=== PATIENT | male | born 1940 | race Caucasian/White ===

== ENCOUNTER 2023-12-03 11:48 | Inpatient (IN) | payer MEDICARE, SELFPAY ==
[2023-12-03] VITALS (10 sets, daily range): BP systolic 90–138; BP diastolic 47–89; BMI 29.8; BMI 28.6
[2023-12-03 09:14] LABS: % Basophils 0.3 % (0-2); % Eosinophils 0.4 % (0-6); % Immature Granulocytes 0.1 % (0-0.5); % Lymphocytes 87.9 % (20.5-51.1); % Monocytes 1.5 % (1.7-9.3); % Neutrophils 9.8 % (42.2-75.2); Absolute Basophils 0.1 10^3/uL (0-0.2); Absolute Eosinophils 0.1 10^3/uL (0-0.7); Absolute Immature Granulocytes 0.1 10^3/uL (0-0.05); Absolute Lymphocytes 30.4 10^3/uL (1.2-3.4); Absolute Monocytes 0.5 10^3/uL (0.1-0.6); Absolute Neutrophils 3.4 10^3/uL (1.4-6.5); Hematocrit 48.9 % (39.0-52.0); Mean Corp Hgb Conc. 32.7 g/dL (33.0-37.0); Mean Corpuscular Hgb 30.4 pg (27.0-31.0); Mean Corpuscular Volume 92.8 fL (80.0-94.0); Mean Platelet Volume 10.2 fL (7.4-10.4); Nucleated Red Blood Cells % 0 % (-); Platelet Count 120 10^3/uL (130-400); Red Blood Cell Count 5.27 10^6/uL (4.70-6.10); Red Cell Dist. Width 14.3 % (11.5-14.5); White Blood Cell Count 34.6 10^3/uL (4.8-10.8)
[2023-12-03 09:16] LABS: Blood Urea Nitrogen 19 mg/dl (9-20); Calcium 9.5 mg/dl (8.4-10.2); Carbon Dioxide 28 mmol/L (22-30); Chloride 102 mmol/L (98-107); Glucose 104 mg/dl (70-99); Potassium 4.2 mmol/L (3.5-5.1); Sodium 139 mmol/L (135-145); eGFR > 60.00
[2023-12-03 09:35] LABS: NT-proBNP 3640 pg/ml; Troponin I 0.061 ng/ml
[2023-12-03 09:47] LABS: D-Dimer 1.15 ug/mlFEU (0.00-0.50)
[2023-12-03] MEDS: LASIX 40 MG IV (10:20)
--- NOTE | 2023-12-03 11:32 | HPS.HSE ---
Family Physician
-
Family Physician: Daniele Moreno
Chief Complaint
-
Shortness of breath.
History of Present Illness
83-year-old gentleman with longstanding history of hypertension presented with having low blood pressure within the last week with dizziness and shortness of breath.
Over the last 2 months he started to notice shortness of breath. It was initially exertional when he was walking his dog or going uphill. But today he had it at rest. No chest pains or palpitations.
Has been taking antihypertensives for 5 years but within the last week he started to notice low blood pressure and was feeling dizzy with it.
No prior history of cardiac disease-no known atrial arrhythmia, CAD. Remembers him being told he had a murmur when he was a kid and that disappeared when he was an adult.
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 He states he did not do much of symptoms and diet was discovered on routine lab work. No fevers, night sweats or weight changes.
Subtle right more than left ankle edema noted. Denies any orthopnea or PND currently.
Cough with rattling today.
No chronic lung disease.
Medical History
Past Medical History
Past Medical History: Reports Cancer (CLL) and HTN
Past Surgical History: Reports Orthopedic (Bilateral hip replacement, bilateral knee replacement)
Social History
Tobacco: Former Smoker (QUIT IN )
Alcohol: None
Drug: None
Living: With Family
Family History
Family History: Not pertinent
Allergies / Home Medications
Allergies reflects when Allergies were last updated in Connect.
Home Medications with original date entered in Connect
Allergy/Medication List:
Allergies
Allergy/AdvReac Type Severity Reaction Status Date / Time
formaldehyde [Formaldehyde] Allergy Rash Verified 12/03/23 08:17
latex [Latex] Allergy Rash Verified 12/03/23 08:17
environmental Allergy congestion Uncoded 12/03/23 08:17
petroleum products Allergy Rash Uncoded 12/03/23 08:17
Home Medications
Prevagen 1 tab PO DAILY 03/12/20
betamethasone dipropionate 0.05 % topical cream 1 dose topical PRN PRN skin rash 03/12/20
diphenhydramine HCl 25 mg capsule (Banophen) 25 mg PO HSPRN PRN for sleep 03/12/20
levocetirizine 5 mg tablet (Xyzal) 5 mg PO DAILY 03/12/20
mupirocin 2 % topical ointment 1 applic intranasal BID #1 tube 03/13/20
acetaminophen 500 mg tablet (Tylenol Extra Strength) 1,000 mg (2 x 500 mg) PO Q6H ##0 03/25/20
aspirin 325 mg tablet 325 mg PO Daily #1 tab 03/25/20
docusate sodium 100 mg capsule 100 mg PO BID #1 cap 03/25/20
famotidine 20 mg tablet 20 mg PO HS #30 tabs 03/25/20
naproxen sodium 220 mg tablet (Aleve) 440 mg (2 x 220 mg) PO BID ##0 03/25/20
olmesartan 20 mg-amlodipine 5 mg-hydrochlorothiazide 12.5 mg tablet 1 ea PO DAILY ##0 03/25/20
ondansetron HCl 4 mg tablet 4 mg PO Q6HPRN PRN nausea #15 tabs 03/25/20
oxycodone 5 mg tablet 5 mg PO Q6HPRN PRN moderate-severe pain #35 tabs 03/25/20
sennosides 8.6 mg tablet (senna) 8.6 mg PO BID #2 tabs 03/25/20
Review of Systems
-
A 12 point ROS was completed and negative except as noted: Yes
Physical Exam
Vital Signs
Vital Signs
Temp Pulse Resp BP Pulse Ox
98.7 F 102 23 138/73 92
12/03/23 08:15 12/03/23 11:00 04/07/24 11:00 12/03/23 10:21 12/03/23 11:00
Physical Exam
General: Comfortable
HEENT: Moist mucous membranes
Respiratory: Crackles (few currently in right lung base) and Non Labored Respirations; No Wheezes or Accessory Resp Muscle Use
Cardiac: S1/S2, Irregular Rhythm, Murmur and JVD
GI: Soft, Non Tender and No Hepatosplenomegaly
Musculoskeletal: No No Edema (trace rt foot /ankle edema)
Neuro: AO x 3
Psych: Calm
Laboratory Results
-
12/03/23 08:44
12/03/23 08:44
Laboratory Results
Troponin I 0.061 ng/ml H* 12/03/23 08:44
Data Reviewed
-
Diagnostic Radiology: Report Reviewed by me (cxr)
Lab Data: Labs Reviewed by me
Impression/Plan
-
progressive shortness of breath with acute worsening-clinical symptoms and signs suggestive of acute CHF decompensation. He has a bilateral pleural effusion with increased pulmonary vasculature and interstitial prominence without prior history of
lung disease. His BNP is elevated. He got atrial arrhythmia on EKG -atrial tach vs afib. He has cardiac murmur which is new.. Due to elevated D-dimer a CT chest was requested in the ED-pending.
Admit to telemetry.
Start on IV Lasix
Obtain echocardiogram
Consult cardiology
Abnormal troponins-suspect secondary to CHF. No chest pain.Follow for now
HTN - with Issues of dizziness and low blood pressure at home. Hold his antihypertensive.
CLL-patient was recently given a diagnosis of CLL. Elevated white count with lymphocytosis noted. Continue to follow.
Full code
--- NOTE | 2023-12-03 12:06 | ED.GENMED ---
History of Present Illness
General
Chief Complaint: Breathing Problem
Time Seen by Provider: 12/03/23 08:25
Travel History
Have you had any contact with someone who has COVID-19?: No
Do you have any symptoms of coronavirus? Fever > 100 degrees, chills, cough, shortness of breath, sore throat, loss of taste or smell, muscle aches, or headache?: No
History of Present Illness
History of Present Illness:
Progressive shortness of breath over the last 2 weeks. Much worse with exertion and now at rest
Past History
Past History
ED Past Medical History: None
ED Past Surgical History: None
Social History
Tobacco: Non-smoker
Alcohol: None
Drug: None
Living: with family
Phy Exam
Physical Exam
Physical Exam:
GENERAL: Alert and oriented in no apparent distress
EYE: Orbits normal.
NECK: Supple, no thyroid palpable
ENT: Pharynx without erythema
CARDIAC: Irregular irregular mild midsystolic murmur
LUNGS: Mild tachypnea at rest. Bibasilar rales. Distant breath sounds
ABDOMEN: Soft, without focal tenderness or distention
NEUROLOGICAL: Alert and oriented , grossly non-focal
SKIN: Warm and dry, no rash or lesion, no discoloration, skin intact.
MUSCULOSKELETAL: No edema,no deformity.Good color
PSYCH: Normal and appropriate interaction.
Scores
Heart Failure Risk
Heart Failure Risk Score: Yes
History of Stroke or TIA: No
History of intubation for respiratory distress: No
Heart rate on ED arrival >/= 110: No
SaO2 <90% on arrival on room air: Yes
HR >/=110 during 3min walk test (or too ill to perform test): Yes
ECG has acute ischemic changes: No
Urea >/=12mmol/L (BUN 33.6mg/dL): No
Serum CO2>/=35mmol/L: No
Troponin I or T elevated to PR Level (0.4mg/dL): No
NT-proBNP >/=5,000ng/L (5,000pg/ml): No
HF Risk Score: 3
Admission Status: HIGH RISK 15.9% Consider SNF treatment or admission to hospital
Course
Orders/Labs/Results
Orders:
Orders
12/03/23 08:17
Electrocardiogram (*1) Urgent
Reason for Study: Shortness of Breath
EKG- Treatment ONCE
12/03/23 08:26
Cardiac Monitoring- Treatment ONCE
IV Insert/Care/Rem.- Treatment PRN
CR Chest - 2 Views Urgent
Comment:
Reason For Exam: sob
Pulse Ox/cont/shift [RESP] Stat
Quantity: 1
12/03/23 08:44
Basic Metabolic Panel Urgent
Complete Blood Count/With Diff Urgent
D-Dimer Urgent
NT-proBNP Urgent
Troponin I Urgent
12/03/23 09:58
Furosemide [Lasix] 40 mg IV NOW STA
12/03/23 09:59
CT Chest Pe Study Urgent
Comment:
Reason For Exam: sob. pos dimer
12/03/23 11:23
Admit/Transfer Patient As Directed
Co-Sign Provider:
Level of Care: Inpatient admission
Assign to:: Telemetry
Physician / Group: Campos
Diagnosis: Acute CHF
Reason for Telemetry: Acute Heart Failure
Date to Stop Telemetry: 12/06/23
Time to Stop Telemetry: 11:00
Reason for Hospitalization: See progress note
Expected length of stay greater than two midnights?: Yes
ELOS- Estimated Length of Stay in days: 3
I certify the patient meets the requirements for IP care: Yes
12/03/23 11:24
Code Status As Directed
Resuscitation Status: Full Code
12/06/23 11:00
DC Protocol for Telemetry ONCE
Abnormal Lab Results
12/03/23
08:44
WBC 34.6 H 10^3/uL
(4.8-10.8)
MCHC 32.7 L g/dL
(33.0-37.0)
Plt Count 120 L 10^3/uL
(130-400)
Abs Immat Gran (auto) 0.1 H 10^3/uL
(0-0.05)
Absolute Lymphs (auto) 30.4 H 10^3/uL
(1.2-3.4)
Neutrophils % 9.8 L %
(42.2-75.2)
Lymphocytes % 87.9 H %
(20.5-51.1)
Monocytes % 1.5 L %
(1.7-9.3)
D-Dimer 1.15 H ug/mlFEU
(0.00-0.50)
Glucose 104 H mg/dl
(70-99)
Troponin I 0.061 H* ng/ml
12/03/23 08:44
12/03/23 08:44
Vital Signs
Initial and Last Documented VS:
Initial Vital Signs
Temp Pulse Resp BP Pulse Ox
98.7 F 89 20 128/74 91
12/03/23 08:15 12/03/23 08:15 12/03/23 08:15 12/03/23 08:15 12/03/23 08:15
Last Documented Vital Signs
Temp Pulse Resp BP Pulse Ox
98.7 F 95 24 138/73 92
12/03/23 08:15 12/03/23 11:45 12/03/23 11:45 12/03/23 10:21 12/03/23 11:45
MDM/Problems Addressed
Differential Diagnosis Includes:
Patient with shortness of breath shortness of breath with exertion progressive. Testing all consistent with CHF. May be a COPD component. Complicated by atrial fibrillation. Admission for further care and workup
*Radiology
Radiology exam reviewed: preliminary read by ED provider (CHF), radiology read reviewed (CHF) and all reviewed NAD by ED Provider (No pulmonary emboli/pleural effusions)
*Pulse Oximetry
Patient hypoxic: yes
*EKG
Interpreted by ED Provider?: Yes
Interpretation: abnormal
Comparison EKG: changes noted
Heart Rate: 90
Rate: normal
Rhythm: sinus
Dell: normal axis
Interval: normal interval
QRS Pattern: normal QRS
Ischemia: non-specific ST changes
*Binder Coverstitch Interpretation
Rate: normal
Interpretation: abnormal
Heart Rate: 82
Rhythm: a-fib
*Critical Care Note
Total Time (30-74mins, 75-104mins- exclusive of procedures): Not Applicable
Data Reviewed
Review of Other/Old Records Reveals: Labs, Records and Testing
ED Attending Note
-
Portions of this chart may have been created with voice recognition software.� Occasional wrong word or��sound alike� substitutions may have occurred due to the inherent limitations of voice recognition software.
Discharge Plan
Departure
Patient Disposition: Admit
Date of Disposition: 12/03/23
Time of Disposition: 10:00
Presentation/result/management discussed w/ accepting MD/DO: Hospitalist
Discharge Problem:
Significant dyspnea on exertion, Atrial fibrillation new onset, CHF, Significant leukocytosis
Interventions
Interventions:
ED- Cardiac Assessment Last Done: 12/03/23 08:40
ED- Pulmonary Assessment Last Done: 12/03/23 08:40
--- NOTE | 2023-12-03 14:04 | CON.CAR ---
Consultation
Consultation Request
Date/Time Consultation Requested: 12/03/2023
Date/Time Consultation Performed: 12/03/23
Requesting Provider: Dr. Campos
Performing Provider: Dr. Moreira
Reason for Consultation: Heart murmur and arrhythmia
Medical History
-
Chief Complaint: Dyspnea on exertion
History of Present Illness:
83-year-old gentleman with a past medical history of psoriatic arthritis, recent diagnosis of CLL, and hypertension presents for evaluation of worsening shortness of breath with exertion. He states that been present for about a month. He noted
initially when walking uphill after walking his dog. This has been progressive and today was dyspneic even just walking around his house. He denies PND. He always sleeps in a recliner so cannot note orthopnea. No chest pain or pressure. He has
not noted any lower extremity edema. Of note around the time that the symptoms started, he stopped his antihypertensive regimen due to low blood pressure and dizziness. He is a former heavy smoker but quitting in 1979.
Past Medical History
Past Medical History: Cancer (CLL), HTN and Other (Psoriatic arthritis, )
Social History
Tobacco: Former Smoker
Personal: Single
Living: Alone
Family History
Family History: Reviewed & Not Pertinent
Allergies / Home Medications
Allergy/AdvReac Type Severity Reaction Status Date / Time
formaldehyde [Formaldehyde] Allergy Rash Verified 12/03/23 08:17
latex [Latex] Allergy Rash Verified 12/03/23 08:17
environmental Allergy congestion Uncoded 12/03/23 08:17
petroleum products Allergy Rash Uncoded 12/03/23 08:17
�Medication �Instructions �Recorded �Confirmed �Type
Prevagen 1 tab PO DAILY PRN supplement 03/12/20 12/03/23 History
diphenhydramine HCl 25 mg capsule 25 mg PO HS 03/12/20 12/03/23 History
(Banophen)
amlodipine 5 mg-olmesartan 20 mg 0.5 tab PO DAILY 12/03/23 12/03/23 History
tablet
Review of Systems
-
All other systems: Negative unless noted
Physical Exam
Vital Signs
Temp Pulse Resp BP Pulse Ox
98.7 F 85 13 127/65 90
12/03/23 08:15 12/03/23 12:45 12/03/23 12:45 12/03/23 12:00 12/03/23 12:45
Lab Results
12/03/23 08:44
12/03/23 08:44
Troponin I 0.061 ng/ml H* 12/03/23 08:44
Fmd-K-Hwlhpabzokg Pept 3640 pg/ml 12/03/23 08:44
Physical Exam
General: Well Developed, Well Nourished and No Apparent Distress
Respiratory: Clear, Wheezes (none), Crackles (none) and Rhonchi (none)
Cardiac: S1/S2, Regular Rhythm, Murmur (1/6 systolic murmur at the rusb) and JVD (13 cm H20)
GI: Soft and Non Distended
Musculoskeletal: No Clubbing, No Cyanosis and No Edema
Neuro: AO x 3
Impression / Plan
-
Heart failure unspecified type:
-CT and chest x-ray significant for heart failure with large pleural effusions.
-He has had a brisk diuresis to IV Lasix. Will continue. will require intensive monitoring of his electrolytes and bp
-Recommend thoracentesis for better symptomatic improvement if no diuresis stalled by bp
-Unclear etiology---hopefully echo will hint at the cause
-trend troponin
-ischemic eval op vs ip depending on results.
Wandering atrial pacemaker: There is a question of possible atrial fibrillation however I see clear atrial activity with different morphologies. Would continue to monitor on telemetry for development of atrial fibrillation.
Murmur:
RUSB, check echo
Hypertension chronic, had been dizzy at home holding agents for the last month, will need to reconsider as we approach euvolemia
CLL chronic but new diagnosis
Psoriatic arthritis chronic, would update lipid panel for restratification given and risk enhancing feature
Data Reviewed
-
EKG: Tracing Personally Visualized and interpreted (EKG tracing shows wandering atrial pacemaker)
Radiology: Image Personally Visualized and interpreted (Chest x-ray with normal-sized heart silhouette, cephalization, increased interstitial markings)
CT Scan: Image Personally Visualized and interpreted (Large bilateral pleural effusions with atelectasis) and Report Reviewed by me
Labs: Labs Reviewed by me (proBNP 3640 troponin 0.061)
[2023-12-03 15:36] LABS: Troponin I 0.113 ng/ml
[2023-12-03] MEDS: LOVENOX 40 MG SC (17:34)
[2023-12-03 23:59] LABS: Troponin I 0.124 ng/ml
[2023-12-04] VITALS (9 sets, daily range): BP systolic 112–129; BP diastolic 66–78; O2SAT 89–94; BMI 28.3
--- NOTE | 2023-12-04 01:41 | PTCARENOTE ---
Patient`s 3rd troponin elevated at 0.124. BUSINESS RULES ANALYST Carli Youssef notified.
[2023-12-04 07:29] LABS: Troponin I 0.101 ng/ml
[2023-12-04 07:32] LABS: Blood Urea Nitrogen 21 mg/dl (9-20); Carbon Dioxide 30 mmol/L (22-30); Chloride 104 mmol/L (98-107); Estimated Creatinine Clearance 61 ml/min; Glucose 96 mg/dl (70-99); HDL Cholesterol 55 mg/dl; LDL Cholesterol, Calculated 103 mg/dl; Magnesium 1.9 mg/dl (1.6-2.3); Sodium 138 mmol/L (135-145); Total Cholesterol 172 mg/dl (50-199); Triglyceride 71 mg/dl (10-149); Very Low Density Lipoprotein 14 mg/dl (0-30); eGFR > 60.00
[2023-12-04] MEDS: LASIX 40 MG IV (08:01)
[2023-12-04 08:16] LABS: TSH 1.38 uIU/ml (0.47-4.68)
[2023-12-04 08:30] LABS: Hematocrit 44.9 % (39.0-52.0); Mean Corp Hgb Conc. 33.4 g/dL (33.0-37.0); Mean Corpuscular Hgb 30.7 pg (27.0-31.0); Mean Corpuscular Volume 91.8 fL (80.0-94.0); Mean Platelet Volume 10.5 fL (7.4-10.4); Platelet Count 109 10^3/uL (130-400); Red Blood Cell Count 4.89 10^6/uL (4.70-6.10); Red Cell Dist. Width 14.3 % (11.5-14.5); White Blood Cell Count 33.6 10^3/uL (4.8-10.8)
--- NOTE | 2023-12-04 10:35 | W.PN.CD ---
Today's Communication / Plan
-
Continue diuresis
L/R heart cath to further evaluate his HFrEF and severe . Cath will be at increases risk given age, IV contrast for CTA recently, severe , age, CLL
Likely will need AVR +/- revascularization
Pt education
Over time will add GDMT
For now I do not think he needs pleural taps, see how effusions respond to diuresis
Impression / Plan
-
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
Severe
Wandering atrial pacemaker, PACs
- No AFib seen
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
HTN
CLL, newer diagnosis
Psoriatic arthritis chronic
Joint disease with prior orthopedic procedures
Subjective:
Feeling better with IV diuresis
Physical Exam
Vital Signs/Labs
Vital Signs
Temp Pulse Resp BP Pulse Ox
97.4 F 75 16 120/77 95
12/04/23 07:36 12/04/23 07:36 12/04/23 07:36 12/04/23 07:36 12/04/23 07:36
12/03/23 12/04/23 12/05/23
06:59 06:59 06:59
Actual Weight 102.569 kg
12/04/23 06:00
12/04/23 06:39
Magnesium 1.9 mg/dl (1.6-2.3) 12/04/23 06:39
Triglycerides 71 mg/dl (10-149) 12/04/23 06:39
LDL Cholesterol, Calc 103 mg/dl 12/04/23 06:39
VLDL Cholesterol, Calc 14 mg/dl (0-30) 12/04/23 06:39
HDL Cholesterol 55 mg/dl 12/04/23 06:39
TSH 1.38 uIU/ml (0.47-4.68) 12/04/23 06:39
12/03/23
08:44
Ucs-L-Nosirfdceli Pept 3640
LAB Results
12/03/23 12/03/23 12/03/23
08:44 15:02 23:28
Troponin I 0.061 H* 0.113 H* D 0.124 H*
12/04/23
06:39
Troponin I 0.101 H*
Physical Exam
Constitutional: No acute distress
EENT: Anicteric
Cardiovascular: Rhythm & rate is regular, Pedal edema is absent, Systolic murmur present and S1S2 is normal
Respiratory: Respiratory effort normal and Crackles Present (at bases)
GI: Soft and Distention absent
Neuro/Psych: AO x 3
Data Reviewed
-
Date of Service: December 04, 2023
[2023-12-04] MEDS: ASPIRIN 325 MG PO (11:21)
--- NOTE | 2023-12-04 11:51 | CM ---
Patient seen bedside, initial assessment completed. Patient reports he resides independently in a single story home, 5 steps to enter. Patient denies DME, reports VN in the past after knee and hip replacements, [facility] after knee replacement.
Patient confirms PCP Daniele Moreno, confirms he has prescription coverage, pharmacy [facility] in [facility]. CM will watch for home O2 needs, will continue to follow for discharge planning needs.
Plan; home no needs, watch for VN needs, watch for O2 needs.
--- NOTE | 2023-12-04 13:19 | W.PN.HOSP.TC ---
Today's Communication/Plan
-
Diuresis
Assessment / Plan
Assessment / Plan
83-year-old male because of shortness of breath. Going on for a month he also felt his lower extremity had edema.
Cardiovascular system S1-S2 appreciated-irregular, systolic murmur at aortic area
Decreased breath sounds at bases few rales
Abdomen soft and nontender
No pedal edema
#CHF-acute heart failure with reduced ejection fraction
Likely aortic stenosis also contributing
Chest imaging consistent with heart failure.
Echo-12/04/2023-mildly reduced LV systolic function. Ejection fraction 40% with global hypokinesis. Severe aortic stenosis with mild AI
He is feeling much better with Lasix
Continue Lasix
If diuresis does not improve pleural effusion may need thoracentesis
# Acute hypoxic respiratory insufficiency secondary to above
# Severe arctic stenosis
#A fib-
Monitor on telemetry
Rates mostly under control
May need to address anticoagulation
# CLL with elevated white count
# Hypertension-was on olmesartan amlodipine combination at home
# Psoriatic arthritis
# Fuch's Corneal Dystrophy
# DVT prophylaxis-Lovenox
# Full code
Anticipated Discharge: 24 - 48 hours
Subjective/Interval History
-
Date of Service: December 04, 2023
Objective Data
-
Labs:
Laboratory Results
12/04/23 12/04/23
06:00 06:39
WBC 33.6 H
Hgb 15.0
Hct 44.9
Plt Count 109 L
Sodium 138
Potassium 4.0
Chloride 104
Carbon Dioxide 30
BUN 21 H
Creatinine 1.1
Glucose 96
Calcium 9.0
Vital Signs:
Vital Signs
Temp Pulse Resp BP Pulse Ox
97.7 F 80 16 112/78 93
04/08/24 11:49 12/04/23 11:49 12/04/23 11:49 12/04/23 11:49 12/04/23 11:49
I&O
12/03/23 12/04/23 12/05/23
06:59 06:59 06:59
Output Total 2049 / 2049
Balance -2049 / -2049
[2023-12-04] MEDS: LOVENOX 40 MG SC (17:20)
[2023-12-05] VITALS (13 sets, daily range): BP systolic 109–148; BP diastolic 63–83; BMI 27.9
[2023-12-05] MEDS: LOW STRENGTH ASPIRIN 81 MG PO (08:21)
[2023-12-05 08:52] LABS: Blood Urea Nitrogen 22 mg/dl (9-20); Calcium 9.2 mg/dl (8.4-10.2); Carbon Dioxide 29 mmol/L (22-30); Chloride 98 mmol/L (98-107); Estimated Creatinine Clearance 67 ml/min; Glucose 94 mg/dl (70-99); Potassium 3.9 mmol/L (3.5-5.1); Sodium 137 mmol/L (135-145); eGFR > 60.00
--- NOTE | 2023-12-05 10:01 | ITS.CL.CATH ---
Criminal Attorney - Catheterization
Cardiac Catheterization
Procedure Report:
CARDIAC CATHETERIZATION REPORT
Date of Procedure: 12/05/2023
Referring: Jane Moreira MD
Indication: LV dysfunction with severe aortic stenosis by echo
HEMODYNAMIC DATA
AO: 104/60
LV: 136/8
There is a mean gradient of 30 mmHg across the aortic valve
LEFT VENTRICULOGRAPHY: Focal area of anterolateral hypokinesis with otherwise normal LV wall motion with EF 46%
CORONARY ANGIOGRAPHY
Dominance: Right
Left Main: Normal
LAD: 30% mid LAD stenosis distal to the takeoff of the large first diagonal branch. The remainder of the LAD proper has mild luminal irregularities. The large first diagonal branch has 60-70% ostial/proximal stenosis
Circumflex: Mild luminal irregularities
RCA: Large dominant mildly ectatic vessel with diffuse mild luminal irregularities
Closure Device: None-the procedure was started via the right radial artery. We were able to perform left coronary angiography and left ventriculography. However, we were unable to manipulate a JR4 or an AL-1 into the right coronary due to
significant innominate tortuosity. In fact, standard length catheters would not reach the aortic root and we needed to use 5 Wallisian 125 cm catheters from the radial approach. In order to image the RCA, we placed a 5 Wallisian sheath in the right
femoral artery and were able to cannulate the RCA with the 5 Wallisian 125 cm length JR4 diagnostic catheter.
Manual compression was used for hemostasis.
Radiation (mGy): 1091
DAP (cm2.Gy): 103
Fluoroscopy time: 12.1 minutes
CONCLUSIONS
1: Mean gradient of 30 mmHg across the aortic valve most consistent with moderate aortic stenosis. Echo reports mean gradient 41 mmHg although review of the images suggest significant [id number]-fy-lrtj variability
2: Focal area of anterolateral hypokinesis with EF 46%
3. Single-vessel branch CAD as described above
4. Continue medical therapy for systolic left ventricular dysfunction. ASA and statin recommended for CAD
5. Would proceed with a TAVR CTA then discussion in the multidisciplinary valve conference about whether to proceed with valve replacement at this time
Copy to: Jane Moreira MD, Daniele Moreno, DO
Kingsley Garces MD, FACC, [facility]
[2023-12-05] MEDS: LASIX 40 MG IV (10:54)
--- NOTE | 2023-12-05 11:25 | W.PN.HOSP.TC ---
Today's Communication/Plan
-
Lasix
Watch BP
CXR to be repeated in am
Watch creatinine
Assessment / Plan
Assessment / Plan
83-year-old male because of shortness of breath. Going on for a month he also felt his lower extremity had edema.
Cardiovascular system S1-S2 appreciated-irregular, systolic murmur at aortic area
Decreased breath sounds at bases few rales
Abdomen soft and nontender
No pedal edema
#CHF-acute heart failure with reduced ejection fraction
Likely aortic stenosis contributing
Chest imaging consistent with heart failure.
Echo-12/04/2023-mildly reduced LV systolic function. Ejection fraction 40% with global hypokinesis. Severe aortic stenosis with mild AI
He is feeling much better with Lasix
Continue Lasix
If diuresis does not improve pleural effusion may need thoracentesis
Rpt CXR in am
S/P Cardiac cath today
Report not available to review
Non NM Trop elevation
# Acute hypoxic respiratory insufficiency secondary to above
Wean Oxygen as tolerated.
# Severe arctic stenosis
TAVR eval
#A fib-
Monitor on telemetry
Rates mostly under control
May need to address anticoagulation
# CLL with elevated white count
# Hypertension-was on olmesartan amlodipine combination at home
Holding while diuresing
BP Soft
# Psoriatic arthritis
# Fuch's Corneal Dystrophy
# DVT prophylaxis-Lovenox
# Full code
D/W RN at bed side
Anticipated Discharge: 24 - 48 hours
Subjective/Interval History
-
Date of Service: December 05, 2023
Objective Data
-
Labs:
Laboratory Results
12/05/23
06:42
Sodium 137
Potassium 3.9
Chloride 98
Carbon Dioxide 29
BUN 22 H
Creatinine 1.0
Glucose 94
Calcium 9.2
Vital Signs:
Vital Signs
Temp Pulse Resp BP Pulse Ox
97.4 F 45 18 109/63 96
12/05/23 10:45 12/05/23 10:45 12/05/23 10:45 12/05/23 10:45 12/05/23 10:45
I&O
12/04/23 12/05/23 12/06/23
06:59 06:59 06:59
Intake Total 1680 / 1680
Output Total 2049 1550 / 1550
Balance -2049 / -2049 130 / 130
--- NOTE | 2023-12-05 12:11 | W.PN.UPDATE ---
Addendum entered and electronically signed by Guillermo Vogt MD 12/05/23 13:58:
Hematuria again.
U/A
Will get USS
Request Urology eval
Original Note:
Update Note
Progress Note Update
nursing reports hematuria.
Watch
--- NOTE | 2023-12-05 12:14 | PTCARENOTE ---
Notified provider of patient's blood-tinged urine. MD advised to continue monitoring.
[2023-12-05 13:32] LABS: Urine Albumin Trace (Neg - Trace); Urine Bilirubin Negative (Negative); Urine Character Clear (Clear); Urine Color Yellow; Urine Glucose Negative (Negative); Urine Ketone Trace (Negative); Urine Leukocyte Trace (Negative); Urine Nitrite Negative (Negative); Urine Occult Blood 4+ (Negative); Urine Urobilinogen Negative (Neg - 1+); Urine pH 6.5 (5.0-9.0)
[2023-12-05 13:48] LABS: Urine Bacteria Few (Negative); Urine Red Blood Cell 60-70 /HPF (0-2); Urine Squamous Cell 0-2 /LPF (Few); Urine White Cell 0-2 /HPF (0-5)
--- NOTE | 2023-12-05 14:30 | PTCARENOTE ---
Patient's urine increasingly blood-tinged with some clots, made aware.
--- NOTE | 2023-12-05 14:48 | CON.MD ---
Consultation - Medical
-
see dictated not
pt with no prior gu hx
no sig luts or hx of hematuria
hx of CLL- had contrasted ct in 2022- renal cysts and BPH but otherwise negative from gu standpoint
admitted with CHF- was placed on asa and lovenox on admit
had cath today- ? if heparin given- now with gross hematuria
pt is not having any difficulty passing urine at this time
abd benign
plan
flomax
observe voided urine- if clots/retention develop- will need ramos and cbi
will plan for noncontrast ct tomorrow
cardiology plan is for discharge then scheduling for TAVR
will need outpt cysto prior to procedure
will follow
--- NOTE | 2023-12-05 15:17 | CM ---
Patient seen, remains on O2, watch for home O2 needs. CM will continue to follow for discharge planning needs.
Plan; home no needs vs VN, watch for home O2 needs.
--- NOTE | 2023-12-05 15:37 | CONSULT.STRU ---
Addendum entered and electronically signed by MARISSA Zepeda 12/12/23 09:37:
Reviewed Mr. Weir with the heart team on 12/08/2023 in the SDM meeting. The team agreed to proceed with TAVR CT and request calcium leaflet score. Will review CT scan with the heart team once resulted and develop a plan of care at that time.
Original Note:
Consultation
-
Date/Time Consultation Requested: 12/05/2023 1100
Date/Time Consultation Performed: 12/05/2023 1400
Requesting Provider: Dr. Kingsley Garces
Performing Provider: MARISSA Cortes
Reason for Consultation: Aortic Stenosis
Patient History
Physicians
Family Physician: Daniele Moreno
Outpatient Airset Molder: none prior to admission
Primary Airset Molder: Torie Moreira
History of Present Illness
Mr. Weir is a very pleasant 83-year-old gentleman with a past medical history of psoriatic arthritis, recent diagnosis of CLL, and hypertension who presented to the ER on 12/02 for evaluation of worsening shortness of breath with exertion. He noted
initially when walking uphill after walking his dog he was becoming increasingly more SOB. On Monday he said he was dyspneic even just walking around his house. He denies PND, chest pain, palpitations. He always sleeps in a recliner so cannot note
orthopnea. He has not noted any lower extremity edema. Of note around the time that the symptoms started, he stopped his antihypertensive regimen due to low blood pressure and dizziness. He is a former heavy smoker for about 10 years but quit in
1979. He underwent cardiac cath today with no significant blockage. His echocardiogram on 12/04/2023 demonstrated aortic stenosis with PG/M/42, ENOCH: 0.8 with mild AI. EF was 40%.
Reviewed the pathophysiology of aortic stenosis with the patient. Explained the treatment options of SAVR and TAVR. Explained the TAVR evaluation process including follow up BMP, CT TAVR scan, CT surgery consult and Heart Team discussion. Provided
with script for BMP next week, script and appointment for CT TAVR, Consult appointment with Dr. Porter and a copy of the TAVR education booklet with contact information. Allowed for and answered questions.
Past Medical History
Past Medical History: Cancer (CLL), CHF, GALLEGOS, HTN and Other (Psoriatic arthritis)
Past Surgical History
Past Surgical History: Orthopedic (Bilateral TKR, Bilateral THR, Bilateral shoulder repair. Right wrist fusion) and Tonsilectomy (age 3)
Dental History
Regular dental care. Last visit [address] Sainz in [place].
Family History
Mother: at Age (80, h/o CVA)
Father: at Age
Social History
Alcohol: None
Drug: None
Tobacco: Former Smoker (quit 1979)
Personal: Single
Living: Alone
Employment: Retired
Allergies
Allergy/AdvReac Type Severity Reaction Status Date / Time
formaldehyde [Formaldehyde] Allergy Rash Verified 12/03/23 08:17
latex [Latex] Allergy Rash Verified 12/03/23 08:17
environmental Allergy congestion Uncoded 12/03/23 08:17
petroleum products Allergy Rash Uncoded 12/03/23 08:17
Home Medications
�Medication �Instructions �Recorded �Confirmed �Type
Prevagen 1 tab PO DAILY PRN supplement 03/12/20 12/03/23 History
diphenhydramine HCl 25 mg capsule 25 mg PO HS Allergies 03/12/20 12/03/23 History
(Banophen)
amlodipine 5 mg-olmesartan 20 mg 0.5 tab PO DAILY Blood Pressure 12/03/23 12/03/23 History
tablet
STS%
STS %: 6.63%
Review of Systems
-
History Source: Patient
General: Reports Fatigue
HEENT: Reports No Symptoms
Respiratory: Reports GALLEGOS (while walking dog uphill over last few months)
Cardiac: Reports No Symptoms
Abdomen/GI: Reports No Symptoms
: Reports Hematuria (new onset following cardiac cath today)
Musculoskeletal: Reports Joint Pain (chronic- arthritis)
Skin: Reports No Symptoms
Neurological: Reports No Symptoms
Vascular: Reports No Symptoms
Physical Exam
Vital Signs
Temp 97.9 F 12/05/23 15:29
Temp route: Oral 12/05/23 15:29
Pulse 78 12/05/23 15:29
Rhythm: Atrial fibrillation 12/05/23 08:00
With- Normal sinus rhythm 12/04/23 20:00
Resp Rate 18 12/05/23 15:29
Blood pressure 121/73 12/05/23 15:29
Blood pressure extremity used: Left upper arm 12/05/23 15:29
Position: Lying 12/05/23 15:29
MAP (cuff-Jake Monitor) 79 12/03/23 14:20
SaO2 94 12/05/23 15:29
Nasal Cannula flow liters per minute 2 12/05/23 15:29
Oxygen Mode of Delivery Room air 12/04/23 19:40
Pulse Ox at Rest 94 12/04/23 12:00
Oxygen modality: Nasal cannula 12/04/23 12:00
Flow rate 2 12/04/23 12:00
Can the patient verbally communicate their pain? Yes 12/05/23 08:00
Actual Weight 101.321 kg 12/05/23 05:17
Body Mass Index (BMI) 27.9 12/05/23 05:17
Labs
12/04/23 06:00
12/05/23 06:42
Troponin I 0.101 ng/ml H* 12/04/23 06:39
Jhx-N-Gcvkbrobxra Pept 3640 pg/ml 12/03/23 08:44
Urinalysis
Urine Color Yellow 12/05/23 13:20
Urine Clarity Clear (Clear) 12/05/23 13:20
Urine pH 6.5 (5.0-9.0) 12/05/23 13:20
Ur Specific Carver 1.010 (<1.030) 12/05/23 13:20
Urine Ketones Trace (Negative) A 12/05/23 13:20
Urine Occult Blood 4+ (Negative) A 12/05/23 13:20
Urine Bilirubin Negative (Negative) 12/05/23 13:20
Ur Leukocyte Esterase Trace (Negative) A 12/05/23 13:20
Urine RBC 60-70 /HPF (0-2) A 12/05/23 13:20
Urine WBC 0-2 /HPF (0-5) 12/05/23 13:20
Ur Squamous Epith Cells 0-2 /LPF (Few) 12/05/23 13:20
Urine Glucose Negative (Negative) 12/05/23 13:20
Urine Albumin Trace (Neg - Trace) 12/05/23 13:20
Diagnostic Studies
12/04/2023 Echocardiogram:
CONCLUSIONS
Technically difficult study. IV echo contrast should be considered for future
studies.
Mildly reduced left ventricular systolic function. LVEF 40%. with global
hypokinesis.
Severe aortic stenosis (peak/mean 67/42mmHg; ENOCH 0.8cmsq) with mild aortic
regurgitation.
No prior study available for comparison.
Indications:
new CHF
Rhythm: bigemeny
Portable Study: No
Technical Quality: limited parasternal window
Contrast: None
BP: 114 / 67
PROCEDURE
A complete Transthoracic Echocardiogram was performed utilizing two-dimensional
evaluation with color flow and spectral Doppler analysis.
FINDINGS
Left Ventricle
Normal left ventricular chamber size. Mildly reduced left ventricular systolic
function. Left ventricular ejection fraction is 40% by visual assessment.
Global hypokinesis. Wall motion assessment limited by image quality. Mild
concentric left ventricular hypertrophy. Diastolic function indeterminate.
Right Ventricle
Normal right ventricular size. Normal right ventricular systolic function.
Left Atrium
Indexed LA volume is mildly abnormal (35-41 mL/m2).
Right Atrium
Normal right atrial size.
Mitral Valve
Structurally normal mitral valve. Mitral valve opens normally. Mild mitral
regurgitation.
Aortic Valve
Thickened aortic valve with restricted leaflet motion. Severe aortic stenosis.
Peak/mean gradients are 67/42mmHg. The valve area by continuity equation is
0.8cmsq, using a LVOT of 2.1cm. Mild aortic regurgitation.
Tricuspid Valve
Structurally normal tricuspid valve. Tricuspid valve opens normally. Trace
tricuspid regurgitation. Estimated pulmonary artery pressure of 20-25 mmHg.
Assuming a right atrial pressure of 3 mmHg.
Pulmonic Valve
Not visualized.
Pericardium\\Pleura
No pericardial effusion. Pleural effusions are not seen but are known to be
present by CT scan.
Aorta
The aortic root is normal in caliber. Suboptimal suprasternal notch view.
Other Finding
The IVC is of normal size and demonstrates normal respiratory variation.
Interatrial septum is intact with no evidence of shunting by color flow
Doppler. No intracardiac mass or thrombus formation seen.
MEASUREMENTS (Male / Female) Normal Values
2D ECHO
LVOT Diameter 2.1 cm
LV Ejection Fraction MOD BP 53.6 % >= 55 %
LV Stroke Volume MOD BP 44.4 cm3
LV Cardiac Index MOD BP 1155.0 cm3/min
LV Stroke Volume MOD 4C 43.5 cm3
LV Stroke Volume 4C AL 46.6 cm3
LV Stroke Volume MOD 2C 42.5 cm3
LV Stroke Volume 2C AL 44.1 cm3
LA Area 4C View 29.2 cm2 <= 20 cm2
LA Length 4C 7.3 cm
LA Volume 90.4 cm3 18 - 58 / 22 - 52 cm3
RV Diastolic Basal Diameter 4.3 cm 2.0 - 2.8 cm
RV Diastolic Mid Diameter 3.4 cm 2.7 - 3.3 cm
DOPPLER
AV Peak Velocity 409.0 cm/s
AV Peak Gradient 66.9 mmHg
AV Mean Gradient 42.0 mmHg
AV Velocity Time Integral 70.9 cm
AI Peak Velocity 401.0 cm/s
AI Peak Gradient 64.3 mmHg
AI Pressure Half Time 483.0 ms
LVOT Peak Velocity 79.6 cm/s
LVOT Peak Gradient 2.5 mmHg
LVOT Velocity Time Integral 15.9 cm
LVOT Stroke Volume 55.2 cm3
LVOT Stroke Volume Index 23.6 ml/m2 empty
LVOT Cardiac Index 1437.2 cm3/min\\m2
AV Area Cont Eq vti 0.8 cm2
AV Area Cont Eq pk 0.7 cm2
MV Area PHT 2.7 cm2
Mitral E Point Velocity 88.3 cm/s
Mitral A Point Velocity 47.6 cm/s
Mitral E to A Ratio 1.9
LV E' Lateral Velocity 13.4 cm/s
Mitral E to LV E' Lateral Ratio 6.6
LV E' Septal Velocity 5.7 cm/s
Mitral E to LV E' Septal Ratio 15.6
TR Peak Velocity 219.0 cm/s
TR Peak Gradient 19.2 mmHg
Exam
General: Well Developed, Well Nourished, No Apparent Distress and Comfortable
HEENT: Normocephalic and Moist Mucous Membranes
Neck: Trachea Midline
Respiratory: Clear
Cardiac: S1/S2, Regular Rhythm and Murmur (Grade I/)
GI: Soft, Non Tender, Non Distended and Normal Bowel Sounds
Rectal: Deferred by Provider
Skin: Warm
Neuro: AO x 3 and No Motor Deficits
Extremities: Pulses (+2 dp/pt pulses)
Psych: Calm
Assessment / Plan
-
Severe Aortic stenosis:
��������������� Continue evaluation for TAVR as outpatient
��������������� BMP 12/10 or 12/11 at [facility]
��������������� CT TAVR scan 12/15/2023 at 0930 at pending BMP results
��������������� CT surgery consult with Dr. Porter on 12/20/2023
��������������� Heart team discussion at [facility]
Dental clearance- Dr. Sainz
Will need to initiate Aspirin 81mg daily
CLL
Recent diagnosis
Follows with [facility] - Appt 12/12/2023
Appreciate Oncology input
Data Reviewed
-
Finance Intern: Discussed with Physician
Echo: Report Reviewed by me
Labs: Labs Reviewed by me
Total Time Spent with Patient (in minutes): 45
[2023-12-05] MEDS: FLOMAX 0.400000000000000022 MG PO (16:14)
[2023-12-05] MEDS: LIPITOR 40 MG PO (17:03)
[2023-12-06] VITALS (7 sets, daily range): BP systolic 99–140; BP diastolic 62–84; O2SAT 88–93; BMI 27.9
--- NOTE | 2023-12-06 07:07 | W.PN.URO.CBU ---
Today's Communication / Plan
-
continue flomax- hold lovenox
at time of discharge- convert to proscar and have pt call dr garces's office to schedule cystoscopy
Assessment / Plan
-
hematuria
urine now clear
pt will be getting full body ct as outpt eval for tavr- urine now clear so need to do in house
does need to call my office at time of discharge to schedule cysto
ok to continue asa- but would hold lovenox/etc at this time
continue flomax while in house- but discharge on proscar 5mg daily
Diagnosis
-
Date of Service: December 06, 2023
-
Patient Diagnosis:
hematuria
Subjective
-
pt feels ok
still on oxygen
urinating without difficulty- urine now clear
pt was on lovenox and di receive heparin bolus at time of cath
Objective
-
Vital Signs
Temp Pulse Resp BP Pulse Ox
97.9 F 75 18 133/72 96
12/06/23 03:40 12/06/23 03:40 12/06/23 03:40 12/06/23 03:40 12/06/23 03:40
Intake and Output
12/05/23 12/06/23 12/07/23
06:59 06:59 06:59
Intake Total 1680 / 1680 1560 / 1560
Output Total 1550 / 1550 1250 / 1250
Balance 130 / 130 310 / 310
Intake:
Oral fluids 1680 / 1680 1560 / 1560
Output:
Urine, Voided 1550 / 1550 1250 / 1250
Other:
Number of approximated MODERATE 1
amounts of urine
Physical Exam
-
General - no acute distress
Abdomen - soft, non-tender
Genitalia - normal
--- NOTE | 2023-12-06 07:56 | W.PN.CD ---
Today's Communication / Plan
-
transition to 40mg po lasix daily for discharge
continue asa/statin for discharge
will arrange chf f/u
TAVR w/u to continue as an outpatient.
Impression / Plan
-
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
-down to 101.1kg
-LVEP8
-will transition to po lasix 40mg daily
-wean oxygen
Severe :
-TAVR eval to continue as an outpatient
CAD:
-nonobstructive, moderate
-aspirin and statin
Wandering atrial pacemaker, PACs
- No AFib seen
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
HTN
CLL, newer diagnosis
Psoriatic arthritis chronic
Joint disease with prior orthopedic procedures
Subjective:
Feeling better with IV diuresis, walking to bathroom without issue
12/06/23:L/RHC
CORONARY ANGIOGRAPHY
Dominance: Right
Left Main: Normal
LAD: 30% mid LAD stenosis distal to the takeoff of the large first diagonal branch. The remainder of the LAD proper has mild luminal irregularities. The large first diagonal branch has 60-70% ostial/proximal stenosis
Circumflex: Mild luminal irregularities
RCA: Large dominant mildly ectatic vessel with diffuse mild luminal irregularities
CONCLUSIONS
1: Mean gradient of 30 mmHg across the aortic valve most consistent with moderate aortic stenosis. Echo reports mean gradient 41 mmHg although review of the images suggest significant fazz-az-jmmf variability
2: Focal area of anterolateral hypokinesis with EF 46%
3. Single-vessel branch CAD as described above
4. Continue medical therapy for systolic left ventricular dysfunction. ASA and statin recommended for CAD
5. Would proceed with a TAVR CTA then discussion in the multidisciplinary valve conference about whether to proceed with valve replacement at this time
Physical Exam
Vital Signs/Labs
Vital Signs
Temp Pulse Resp BP Pulse Ox
97.9 F 75 18 133/72 96
12/06/23 03:40 12/06/23 03:40 12/06/23 03:40 12/06/23 03:40 12/06/23 03:40
12/05/23 12/06/23 12/07/23
06:59 06:59 06:59
Actual Weight 101.321 kg 101.151 kg
Magnesium 2.0 mg/dl (1.6-2.3) 12/05/23 06:42
Triglycerides 71 mg/dl (10-149) 12/04/23 06:39
LDL Cholesterol, Calc 103 mg/dl 12/04/23 06:39
VLDL Cholesterol, Calc 14 mg/dl (0-30) 12/04/23 06:39
HDL Cholesterol 55 mg/dl 12/04/23 06:39
TSH 1.38 uIU/ml (0.47-4.68) 12/04/23 06:39
12/03/23
08:44
Pwz-Q-Piedxecwewv Pept 3640
LAB Results
12/03/23 12/03/23 12/03/23
08:44 15:02 23:28
Troponin I 0.061 H* 0.113 H* D 0.124 H*
12/04/23
06:39
Troponin I 0.101 H*
Physical Exam
Constitutional: No acute distress
Cardiovascular: Rhythm & rate is regular, Pedal edema is absent and Systolic murmur present
Respiratory: Respiratory effort normal, Lungs clear to auscul., Wheeze Absent, Crackles Absent and Rhonchi Absent
Other: Cardiac Device Site (Right FA and RRA sites soft well healed no hematoma)
Data Reviewed
-
Date of Service: December 06, 2023
X-Ray/CT/US/MRI/NUC/PET: Discussed with Physician (Dr Vogt,ok to discharge from cardiovascular perspective)
[2023-12-06 08:00] LABS: Hematocrit 44.5 % (39.0-52.0); Hemoglobin 14.9 g/dL (13.0-18.0); Mean Corp Hgb Conc. 33.5 g/dL (33.0-37.0); Mean Corpuscular Hgb 30.7 pg (27.0-31.0); Mean Corpuscular Volume 91.8 fL (80.0-94.0); Red Blood Cell Count 4.85 10^6/uL (4.70-6.10); White Blood Cell Count 30.8 10^3/uL (4.8-10.8)
[2023-12-06 08:26] LABS: Mean Platelet Volume 10.5 fL (7.4-10.4); Platelet Count 92 10^3/uL (130-400)
[2023-12-06 08:32] LABS: Blood Urea Nitrogen 22 mg/dl (9-20); Calcium 9.1 mg/dl (8.4-10.2); Carbon Dioxide 30 mmol/L (22-30); Chloride 96 mmol/L (98-107); Estimated Creatinine Clearance 67 ml/min; Glucose 110 mg/dl (70-99); Potassium 3.6 mmol/L (3.5-5.1); Sodium 134 mmol/L (135-145); eGFR > 60.00
[2023-12-06] MEDS: LOW STRENGTH ASPIRIN 81 MG PO (08:55)
[2023-12-06] MEDS: LASIX 40 MG IV (08:55)
[2023-12-06] MEDS: FLOMAX 0.400000000000000022 MG PO (08:55)
--- NOTE | 2023-12-06 11:06 | PN.CDI ---
Addendum entered and electronically signed by Guillermo Vogt MD 12/06/23 11:12:
No plan to change any documentation
Original Note:
CDI
- -
CDI:
Physician Documentation Request
Admit Date: 12/03/23 11:48
Dear Doctor Sin,
Patient admitted for acute heart failure.
12/04 Hospitalist PN: 'CHF-acute heart failure with reduced ejection fraction...Non SC Trop elevation'
Please clarify the following regarding the documented troponin elevation:
Non-ischemic myocardial injury
Lab abnormality
Other
Use of terms such as suspected, likely, concern for, or probable (associated with a specific diagnosis that is being evaluated, monitored, or treated as if it exists) are acceptable and can be coded in the inpatient setting, when documented at the
time of discharge.
Thank you,
Rehana Malhotra RN, BSN
CDI Specialist
Available via [place] text
Please use your independent medical judgment in providing your response.
--- NOTE | 2023-12-06 12:07 | W.PN.HOSP.TC ---
Today's Communication/Plan
-
Discharge planning
Home O2 eval.
Assessment / Plan
Assessment / Plan
83-year-old male because of shortness of breath. Going on for a month he also felt his lower extremity had edema.
Cardiovascular system S1-S2 appreciated-irregular, systolic murmur at aortic area
Decreased breath sounds at bases few rales
Abdomen soft and nontender
No pedal edema
#CHF-acute heart failure with reduced ejection fraction
Likely aortic stenosis contributing
Chest imaging consistent with heart failure.
Echo-12/04/2023-mildly reduced LV systolic function. Ejection fraction 40% with global hypokinesis. Severe aortic stenosis with mild AI
He is feeling much better with Lasix
Continue Lasix, changed to PO
If diuresis does not improve pleural effusion may need thoracentesis
Cardiac cath 4 1024-30% mid LAD stenosis distal to the takeoff of the large first diagonal branch. Remainder of the LAD with mild luminal irregularities.The large first diagonal branch has 60-70% ostial/proximal stenosis
Circumflex: Mild luminal irregularities
RCA: Large dominant mildly ectatic vessel with diffuse mild luminal irregularities
Medical Rx and also TAVR eval.
Non TX Trop elevation
#Hematuiria
Resolving
USS noted
Aware that he needs to follow-up with urology.
# Acute hypoxic respiratory insufficiency secondary to above
Wean Oxygen as tolerated.
Home oxygen evaluation
Effusion small now with diuresis.
# Severe arctic stenosis
TAVR eval
#No Afib per cards
Wandering pacemaker
# CLL with elevated white count
# Hypertension-was on olmesartan amlodipine combination at home
Holding while diuresing
BP Soft
# Psoriatic arthritis
# Fuch's Corneal Dystrophy
# DVT prophylaxis-Lovenox
# Full code
D/W cards at bed side
D/W Urology
D/W Case management
Anticipated Discharge: Within 24 hours
Subjective/Interval History
-
Date of Service: December 06, 2023
Objective Data
-
Labs:
Laboratory Results
12/06/23
07:12
WBC 30.8 H
Hgb 14.9
Hct 44.5
Plt Count 92 L
Sodium 134 L
Potassium 3.6
Chloride 96 L
Carbon Dioxide 30
BUN 22 H
Creatinine 1.0
Glucose 110 H
Calcium 9.1
Vital Signs:
Vital Signs
Temp Pulse Resp BP Pulse Ox
97.8 F 69 16 123/74 94
12/06/23 11:45 12/06/23 11:45 12/06/23 11:45 12/06/23 11:45 12/06/23 11:45
I&O
12/05/23 12/06/23 12/07/23
06:59 06:59 06:59
Intake Total 1680 / 1680 1560 / 1560
Output Total 1550 / 1550 1250 / 1250
Balance 130 / 130 310 / 310
--- NOTE | 2023-12-06 16:05 | W.PN.UPDATE ---
Update Note
Progress Note Update
sats 88 % at rest
Continue IV Lasix and check again tomorrow
[2023-12-06] MEDS: LIPITOR 40 MG PO (17:57)
[2023-12-07 05:09] VITALS: BMI 27.8
[2023-12-07 07:30] VITALS: BP 144/81
[2023-12-07] MEDS: LASIX 40 MG IV (08:18)
[2023-12-07] MEDS: LOW STRENGTH ASPIRIN 81 MG PO (08:18)
[2023-12-07] MEDS: FLOMAX 0.400000000000000022 MG PO (08:18)
[2023-12-07 08:42] LABS: Hematocrit 45.6 % (39.0-52.0); Hemoglobin 15.2 g/dL (13.0-18.0)
--- NOTE | 2023-12-07 11:41 | CM ---
Patient seen bedside, discussed need for home O2. Clinicals and script faxed to [facility], tank delivered bedside, instructed patient to call [facility] when discharging to deliver at home. IMM reviewed, signed, placed in chart. Patient reports his friend
will provide transportation home. CM will continue to follow for discharge planning needs.
Plan; home with [employer] O2.
--- NOTE | 2023-12-07 13:35 | W.PN.UPDATE ---
Update Note
Progress Note Update
Patient is in need of oxygen at 2 liters/minute via nasal cannula 86% on room air with exertion. Oxygen will help to improve hypoxemia. Patient is mobile within the home. Lasix therapy has been tried and is ineffective in treating hypoxemia related
symptoms. Oxygen is needed to improve symptoms.
--- NOTE | 2023-12-07 14:21 | W.PN.HOSP.TC ---
Today's Communication/Plan
-
Discharge
Assessment / Plan
Assessment / Plan
83-year-old male because of shortness of breath. Going on for a month he also felt his lower extremity had edema.
Cardiovascular system S1-S2 appreciated-irregular, systolic murmur at aortic area
Decreased breath sounds -CTA
Abdomen soft and nontender
No pedal edema
#CHF-acute heart failure with reduced ejection fraction
Likely aortic stenosis contributing
Chest imaging consistent with heart failure.
Echo-12/04/2023-mildly reduced LV systolic function. Ejection fraction 40% with global hypokinesis. Severe aortic stenosis with mild AI
He is feeling much better with Lasix
Continue Lasix, changed to PO
If diuresis does not improve pleural effusion may need thoracentesis
Cardiac cath 4 1024-30% mid LAD stenosis distal to the takeoff of the large first diagonal branch. Remainder of the LAD with mild luminal irregularities.The large first diagonal branch has 60-70% ostial/proximal stenosis
Circumflex: Mild luminal irregularities
RCA: Large dominant mildly ectatic vessel with diffuse mild luminal irregularities
Medical Rx and also TAVR eval.
Non CO Trop elevation
#Acute Hypoxic resp insufficiency
Home O2 arranged for excretion
#Hematuiria
Resolving
USS noted
Aware that he needs to follow-up with urology.
Hb Stable.
# Severe arctic stenosis
TAVR eval
#No Afib per cards
Wandering pacemaker
# CLL with elevated white count
Op F/U with Heme
# Hypertension-was on olmesartan amlodipine combination at home
Holding his blood pressure is on soft side
# Psoriatic arthritis
# Fuch's Corneal Dystrophy
# DVT prophylaxis-Lovenox
# Full code
D/W RN
D/W Case management
Patient is aware about following up with pulmonary as outpatient.
Use of oxygen discussed
He is also aware that he needs to follow-up with a TAVR evaluation
Oxygen arranged
Discharge coordination time 36 minutes
Offered to talk to family/friends/modified urinate. Patient declined yesterday
Anticipated Discharge: Today
Subjective/Interval History
-
Date of Service: December 07, 2023
Objective Data
-
Labs:
Laboratory Results
12/07/23
08:22
Hgb 15.2
Hct 45.6
Vital Signs:
Vital Signs
Temp Pulse Resp BP Pulse Ox
98.2 F 71 18 144/81 92
12/07/23 07:30 12/07/23 07:30 12/07/23 07:30 12/07/23 07:30 12/07/23 09:34
I&O
12/06/23 12/07/23 12/08/23
06:59 06:59 06:59
Intake Total 1560 / 1560 1220 / 1220
Output Total 1250 / 1250
Balance 310 / 310 1220 / 1220
--- NOTE | 2023-12-07 14:25 | W.DS.TRANS ---
Addendum entered and electronically signed by Guillermo Vogt MD 12/07/23 15:22:
Dictation- [id number]
Original Note:
DC Summary - Product Management Consultant
-
Discharge Instructions:
Discharge Diagnosis/Procedures Cardiac cath 12/05/23, CHF, hematuria, aortic
stenosis, acute hypoxia, hypertension, psoriasis
, corneal dystrophy
Diet Low Cholesterol,2 Gram Sodium,Restrict fluids to
48 oz
Activity As tolerated
Driving Restrictions As prior to admission
Blood Work PLEASE HAVE BLOOD WORK DRAWN ON MONDAY, 12/10.
THIS DOES NOT NEED TO BE FASTING. PLEASE HAVE
RESULTS FAXED TO [phone].
Others Tests A CT SCAN HAS BEEN SCHEDULED FOR YOU AT
[facility] ON 12/15/2023 AT 9:30AM.
PLEASE DO NOT EAT OR DRINK ANYTHINIG FOR 3 HOURS
PRIOR TO YOUR STUDY. PLEASE BRING A COMPLETE
LIST OF YOUR MEDICATIONS WITH YOU TO YOUR
APPOINTMENT.
Instructions: *PCP/Other Distribution Field Technician Heart Failure Instructions
Stand-Alone Forms: DC Instructions- Cath/EP Lab
Changes to Home Medications: Yes
Discharge Medications:
DC Medications w/original date entered in [employer]
Prevagen 1 tab PO DAILY PRN supplement 03/12/20
diphenhydramine HCl 25 mg capsule (Banophen) 25 mg PO HS Allergies 03/12/20
aspirin 81 mg chewable tablet (Children's Aspirin) 81 mg PO DAILY Blood clot prevention/tx #0 tabs 12/06/23
atorvastatin 40 mg tablet 40 mg PO QPM High cholesterol #30 tabs 12/06/23
finasteride 5 mg tablet (Proscar) 5 mg PO HS prostate #30 tabs 12/06/23
furosemide 40 mg tablet (Lasix) 40 mg PO DAILY Fluid retention/Swelling #30 tabs 12/06/23
Home Medication Changes
Amlodipine/losartan discontinued
Aspirin, atorvastatin, finasteride, Lasix- new
Pending Results: No
[2023-12-07 15:00] VITALS: BP 126/73
--- NOTE | 2023-12-08 14:09 | W.HF.CON ---
Heart Failure
- LV Function
Left ventricular function study result: LV Ejection fraction >35% - 40%
Ejection Fraction Percentage: 40
- ARNI
Patient already on ARNI: No
Heart Failure ARNI Contraindication: Severe Aortic Stenosis
- ACEI/ARB
Patient already on ACEI/ARB: No
Heart Failure ACEI/ARB Contraindication: Severe Aortic Stenosis
- Beta Claribel
Patient already on Evidence Based Beta Claribel: No
Heart Failure Evidence Based Beta Claribel: Heart Rate < 60 bpm
- Mineralocorticord Receptor Antagonist
Patient already on MRA: No
Heart Failure MRA Contraindication: Hypotension
- SGLT-2 Inhibitor
Patient already on SGLT-2 Inhibitor: No
Heart Failure SGLT-2 Inhibitor Contraindication: Patient Refusal
- NYHA CHF Classification
NYHA CHF Classification Level: Class III - Symptoms w/ min exertion, interferes w/ nml daily activity
- ACC/AHA Stage
ACC/AHA Stage: Stage C: Symptomatic Heart Failure
== END 2023-12-07 15:14 | disposition home health service (06) | DRG 286 ==
LOC: 4 WEST ACU 11:48
PROVIDERS: Internal Medicine Cardiovascular Disease; Nurse Practitioner Adult Health; ADMITTING PHYSICIAN Internal Medicine; ATTENDING PHYSICIAN Hospitalist; CONSULT PHYSICIAN Internal Medicine Cardiovascular Disease; CONSULT PHYSICIAN Specialist; EMERGENCY PHYSICIAN Emergency Medicine; FAMILY PHYSICIAN Family Medicine
PROC: B2111ZZ Fluoroscopy of Multiple Coronary Arteries using Low Osmolar Contrast (ICD-10-PCS; 2023-12-04)
PROC: B2161ZZ Fluoroscopy of Right and Left Heart using Low Osmolar Contrast (ICD-10-PCS; 2023-12-04)
PROC: 4A023N6 Measurement of Cardiac Sampling and Pressure, Right Heart, Percutaneous Approach (ICD-10-PCS; 2023-12-04)
DX: I11.0 Hypertensive heart disease with heart failure (principal); I50.21 Acute systolic (congestive) heart failure; C91.10 Chronic lymphocytic leukemia of B-cell type not having achieved remission; Z87.891 Personal history of nicotine dependence; I48.91 Unspecified atrial fibrillation; L40.50 Arthropathic psoriasis, unspecified; I35.0 Nonrheumatic aortic (valve) stenosis; R09.02 Hypoxemia; R06.89 Other abnormalities of breathing; I25.10 Atherosclerotic heart disease of native coronary artery without angina pectoris; H18.509 Unspecified hereditary corneal dystrophies, unspecified eye
CPT/HCPCS: 71046; 71275; 76770; 80048; 80061; 81003; 81015; 83735; 83880; 84443; 84484; 85014; 85018; 85025; 85027; 85379; 87086; 93005; 93306; 93458; 96374; 99285; C1894; Q9967

== ENCOUNTER → 2023-12-11 13:35 | Outpatient (REF) | payer MEDICARE, SELFPAY ==
[2023-12-11 14:54] LABS: Blood Urea Nitrogen 19 mg/dl (9-20); Calcium 9.5 mg/dl (8.4-10.2); Carbon Dioxide 32 mmol/L (22-30); Chloride 99 mmol/L (98-107); Glucose 90 mg/dl (70-99); Potassium 3.7 mmol/L (3.5-5.1); Sodium 137 mmol/L (135-145); eGFR > 60.00
== END ==
LOC: REG 13:35
PROVIDERS: ATTENDING PHYSICIAN Nurse Practitioner Adult Health; FAMILY PHYSICIAN Family Medicine
DX: I35.0 Nonrheumatic aortic (valve) stenosis (principal)
CPT/HCPCS: 36415; 80048

== ENCOUNTER → 2023-12-15 09:15 | Outpatient (REF) | payer MEDICARE, SELFPAY | LOC: RAD 09:15 | PROVIDERS: ATTENDING PHYSICIAN Nurse Practitioner Adult Health; FAMILY PHYSICIAN Family Medicine | DX: I35.0 Nonrheumatic aortic (valve) stenosis (principal) | CPT/HCPCS: 74174; 75572; Q9967 ==

== ENCOUNTER 2024-01-04 07:24 | Inpatient (IN) | payer MEDICARE, SELFPAY ==
[2023-12-26 12:12] VITALS: BMI 28.6
[2023-12-26 12:49] LABS: Urine Albumin Trace (Neg - Trace); Urine Bilirubin Negative (Negative); Urine Character Clear (Clear); Urine Color Yellow; Urine Glucose Negative (Negative); Urine Ketone Negative (Negative); Urine Leukocyte 2+ (Negative); Urine Nitrite Negative (Negative); Urine Occult Blood Trace (Negative); Urine Urobilinogen Negative (Neg - 1+)
[2023-12-26 12:56] LABS: % Basophils 0.4 % (0-2); % Eosinophils 0.5 % (0-6); % Immature Granulocytes 0.1 % (0-0.5); % Monocytes 1.7 % (1.7-9.3); % Neutrophils 9.3 % (42.2-75.2); Absolute Basophils 0.1 10^3/uL (0-0.2); Absolute Eosinophils 0.2 10^3/uL (0-0.7); Absolute Lymphocytes 29.1 10^3/uL (1.2-3.4); Absolute Monocytes 0.6 10^3/uL (0.1-0.6); Absolute Neutrophils 3.1 10^3/uL (1.4-6.5); Glycohemoglobin (HgbA1c) 5.7 % (4.0-5.6); Hematocrit 46.6 % (39.0-52.0); Hemoglobin 15.3 g/dL (13.0-18.0); Mean Corp Hgb Conc. 32.8 g/dL (33.0-37.0); Mean Corpuscular Hgb 30.2 pg (27.0-31.0); Mean Corpuscular Volume 92.1 fL (80.0-94.0); Mean Platelet Volume 10.4 fL (7.4-10.4); Nucleated Red Blood Cells % 0 % (-); Platelet Count 119 10^3/uL (130-400); Red Blood Cell Count 5.06 10^6/uL (4.70-6.10); Red Cell Dist. Width 13.7 % (11.5-14.5); White Blood Cell Count 33.1 10^3/uL (4.8-10.8)
[2023-12-26 13:03] LABS: ALT (SGPT) 23 U/L (0-50); AST (SGOT) 28 U/L (17-59); Albumin 4.4 g/dl (3.5-5.0); Alkaline Phosphatase 76 U/L (38-126); Blood Urea Nitrogen 18 mg/dl (9-20); Calcium 9.6 mg/dl (8.4-10.2); Carbon Dioxide 29 mmol/L (22-30); Chloride 102 mmol/L (98-107); Direct Bilirubin 0.2 mg/dl (0.0-0.4); Estimated Creatinine Clearance 67 ml/min; Glucose 101 mg/dl (70-99); INR 1.03; PT 13.3 Sec (11.4-14.6); Potassium 4.4 mmol/L (3.5-5.1); Sodium 137 mmol/L (135-145); Total Bilirubin 1.1 mg/dl (0.2-1.3); Total Protein 7.2 g/dl (6.3-8.2); eGFR > 60.00
[2023-12-26 13:04] LABS: APTT 27.3 Sec (23.4-35.0)
[2023-12-26 13:12] LABS: NT-proBNP 3600 pg/ml
[2023-12-26 13:16] LABS: Urine Bacteria Few (Negative); Urine Red Blood Cell 0-2 /HPF (0-2)
--- NOTE | 2023-12-26 15:19 | CM ---
Met with Mr. Weir in [facility]. He states prior to admission he resides alone in a one story home with six steps to enter. He states prior to admission he was independent with ambulation and adls. He states he does not have any DME in the home. He
states he has a prescription plan with [facility]. He states he has a friend that he can call if he needs anything. The discharge plan is to return home with a home visit by the Cardiothoracic Transitional Care NUrse when medically stable.
We reviewed pre-op and post-op routines. We reviewed the shower instructions. He has the soap and written instructions. He already has the TAVR Educational Booklet. We also reviewed restrictions including driving and lifting restrictions. We
reviewed a home visit by the Cardiothoracic Transitional Care Nurse. He is a to a agreeable to a home visit. The plan is for TAVR on December.
[2024-01-04] VITALS (15 sets, daily range): BP systolic 94–142; BP diastolic 62–87; BMI 27.7
--- NOTE | 2024-01-04 08:11 | CM ---
Reviewed chart. Mr. Weir is in the operating room today. Prior to admission he resides alone in a one story home with six steps to enter. Prior to admission he was independent with ambulation and adls. He does not have any DME in the home. He has
a prescription plan with [facility]. He has a friend he can call if he would need anything. Medical work-up in progress. The discharge plan is to retrun home with a home visit by the Cardiothoracic Transitional Care Nurse when medically stable.
--- NOTE | 2024-01-04 10:02 | W.CVOR.SURPR ---
CVOR Surgeon Immed Pre Op
-
I have examined this patient prior to performance of the scheduled procedure.
The patient's condition is unchanged from the time of the dictated/written History and
Physical and the patient is able to undergo the scheduled procedure.
TF TAVR
Full Rescue
[2024-01-04] MEDS: ANCEF 10 IV (10:44)
[2024-01-04 12:01] LABS: ACT-LR - POC 279 Seconds (116-155)
--- NOTE | 2024-01-04 12:21 | W.PN.CT.SURG ---
CT Surgery Operative Note
-
OPERATIVE REPORT
Preoperative Diagnosis: Severe aortic valve stenosis, symptomatic
Postoperative Diagnosis: Same
Procedure(s) Performed: Left trans femoral TAVR with a 29 mm Munson TAVR valve
Date of Procedure: 01/04/2024
Comorbidities:
1. Low-flow low gradient severe aortic stenosis, symptomatic
2. Reduced left ventricular function, LVEF 40%
3. Hyperlipidemia
4. Hypertension
5. CLL
6. BPH
Cardiac Surgeon: Alvino Porter MD, MS
Inclinometer Tester: Ric Garces MD
Anesthesia: Conscious Sedation and Local Analgesia
EBL: 150cc
Products: none
Implant: 29 mm Munson Deanne TAVR Valve, SN: [id number]
Indication(s) for Procedures: 83-year-old male with low-flow low gradient symptomatic severe aortic stenosis. CT-TAVR protocol revealed acceptable anatomy for TAVR access and implantation.
Start time: 1124hrs
Deployment time: 1204hrs
End time: 1218hrs
Radiation Dose (mGy): 579.37
DAP (cm2.Gy): 69.1549
Fluoroscopy time (minutes): 10.4
Contrast volume (ml): 80
TAVR gradient (mmHg): 5-7mmHg
Heparin Dose: 8000units
Protamine Dose: 40mg
Final Valve Positionin/20
LVEDP, mmH
Findings: Preoperative LVEF was 40-45% and was 40-45% following TAVR without inotropic support. Function was overall normal without regional wall motion abnormalities or dyskinesia -global hypokinesis as was preop. The aortic valve was well seated
without detectable PVL and mean gradient across the new valve was 5-7 mmHg. following a pacing run and deployment device he regained his [place] rhythm while on the chemical laboratory scientist table. There was successful placement of 29 mm TAVR valve without acute
complications. No pericardial effusion was noted on TTE. We initially planned for a right common femoral deployment, however angiogram of the common iliacs demonstrated a more favorable catheter insertion point on the left common femoral artery.
We ultimately used the left side for device deployment.
Access:
1. Device -left common femoral artery, perclose x 2 + 8Fr angioseal
2. Pigtail -right common femoral artery +6 Finnish Angio-Seal
3. Transvenous Pacer -left common femoral vein
Description of Procedure: The patient was taken to the chemical laboratory scientist. Their identity and procedure to be performed were verified and they were positioned supine on the chemical laboratory scientist table. Induction via conscious sedation. The patient was then prepped and
draped from chin to thigh in a sterile fashion. A preoperative time-out was performed with all members of the team present. Arterial and venous access was performed using fluoroscopy and ultrasound guidance with micropuncture and Seldinger
technique. Two perclose devices were used on the device side followed by access to the aorta with a stiff wire to facilitate E-sheath placement. Heparin was given. A stiff straight wire and AL-1 catheter was used to cross the aortic valve. The AL-1
catheter was having difficulty drawing back and so due to concern for clot, this was pulled out the body and flushed. We had to then recross the valve again using an AL 1 catheter and straight wire. An LVEPD was measured here. The stiff wire was
exchanged for an extra stiff coiled tip wire. The valve was prepped and mounted on to the device carrier. An ACT of >250 was achieved. We verified x 3 that the valve was mounted in the correct orientation with the skirt of the valve directed toward
the tip of the device carrier. We advanced the device into the descending thoracic aorta where the valve was them mounted onto the balloon under fluoroscopy. The device was flexed and advanced over the arch into the root and positioned across the
aortic valve. Contrast fluoroscopy was used to visualize the prosthesis across the valve and to guide positioning. A pigtail catheter in the RCC as used as a guide. We aimed to have the bottom of the device marker at the annular hinge point. The
device sheath was pulled back. We performed a quick pre-deployment time out. The pacer was turned on and had capture. Blood pressure fell accordingly, angiography was done to verify the intended final placement and the valve was deployed with 5
seconds of rapid pacing to nominal volume. The balloon was deflated and the pacer was turned off. We had recovery of vitals. The device carrier was unflexed and positioned back in the descending thoracic aorta. A transthoracic echocardiogram was
performed. The device was removed from the E-Sheath maintaining wire access followed by removal of the E-sheath as we cinched down the perclose devices. Additional Angio-Seal was required for hemostasis. The pigtail was withdrawn into the
descending/abdominal and completion aortogram with runoff run-off angiography was performed. There was no obvious stenosis or dissection of bilateral iliofemoral systems. There was acceptable hemostasis of bilateral groins and manual pressure was
held following wire removal. Low dose protamine was administered after checking another ACT.
All instrument, sponge, and needle counts were confirmed to be correct x 2 at the end of the operation. The patient was transferred to the cardiac intensive care unit in stable condition.
I, Dr. Alvino Porter, was present, scrubbed for, and performed all critical elements of this procedure.
Alvino Porter MD
Cardiothoracic Surgeon
[facility]
This operative dictation was created using the ICEX dictation system. Please excuse any grammatical, typographical, or 'sound alike' errors
--- NOTE | 2024-01-04 12:24 | W.PN.UPDATE ---
Update Note
Progress Note Update
Reviewed Mr. Weir with the heart team in the preTAVR SDM meeting and confirmed a 29 mm S3 via (R) transfemoral access. Patient will resume aspirin post TAVR. LVEDP 17 mmHg. #29mm S3 (serial# [id number]) successfully deployed via right TF access. Post
implant MG 7 mmHg.
--- NOTE | 2024-01-04 12:32 | ITS.CL.TAVR ---
Score Caller - TAVR Report
TAVR PRocedure
Procedure Report:
TRANSCATHETER AORTIC VALVE REPLACEMENT REPORT
Date: 01/04/2024
Referring physician: Jane Moreira MD
Operators:
truck sales manager: Kinglsey Garces MD
Cardiac surgeon: Alvino Porter MD
Procedure:
Conscious sedation was provided by anesthesia. Using a micropuncture technique, 6F sheaths were placed in the LFA and LFV. A transvenous pacemaker was advanced to the RV and excellent thresholds obtained. A pigtail catheter was advanced to the
aortic root where low volume injections were performed to identify an appropriate angle for valve deployment. Angiography showed the left femoral artery sheath to be in the mid common femoral artery position. Access was then obtained in the right
femoral artery using a micropuncture technique. A 6Fsheath was placed and angiography confirmed a mid to high IS MANAGER puncture site. We then decided to use the left IS MANAGER for the device. Two perclose sutures were preset using the preclose technique. An
8F sheath was placed in the LFA and an Amplatz super stiff wire advanced into the thoracic aorta. The ileofemoral vessels were dilated using the Munson dilator. An Munson E sheath was advanced into the descending thoracic aorta. Through an 8000
units was administered. The valve was crossed using a diagnostic 6F AL1 catheter and a straight wire. An Amplatz extra stiff wire with a homemade curve was placed in the LV apex. Balloon aortic valvuloplasty was not performed. An Munson 29 mm
DEANNE S3 valve was then advanced into the annulus and deployed during rapid ventricular pacing. Echocardiography and aortography confirmed an excellent result. The valve deployment system was removed. The Munson E sheath was then removed and
hemostasis obtained with the two perclose sutures and an 8 Canadian Angio-Seal. Final angiography demonstrated no evidence of ileofemoral dissection/perforation and good runoff below the common femoral artery. The pacemaker was removed and the RFV
sheath removed with manual compression. The RFA sheath was removed using a 6 F angioseal.
Radiation (mGy): 580
DAP (cm2.Gy): 69
Fluoroscopy time: 10.4 minutes
Conclusions: Successful placement of 29 mm Deanne S3 aortic valve via left transfemoral approach with no acute complications.
Copy to: Jane Moreira MD, Daniele Moreno, DO
[2024-01-04] MEDS: LEVOPHED 250 IV (12:46)
--- NOTE | 2024-01-04 14:27 | CM ---
Chart reviewed. Patient is in the OR today. Patient is independent of ADLS, lives alone in a 1 STH, 6 SHABNAM, 0 DME. Plan is for the patient to return home with CT Transitional RN. CM to follow
[2024-01-04 15:31] LABS: ACT-LR - POC > 397 Seconds (116-155)
[2024-01-04] MEDS: ANCEF IV (15:49)
[2024-01-04] MEDS: ANCEF 5 IV (17:44)
[2024-01-04] MEDS: LIPITOR 40 MG PO (17:44)
--- NOTE | 2024-01-04 21:45 | PTCARENOTE ---
Pt rec'd at change of shift awake,alert walking around room. At rest pt's ht rate in 70's with activity up to 90's. Sinus first degree with freq pac's noted. B/l groins intact. Oozing noted from left femoral drsg. 75% drsg noted at change of shift
no further bleeding noted. right femoral drsg intact. good pedal pulses b/l.
[2024-01-04] MEDS: BENADRYL 25 MG PO (22:20)
[2024-01-04] MEDS: PROSCAR 5 MG PO (22:20)
--- NOTE | 2024-01-04 22:47 | PTCARENOTE ---
Pt remains sinus with freq pac's. B/l groin drsg changed. No active bleeding of either groin. area cleansed with nss redressed with 4x4 and transparent drsg. call her within reach.
--- NOTE | 2024-01-05 05:24 | W.PN.CT ---
Today's Communication / Plan
-
-POD 1
-groins soft without evidence of hematoma
-EKG and echo this AM, monitor shows 1st degree AVB
-Plt pending
-restart home meds
-discharge planning
Assessment / Plan
-
Left trans femoral TAVR with a 29 mm Munson TAVR valve POD#1
-
-HTN
-Hyperlipidemia
-BPH
-h/o tobacco abuse
Subjective
Procedure
S/P Left trans femoral TAVR with a 29 mm Munson TAVR valve by Dr. Porter on 01/04/24
-
Date of Service: January 05, 2024
Objective Data
-
Lab Results
01/05/24 05:41
01/05/24 05:41
PT 13.3 Sec (11.4-14.6) 12/26/23 12:26
INR 1.03 12/26/23 12:26
APTT 27.3 Sec (23.4-35.0) 12/26/23 12:26
Vital Signs
Vital Signs
Temp Pulse Resp BP Pulse Ox
97.6 F 81 20 130/77 95
01/04/24 19:14 01/04/24 22:19 01/04/24 19:14 01/04/24 22:19 01/04/24 22:19
CT Intake/Output/Weight
01/04/24 01/04/24 01/05/24
06:59 18:59 06:59
Intake Total 1640 / 1640
Output Total 400 / 400
Balance 1240 / 1240
SaO2: 95
Physical Exam
-
General: AOx3
Cardiovascular: Regular rate & rhythm
Respiratory: Clear
Incision: Other (groin sites soft without hematoma)
Extremities: No Edema
[2024-01-05 05:35] VITALS: BP 132/86
[2024-01-05 05:49] VITALS: BMI 28.2
[2024-01-05 06:21] LABS: Hematocrit 43.5 % (39.0-52.0); Hemoglobin 14.9 g/dL (13.0-18.0); Mean Corp Hgb Conc. 34.3 g/dL (33.0-37.0); Mean Corpuscular Hgb 30.9 pg (27.0-31.0); Mean Corpuscular Volume 90.2 fL (80.0-94.0); Red Blood Cell Count 4.82 10^6/uL (4.70-6.10); Red Cell Dist. Width 13.8 % (11.5-14.5); White Blood Cell Count 31.3 10^3/uL (4.8-10.8)
[2024-01-05 06:23] LABS: Blood Urea Nitrogen 15 mg/dl (9-20); Calcium 9.1 mg/dl (8.4-10.2); Carbon Dioxide 26 mmol/L (22-30); Chloride 103 mmol/L (98-107); Estimated Creatinine Clearance 74 ml/min; Glucose 108 mg/dl (70-99); Potassium 4.5 mmol/L (3.5-5.1); Sodium 133 mmol/L (135-145); eGFR > 60.00
[2024-01-05 07:43] VITALS: BP 134/89
--- NOTE | 2024-01-05 07:50 | W.PN.ANS.POP ---
Anesthesia Post Operative
- Anesthesia Post Op Note
Vital Signs Stable-See Nursing Note: Yes
Airway Patent: Yes
Adequate Pain Control: Yes
Change in Mental Status: No
Current Postoperative Nausea & Vomiting: No
Anesthesia Complications: No
General Anesthetic Recall: No
Unplanned Admission: No
Post Op Hydration Adequate: Yes
[2024-01-05 08:36] LABS: Mean Platelet Volume 9.5 fL (7.4-10.4); Platelet Count 95 10^3/uL (130-400)
[2024-01-05] MEDS: LOW STRENGTH ASPIRIN 81 MG PO (09:00)
[2024-01-05] MEDS: VITAMIN D3 (cholecalciferol) 50 MCG PO (09:00)
--- NOTE | 2024-01-05 09:27 | W.DCSUMMARY ---
Discharge Summary
Discharge Data
Date of Admission: 01/04/24
Date of Discharge: 01/05/24
Total time spent discharging patient (in min): 35
-
Pending Results: No
Hospital Course
Primary care physician:
Dr. Daniele Demarco MD.
Outpatient [facility]:
Dr. Torie Moreira MD.
Inpatient consultants:
Inpatient [facility], Dr. Rajinder Lawson MD.
Procedures:
1. Left trans femoral transcatheter aortic valve replacement with a number 29 mm Munson valve [address] Dr. Alvino Porter MD. and Dr. Ric Garces MD. on 01/04/24
Primary Diagnosis:
1. Severe aortic valve stenosis, symptomatic
Secondary Diagnoses:
1. Low-flow, low gradient severe aortic stenosis, symptomatic
2. Reduced left ventricular ejection function of 40%
3. Hypertension
4. Hyperlipidemia
5. Chronic lymphocytic leukemia
6. Benign prostatic hypertrophy
7. History of osteoarthritis
8. History of bilateral total knee replacements
HPI:
Patient is an 83-year-old male with low-flow, low gradient symptomatic severe aortic stenosis. Transcatheter aortic valve computer aided tomography scan revealed acceptable anatomy for transcatheter aortic valve replacement. Patient was seen as an
outpatient by the transcatheter aortic valve replacement team as well as attending surgeon. Patient was deemed an appropriate candidate to undergo the procedure described above on the date described above.
Hospital course:
Patient tolerated procedure well. Procedure was performed using conscious sedation. No intra or postoperative events occurred. Patient was transferred to the interventional unit status post transcatheter aortic valve replacement on a Levophed
drip. Levo was shortly weaned. Postoperative EKG revealed Mobitz 1 heart block at 61 bpm. No events occurred overnight. Groins were clean dry and intact bilaterally. Postoperative day #1 patient remained in sinus rhythm with first-degree AV
block at 78 beats per minute. Postoperative day #1 echocardiogram revealed peak and mean gradients of 22/14 mmHg, no AI, mildly dilated proximal ascending aorta 4.0 cm, an ejection fraction of 45 to 50%. When compared to prior echo gradients were
14/7 mmHg with no aortic insufficiency, and an ejection fraction of 40%. Patient was seen by cardiology and the cardiothoracic surgery service deemed an appropriate discharge candidate on postoperative day #1.
Home medication changes:
Please take Acetaminophen 650 mg Q4H PRN for mild-moderate pain control/fever
Discharge Plan
-
Patient Disposition: Home (Routine Discharge)
Discharge Diagnosis/Procedures: TF-TAVR
Condition: Fair
Diet: Low Cholesterol and 2 Gram Sodium
Activity: As tolerated
Driving Restrictions: No driving for 1 week
Bathing Restrictions: OK to Shower
Others Tests: 30 Day Follow Up Echocardiogram: 02/05/2024 at 1pm at [facility]
Other Services: Cardiac Rehab
Wound Care: Please do not apply lotions, creams or powders to groin areas. Please monitor groins for increased pain, redness, drainage or swelling. Please notify your doctor if any occur.
Specialty Instructions: Weigh Daily- Call MD for wt gain/loss 3 lbs overnight/5 lbs in 1 week
Referrals:
CT Transitional Care Nurse [Outside] (The Cardiothoracic Transitional Care Nurse will call you to set up a visit in 1-2 days.)
Raisa Dennis CRNP [Specified Professional Personl] - 02/07/24 1:40 pm
Daniele Moreno DO [Family Provider] -
Additional Discharge Medication Instructions: Please take Acetaminophen 650 mg Q4H PRN for mild-moderate pain control/fever
Prescriptions:
New
acetaminophen 325 mg Tablet
650 mg PO Q4HPRN PRN (Reason: FRAIRE, mild-moderate pain, or fever >101F) Qty: 0 0RF
Rx Instructions:
Please purchase over the counter
Continued
diphenhydramine HCl [Banophen] 25 MG capsule
25 mg PO HS
Prevagen
1 tab PO DAILY PRN (Reason: supplement)
atorvastatin 40 mg Tablet
40 mg PO QPM Qty: 30 0RF
aspirin [Children's Aspirin] 81 mg Tablet,Chewable
81 mg PO DAILY Qty: 0 0RF
furosemide [Lasix] 40 mg tablet
40 mg PO DAILY Qty: 30 0RF
finasteride [Proscar] 5 mg tablet
5 mg PO HS Qty: 30 0RF
cyanocobalamin (vitamin B-12) [Vitamin B-12] 1,000 mcg Tablet Extended Release
2,000 mcg PO DAILY
glucosamine-chondroitin [Osteo Bi-Flex] 250-200 mg Tablet
2 tab PO DAILY
cholecalciferol (vitamin D3) [Vitamin D3] 50 mcg (2,000 unit) Tablet
50 mcg PO DAILY
omega 4-egu-hma-fish oil [Fish Oil] 1,200 (144-216) mg Capsule
1 cap PO DAILY
betamethasone
1 unit topical PRN PRN (Reason: rash)
Discharge Orders:
Discharge Patient (As Directed); Ordered 01/05/24
Ordered By: Leighann Ward
Care Plan Goals
Care Plan Goals:
Problem: Readiness for enhanced knowledge related to diagnosis and treatment plan
Goal: Understand your diagnosis and treatment plan needs, including medications if applicable.
Instructions: Know your diagnosis, underlying causes and treatment plan options, including medications if applicable. Consult with your health care team to learn about your diagnosis and treatment plan, including medications if applicable.
Discharge Date and Time
Print Language: COOK ISLANDER
--- NOTE | 2024-01-05 10:03 | W.PN.CD ---
Today's Communication / Plan
-
home after echo
encouraged med compliance
Impression / Plan
-
Severe s/p Lt trans femoral TAVR with a 29 mm Munson TAVR valve POD#1
-feeling well,
-echo then homd
Chronic Heart Failure with reduced EF (HFrEF) and severe
-continue home regimen of po lasix 40mg daily
-he is currently refusing
CAD:
-nonobstructive, moderate
-aspirin and statin
Wandering atrial pacemaker, PACs
-very pronounced first degree on ecg, ntd
HTN
CLL, newer diagnosis
Psoriatic arthritis chronic
Joint disease with prior orthopedic procedures
Subj:
no complaints wants to go home
Physical Exam
Vital Signs/Labs
Vital Signs
Temp Pulse Resp BP Pulse Ox
98 F 83 16 132/86 94
01/05/24 07:43 01/05/24 07:43 01/05/24 07:43 01/05/24 05:35 01/05/24 07:43
01/04/24 01/05/24 01/06/24
06:59 06:59 06:59
Actual Weight 102.2 kg
01/05/24 05:41
01/05/24 05:41
PT 13.3 Sec (11.4-14.6) 12/26/23 12:26
INR 1.03 12/26/23 12:26
APTT 27.3 Sec (23.4-35.0) 12/26/23 12:26
12/26/23
12:26
Laz-Z-Xwfsfoihaag Pept 3600
Physical Exam
Constitutional: No acute distress
Cardiovascular: Rhythm & rate is regular, Pedal edema is absent, JVD pressure is normal and Systolic murmur absent
Respiratory: Respiratory effort normal, Lungs clear to auscul., Wheeze Absent and Crackles Absent
Neuro/Psych: AO x 3
Data Reviewed
-
Date of Service: January 05, 2024
EKG: Tracing Personally Visualized and interpreted (sinus wtih prolonged first degree av block, pacs)
--- NOTE | 2024-01-05 10:11 | PTCARENOTE ---
Assumed care of pt from night RN. Pt received awake and alert, Ox3. Bilateral groins remain CDI with normal CMS through both lower extremities. He refuses breakfast, states 'I eat a [employer] burrito every morning'. The need to restrict NA
especially with fast food reiterated to pt. Also refused his am Lasix, Dr. Moreira made aware. For d/c later today after ECHO.
[2024-01-05 11:13] VITALS: BP 133/70
--- NOTE | 2024-01-05 11:35 | CM ---
Chart reviewed. Patient is independent of ADLS, lives alone in a 1 STH, 6 [place]AB[address], 0 DME. Patient with a supportive neighbor to help. Plan is for the patient to return home with CT Transitional RN. CM to follow
[2024-01-05 11:41] VITALS: BP 136/96
[2024-01-05 11:43] VITALS: BP 133/70; BP 136/96; PULSE 73; O2SAT 94
--- NOTE | 2024-01-05 13:30 | PTCARENOTE ---
All D/C info reviewed with pt, all questions answered. Pt D/C'd home with friend.
== END 2024-01-05 13:58 | disposition home or self-care (01) | DRG 267 ==
LOC: IVU 07:24
PROVIDERS: Nurse Practitioner; ADMITTING PHYSICIAN Thoracic Surgery (Cardiothoracic Vascular Surgery); FAMILY PHYSICIAN Family Medicine
PROC: 02RF38Z Replacement of Aortic Valve with Zooplastic Tissue, Percutaneous Approach (ICD-10-PCS; 2024-01-04)
DX: I35.0 Nonrheumatic aortic (valve) stenosis (principal); Z00.6 Encounter for examination for normal comparison and control in clinical research program; C91.10 Chronic lymphocytic leukemia of B-cell type not having achieved remission; I50.22 Chronic systolic (congestive) heart failure; E78.5 Hyperlipidemia, unspecified; N40.0 Benign prostatic hyperplasia without lower urinary tract symptoms; M19.90 Unspecified osteoarthritis, unspecified site; Z96.653 Presence of artificial knee joint, bilateral; I11.0 Hypertensive heart disease with heart failure; I25.10 Atherosclerotic heart disease of native coronary artery without angina pectoris; L40.50 Arthropathic psoriasis, unspecified; Z79.82 Long term (current) use of aspirin; Z79.899 Other long term (current) drug therapy; Z87.891 Personal history of nicotine dependence
CPT/HCPCS: 93308; 33361; 36415; 71045; 71046; 80048; 80053; 81003; 81015; 82248; 83036; 83880; 85025; 85027; 85347; 85610; 85730; 86850; 86900; 86901; 87070; 87086; 93005; 93306; 93321; 93325; C1760; C1769; C1894; Q9967

== ENCOUNTER → 2024-02-05 12:51 | Outpatient (REF) | payer MEDICARE, SELFPAY | LOC: RCS 12:51 | PROVIDERS: ATTENDING PHYSICIAN Nurse Practitioner Gerontology; FAMILY PHYSICIAN Family Medicine | DX: I35.0 Nonrheumatic aortic (valve) stenosis (principal) | CPT/HCPCS: 93306 ==

== ENCOUNTER 2024-03-09 13:46 | Emergency (ER) | payer MEDICARE, SELFPAY ==
[2024-03-09 13:52] VITALS: BP 123/98; BMI 28.5
--- NOTE | 2024-03-09 16:15 | ED.GENMED ---
History of Present Illness
<Maricruz Street PA-C - Last Filed: 03/09/24 21:53>
General
Chief Complaint: Swelling
Source: patient
Exam Limitations: none
Time Seen by Provider: 03/09/24 16:15
Nursing documentation reviewed up to this point in time: agreed with
History of Present Illness
History of Present Illness:
83-year-old male with past medical history of hypertension, hyperlipidemia, prostatic hypertrophy presenting emergency department today with left lower extremity swelling and left second toe pain. Patient states that he is not a diabetic but has a
history of neuropathy in his bilateral lower extremities and does not have a ton of sensation left. Patient reports that he uses a travel drill to cut his toenails. Patient states that he was doing this a few days ago when he accidentally cut the
top of his skin on his toe. Patient reports that since then, he has had toe pain, and notes some mild redness around the area. Patient reports that at rest, he does not feel pain but with walking he feels a lot of discomfort. Patient does not
follow with a duplicate maker. Patient denies any fevers or chills. Of note, patient states that he had a recent aortic valve replacement. Patient denies any right lower extremity swelling, any shortness of breath, any chest pain, any dizziness,
lightheadedness, any recent syncopal episodes.
Past History
<Maricruz Street PA-C - Last Filed: 03/09/24 21:53>
Past History
ED Past Medical History: None
ED Past Surgical History: None
Social History
Tobacco: Non-smoker
Alcohol: None
Drug: None
Living: with family
Review of Systems
<Maricruz Street PA-C - Last Filed: 03/09/24 21:53>
Review of Systems
All Other Systems: ROS reviewed and negative except as documented in HPI and ROS
Phy Exam
<Maricruz Street PA-C - Last Filed: 03/09/24 21:53>
Physical Exam
Physical Exam:
General: Patient is well appearing and in no acute distress; non-toxic
Skin: Warm and dry, there is mild erythema surrounding the second left toe and a small superficial laceration to the distal toe with granulation tissue present.
Head: Normocephalic, atraumatic
Eyes: Sclera non-icteric. EOMs intact. PERRLA.
Cardiac: Regular rate
Peripheral Vascular: Mild left lower extremity edema, 2+ dorsalis pedis pulses and posterior tibial pulses bilaterally
Pulm: Normal respiratory effort, no crackles heard on exam
Musculoskeletal: Mild bony tenderness palpation of the second left toe. Patient is full range of motion bilateral lower extremities.
Neuro: CN II-XII intact, no focal neurologic deficits.
Psychiatric: Appropriate mood and affect.
Scores
<Maricruz Street PA-C - Last Filed: 03/09/24 21:53>
Heart Failure Risk
Heart Failure Risk Score: Not Applicable
Course
<Maricruz Street PA-C - Last Filed: 03/09/24 21:53>
Orders/Labs/Results
Orders:
Orders
03/09/24 16:28
CR Foot - Left 2 Views Urgent
Comment:
Reason For Exam: left foot pain, 2nd toe dremmel injury
Vital Signs
Initial and Last Documented VS:
Initial Vital Signs
Temp Pulse Resp BP Pulse Ox
98.2 F 65 16 123/98 98
03/09/24 13:52 03/09/24 13:52 03/09/24 13:52 03/09/24 13:52 03/09/24 13:52
Last Documented Vital Signs
Temp Pulse Resp BP Pulse Ox
98.2 F 63 18 120/95 99
03/09/24 13:52 03/09/24 17:53 03/09/24 17:53 03/09/24 17:53 03/09/24 17:53
<Adela Mims DO - Last Filed: 03/09/24 17:51>
Orders/Labs/Results
Orders:
Orders
03/09/24 16:28
CR Foot - Left 2 Views Urgent
Comment:
Reason For Exam: left foot pain, 2nd toe dremmel injury
Vital Signs
Initial and Last Documented VS:
Initial Vital Signs
Temp Pulse Resp BP Pulse Ox
98.2 F 65 16 123/98 98
03/09/24 13:52 03/09/24 13:52 03/09/24 13:52 03/09/24 13:52 03/09/24 13:52
Last Documented Vital Signs
Temp Pulse Resp BP Pulse Ox
98.2 F 63 18 120/95 99
03/09/24 13:52 03/09/24 17:53 03/09/24 17:53 03/09/24 17:53 03/09/24 17:53
<Maricruz Street PA-C - Last Filed: 03/09/24 21:53>
MDM/Problems Addressed
Differential Diagnosis Includes:
ddx include distal phalanx fracture, abrasion, laceration, neuropathy, chronic venous stasis
MDM/Problems Addressed:
Toe pain: 83-year-old male with a history of peripheral neuropathy presenting emergency department today with concerns of left second toe pain following an injury with a Dremel drill. Patient reports he uses his drill to cut his toenails and
excellently cut himself a few days ago. Patient states that he started this about some pain with walking. On exam, second toe is mildly erythematous and there is a healing laceration, his ex ray demonstrates no acute fracture or dislocation.
Considering his risk factors, we will start him prophylactically on antibiotics. Did give him referral for podiatry. Patient stable for discharge.
Chronic conditions affecting care:
htn, hlp, peripheral neuropathy
Acute Exacerbation and/or Progression of Chronic Illness:
n/a
<Maricruz Street PA-C - Last Filed: 03/09/24 21:53>
*Radiology
Radiology exam reviewed: preliminary read by ED provider (Acute fracture or dislocation)
*Pulse Oximetry
Patient hypoxic: no
*Critical Care Note
Total Time (30-74mins, 75-104mins- exclusive of procedures): Not Applicable
Data Reviewed
Review of Other/Old Records Reveals: Discharge Summary (Reviewed discharge summary from 01/05/2024 where patient was seen for aortic valve replacement)
Source: patient and records
<Maricruz Street PA-C - Last Filed: 03/09/24 21:53>
Patient Management
Escalation/DeEscalation of care consider admission/obs:
Patient stable for discharge
ED Attending Note
<Maricruz Street PA-C - Last Filed: 03/09/24 21:53>
-
Portions of this chart may have been created with voice recognition software.� Occasional wrong word or��sound alike� substitutions may have occurred due to the inherent limitations of voice recognition software.
<Adela Mims DO - Last Filed: 03/09/24 17:51>
ED Attending Note
Patient seen and examined by attending physician: Yes
I performed the substantive portion of visit, reviewed & personally made and approve the management plan that is documented in note by myself or TAMIR.: Yes
I performed a history and physical exam of patient and discussed management with resident, I reviewed resident's note and agree with documented findings and plan of care.: Yes
ED Attending Note:
Patient seen and evaluated at bedside. 83-year-old male with history of neuropathy presenting to the emergency department with irritation to the second digit of the left toe after he cut his toenail. Reports pain and swelling. Denies fever or any
increased numbness or tingling. Denies additional acute medical complaints. Vital signs within normal limits.
On exam, patient very well-appearing, nontoxic. On examination of the toe, no significant signs of infection or wound. Mild skin breakdown from trauma of cutting his nail. No significant erythema. Distal sensation and pulses intact. Range of
motion grossly intact. X-ray obtained, severe osteoarthritis without additional abnormality. Given patient's known history of known neuropathy, will start on Keflex for infection prophylaxis with plan for outpatient podiatry follow-up. Feel
stable for discharge. Return precautions discussed.
Discharge Plan
Departure
Patient Disposition: Home (Routine Discharge)
Date of Disposition: 03/09/24
Time of Disposition: 17:46
Patient with high blood pressure during this ER visit?: No
Condition: Good
Discharge Problem:
Soft tissue injury of toe, Swelling
Instructions: Swelling, BLOOD PRESSURE
Prescriptions:
New
cephalexin 500 mg capsule
500 mg PO Q6H 5 Days Qty: 20 0RF
No Action
diphenhydramine HCl [Banophen] 25 MG capsule
25 mg PO HS
Prevagen
1 tab PO DAILY PRN (Reason: supplement)
atorvastatin 40 mg Tablet
40 mg PO QPM Qty: 30 0RF
aspirin [Children's Aspirin] 81 mg Tablet,Chewable
81 mg PO DAILY Qty: 0 0RF
furosemide [Lasix] 40 mg tablet
40 mg PO DAILY Qty: 30 0RF
finasteride [Proscar] 5 mg tablet
5 mg PO HS Qty: 30 0RF
cyanocobalamin (vitamin B-12) [Vitamin B-12] 1,000 mcg Tablet Extended Release
2,000 mcg PO DAILY
glucosamine-chondroitin [Osteo Bi-Flex] 250-200 mg Tablet
2 tab PO DAILY
cholecalciferol (vitamin D3) [Vitamin D3] 50 mcg (2,000 unit) Tablet
50 mcg PO DAILY
omega 2-nav-dzu-fish oil [Fish Oil] 1,200 (144-216) mg Capsule
1 cap PO DAILY
betamethasone
1 unit topical PRN PRN (Reason: rash)
acetaminophen 325 mg Tablet
650 mg PO Q4HPRN PRN (Reason: FRAIRE, mild-moderate pain, or fever >101F) Qty: 0 0RF
Rx Instructions:
Please purchase over the counter
Referrals:
Ryder Dhillon MD [Active] - Call in 1-3 days for appt
Zofia Newberry DPM [Specified Professional Personl] - Call in 1-3 days for appt
Daniele Landis MD [Family Provider] -
Activity Restrictions/Additional Instructions:
We have sent an antibiotic called Keflex to her pharmacy. You can take 1 tablet 4 times daily for 5 days.
Please keep your leg elevated on a pillow above the level of the heart. This will help decrease swelling.
Please return emergency department should you experience fevers or chills, increasing pain or redness, chest pain, shortness of breath, or any other signs or symptoms concerning to you.
Interventions
Interventions:
*Risk Screen - Suicide Last Done: 03/09/24 13:52
*General Assessment Last Done: 03/09/24 15:37
*Neglect/Abuse Screening Last Done: 03/09/24 13:52
ED- Fall Risk Assessment Last Done: 03/09/24 15:37
*ED COVID-19 Vaccine History Last Done: 03/09/24 15:37
*Nursing Disposition Last Done: 03/09/24 17:53
ED- Cardiac Assessment Last Done: 03/09/24 15:37
ED- Pulmonary Assessment Last Done: 03/09/24 15:37
ED-Skin Assessment Last Done: 03/09/24 15:37
Discharge Date and Time
Discharge Date/Time: 03/09/24 17:54
Print Language: BANGLADESHI
[2024-03-09 17:53] VITALS: BP 120/95
== END 2024-03-09 17:54 | disposition home or self-care (01) ==
LOC: EMR 13:46
PROVIDERS: EMERGENCY PHYSICIAN Student in an Organized Health Care Education/Training Program; FAMILY PHYSICIAN Student in an Organized Health Care Education/Training Program
DX: S99.922A Unspecified injury of left foot, initial encounter (principal); M79.89 Other specified soft tissue disorders; S91.115A Laceration without foreign body of left lesser toe(s) without damage to nail, initial encounter; R60.0 Localized edema; W29.8XXA Contact with other powered hand tools and household machinery, initial encounter; G62.9 Polyneuropathy, unspecified; M19.072 Primary osteoarthritis, left ankle and foot; I10 Essential (primary) hypertension; E78.5 Hyperlipidemia, unspecified; N40.0 Benign prostatic hyperplasia without lower urinary tract symptoms; Z95.2 Presence of prosthetic heart valve
CPT/HCPCS: 99283; 73620

== ENCOUNTER 2024-04-26 17:33 | Inpatient (IN) | payer MEDICARE, SELFPAY ==
[2024-04-26 13:06] VITALS: BP 134/74
[2024-04-26 13:32] LABS: Hematocrit 44.6 % (39.0-52.0); Hemoglobin 14.9 g/dL (13.0-18.0); Mean Corp Hgb Conc. 33.4 g/dL (33.0-37.0); Mean Corpuscular Hgb 29.5 pg (27.0-31.0); Mean Corpuscular Volume 88.3 fL (80.0-94.0); Platelet Count 160 10^3/uL (130-400); Red Blood Cell Count 5.05 10^6/uL (4.70-6.10); Red Cell Dist. Width 14.4 % (11.5-14.5); White Blood Cell Count 37.9 10^3/uL (4.8-10.8)
[2024-04-26 13:39] LABS: ALT (SGPT) 14 U/L (0-50); AST (SGOT) 23 U/L (17-59); Alkaline Phosphatase 81 U/L (38-126); Blood Urea Nitrogen 14 mg/dl (9-20); Calcium 9.3 mg/dl (8.4-10.2); Carbon Dioxide 31 mmol/L (22-30); Chloride 100 mmol/L (98-107); Glucose 102 mg/dl (70-99); Lactic Acid 0.5 mmol/L (0.7-2.0); Potassium 4.4 mmol/L (3.5-5.1); Sodium 139 mmol/L (135-145); Total Bilirubin 0.8 mg/dl (0.2-1.3); Total Protein 6.6 g/dl (6.3-8.2); eGFR > 60.00
[2024-04-26 13:50] LABS: % Basophils 0.4 % (0-2); % Eosinophils 0.8 % (0-6); % Immature Granulocytes 0.1 % (0-0.5); % Lymphocytes 90.2 % (20.5-51.1); % Monocytes 1.2 % (1.7-9.3); % Neutrophils 7.3 % (42.2-75.2); Absolute Basophils 0.2 10^3/uL (0-0.2); Absolute Eosinophils 0.3 10^3/uL (0-0.7); Absolute Lymphocytes 34.2 10^3/uL (1.2-3.4); Absolute Monocytes 0.5 10^3/uL (0.1-0.6); Absolute Neutrophils 2.8 10^3/uL (1.4-6.5); Nucleated Red Blood Cells % 0 % (-)
--- NOTE | 2024-04-26 14:26 | EDRN ---
Pt's name placed in Room #34 but pt was placed in room #35. Christiano GROSSMAN just informed this RN.
--- NOTE | 2024-04-26 14:27 | EDRN ---
Christiano Vaca PA in to see pt at this timer.
[2024-04-26 14:48] VITALS: BMI 30.6
[2024-04-26 15:01] VITALS: BP 113/77
[2024-04-26] MEDS: VANCOCIN 540 MG IV (15:28)
[2024-04-26 15:33] VITALS: BP 145/77
--- NOTE | 2024-04-26 15:55 | ED.GENMED ---
History of Present Illness
General
Chief Complaint: Skin Problem
Source: patient and family
Exam Limitations: none
Time Seen by Provider: 04/26/24 14:07
Nursing documentation reviewed up to this point in time: agreed with
History of Present Illness
History of Present Illness:
83-year-old male with past medical history of vascular disease, hypertension hyperlipidemia presenting to the emergency department today being sent in by podiatry with concerns of potential osteomyelitis to his left second toe. Has had some chronic
swelling to the area but significant worsening over the past few days with extending redness into the foot and ankle. Denies any systemic symptoms or fevers. He had an outpatient MRI showing distal phalanx osteomyelitis. Denies systemic symptoms.
Past History
Past History
ED Past Medical History: None
ED Past Surgical History: None
Social History
Tobacco: Non-smoker
Alcohol: None
Drug: None
Living: with family
Review of Systems
Review of Systems
Allergies reviewed?: Yes
All Other Systems: ROS reviewed and negative except as documented in HPI and ROS
Phy Exam
Physical Exam
Physical Exam:
GENERAL: Alert , in no apparent distress
EYE: pupils equal and reactive
NECK: Supple, no significant adenopathy.
ENT: o/p clr, mmm.
CARDIAC: Regular rate and rhythm .
LUNGS: Clear breath sounds bilaterally, no acute respiratory distress, no wheezes/rales/rhonchi
ABDOMEN: Soft, without focal tenderness, no r/g, no cvat
NEUROLOGICAL: Alert and oriented, no focal neuro deficits
SKIN: Significant redness and swelling to the left second toe with distal ulceration with mixed fluid blood pus and serosanguineous fluid to the area there is some redness into the foot as well warm and dry, skin intact.
MUSCULOSKELETAL: No edema, well perfused.
PSYCH: Normal and appropriate interaction.
Course
Orders/Labs/Results
Orders:
Orders
04/26/24 13:17
CRP [C-Reactive Protein] Urgent
Complete Blood Count/With Diff Urgent
Comprehensive Metabolic Panel Urgent
Lactic Acid Urgent
04/26/24 14:32
CR Foot - Left Min 3 Views Urgent
Comment:
Reason For Exam: 2nd toe redness possible osteo
04/26/24 14:49
Blood Culture Urgent
[facility] Source: Blood/Venous
Specimen Description:
04/26/24 14:59
Wound Culture [Wound/Abscess/Other Culture] Urgent
[facility] Source: Toe
Specimen Description:
Date Specimen was Collected: 04/26/24
Time Specimen was Collected: 14:55
04/26/24 15:11
Vancomycin [Vancocin] 2,000 mg 0.9% Sodium Chloride 500 ml [Nss] 500 ml IV NOW
04/26/24 15:22
Blood Culture Routine
[facility] Source: Blood/Venous
Specimen Description:
Abnormal Lab Results
04/26/24
13:17
WBC 37.9 H 10^3/uL
(4.8-10.8)
Absolute Lymphs (auto) 34.2 H 10^3/uL
(1.2-3.4)
Neutrophils % 7.3 L %
(42.2-75.2)
Lymphocytes % 90.2 H %
(20.5-51.1)
Monocytes % 1.2 L %
(1.7-9.3)
Carbon Dioxide 31 H mmol/L
(22-30)
Glucose 102 H mg/dl
(70-99)
Lactic Acid 0.5 L mmol/L
(0.7-2.0)
C-Reactive Protein 51.60 H mg/L
(0.0-10.00)
04/26/24 13:17
04/26/24 13:17
Vital Signs
Initial and Last Documented VS:
Initial Vital Signs
Temp Pulse Resp BP Pulse Ox
98.6 F 64 20 134/74 96
04/26/24 13:06 04/26/24 13:06 04/26/24 13:06 04/26/24 13:06 04/26/24 13:06
Last Documented Vital Signs
Temp Pulse Resp BP Pulse Ox
98.6 F 58 16 145/77 96
04/26/24 13:06 04/26/24 15:33 04/26/24 15:33 04/26/24 15:33 04/26/24 15:33
MDM/Problems Addressed
MDM/Problems Addressed:
83-year-old male presenting to the emergency department concerns of infection to the left second toe extending to the foot. He has been taking antibiotics over the past few days but concern of osteomyelitis that was seen on potential MRI as an
outpatient. Vital signs normal upon arrival here white count is 37.9 which is a chronic number for him C-reactive protein is elevated. Case was discussed with podiatry recommending IV antibiotics admission and further testing. Stable throughout
ER stay.
*Critical Care Note
Total Time (30-74mins, 75-104mins- exclusive of procedures): Not Applicable
ED Attending Note
-
Portions of this chart may have been created with voice recognition software.� Occasional wrong word or��sound alike� substitutions may have occurred due to the inherent limitations of voice recognition software.
Discharge Plan
Departure
Patient Disposition: Admit
Date of Disposition: 04/26/24
Time of Disposition: 15:59
Admit to: Med/Surg
Admit to doctor: Fair
Presentation/result/management discussed w/ accepting MD/DO: Hospitalist
Patient with high blood pressure during this ER visit?: No
Condition: Good
Covid-19: Not Applicable
Discharge Problem:
Osteomyelitis
Prescriptions:
No Action
aspirin [Children's Aspirin] 81 mg Tablet,Chewable
81 mg PO DAILY Qty: 0 0RF
glucosamine-chondroitin [Osteo Bi-Flex] 250-200 mg Tablet
2 tab PO DAILY
omega 0-sht-jsz-fish oil [Fish Oil] 1,200 (144-216) mg Capsule
1 cap PO DAILY
cefadroxil 500 mg Capsule
500 mg PO BID
cyanocobalamin (vitamin B-12) 1,000 mcg Tablet
1,000 mcg PO DAILY
cholecalciferol (vitamin D3) [Vitamin D3] 50 mcg (2,000 unit) Capsule
50 mcg PO DAILY
Referrals:
Daniele Moreno, [Family Provider] -
Interventions
Interventions:
*Risk Screen - Suicide Last Done: 04/26/24 13:06
*General Assessment Last Done: 04/26/24 13:06
*Neglect/Abuse Screening Last Done: 04/26/24 13:06
ED- Fall Risk Assessment Last Done: 04/26/24 15:01
*ED COVID-19 Vaccine History Last Done: 04/26/24 14:48
ED-Skin Assessment Last Done: 04/26/24 15:01
Discharge Date and Time
Print Language: ARABIC
--- NOTE | 2024-04-26 16:16 | HPS.HSE ---
Addendum entered and electronically signed by MARISSA Cortez 04/26/24 18:41:
OR tmr 04/27/24 at 9;30 am per Podiatry
Original Note:
Family Physician
-
Family Physician: Daniele Moreno
Chief Complaint
-
Left second toe increased swelling extending into foot and ankle with erythema.
History of Present Illness
83-year-old male sent by podiatry for concerns of osteomyelitis to his left second toe. He reports chronic swelling to the area but significant worsening over the past few days with erythema extending into the foot and ankle despite taking 4 doses
of cefadroxil 500 mg. He had outpatient MRI at [place] on 04/24/2024 showing distal phalanx osteomyelitis of the second toe. He reports having a prior callus to the tip of his second toe thought to be from ill fitting size 14 shoes. He had a
callus removed approximately 1 month ago by podiatry in the office. He denies fever, chills, chest pain, palpitations, shortness breath, cough, abdominal pain, nausea, vomiting, diarrhea, urinary symptoms.
He has past medical history:CLL with elevated white count, HTN, HLD, aortic stenosis status post TAVR, ex-smoker, OA, BPH, psoriatic arthritis, fuch's corneal disc Dysthropathy, chronic back pain.
Medical History
Past Medical History
Past Medical History: Reports Other
Additional Past Medical History:
HTN
HLD
aortic stenosis status post TAVR
ex-smoker
OA
BPH
psoriatic arthritis
Fuch's corneal disc Dysthropathy
chronic back pain
Past Surgical History: Reports Other
Additional Past Surgical History:
TAVR
Herniated disc repair 1956
Wrist fusion 1973
Bilateral knee replacements September 2008
Right and left shoulder surgeries
Bilateral hip replacements
Bilateral cataract extraction
Social History
Tobacco: Non-smoker
Alcohol: None
Drug: None
Personal: Single
Living: Alone
Employment: Retired
Family History
Family History: Other (Mother history CVA in her 80s history of breast cancer age 20 and breast cancer age 80, father late 80s history of pituitary gland issue requiring radiation during his lifetime)
Allergies / Home Medications
Allergies reflects when Allergies were last updated in [facility].
Home Medications with original date entered in [facility]
Allergy/Medication List:
Allergies
Allergy/AdvReac Type Severity Reaction Status Date / Time
formaldehyde [Formaldehyde] Allergy Rash Verified 04/26/24 13:06
latex [Latex] Allergy Rash Verified 04/26/24 13:06
pollen extracts Allergy congestion Verified 04/26/24 13:06
petroleum products Allergy Rash Uncoded 04/26/24 13:06
Home Medications
aspirin 81 mg chewable tablet (Children's Aspirin) 81 mg PO DAILY Blood clot prevention/tx #0 tabs 12/06/23
glucosamine-chondroitin 250 mg-200 mg tablet (Osteo Bi-Flex) 2 tab PO DAILY Supplement 12/25/23
omega 9-usq-ptl-fish oil 1,200 mg (144 mg-216 mg) capsule (Fish Oil) 1 cap PO DAILY Supplement 12/25/23
cefadroxil 500 mg capsule 500 mg PO BID 04/26/24
cholecalciferol (vitamin D3) 50 mcg (2,000 unit) capsule (Vitamin D3) 50 mcg PO DAILY 04/26/24
cyanocobalamin (vitamin B-12) 1,000 mcg tablet 1,000 mcg PO DAILY 04/26/24
Review of Systems
-
History Source: Patient
A 12 point ROS was completed and negative except as noted: Yes
Constitutional: Denies Fever or Chills
EENT: Denies Sore Throat or Runny Nose
Respiratory: Denies Cough or Trouble Breathing
Cardiac: Denies Chest Pain, Diaphoresis, Palpitations or Syncope
Abdomen/GI: Denies Abdominal Pain, Nausea, Vomiting, Diarrhea, Constipated, Bloody Stools or Black Stools
: Denies Dysuria, Frequency, Flank Pain, Incontinence or Difficulty Voiding
Musculoskeletal: Reports Joint Pain (Left second toe swelling with open distal tip ulceration with erythema and swelling extending down onto anterior foot to level of ankle); Denies Edema
Skin: Denies Itching or Rash
Neurological: Denies Dizzy or Headache
Endocrine: Reports No Symptoms
Hematologic/Lymphatic: Reports No Symptoms
Psych: Reports Calm
Physical Exam
Vital Signs
Vital Signs
Temp Pulse Resp BP Pulse Ox
98.6 F 58 16 145/77 96
04/26/24 13:06 04/26/24 15:33 04/26/24 15:33 04/26/24 15:33 04/26/24 15:33
Physical Exam
General: Comfortable and Conversant; No Fever or Chills
HEENT: NormoCephalic, Anicteric, Moist mucous membranes, PERRLA, Killian Conjunctivae and No Ptosis
Respiratory: Clear; No Wheezes, Rales or Rhonchi
Cardiac: S1/S2 and Regular Rhythm; No Murmur, Rub, Gallop or Peripheral Edema
GI: Soft, Non Tender, Non Distended, Normal Bowel Sounds and No Hepatosplenomegaly
Rectal: Deferred by Provider
Genito-urinary: Deferred by me
Musculoskeletal: No Clubbing, No Cyanosis, No Edema and Other (Left second toe swelling with open distal tip ulceration with erythema and swelling extending down onto anterior foot to level of ankle)
Skin: Warm and Dry; No Rash
Neuro: AO x 3, No Motor Deficits, Nonfocal/grossly intact, Cranial Nerves Intact and No Sensory Deficits; No Slurred Speech, Facial Droop or Tremors
Psych: Calm
Laboratory Results
-
04/26/24 13:17
04/26/24 13:17
Laboratory Results
Lactic Acid 0.5 mmol/L (0.7-2.0) L 04/26/24 13:17
Total Bilirubin 0.8 mg/dl (0.2-1.3) 04/26/24 13:17
AST 23 U/L (17-59) 04/26/24 13:17
ALT 14 U/L (0-50) 04/26/24 13:17
Alkaline Phosphatase 81 U/L (38-126) 04/26/24 13:17
Impression/Plan
-
Impression/plan:
Admit to MedSurg
#Left foot cellulitis with second toe osteomyelitis
Patient has been on 2 days of oral cefadroxil 500 mg twice daily [address] Cerda
WBC 37.9 with left shift, afebrile, normotensive
CRP 51.6
-Consult Podiatry- Dr Cerda
-N.p.o. after midnight until evaluation by Dr. Cerda
-Check x-ray left foot
-Blood culture x 1, wound culture
-IV vancomycin
-Follow CBC, CMP
#CLL with elevated white count
Wbc 38 appears near baseline since November 2023
- [facility]
#HTN�benign
145/77
No reported meds
#HLD
-Patient takes oral fish oil
#Aortic stenosis status post TAVR
2D echo 02/05/2024: EF 55 to 60% mild MR, [facility] DMITRY number 29 mm TAVR peak mean gradient 19 mmHg
-Follows with [facility]
#OA
-Continue vitamin D3/Osteo Bi-Flex
#BPH
-No reported meds
#Psoriatic arthritis
-No reported meds
#Chronic back pain
No reported meds
# Fuch's corneal disc Dysthropathy
DVT prophylaxis
sq heparin
DNR per patient
[2024-04-26 17:17] VITALS: BP 142/77
--- NOTE | 2024-04-26 18:13 | EDRN ---
Surgeon in to see pt at this time.
--- NOTE | 2024-04-26 18:13 | W.PN.POD ---
Today's Communication
Today's Communication
plan fof OR tomorrow
npo after midnight
Assessment / Plan
-
osteo /cellulitis left 2nd toe===will plan for partial amp tomorrow
npo after midnight
ID consult
consent signed
Subjective
Chief Complaint
pt seen for ulcer 2nd toe left foot
O osteo
full consult dictated
Objective
Temp Pulse Resp BP Pulse Ox
98.6 F 60 20 142/77 96
04/26/24 13:06 04/26/24 17:17 04/26/24 17:17 04/26/24 17:17 04/26/24 17:17
04/26/24 13:17
04/26/24 13:17
Vital Signs and Lab results were reviewed.
[2024-04-26 18:35] VITALS: BP 144/84
[2024-04-26 18:36] VITALS: BMI 28.5
--- NOTE | 2024-04-26 19:08 | PHA.VAN.IN ---
Assessment
- Assessment
Renal Function: Appears similar to baseline
Concomitant Antimicrobials: NONE
- Previous Dosing Experience
Previous Regimen: NONE
AUC Dosing Plan
- Dosing Variables
Dosing Weight (kg): 103.4
Dosing CrCl (ml/min): 74
Vd coefficient (L/kg): 0.7
- Empiric Dosing
Initial / Loading Dose: 2GM
Maintenance Regimen: 1GM IV Q12H
Estimated AUC (mcg*h/mL): 434
Estimated Peak (mcg*h/mL): 25.3
Estimated Trough (mcg/ml): 12.3
Estimated Half Life (H): 10.5
Pharmacokinetics Vancomycin I
- -
Patient Age: 83
Patient Sex: Male
Vancomycin Day #: 1
Indication: [facility] (OM; CELLULITIS OF FOOT )
Height / Weight:
Height 6 ft 3 in
Actual Weight 103.419 kg
Pertinent Past Medical History: CLL; FAILED OUTPT [place] - CEFADROXIL
- Vital Signs / Lab Results
Temp Pulse Resp BP Pulse Ox
99.3 F 63 16 144/84 96
04/26/24 18:35 04/26/24 18:35 04/26/24 18:35 04/26/24 18:35 04/26/24 18:35
Lab Results - Hematology
04/26/24
13:17
WBC 37.9 H
Lab Results - Chemistry
04/26/24
13:17
BUN 14
Creatinine 0.9
Albumin 4.0
04/26/24
13:17
Lactic Acid 0.5 L
[2024-04-26] MEDS: HEPARIN 5000 UNITS SC (19:56)
[2024-04-26 23:27] VITALS: BP 131/75
[2024-04-27] VITALS (13 sets, daily range): BP systolic 111–139; BP diastolic 63–78; PULSE 90
[2024-04-27] MEDS: VANCOCIN 200 IV ×2 (05:38→18:12)
[2024-04-27 08:30] LABS: ALT (SGPT) 14 U/L (0-50); AST (SGOT) 22 U/L (17-59); Albumin 3.9 g/dl (3.5-5.0); Alkaline Phosphatase 89 U/L (38-126); Blood Urea Nitrogen 13 mg/dl (9-20); Calcium 9.2 mg/dl (8.4-10.2); Carbon Dioxide 28 mmol/L (22-30); Chloride 102 mmol/L (98-107); Estimated Creatinine Clearance 74 ml/min; Glucose 104 mg/dl (70-99); Potassium 4.7 mmol/L (3.5-5.1); Sodium 140 mmol/L (135-145); Total Bilirubin 1.1 mg/dl (0.2-1.3); Total Protein 6.6 g/dl (6.3-8.2); eGFR > 60.00
[2024-04-27 08:35] LABS: Hematocrit 47.5 % (39.0-52.0); Hemoglobin 15.8 g/dL (13.0-18.0); Mean Corp Hgb Conc. 33.3 g/dL (33.0-37.0); Mean Corpuscular Hgb 29.9 pg (27.0-31.0); Mean Platelet Volume 9.6 fL (7.4-10.4); Platelet Count 155 10^3/uL (130-400); Red Blood Cell Count 5.28 10^6/uL (4.70-6.10); White Blood Cell Count 40.1 10^3/uL (4.8-10.8)
--- NOTE | 2024-04-27 09:24 | W.PN.UPDATE ---
Update Note
Progress Note Update
pt seen in rr
no pain
cft intact
a/p s/p amp 2nd rtoe left---stable
wound closedd
cont abx
will follow
[2024-04-27 09:36] LABS: % Basophils 0.2 % (0-2); % Eosinophils 0.7 % (0-6); % Immature Granulocytes 0.1 % (0-0.5); % Lymphocytes 89.9 % (20.5-51.1); % Monocytes 1.3 % (1.7-9.3); % Neutrophils 7.8 % (42.2-75.2); Absolute Basophils 0.1 10^3/uL (0-0.2); Absolute Eosinophils 0.3 10^3/uL (0-0.7); Absolute Immature Granulocytes 0.1 10^3/uL (0-0.05); Absolute Lymphocytes 36.1 10^3/uL (1.2-3.4); Absolute Monocytes 0.5 10^3/uL (0.1-0.6); Absolute Neutrophils 3.1 10^3/uL (1.4-6.5); Nucleated Red Blood Cells % 0 % (-)
--- NOTE | 2024-04-27 10:12 | PHA.VAN.FU ---
Vancomycin Assessment / Plan
- Assessment
Renal Function: Stable (0.9>0.9)
WBC's are: Trending Up (37.9>40.1)
In the past 24 hrs, patient has been: Afebrile
- Dosing Plan
Continue: Vancomycin 1000mg IV Q12hrs
- Monitoring Plan
No level(s) ordered at this time: Will order levels according to vancomycin dosing protocol
- Follow Up
Pharmacy will continue to follow.
Vancomycin Follow UP
- -
Patient Age: 83
Patient Sex: Male
Vancomycin Day #: 2
Indication: Bone And Joint (OM; CELLULITIS OF FOOT )
Requesting Provider: Tiff ANN
Pertinent Antimicrobial Allergies:
No antibiotic allergies
Height / Weight:
Height 6 ft 3 in
Actual Weight 103.419 kg
IBW in k.4
Adjusted BW in k.1
Pertinent Past Medical History: CLL; FAILED OUTPT [place] - [facility]
- Vital Signs / Lab Results
Temp Pulse Resp BP Pulse Ox
98.5 F 64 16 112/75 95
04/27/24 09:55 04/27/24 09:55 04/27/24 09:55 04/27/24 09:44 04/27/24 09:55
Lab Results - Hematology
04/26/24 04/27/24
13:17 06:44
WBC 37.9 H 40.1 H*
Lab Results - Chemistry
04/26/24 04/27/24
13:17 06:44
BUN 14 13
Creatinine 0.9 0.9
Estimated Creat Clear 74
Albumin 4.0 3.9
04/26/24
13:17
Lactic Acid 0.5 L
Microbiology Results
04/26/24 14:59 Wound Culture - Preliminary
Toe Staphylococcus aureus
Gram Stain - Preliminary
[2024-04-27] MEDS: VITAMIN D3 (cholecalciferol) 50 MCG PO (10:30)
[2024-04-27] MEDS: HEPARIN 5000 UNITS SC (10:30)
[2024-04-27] MEDS: VITAMIN B-12 1000 MCG PO (10:30)
[2024-04-27] MEDS: LOW STRENGTH ASPIRIN 81 MG PO (10:30)
--- NOTE | 2024-04-27 10:39 | W.PN.HOSP.TC ---
Today's Communication/Plan
-
cont vanco
apprec podiatry
Assessment / Plan
Assessment / Plan
pt is an 83 year old male
Left foot cellulitis with second toe osteomyelitis--apprec podiatry--had toe amputation 04/27--cont vanco--follow cultures--prelim 04/26 Staph aureus prelim wound culture
CLL with elevated white count--cannot reliably use as indicator for infection--follows with [facility]--recent diagnosis per pt
Essential HTN--no outpt meds
HLD--Patient takes oral fish oil
Aortic stenosis status post TAVR--2D echo 02/05/2024: EF 55 to 60% mild MR, Munson DMITRY number 29 mm TAVR peak mean gradient 19 mmHg--Follows with [facility]
OA--Continue vitamin D3/Osteo Bi-Flex
BPH--No reported meds
Psoriatic arthritis--No reported meds
Chronic back pain--No reported meds
Fuch's corneal disc Dysthropathy
DVT prophylaxis-- sq heparin
Code status --DNR per patient
Anticipated Discharge: > 48 hours
Subjective/Interval History
-
Date of Service: April 27, 2024
pt had toe amputation by Dr. Cerda--Dr. Cerda described cellulitis (foot wrapped currently, fresh post op)
Objective Data
-
Labs:
Laboratory Results
04/27/24
06:44
WBC 40.1 H*
Hgb 15.8
Hct 47.5
Plt Count 155
Sodium 140
Potassium 4.7
Chloride 102
Carbon Dioxide 28
BUN 13
Creatinine 0.9
Glucose 104 H
Calcium 9.2
Total Bilirubin 1.1
AST 22
ALT 14
Alkaline Phosphatase 89
Vital Signs:
max temp for 24 hours
04/26/24
13:06
Temp 98.6 F
Vital Signs
Temp Pulse Resp BP Pulse Ox
98.5 F 64 16 112/75 95
04/27/24 09:55 04/27/24 09:55 04/27/24 09:55 04/27/24 09:44 04/27/24 09:55
I&O
04/26/24 04/27/24 04/28/24
06:59 06:59 06:59
Intake Total 100 / 100
Balance 100 / 100
Review of Systems
-
All other systems: Reviewed and negative
Physical Exam
-
General: Well Developed, Well Nourished and No Apparent Distress
HEENT: Normocephalic and Atraumatic
Respiratory: Clear to Auscultation; Negative Wheezes or Rhonchi
Cardiac: Regular Rhythm and S1/S2; Negative Murmur
GI: Soft, Nontender, Nondistended and Normal Bowel Sounds
Musculoskeletal: No Clubbing, No Cyanosis, No Edema and Other (left foot post op, wrapped)
Neuro: Awake
Psych: Calm
--- NOTE | 2024-04-27 16:41 | CM ---
Addendum entered by Mini Olsen 04/27/24 16:58:
Patient continues with IV Vanco. Cultures have not been finalized as of yet.
Original Note:
CM reviewed patient's chart. Spoke with patient at bedside. CM introduced self and role.
PCP: Dr. Daniele Demarco
Pharmacy: [email or web address]
Living situation: Patient lives alone in a cabin, where he has had additional built on it. It is single-level. No steps to enter. He has several neighbors who have offered support. He also had a friend who is a national dedicated truck driver.
Finances: Patient denies any social insecurities. He is able to afford his housing, clothing, medications, food, utilities and transportation. He is retired. He retired at 80. 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
DME/Ambulation: Patient ambulates independently. He does not own any DME.
Transportation: Patient stated one of his neighbor-friends drove him to the hospital and will be providing transportation once he is discharged. Patient drives.
Agreeable to home health care?: Yes, if needed.
ANTICIPATED DISCHARGE DISPOSITION:
Return to home with VN, pending blood work.
CM will continue to follow case and available for further assistance.
[2024-04-27] MEDS: ROXICODONE 5 MG PO (18:12)
[2024-04-27] MEDS: HEPARIN SC (20:32)
[2024-04-28] MEDS: VANCOCIN 200 IV ×2 (05:38→18:30)
[2024-04-28 07:00] VITALS: BP 128/76
[2024-04-28 07:59] LABS: ALT (SGPT) 12 U/L (0-50); AST (SGOT) 20 U/L (17-59); Albumin 3.4 g/dl (3.5-5.0); Alkaline Phosphatase 81 U/L (38-126); Blood Urea Nitrogen 16 mg/dl (9-20); Carbon Dioxide 30 mmol/L (22-30); Chloride 102 mmol/L (98-107); Estimated Creatinine Clearance 84 ml/min; Glucose 115 mg/dl (70-99); Potassium 4.1 mmol/L (3.5-5.1); Sodium 140 mmol/L (135-145); Total Bilirubin 0.8 mg/dl (0.2-1.3); Total Protein 5.9 g/dl (6.3-8.2); eGFR > 60.00
[2024-04-28 08:02] LABS: Hematocrit 43.6 % (39.0-52.0); Hemoglobin 14.7 g/dL (13.0-18.0); Mean Corp Hgb Conc. 33.7 g/dL (33.0-37.0); Mean Corpuscular Hgb 29.7 pg (27.0-31.0); Mean Corpuscular Volume 88.1 fL (80.0-94.0); Mean Platelet Volume 9.6 fL (7.4-10.4); Platelet Count 138 10^3/uL (130-400); Red Blood Cell Count 4.95 10^6/uL (4.70-6.10); Red Cell Dist. Width 13.9 % (11.5-14.5); White Blood Cell Count 32.5 10^3/uL (4.8-10.8)
--- NOTE | 2024-04-28 09:01 | W.PN.HOSP.TC ---
Today's Communication/Plan
-
apprec podiatry
await culture data
Assessment / Plan
Assessment / Plan
pt is an 83 year old male
Left foot cellulitis with second toe osteomyelitis--apprec podiatry--had toe amputation 04/27--cont vanco--follow cultures--prelim 04/26 Staph aureus prelim wound culture (pre surgery)--OR cultures pending
CLL with elevated white count--cannot reliably use as indicator for infection--follows with [facility]--recent diagnosis per pt
Essential HTN--no outpt meds
HLD--Patient takes oral fish oil
Aortic stenosis status post TAVR--2D echo 02/05/2024: EF 55 to 60% mild MR, Munson DMITRY number 29 mm TAVR peak mean gradient 19 mmHg--Follows with [facility]
OA--Continue vitamin D3/Osteo Bi-Flex
BPH--No reported meds
Psoriatic arthritis--No reported meds
Chronic back pain--No reported meds
Fuch's corneal disc Dysthropathy
DVT prophylaxis-- sq heparin
Code status --DNR per patient
Anticipated Discharge: > 48 hours
Subjective/Interval History
-
Date of Service: April 28, 2024
pt said his IV 'busted a leak'
Objective Data
-
Labs:
Laboratory Results
04/28/24
06:44
WBC 32.5 H
Hgb 14.7
Hct 43.6
Plt Count 138
Sodium 140
Potassium 4.1
Chloride 102
Carbon Dioxide 30
BUN 16
Creatinine 0.8
Glucose 115 H
Calcium 9.0
Total Bilirubin 0.8
AST 20
ALT 12
Alkaline Phosphatase 81
Vital Signs:
max temp for 24 hours
04/27/24
15:00
Temp 98.7 F
Vital Signs
Temp Pulse Resp BP Pulse Ox
97.4 F 72 16 136/78 96
04/27/24 23:49 04/27/24 23:49 04/27/24 23:49 04/27/24 23:49 04/27/24 23:49
I&O
04/27/24 04/28/24 04/29/24
06:59 06:59 06:59
Intake Total 1500 / 1500
Balance 1500 / 1500
Review of Systems
-
All other systems: Reviewed and negative
Physical Exam
-
General: Well Developed, Well Nourished and No Apparent Distress
HEENT: Normocephalic and Atraumatic; Negative Oxygen
Respiratory: Clear to Auscultation; Negative Wheezes or Rhonchi
Cardiac: Regular Rhythm and S1/S2; Negative Murmur
GI: Soft, Nontender, Nondistended and Normal Bowel Sounds
Musculoskeletal: No Clubbing, No Cyanosis, No Edema and Other (left foot still in postop bandages)
Neuro: Awake and Alert
[2024-04-28 09:06] LABS: % Basophils 0.1 % (0-2); % Eosinophils 0.8 % (0-6); % Immature Granulocytes 0.1 % (0-0.5); % Monocytes 1.8 % (1.7-9.3); % Neutrophils 7.2 % (42.2-75.2); Absolute Eosinophils 0.3 10^3/uL (0-0.7); Absolute Lymphocytes 29.2 10^3/uL (1.2-3.4); Absolute Monocytes 0.6 10^3/uL (0.1-0.6); Absolute Neutrophils 2.4 10^3/uL (1.4-6.5); Nucleated Red Blood Cells % 0 % (-)
[2024-04-28] MEDS: VITAMIN D3 (cholecalciferol) 50 MCG PO (09:35)
[2024-04-28] MEDS: VITAMIN B-12 1000 MCG PO (09:35)
[2024-04-28] MEDS: LOW STRENGTH ASPIRIN 81 MG PO (09:35)
[2024-04-28] MEDS: HEPARIN SC (09:36)
--- NOTE | 2024-04-28 10:40 | W.PN.UPDATE ---
Update Note
Progress Note Update
pt seen at bedside
staph from cult, not intraop
intra op cx pending
dressing with some blood
vasc intact, cft intact, toe with ecchymosis, warm a flap
derm sutures intact, cellulitis resolving nicely
no pus
no odor
decreased cellulitis and edema
s/p s/p amp 2 nd to left---stable
anticipate dc tomorrow after i round
will need abx upon dc, po should be ok
dressing appled
--- NOTE | 2024-04-28 11:51 | PHA.VAN.FU ---
Vancomycin Assessment / Plan
- Assessment
Renal Function: SCR Decreasing (0.9>0.8)
WBC's are: Trending Down (40.1>32.5)
In the past 24 hrs, patient has been: Afebrile
- Dosing Plan
Continue: Vancomycin 1000mg IV Q12hrs
- Monitoring Plan
Peak Level: Ordered for tonight 04/28/24 at 20:30
Trough Level: Ordered for 04/29/24 at 05:30
- Follow Up
Pharmacy will continue to follow.
Vancomycin Follow UP
- -
Patient Age: 83
Patient Sex: Male
Vancomycin Day #: 3
Indication: Bone And Joint (MRSA)
Requesting Provider: Tiff ANN
Pertinent Antimicrobial Allergies:
No antibiotic allergies
Height / Weight:
Height 6 ft 3 in
Actual Weight 103.419 kg
IBW in k.4
Adjusted BW in k.1
Pertinent Past Medical History: CLL; FAILED OUTPT [place] - [facility]
- Vital Signs / Lab Results
Temp Pulse Resp BP Pulse Ox
97.4 F 61 16 128/76 93
04/28/24 07:00 04/28/24 07:00 04/28/24 07:00 04/28/24 07:00 04/28/24 07:00
Lab Results - Hematology
04/26/24 04/27/24 04/28/24
13:17 06:44 06:44
WBC 37.9 H 40.1 H* 32.5 H
Lab Results - Chemistry
04/26/24 04/27/24 04/28/24
13:17 06:44 06:44
BUN 14 13 16
Creatinine 0.9 0.9 0.8
Estimated Creat Clear 74 84
Albumin 4.0 3.9 3.4 L
04/26/24
13:17
Lactic Acid 0.5 L
Microbiology Results
04/27/24 09:00 Anaerobic Culture - Preliminary
Foot - Left Culture pending. Anaerobic cultures are examined after 3
days incubation. Additional information to follow.
04/27/24 09:00 Wound Culture - Preliminary
Foot - Left Staph aureus MRSA
Gram Stain - Preliminary
04/27/24 09:00 Tissue Culture - Preliminary
Foot - Left Staph aureus MRSA
Gram Stain - Preliminary
04/26/24 14:59 Wound Culture - Final
Toe Staph aureus MRSA
Gram Stain - Final
04/26/24 20:40 MRSA Screen - Final
Nose No Methicillin Resistant Staphylococcus aureus isolated.
04/26/24 15:22 Blood Culture - Preliminary
Blood/Venous No Growth in 24 hours- Final report to follow
04/26/24 14:49 Blood Culture - Preliminary
Blood/Venous No Growth in 24 hours- Final report to follow
[2024-04-28 15:00] VITALS: BP 145/76
--- NOTE | 2024-04-28 17:55 | PTCARENOTE ---
Pt with + MRSA in tissue and wound. Moved from room 319-2 to room 321. Continues on Vanco.
[2024-04-28] MEDS: HEPARIN 5000 UNITS SC (20:37)
[2024-04-28 20:55] LABS: Vancomycin Peak 22.8 ug/ml (18-26)
[2024-04-28 23:00] VITALS: BP 148/84
[2024-04-29 06:11] LABS: Hematocrit 47.4 % (39.0-52.0); Hemoglobin 15.9 g/dL (13.0-18.0); Mean Corp Hgb Conc. 33.5 g/dL (33.0-37.0); Mean Corpuscular Hgb 29.8 pg (27.0-31.0); Mean Corpuscular Volume 88.8 fL (80.0-94.0); Mean Platelet Volume 8.9 fL (7.4-10.4); Platelet Count 157 10^3/uL (130-400); Red Blood Cell Count 5.34 10^6/uL (4.70-6.10); Red Cell Dist. Width 13.8 % (11.5-14.5)
[2024-04-29 06:18] LABS: ALT (SGPT) 17 U/L (0-50); AST (SGOT) 30 U/L (17-59); Albumin 3.9 g/dl (3.5-5.0); Alkaline Phosphatase 88 U/L (38-126); Blood Urea Nitrogen 16 mg/dl (9-20); Calcium 9.6 mg/dl (8.4-10.2); Carbon Dioxide 35 mmol/L (22-30); Chloride 101 mmol/L (98-107); Estimated Creatinine Clearance 67 ml/min; Glucose 95 mg/dl (70-99); Magnesium 2.1 mg/dl (1.6-2.3); Potassium 4.9 mmol/L (3.5-5.1); Sodium 143 mmol/L (135-145); Total Bilirubin 0.8 mg/dl (0.2-1.3); Total Protein 6.6 g/dl (6.3-8.2); eGFR > 60.00
[2024-04-29 06:23] LABS: Vancomycin Trough 12.4 ug/ml (5-20)
[2024-04-29] MEDS: VANCOCIN 200 IV (06:24)
[2024-04-29 07:00] VITALS: BP 128/81
[2024-04-29] MEDS: VITAMIN B-12 1000 MCG PO (07:30)
[2024-04-29] MEDS: HEPARIN 5000 UNITS SC (07:30)
[2024-04-29] MEDS: LOW STRENGTH ASPIRIN 81 MG PO (07:30)
[2024-04-29] MEDS: VITAMIN D3 (cholecalciferol) 50 MCG PO (07:30)
--- NOTE | 2024-04-29 08:12 | VATNOTE ---
Vancomycin infiltrate update: R arm remains red and swollen, pt denies pain. Heat applied.
[2024-04-29 08:28] LABS: % Basophils 0.1 % (0-2); % Eosinophils 0.9 % (0-6); % Immature Granulocytes 0.1 % (0-0.5); % Lymphocytes 91.1 % (20.5-51.1); % Monocytes 0.9 % (1.7-9.3); % Neutrophils 6.9 % (42.2-75.2); Absolute Eosinophils 0.3 10^3/uL (0-0.7); Absolute Immature Granulocytes 0.1 10^3/uL (0-0.05); Absolute Lymphocytes 31.9 10^3/uL (1.2-3.4); Absolute Monocytes 0.3 10^3/uL (0.1-0.6); Absolute Neutrophils 2.4 10^3/uL (1.4-6.5); Nucleated Red Blood Cells % 0.3 % (-)
--- NOTE | 2024-04-29 08:49 | PHA.VAN.FU ---
Vancomycin Assessment / Plan
- Assessment
Renal Function: SCR Increasing (0.8>1.0)
WBC's are: Trending Up (32.5>35)
In the past 24 hrs, patient has been: Afebrile
- Assessment - Therapeutic Drug Monitoring
Extrapolated Cmax (mcg/mL): 24.5
Peak level was drawn: Appropriately
Extrapolated Cmin (mcg/mL): 11.8
Trough Drawn: Appropriately
Levels were drawn: At steady state
Calculated AUC (mcg*h/mL): 419
Calculated ke: 0.0661
Calculated half life (H): 10.5
Calculated Vd (L): 72.24
Calculated Vanc CL (ml/min): 79.57
- Dosing Plan
Continue: Vancomycin 1000mg IV [id number]
- Monitoring Plan
Level(s) appropriate: Recheck trough at minimum of weekly intervals, Repeat sooner for changes in renal function or clinical status
- Follow Up
Pharmacy will continue to follow.
Vancomycin Follow UP
- -
Patient Age: 83
Patient Sex: Male
Vancomycin Day #: 4 (s/p amp 2 nd to left 04/27/24)
Indication: Bone And Joint (MRSA)
Requesting Provider: Tiff ANN
Pertinent Antimicrobial Allergies:
No antibiotic allergies
Height / Weight:
Height 6 ft 3 in
Actual Weight 103.419 kg
IBW in k.4
Adjusted BW in k.1
Pertinent Past Medical History: CLL; FAILED OUTPT [place] - [facility]
- Vital Signs / Lab Results
Temp Pulse Resp BP Pulse Ox
97.4 F 60 18 148/84 95
04/28/24 23:00 04/28/24 23:00 04/28/24 23:00 04/28/24 23:00 04/28/24 23:00
Lab Results - Hematology
08/30/24 08/31/24 09/01/24
13:17 06:44 06:44
WBC 37.9 H 40.1 H* 32.5 H
04/29/24
05:47
WBC 35.0 H
Lab Results - Chemistry
04/26/24 04/27/24 04/28/24
13:17 06:44 06:44
BUN 14 13 16
Creatinine 0.9 0.9 0.8
Estimated Creat Clear 74 84
Albumin 4.0 3.9 3.4 L
04/29/24
05:47
BUN 16
Creatinine 1.0
Estimated Creat Clear 67
Albumin 3.9
04/26/24
13:17
Lactic Acid 0.5 L
Microbiology Results
04/27/24 09:00 Tissue Culture - Final
Foot - Left Staph aureus MRSA
Staphylococcus epidermidis
Gram Stain - Final
04/26/24 15:22 Blood Culture - Preliminary
Blood/Venous No Growth in 48 hours- Final report to follow
04/26/24 14:49 Blood Culture - Preliminary
Blood/Venous No Growth in 48 hours- Final report to follow
04/27/24 09:00 Anaerobic Culture - Preliminary
Foot - Left Culture pending. Anaerobic cultures are examined after 3
days incubation. Additional information to follow.
04/27/24 09:00 Wound Culture - Preliminary
Foot - Left Staph aureus MRSA
Gram Stain - Preliminary
04/26/24 14:59 Wound Culture - Final
Toe Staph aureus MRSA
Gram Stain - Final
04/26/24 20:40 MRSA Screen - Final
Nose No Methicillin Resistant Staphylococcus aureus isolated.
Therapeutic Drug Monitoring
Vancomycin Peak 22.8 ug/ml (18-26) 04/28/24 20:34
Vancomycin Trough 12.4 ug/ml (5-20) 04/29/24 05:47
--- NOTE | 2024-04-29 09:58 | W.PN.UPDATE ---
Update Note
Progress Note Update
pt seen at bedside
no pain
no fcns
dressing cdi
vasc pedal pulses palp cft intact, flap warm
+ ecchymosis
derm cellulitis resolved to forefoot, mild in toe. resolving
sutures intact
no pus
+ mrsa bone
a/p s/p amp 2nd toe left---stable for dc on po abx, dry bandage changes daily, keep dry
wb on heel in sx shoe
fu in office thid week
post op care d/w pt
will sign off
stable for dc, rec 2 weeks abx
--- NOTE | 2024-04-29 13:48 | CON.ID ---
Consultation
-
Date/Time Consultation Requested: April 29, 2024 1230
Date/Time Consultation Performed: April 29, 2024 1350
Requesting Provider: Dr. Niko Perez
Performing Provider: Dr. Bailey Martin
Reason for Consultation: Status post toe amputation, need for 2 weeks of antibiotic
Chief Complaint / Past History
Chief Complaint
Left foot redness
History of Present Illness
83-year-old male with history of CLL, Psoriatic arthritis, TAVR, who developed a wound on the tuft left second toe. Last week, he noticed pain left toe. He saw podiatry , outside MRI showed left second toe osteomyelitis. He was placed on oral
antibiotic 2 days prior to admission. However the redness extended up his foot. He therefore came to the ER April 26. April 27, he underwent partial left second toe amputation. Today, he feels well. No fever/chills. No complaints.
Past History
Additional Past Medical History:
CLL, under observation
Hypertension
Dyslipidemia
Aortic stenosis status post TAVR
BPH
Psoriatic arthritis
Fuchs corneal disc dystropathy.
Chronic back pain
Herniated disc surgery 1956
Bilateral knee replacements
Bilateral hip replacements
Bilateral shoulder arthroscopic surgeries
Wrist fusion
Allergy History:
formaldehyde [Formaldehyde] Allergy (Verified 04/26/24 13:06)
Rash
latex [Latex] Allergy (Verified 04/26/24 13:06)
Rash
pollen extracts Allergy (Verified 04/26/24 13:06)
congestion
petroleum products Allergy (Uncoded 04/26/24 13:06)
Rash
Medications Reviewed: Yes
Current Antibiotics:
Vancomycin day 3
Social History
Tobacco: Former Smoker
Alcohol: None
Drug: None
Personal: Single
Living: Alone
Family History
Family History: Not Pertinent
Review of Systems
Review of Systems
General: Negative Fever, Chills or Change in Appetite
HEENT: Negative Sinus Problems, Headache or Pharyngitis
Cardiovascular: Negative Chest Pain or Dyspnea
Respiratory: Negative Dyspnea or Cough
Gasteroenterology: Other (no diarrhea); Negative Nausea or Vomiting
Genital / Urological: Negative Dysuria
Skin / Hair / Nails: Negative Rash
All systems: All other systems were reviewed and were negative
Vital Signs
Temp Pulse Resp BP Pulse Ox
97.6 F 60 18 128/81 94
04/29/24 07:00 04/29/24 07:00 04/29/24 07:00 04/29/24 07:00 04/29/24 07:00
Physical Exam
Physical Exam
Constitutional: No Acute Distress and Comfortable
Cardiovascular: Regular Rate and S1/S2
Pulmonary: Clear
Gastrointestinal: Soft, Non Tender and Non Distended
Genito-Urinary: Negative CVA Tenderness
Wound: Other (left foot dressing dry)
Neurological: AO x 3
Lab / Diagnostic Study Results
04/29/24 05:47
04/29/24 05:47
Abs Immat Gran (auto) 0.1 10^3/uL (0-0.05) H 04/29/24 05:47
Absolute Neuts (auto) 2.4 10^3/uL (1.4-6.5) 04/29/24 05:47
Absolute Lymphs (auto) 31.9 10^3/uL (1.2-3.4) H 04/29/24 05:47
Absolute Monos (auto) 0.3 10^3/uL (0.1-0.6) 04/29/24 05:47
Absolute Basos (auto) 0.0 10^3/uL (0-0.2) 04/29/24 05:47
Immature Gran % 0.1 % (0-0.5) 04/29/24 05:47
Neutrophils % 6.9 % (42.2-75.2) L 04/29/24 05:47
Lymphocytes % 91.1 % (20.5-51.1) H 04/29/24 05:47
Monocytes % 0.9 % (1.7-9.3) L 04/29/24 05:47
Eosinophils % 0.9 % (0-6) 04/29/24 05:47
Basophils % 0.1 % (0-2) 04/29/24 05:47
Lactic Acid 0.5 mmol/L (0.7-2.0) L 04/26/24 13:17
C-Reactive Protein 51.60 mg/L (0.0-10.00) H 04/26/24 13:17
Microbiology Results
Micro:
04/27/24 09:00 Wound Culture - Preliminary
Foot - Left Staph aureus MRSA
Enterococcus species
Gram Stain - Preliminary
04/27/24 09:00 Tissue Culture - Final
Foot - Left Staph aureus MRSA
Staphylococcus epidermidis
Gram Stain - Final
04/26/24 15:22 Blood Culture - Preliminary
Blood/Venous No Growth in 48 hours- Final report to follow
04/26/24 14:49 Blood Culture - Preliminary
Blood/Venous No Growth in 48 hours- Final report to follow
04/27/24 09:00 Anaerobic Culture - Preliminary
Foot - Left Culture pending. Anaerobic cultures are examined after 3
days incubation. Additional information to follow.
04/26/24 14:59 Wound Culture - Final
Toe Staph aureus MRSA
Gram Stain - Final
04/26/24 20:40 MRSA Screen - Final
Nose No Methicillin Resistant Staphylococcus aureus isolated.
Assessment / Plan
# Distal left 2nd toe osteo
- s/p partial toe leana.
- OR cx's MRSA, Enterococcus
- Per podiatry he has achieved surgical cure, but requesting 2 weeks po abx fo cellulits.
- Can dc on doxycycline 100mg po bid and amoxicillin 500mg po tid x 10d.
Care Review
Plan reviewed with: Physician (Dr. Perez)
--- NOTE | 2024-04-29 13:50 | W.PN.HOSP.TC ---
Today's Communication/Plan
-
ID consult
Assessment / Plan
Assessment / Plan
Gen-AAOx3, NAD
HEENT-NC, AT, anicteric, clear oral mm
Neck-supple
CV-reg, no M, +S1/S2
Lungs-clear B/L
Abd-soft, NT, ND
Ext-no edema
Musculoskeletal-no cyanosis, clubbing, left foot with dressing
Skin-warm and dry
Neuro-grossly non-focal
Psych-calm, cooperative
Left foot cellulitis with second toe osteomyelitis--apprec podiatry--had toe amputation 04/27. Currently on IV vancomycin. Wound culture preoperatively was positive for MRSA. Operative culture positive for MRSA and Enterococcus.
Discussed with podiatry service, they believe that the osteomyelitis was cured surgically but will need ongoing treatment for cellulitis. Will consult ID.
CLL with elevated white count--cannot reliably use as indicator for infection--follows with [facility]--recent diagnosis per pt
Essential HTN--no outpt meds
Hyperlipidemia--Patient takes oral fish oil
Aortic stenosis status post TAVR--2D echo 02/05/2024: EF 55 to 60% mild MR, Munson DMITRY number 29 mm TAVR peak mean gradient 19 mmHg--Follows with [facility]
OA--Continue vitamin D3/Osteo Bi-Flex
BPH--No reported meds
Psoriatic arthritis--No reported meds
Chronic back pain--No reported meds
Fuch's corneal disc Dysthropathy
DVT prophylaxis-- sq heparin
Code status --DNR per patient
Dispo -await ID input prior to discharge.
Anticipated Discharge: Today
Subjective/Interval History
-
Date of Service: April 29, 2024
Patient seen and examined. No complaints.
Objective Data
-
Labs:
Laboratory Results
04/29/24
05:47
WBC 35.0 H
Hgb 15.9
Hct 47.4
Plt Count 157
Sodium 143
Potassium 4.9
Chloride 101
Carbon Dioxide 35 H
BUN 16
Creatinine 1.0
Glucose 95
Calcium 9.6
Total Bilirubin 0.8
AST 30
ALT 17
Alkaline Phosphatase 88
Vital Signs:
Vital Signs
Temp Pulse Resp BP Pulse Ox
97.6 F 60 18 128/81 94
04/29/24 07:00 04/29/24 07:00 04/29/24 07:00 04/29/24 07:00 04/29/24 07:00
I&O
04/28/24 04/29/24 04/30/24
06:59 06:59 06:59
Intake Total 1500 / 1500 20 / 20
Balance 1500 / 1500 20 / 20
Review of Systems
-
History Source: Patient
All other systems: Reviewed and negative
--- NOTE | 2024-04-29 14:49 | W.DS.TRANS ---
DC Summary - [employer]
-
Discharge Instructions:
Discharge Diagnosis/Procedures Left foot cellulitis, second toe osteomyelitis
Diet Low Cholesterol,Low Fat
Activity As tolerated
Driving Restrictions As prior to admission
Bathing Restrictions None
Instructions:
Stand-Alone Forms:
Changes to Home Medications: No
Discharge Medications:
DC Medications w/original date entered in [facility]
aspirin 81 mg chewable tablet (Children's Aspirin) 81 mg PO DAILY Blood clot prevention/tx #0 tabs 12/06/23
glucosamine-chondroitin 250 mg-200 mg tablet (Osteo Bi-Flex) 2 tab PO DAILY Supplement 12/25/23
omega 3-uep-haj-fish oil 1,200 mg (144 mg-216 mg) capsule (Fish Oil) 1 cap PO DAILY Supplement 12/25/23
cholecalciferol (vitamin D3) 50 mcg (2,000 unit) capsule (Vitamin D3) 50 mcg PO DAILY Supplement 04/26/24
cyanocobalamin (vitamin B-12) 1,000 mcg tablet 1,000 mcg PO DAILY Supplement 04/26/24
amoxicillin 500 mg tablet 500 mg PO TID #30 tabs 04/29/24
doxycycline monohydrate 100 mg capsule 100 mg PO BID #20 caps 04/29/24
Home Medication Changes
Pending Results: No
--- NOTE | 2024-04-29 15:04 | CM ---
Reviewed the chart notes. Patient discharged to home today. Friend provided transportation. No additional needs identified.
[2024-04-29 15:54] VITALS: BP 127/73
== END 2024-04-29 15:59 | disposition home or self-care (01) | DRG 504 ==
LOC: 3 WEST ACU 17:33
PROVIDERS: Clinical Nurse Specialist Family Health; Emergency Medicine; ADMITTING PHYSICIAN Internal Medicine; ATTENDING PHYSICIAN Hospitalist; CONSULT PHYSICIAN Internal Medicine Infectious Disease; CONSULT PHYSICIAN Podiatrist Foot Surgery; EMERGENCY PHYSICIAN Emergency Medicine; FAMILY PHYSICIAN Family Medicine
PROC: 0Y6S0Z3 Detachment at Left 2nd Toe, Low, Open Approach (ICD-10-PCS; 2024-04-27)
DX: M86.9 Osteomyelitis, unspecified (principal); C91.10 Chronic lymphocytic leukemia of B-cell type not having achieved remission; L03.116 Cellulitis of left lower limb; L40.50 Arthropathic psoriasis, unspecified; I10 Essential (primary) hypertension; I35.0 Nonrheumatic aortic (valve) stenosis; Z95.2 Presence of prosthetic heart valve; L97.529 Non-pressure chronic ulcer of other part of left foot with unspecified severity; E78.5 Hyperlipidemia, unspecified; Z66 Do not resuscitate; N40.0 Benign prostatic hyperplasia without lower urinary tract symptoms; G89.29 Other chronic pain; M54.9 Dorsalgia, unspecified; M19.90 Unspecified osteoarthritis, unspecified site; Z79.82 Long term (current) use of aspirin; Z79.899 Other long term (current) drug therapy; Z87.891 Personal history of nicotine dependence; Z96.643 Presence of artificial hip joint, bilateral; Z96.653 Presence of artificial knee joint, bilateral; Z88.8 Allergy status to other drugs, medicaments and biological substances; Z91.040 Latex allergy status
CPT/HCPCS: 88304; 88305; 88311; 73630; 80053; 80202; 83605; 83735; 85025; 86140; 87040; 87070; 87075; 87076; 87077; 87147; 87176; 87186; 87205; 96365; 96366; 97161; 99285

== ENCOUNTER → 2024-07-17 08:13 | Outpatient (REF) | payer MEDICARE, SELFPAY | LOC: RAD 08:13 | PROVIDERS: ATTENDING PHYSICIAN Surgery Vascular Surgery | DX: I73.9 Peripheral vascular disease, unspecified (principal) | CPT/HCPCS: 93922; 93925 ==

== ENCOUNTER 2024-11-14 11:17 | Inpatient (IN) | payer MEDICARE, SELFPAY ==
[2024-11-13] VITALS (9 sets, daily range): BP systolic 110–150; BP diastolic 59–104; BMI 28.9; BMI 29.2
--- NOTE | 2024-11-13 13:07 | ED.GENMED ---
History of Present Illness
<MARISSA Damon - Last Filed: 11/13/24 16:55>
General
Chief Complaint: Fall
Source: patient
Exam Limitations: none
Time Seen by Provider: 11/13/24 11:15
Nursing documentation reviewed up to this point in time: agreed with
History of Present Illness
History of Present Illness:
Patient is a 84-year-old male who lives alone brought to the ER by friend. Patient has a history of CLL, psoriatic arthritis, TAVR, hypertension aortic stenosis patient fell initially 3 weeks ago and landed on his left shoulder and ever since then
has had increasing swelling and pain to his entire arm. He does complain mostly of pain to the shoulder but has noticed that the arm is swollen. He did not get evaluated for this fall at the time of injury. He does not have a family doctor.
He also fell again several nights ago and reports his recliner was stuck in the upright position he climbed over it and was on the floor in the carpet and could not get himself up. Friend helped him up. He did hit his head at the time and has some
abrasions to his lower legs he has not felt himself since.
He in addition has had chronic issues with worsening urinary incontinence . He has no associated back pain or leg weakness. He reports he is just having more difficulty holding his urine on his own. This is gotten gradually worse. He has
never had this evaluated by a family doctor. He denies any fever or chills.
Past History
<MARISSA Damon - Last Filed: 11/13/24 16:55>
Past History
ED Past Medical History: None
ED Past Surgical History: None
Social History
Tobacco: Non-smoker
Alcohol: None
Drug: None
Living: with family
Review of Systems
<MARISSA Damon - Last Filed: 11/13/24 16:55>
Review of Systems
Allergies reviewed?: Yes
All Other Systems: ROS reviewed and negative except as documented in HPI and ROS
Constitutional: Denies fever, fatigue or chills
EENT: Reports no symptoms
Respiratory: Reports no symptoms
Cardiac: Reports no symptoms
ABD/GI: Reports no symptoms
Musculoskeletal: Reports other (left arm pain /swelling)
Skin: Reports no symptoms
Neurological: Reports no symptoms
Psychiatric: Reports no symptoms
Phy Exam
<MARISSA Damon - Last Filed: 11/13/24 16:55>
General Physical Exam
General Presentation: no apparent distress
General age: appears stated age
General Skin: warm and dry
General Habitus: elderly
General Mental: alert
General Hydration: dry mucous membranes
Cardiovascular Exam
Cardiovascular Exam: regular rate/rhythm, no murmur and normal peripheral pulses
Pulmonary Exam
Pulmonary Exam: lungs clear and no respiratory distress
Neurological Exam
Neurological Exam: alert and oriented x3
Musculoskeletal Exam
Musculoskeletal Exam: other (+ Ecchymosis to right face; + abrasions to b/l legs;+ swelling to LUE +tenderness to anterior shoulder pain with left shoulder abduction )
Course
<MARISSA Damon - Last Filed: 11/13/24 16:55>
Orders/Labs/Results
Orders:
Orders
11/13/24 10:25
Shoulder, Left, Trauma CR [CR Shoulder, Trauma - Left] Urgent
Comment:
Reason For Exam: fall
11/13/24 10:26
Ribs, Left 3 View W/PA Chest CR [CR Ribs-left 3 Vw W/pa Chest] Urgent
Comment:
Reason For Exam: pain, fall
11/13/24 13:07
Venous Doppler Upr Ext Left [US Periph Venous UPPER Ext LT] Urgent
Comment:
Reason For Exam: swelling s/p injury
11/13/24 13:08
IV Insert/Care/Rem.- Treatment PRN
Elbow, 3 view, Left [CR Elbow - Left Min 3 Views ] Urgent
Comment:
Reason For Exam: trauma
11/13/24 13:10
CT Cervical Spine W/o Iv Contr Urgent
Comment:
Reason For Exam: trauma
CT Head W/o Iv Contrast Urgent
Comment:
Reason For Exam: trauma
11/13/24 15:17
Complete Blood Count/With Diff Urgent
Comprehensive Metabolic Panel Urgent
11/13/24 15:25
Case Management Consult ONCE
Case Management Consult: Discharge Planning
Requested By:: NURSING
Comment: needs skilled facility.
11/13/24 16:32
Urinalysis Reflex To Culture Urgent
Date Specimen was Collected: 11/13/24
Time Specimen was Collected: 16:29
Urine Microscopic Reflex Cult Urgent
Urine Culture Urgent
DESTINEE Source: U
Specimen Description:
Date Specimen was Collected: 11/13/24
Time Specimen was Collected: 16:29
Abnormal Lab Results
11/13/24 11/13/24
15:17 16:32
WBC 65.7 H* 10^3/uL
(4.8-10.8)
RBC 4.56 L 10^6/uL
(4.70-6.10)
MCHC 31.8 L g/dL
(33.0-37.0)
Sodium 133 L mmol/L
(135-145)
Chloride 97 L mmol/L
(98-107)
Carbon Dioxide 32 H mmol/L
(22-30)
Glucose 124 H mg/dl
(70-99)
Total Protein 6.2 L g/dl
(6.3-8.2)
Albumin 3.0 L g/dl
(3.5-5.0)
Leukocyte Esterase Rfl 1+ A
(Negative)
Urine Bacteria (Reflex) Moderate A
(Negative)
Urine Albumin (Reflex) 2+ A
(Neg - Trace)
11/13/24 15:17
11/13/24 15:17
Vital Signs
Initial and Last Documented VS:
Initial Vital Signs
Pulse Resp BP Pulse Ox
77 18 133/82 94
11/13/24 10:20 11/13/24 10:20 11/13/24 10:20 11/13/24 10:20
Last Documented Vital Signs
Pulse Resp BP Pulse Ox
78 16 128/81 95
11/13/24 16:00 11/13/24 16:00 11/13/24 15:51 11/13/24 16:00
<Zofia Villarreal MD - Last Filed: 11/13/24 16:04>
Orders/Labs/Results
Orders:
Orders
11/13/24 10:25
Shoulder, Left, Trauma CR [CR Shoulder, Trauma - Left] Urgent
Comment:
Reason For Exam: fall
11/13/24 10:26
Ribs, Left 3 View W/PA Chest CR [CR Ribs-left 3 Vw W/pa Chest] Urgent
Comment:
Reason For Exam: pain, fall
11/13/24 13:07
Venous Doppler Upr Ext Left [US Periph Venous UPPER Ext LT] Urgent
Comment:
Reason For Exam: swelling s/p injury
11/13/24 13:08
IV Insert/Care/Rem.- Treatment PRN
Elbow, 3 view, Left [CR Elbow - Left Min 3 Views ] Urgent
Comment:
Reason For Exam: trauma
11/13/24 13:10
CT Cervical Spine W/o Iv Contr Urgent
Comment:
Reason For Exam: trauma
CT Head W/o Iv Contrast Urgent
Comment:
Reason For Exam: trauma
11/13/24 15:17
Complete Blood Count/With Diff Urgent
Comprehensive Metabolic Panel Urgent
11/13/24 15:25
Case Management Consult ONCE
Case Management Consult: Discharge Planning
Requested By:: NURSING
Comment: needs skilled facility.
11/13/24 16:32
Urinalysis Reflex To Culture Urgent
Date Specimen was Collected: 11/13/24
Time Specimen was Collected: 16:29
Urine Microscopic Reflex Cult Urgent
Urine Culture Urgent
DESTINEE Source: U
Specimen Description:
Date Specimen was Collected: 11/13/24
Time Specimen was Collected: 16:29
Abnormal Lab Results
11/13/24 11/13/24
15:17 16:32
WBC 65.7 H* 10^3/uL
(4.8-10.8)
RBC 4.56 L 10^6/uL
(4.70-6.10)
MCHC 31.8 L g/dL
(33.0-37.0)
Sodium 133 L mmol/L
(135-145)
Chloride 97 L mmol/L
(98-107)
Carbon Dioxide 32 H mmol/L
(22-30)
Glucose 124 H mg/dl
(70-99)
Total Protein 6.2 L g/dl
(6.3-8.2)
Albumin 3.0 L g/dl
(3.5-5.0)
Leukocyte Esterase Rfl 1+ A
(Negative)
Urine Bacteria (Reflex) Moderate A
(Negative)
Urine Albumin (Reflex) 2+ A
(Neg - Trace)
11/13/24 15:17
11/13/24 15:17
Vital Signs
Initial and Last Documented VS:
Initial Vital Signs
Pulse Resp BP Pulse Ox
77 18 133/82 94
11/13/24 10:20 11/13/24 10:20 11/13/24 10:20 11/13/24 10:20
Last Documented Vital Signs
Pulse Resp BP Pulse Ox
78 16 128/81 95
11/13/24 16:00 11/13/24 16:00 11/13/24 15:51 11/13/24 16:00
<MARISSA Damon - Last Filed: 11/13/24 16:55>
MDM/Problems Addressed
Differential Diagnosis Includes:
not limited to: fx, dvt lue infection, dehydration
MDM/Problems Addressed:
Patient is document is an 84-year-old male who initially presented for falls. Pt fell 2 wks ago and again recently.
He had some bruising to his right side of his face and has some complaints of left anterior rib tenderness left arm tenderness including shoulder. Arm is obviously swollen. Patient presents awake alert he lives alone he does not take any of his
medication except meloxicam for shoulder and he does not have a family doctor. When initially asked his history he did not tell me about leukemia however labs reveal abnormalities in his CBC including a white count of 65,000. Patient with normal
renal function.
Patient does feel weaker than normal and with history of falls along with leukemia would recommend admission for further evaluation and treatment. Regarding patient's complaints of discomfort imaging was all negative he does have decreased range of
motion to the left arm due to pain and does have obvious swelling but there is no DVT. Pt eval by DR Villarreal who agrees with assessment and plan
<MARISSA Damon - Last Filed: 11/13/24 16:55>
*Radiology
Radiology exam reviewed: radiology read reviewed
*Pulse Oximetry
Patient hypoxic: no
*Critical Care Note
Total Time (30-74mins, 75-104mins- exclusive of procedures): Not Applicable
ED Attending Note
<MARISSA Damon - Last Filed: 11/13/24 16:55>
-
Portions of this chart may have been created with voice recognition software.� Occasional wrong word or��sound alike� substitutions may have occurred due to the inherent limitations of voice recognition software.
<Zofia Villarreal MD - Last Filed: 11/13/24 16:04>
ED Attending Note
Patient seen and examined by attending physician: Yes
I performed the substantive portion of visit, reviewed & personally made and approve the management plan that is documented in note by myself or TAMIR.: Yes
ED Attending Note:
Patient appears well and comfortable. He is alert and oriented x 3. He is breathing comfortably. Patient expresses that he may need a little bit more help at home but he does not feel unsafe at all. He reports that he would rather be able to go
home. He is not interested in a rehab facility or group home placement.
Discharge Plan
Departure
Patient Disposition: Admit
Date of Disposition: 11/13/24
Time of Disposition: 16:35
Admit to: Med/Surg
Admit to doctor: hospitalist
Presentation/result/management discussed w/ accepting MD/DO: Hospitalist
Patient with high blood pressure during this ER visit?: No
Condition: Fair
Covid-19: Not Applicable
Discharge Problem:
Weakness, Fall
Prescriptions:
No Action
aspirin [Children's Aspirin] 81 mg Tablet,Chewable
81 mg PO DAILY Qty: 0 0RF
glucosamine-chondroitin [Osteo Bi-Flex] 250-200 mg Tablet
2 tab PO DAILY
omega 6-eui-yyi-fish oil [Fish Oil] 1,200 (144-216) mg Capsule
1 cap PO DAILY
cyanocobalamin (vitamin B-12) 1,000 mcg Tablet
1,000 mcg PO DAILY
cholecalciferol (vitamin D3) [Vitamin D3] 50 mcg (2,000 unit) Capsule
50 mcg PO DAILY
meloxicam 15 mg Tablet
15 mg PO DAILY
diphenhydramine HCl [Benadryl] 25 mg Capsule
25 mg PO HS
Referrals:
NONE,* [Family Provider] -
Interventions
Interventions:
*Risk Screen - Suicide Last Done: 11/13/24 10:20
*General Assessment Last Done: 11/13/24 10:20
*Neglect/Abuse Screening Last Done: 11/13/24 10:20
*ED COVID-19 Vaccine History Last Done: 11/13/24 15:12
ED-Musculoskeletal Assessment Last Done: 11/13/24 15:12
ED- Neurological Assessment Last Done: 11/13/24 15:12
ED-Skin Assessment Last Done: 11/13/24 15:15
Discharge Date and Time
Print Language: ECUADOREAN
[2024-11-13 15:56] LABS: ALT (SGPT) 49 U/L (0-50); AST (SGOT) 44 U/L (17-59); Alkaline Phosphatase 83 U/L (38-126); Blood Urea Nitrogen 18 mg/dl (9-20); Calcium 8.8 mg/dl (8.4-10.2); Carbon Dioxide 32 mmol/L (22-30); Chloride 97 mmol/L (98-107); Estimated Creatinine Clearance 94 ml/min; Glucose 124 mg/dl (70-99); Potassium 4.7 mmol/L (3.5-5.1); Sodium 133 mmol/L (135-145); Total Bilirubin 0.9 mg/dl (0.2-1.3); Total Protein 6.2 g/dl (6.3-8.2); eGFR > 60.00
[2024-11-13 16:23] LABS: Hematocrit 41.8 % (39.0-52.0); Hemoglobin 13.3 g/dL (13.0-18.0); Mean Corp Hgb Conc. 31.8 g/dL (33.0-37.0); Mean Corpuscular Hgb 29.2 pg (27.0-31.0); Mean Corpuscular Volume 91.7 fL (80.0-94.0); Mean Platelet Volume 9.1 fL (7.4-10.4); Platelet Count 264 10^3/uL (130-400); Red Blood Cell Count 4.56 10^6/uL (4.70-6.10); Red Cell Dist. Width 13.7 % (11.5-14.5); White Blood Cell Count 65.7 10^3/uL (4.8-10.8)
--- NOTE | 2024-11-13 16:26 | CM ---
Patient seen at bedside with neighbor present. Patient neighbor expressed concerns about patient decisions and needs. CM reviewed [facility] BC, VN and therapy assessment to determine medical treatment/level of care needs. Patient lives in a private home
with a laundry in the basement. Patient does not have any DME at home and does admit to furniture surfing in the home. Patient has no PCP at this time as his PCP retired. Patient neighbor is involved and helpful. Pending medical treatment
assessment. Patient does not want to go to a SNF but would accept VN and AAA referral. CM updated PA and will continue to follow for discharge planning needs.
Plan; Pending assessment; SNF vs home with VN/aaa referral
[2024-11-13 16:43] LABS: Urine Albumin 2+ (Neg - Trace); Urine Bilirubin Negative (Negative); Urine Character Clear (Clear); Urine Color Yellow; Urine Glucose Negative (Negative); Urine Ketone Negative (Negative); Urine Leukocyte 1+ (Negative); Urine Nitrite Negative (Negative); Urine Occult Blood Negative (Negative); Urine Urobilinogen Negative (Neg - 1+)
[2024-11-13 16:50] LABS: Urine Calcium Oxalate Crystals Present; Urine Mucus Many; Urine Red Blood Cell 0-2 /HPF (0-2); Urine Squamous Cell 0-2 /LPF (Few)
[2024-11-13 16:51] LABS: Urine Bacteria Moderate (Negative)
--- NOTE | 2024-11-13 17:17 | HPS.HSE ---
Family Physician
-
Family Physician: * NONE
Chief Complaint
-
Fall
History of Present Illness
84-year-old male with past medical history for coronary artery disease status post coronary artery bypass graft, CML presented to us with falls and generalized body pain. Patient stated he lost to balance and fell 3 weeks ago Since then he has
been having left shoulder pain,then has had increasing swelling and pain to his entire arm. He did not get evaluated for this fall at the time of injury. He also fell again several nights ago and reports his recliner was stuck in the upright
position he climbed over it and was on the floor in the carpet and could not get himself up. He was in the floor for 3 hours. Patient crawled on the floor and got to the phone and called his friend and his friend helped him up. He did hit his
head at the time and has some abrasions to his lower legs he has not felt himself since. Patient was evaluated by orthopedics today, who recommended ER visit due to swollen left arm. Patient denied any headache, dizzy or syncope. Patient denied
any fever, chills. He has been having some ribs pain since a fall. Patient started with cough with clear yellow sputum since Monday. Patient denied any abdominal pain, nausea, vomiting or diarrhea. He has been having urinary urgency, denied
dysuria hematuria. He reports he is just having more difficulty holding his urine on his own. This is gotten gradually worse.
All workup
Medical History
Past Medical History
Past Medical History: Reports Other
Additional Past Medical History:
Hyperlipidemia
CLL
BPH
Aortic stenosis history of A-fib
Past Surgical History: Reports Other
Additional Past Surgical History:
Left hip replacement
Bilateral knee replacement
Shoulder surgery
Left RTC repair
High
Social History
Tobacco: Non-smoker
Alcohol: None
Drug: None
Personal: Single
Living: Alone
Family History
Family History: Not pertinent
Allergies / Home Medications
Allergies reflects when Allergies were last updated in [facility].
Home Medications with original date entered in [facility]
Allergy/Medication List:
Allergies
Allergy/AdvReac Type Severity Reaction Status Date / Time
formaldehyde [Formaldehyde] Allergy Rash Verified 11/13/24 10:20
latex [Latex] Allergy Rash Verified 11/13/24 10:20
pollen extracts Allergy congestion Verified 11/13/24 10:20
petroleum products Allergy Rash Uncoded 04/26/24 13:06
Home Medications
aspirin 81 mg chewable tablet (Children's Aspirin) 81 mg PO DAILY Blood clot prevention/tx #0 tabs 12/06/23
glucosamine-chondroitin 250 mg-200 mg tablet (Osteo Bi-Flex) 2 tab PO DAILY Supplement 12/25/23
omega 4-gdb-cxe-fish oil 1,200 mg (144 mg-216 mg) capsule (Fish Oil) 1 cap PO DAILY Supplement 12/25/23
cholecalciferol (vitamin D3) 50 mcg (2,000 unit) capsule (Vitamin D3) 50 mcg PO DAILY Supplement 04/26/24
cyanocobalamin (vitamin B-12) 1,000 mcg tablet 1,000 mcg PO DAILY Supplement 04/26/24
diphenhydramine HCl 25 mg capsule (Benadryl) 25 mg PO HS 11/13/24
meloxicam 15 mg tablet 15 mg PO DAILY 11/13/24
Review of Systems
-
Constitutional: Reports No Symptoms
EENT: Reports No Symptoms
Respiratory: Reports No Symptoms
Cardiac: Reports No Symptoms
Abdomen/GI: Reports No Symptoms
: Reports No Symptoms
Musculoskeletal: Reports Other (left shoulder pain, left ribs pain)
Skin: Reports Other (rug burn, right toe with wound)
Neurological: Reports No Symptoms
Endocrine: Reports No Symptoms
Hematologic/Lymphatic: Reports No Symptoms
Psych: Reports No Symptoms
Physical Exam
Vital Signs
Vital Signs
Pulse Resp BP Pulse Ox
78 16 128/81 95
11/13/24 16:00 11/13/24 16:00 11/13/24 15:51 11/13/24 16:00
Physical Exam
General: Well Developed, Well Nourished and No Apparent Distress
HEENT: NormoCephalic, Moist mucous membranes and Atraumatic
Respiratory: Clear
Cardiac: S1/S2 and Regular Rhythm; No Murmur or Rub
GI: Soft, Non Tender, Non Distended and Normal Bowel Sounds; No Organomegaly
Rectal: Deferred by Provider
Musculoskeletal: No Clubbing, No Cyanosis and Other (left arm swollen, carpet burn on his LE. )
Skin: No Rash
Neuro: AO x 3 and Nonfocal/grossly intact
Psych: Calm
Laboratory Results
-
11/13/24 15:17
11/13/24 15:17
Laboratory Results
Total Bilirubin 0.9 mg/dl (0.2-1.3) 11/13/24 15:17
AST 44 U/L (17-59) 11/13/24 15:17
ALT 49 U/L (0-50) 11/13/24 15:17
Alkaline Phosphatase 83 U/L (38-126) 11/13/24 15:17
Data Reviewed
-
Diagnostic Radiology: Report Reviewed by me
Lab Data: Labs Reviewed by me
Impression/Plan
-
# Fall with head, left arm, left chest injury
-Left arm negative for DVT
-carpet burn on LE
-Head CT with no acute findings, cervical spine CT with degenerative changes, no cervical spine fracture.
-Elbow x-ray negative for acute fracture
-Ribs with chest x-ray with no rib fractures
-Shoulder x-ray with impression of small soft tissue calcification adjacent to the head of the proximal left humerus which could represent calcific tendinitis and/or bursitis.
-PT/OT consulted
-meloxicam continued
-wound care consulted
#History of CLL
-WBC 65.7
-Patient follows [facility]
#Aortic stenosis status post TAVR
#OA--Continue vitamin D3
#BPH
-Likely urinary incontinence/urgency due to BPH
-UA negative
-bladder scan
#DVT prophylaxis-- sq heparin
#Code status --DNR per patient
[2024-11-13 17:38] LABS: % Immature Granulocytes 0.3 % (0-0.5); % Monocytes 0.9 % (1.7-9.3); % Neutrophils 13.8 % (42.2-75.2); Absolute Immature Granulocytes 0.2 10^3/uL (0-0.05); Absolute Lymphocytes 55.8 10^3/uL (1.2-3.4); Absolute Monocytes 0.6 10^3/uL (0.1-0.6); Nucleated Red Blood Cells % 0 % (-)
--- NOTE | 2024-11-13 18:24 | W.PN.UPDATE ---
Update Note
Progress Note Update
HPI: 84-year-old male with past medical history for coronary artery disease status post coronary artery bypass graft, CLL, HTN, HLD, s/p TAVR, ; who presented with falls and generalized body pain.
Patient stated that he first lost balance and fell 3 weeks ago. Since then he has been having left shoulder pain with increasing swelling.
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 He fell on the carpet and laid there for about 3 hours. He did hit his head at that time and has abrasions to his lower legs.
Patient was evaluated by orthopedics on DOA, who recommended ER visit due to swollen left arm.
A/P:
# Mechanical fall
Extensive imaging including CT head, CT cervical spine, elbow x-ray, shoulder x-ray, chest x-ray, rib x-ray, left upper extremity ultrasound were all negative for acute finding.
PT/OT eval
wound care consulted for abrasion
# History of CLL
Patient follows with [facility]
Follow CBC
# Aortic stenosis status post TAVR
# OA
Continue vitamin D3
# BPH
Urinary incontinence/urgency due to BPH
UA negative
bladder scan
DVT prophylaxis-- sq heparin
Code status --DNR per patient
[2024-11-13] MEDS: HEPARIN 5000 UNITS SC (20:22)
[2024-11-13] MEDS: BENADRYL 25 MG PO (21:59)
--- NOTE | 2024-11-13 23:08 | PTCARENOTE ---
Pt received from rm [id number] to rm [id number]. Pt oriented to room and call her.
[2024-11-14 07:00] VITALS: BP 121/63
[2024-11-14] MEDS: LOW STRENGTH ASPIRIN 81 MG PO (07:40)
[2024-11-14] MEDS: VITAMIN D3 (cholecalciferol) 50 MCG PO (07:40)
[2024-11-14] MEDS: VITAMIN B-12 1000 MCG PO (07:40)
[2024-11-14] MEDS: MOBIC 15 MG PO (07:40)
[2024-11-14] MEDS: HEPARIN 5000 UNITS SC (07:40)
--- NOTE | 2024-11-14 08:20 | W.PN.HOSP.TC ---
Today's Communication/Plan
-
see A/P
Assessment / Plan
Assessment / Plan
HPI: 84-year-old male with past medical history for coronary artery disease status post coronary artery bypass graft, CLL, HTN, HLD, s/p TAVR, ; who presented with falls and generalized body pain.
Patient stated that he first lost balance and fell 3 weeks ago. Since then he has been having left shoulder pain with increasing swelling.
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 He fell on the carpet and laid there for about 3 hours. He did hit his head at that time and has abrasions to his lower legs.
Patient was evaluated by orthopedics on DOA, who recommended ER visit due to swollen left arm.
A/P:
# Mechanical fall
Extensive imaging including CT head, CT cervical spine, elbow x-ray, shoulder x-ray, chest x-ray, rib x-ray, left upper extremity ultrasound were all negative for acute finding.
PT/OT eval
wound care consulted for skin abrasion of BL legs
# History of CLL
Patient follows with [facility] outpatient
Follow CBC
# Aortic stenosis status post TAVR
# OA
Continue vitamin D3
# BPH
Urinary incontinence/urgency due to BPH
UA negative
bladder scan
# Hyponatremia likely 2/2 hypovolemia
Gentle IVF 500 cc for now
Monitor lytes
DVT prophylaxis: Lovenox SQ
Code status: DNR per patient
Anticipated Discharge: 24 - 48 hours
Subjective/Interval History
-
Date of Service: November 14, 2024
Objective Data
-
Labs:
Laboratory Results
11/14/24
07:26
WBC Pending
Hgb Pending
Hct Pending
Plt Count Pending
Vital Signs:
Vital Signs
Temp Pulse Resp BP Pulse Ox
36.7 C 73 18 110/59 94
11/13/24 23:00 11/13/24 23:00 11/13/24 23:00 11/13/24 23:00 11/13/24 23:00
Review of Systems
-
History Source: Patient
All other systems: Reviewed and negative
Physical Exam
-
General: Well Developed, Well Nourished, No Apparent Distress, Comfortable and Conversant
HEENT: Normocephalic and Atraumatic; Negative Oxygen
Respiratory: Clear to Auscultation and Non Labored Respirations; Negative Accessory Resp Muscle Use
Cardiac: Regular Rhythm and S1/S2
GI: Soft, Nontender, Nondistended and Normal Bowel Sounds
Musculoskeletal: No Clubbing, No Cyanosis and No Edema
Skin: Other (see wound care note)
Neuro: Awake and Alert
Psych: Calm and Intact Judgement/Insight
Data Reviewed
-
Diagnostic Radiology: Report Reviewed by me
CT Scan: Report Reviewed by me
Labs: Labs Reviewed by me
[2024-11-14 08:56] LABS: Hematocrit 39.1 % (39.0-52.0); Hemoglobin 12.3 g/dL (13.0-18.0); Mean Corp Hgb Conc. 31.5 g/dL (33.0-37.0); Mean Corpuscular Hgb 29.1 pg (27.0-31.0); Mean Corpuscular Volume 92.4 fL (80.0-94.0); Mean Platelet Volume 9.4 fL (7.4-10.4); Platelet Count 252 10^3/uL (130-400); Red Blood Cell Count 4.23 10^6/uL (4.70-6.10); Red Cell Dist. Width 13.8 % (11.5-14.5); White Blood Cell Count 64.7 10^3/uL (4.8-10.8)
[2024-11-14] MEDS: NSS 500 IV (09:19)
[2024-11-14 09:30] VITALS: BP 119/69; O2SAT 94
[2024-11-14 09:53] LABS: % Eosinophils 0.1 % (0-6); % Immature Granulocytes 0.3 % (0-0.5); % Lymphocytes 86.8 % (20.5-51.1); % Monocytes 0.9 % (1.7-9.3); % Neutrophils 11.9 % (42.2-75.2); Absolute Immature Granulocytes 0.2 10^3/uL (0-0.05); Absolute Lymphocytes 56.1 10^3/uL (1.2-3.4); Absolute Monocytes 0.6 10^3/uL (0.1-0.6); Absolute Neutrophils 7.7 10^3/uL (1.4-6.5); Nucleated Red Blood Cells % 0 % (-)
[2024-11-14 09:55] VITALS: BP 119/69; PULSE 65; O2SAT 94
--- NOTE | 2024-11-14 10:30 | WOUNDNOTE ---
R GREAT TOE TIP
--- NOTE | 2024-11-14 10:30 | WOUNDNOTE ---
R GREAT TOE (DISTAL)
--- NOTE | 2024-11-14 10:30 | WOUNDNOTE ---
R GREAT TOE TIP
--- NOTE | 2024-11-14 11:01 | WOUNDNOTE ---
[facility] RN note: Patient admitted with fall, swollen L arm. Patient lives alone.
See H&P for complete history.
PMH: CAD, CABG, CML, BPH, a fib, L hip replacement, bilateral knee replacement, L shoulder repair, TAVR.
Wound Location and type/assessment: Patient admitted with: R great toe tip neuropathic ulcer to subcutaneous layer, pink with callus, scant serous drainage, no surrounding erythema. +Palpable pedal pulses. He wears a size 15 wide comfortable
sneaker. Multiple abrasions: L lateral knee, R knee, R Achilles, dorsal 2nd toe, R eyebrow, R medial and L lateral ankle. Coccyx crease MASD.
Appetite: good.
Pressure redistribution devices in place: [employer] air bed. Patient stood with 1 assist with walker for sacral assessment.
Plan: R great toe dressing applied. Silicone border foam applied to L lateral open abrasion. Silicone border foam applied to L lateral ankle. Barrier ointment applied to coccyx. Air chair cushion given. Instructed patient to make appointment with a
client relations associate for his R great tip tip ulcer. Patient stated Dr. Cerda had done his L 2nd partial toe amp surgery.
Will confirm orders with Dr. Al and will update nurse.
Care plan to be updated and will follow as needed.
Note to case management requested for discharge: VN if goes home.
--- NOTE | 2024-11-14 11:35 | WOUNDNOTE ---
Spoke with NAA Singh re: recommend VN if patient goes home to assist with wound care.
[2024-11-14 15:00] VITALS: BP 134/72
[2024-11-14] MEDS: BENADRYL 25 MG PO (22:05)
[2024-11-14 23:21] VITALS: BP 141/79
[2024-11-15 07:45] VITALS: BP 150/82
[2024-11-15 07:50] LABS: Hematocrit 39.6 % (39.0-52.0); Hemoglobin 12.8 g/dL (13.0-18.0); Mean Corp Hgb Conc. 32.3 g/dL (33.0-37.0); Mean Corpuscular Hgb 29.6 pg (27.0-31.0); Mean Corpuscular Volume 91.5 fL (80.0-94.0); Mean Platelet Volume 8.8 fL (7.4-10.4); Platelet Count 232 10^3/uL (130-400); Red Blood Cell Count 4.33 10^6/uL (4.70-6.10); Red Cell Dist. Width 13.6 % (11.5-14.5); White Blood Cell Count 61.9 10^3/uL (4.8-10.8)
[2024-11-15 08:36] LABS: Blood Urea Nitrogen 17 mg/dl (9-20); Calcium 8.4 mg/dl (8.4-10.2); Carbon Dioxide 32 mmol/L (22-30); Chloride 98 mmol/L (98-107); Estimated Creatinine Clearance 73 ml/min; Glucose 109 mg/dl (70-99); Potassium 4.2 mmol/L (3.5-5.1); Sodium 133 mmol/L (135-145); eGFR > 60.00
[2024-11-15] MEDS: VITAMIN D3 (cholecalciferol) 50 MCG PO (08:39)
[2024-11-15] MEDS: VITAMIN B-12 1000 MCG PO (08:39)
[2024-11-15] MEDS: MOBIC 15 MG PO (08:39)
[2024-11-15] MEDS: LOW STRENGTH ASPIRIN 81 MG PO (08:39)
[2024-11-15 08:52] LABS: % Basophils 0.2 % (0-2); % Eosinophils 0.2 % (0-6); % Immature Granulocytes 0.2 % (0-0.5); % Lymphocytes 88.9 % (20.5-51.1); % Monocytes 0.9 % (1.7-9.3); % Neutrophils 9.6 % (42.2-75.2); Absolute Basophils 0.1 10^3/uL (0-0.2); Absolute Eosinophils 0.1 10^3/uL (0-0.7); Absolute Immature Granulocytes 0.1 10^3/uL (0-0.05); Absolute Lymphocytes 55.1 10^3/uL (1.2-3.4); Absolute Monocytes 0.6 10^3/uL (0.1-0.6); Absolute Neutrophils 5.9 10^3/uL (1.4-6.5); Nucleated Red Blood Cells % 0 % (-)
--- NOTE | 2024-11-15 08:52 | W.PN.HOSP.TC ---
Today's Communication/Plan
-
dispo planning
Pt declined SNF, opted for HH
Assessment / Plan
Assessment / Plan
HPI: 84-year-old male with past medical history for coronary artery disease status post coronary artery bypass graft, CLL, HTN, HLD, s/p TAVR, BH; who presented with falls and generalized body pain.
Patient stated that he first lost balance and fell 3 weeks ago. Since then he has been having left shoulder pain with increasing swelling.
He fell again several nights ago [employer] and due to his recliner being faulty. He fell on the carpet and laid there for about 3 hours. He did hit his head at that time and has abrasions to his lower legs.
Patient was evaluated by orthopedics on DOA, who recommended ER visit due to swollen left arm.
A/P:
# Mechanical fall
Extensive imaging including CT head, CT cervical spine, elbow x-ray, shoulder x-ray, chest x-ray, rib x-ray, left upper extremity ultrasound were all negative for acute finding.
wound care on board for skin abrasion of BL legs
Pt declined SNF, opted for HH
# History of CLL
Patient follows with [facility]
Follow CBC
# Aortic stenosis status post TAVR
# OA
Continue vitamin D3
# BPH
Urinary incontinence/urgency due to BPH
UA negative
bladder scan
# Hyponatremia likely 2/2 hypovolemia
Gentle IVF 500 cc for now
Monitor lytes
DVT prophylaxis: Lovenox SQ
Code status: DNR per patient
Anticipated Discharge: Today
Subjective/Interval History
-
Date of Service: November 15, 2024
Objective Data
-
Labs:
Laboratory Results
11/15/24
07:23
WBC 61.9 H*
Hgb 12.8 L
Hct 39.6
Plt Count 232
Sodium 133 L
Potassium 4.2
Chloride 98
Carbon Dioxide 32 H
BUN 17
Creatinine 0.9
Glucose 109 H
Calcium 8.4
Vital Signs:
Vital Signs
Temp Pulse Resp BP Pulse Ox
36.7 C 65 20 150/82 94
11/15/24 07:45 11/15/24 07:45 11/15/24 07:45 11/15/24 07:45 11/15/24 07:45
I&O
11/14/24 11/15/24 11/16/24
06:59 06:59 06:59
Intake Total 480 / 480
Output Total 600 / 600
Balance -120 / -120
Review of Systems
-
History Source: Patient
All other systems: Reviewed and negative
Physical Exam
-
General: Well Developed, Well Nourished, No Apparent Distress, Comfortable and Conversant
HEENT: Normocephalic and Atraumatic; Negative Oxygen
Respiratory: Clear to Auscultation and Non Labored Respirations; Negative Accessory Resp Muscle Use
Cardiac: Regular Rhythm and S1/S2
GI: Soft, Nontender, Nondistended and Normal Bowel Sounds
Musculoskeletal: No Clubbing, No Cyanosis and No Edema
Skin: Other (see wound care note)
Neuro: Awake and Alert
Psych: Calm and Intact Judgement/Insight
Data Reviewed
-
Diagnostic Radiology: Report Reviewed by me
CT Scan: Report Reviewed by me
Labs: Labs Reviewed by me
--- NOTE | 2024-11-15 10:15 | CM ---
Chart reviewed and patient has been cleared for discharge today plan is to home with visiting nurses, options reviewed and patient has selected [facility], patient does not have a PCP and therefore needs to followup with residency clinic and then visiting
nurses can follow him at home.
Plan; Home with [facility]
--- NOTE | 2024-11-15 10:27 | VNURNOTE ---
Addendum entered by Alejandra Sommers RN 11/15/24 16:20:
Rec'ed update that patient last saw PCP Dr Dorcas Pacheco in [place] and she is agreeable to sign for [facility] upon DC. Patient's contact [facility] notified and happy to hear it. He will contact them to schedule a follow up appt once DC'ed.
Original Note:
Home Health Liaison met with patient and neighbor Morte[facility] at bedside to discuss [facility] nurse/therapy, visits, schedule and homebound status. Patient is agreeable and understands that visits at home will be 2-3 x per week to assess and teach medical
management. Patient had PCP Dr Tiffanie Lock [facility] but stated the Dr retired. Advised to make appt with [facility] after DC in order for [facility] to be able to accept pt. Neighbor [facility] verbalized understanding and was provided
residency clinic brochure. Patient is aware that [facility] will contact them for start of care in 1-2 days after discharge from .
[facility] referral completed in [facility].
--- NOTE | 2024-11-15 12:11 | W.PN.UPDATE ---
Update Note
Progress Note Update
RN informed patient is now having explosive watery diarrhea that started today, already 2 episodes.
Will cancel discharge.
Check norovirus, C. difficile, stool culture
[2024-11-15] MEDS: BENADRYL 25 MG PO (21:04)
[2024-11-15 23:37] VITALS: BP 140/72
[2024-11-16 06:22] LABS: Blood Urea Nitrogen 19 mg/dl (9-20); Calcium 8.7 mg/dl (8.4-10.2); Carbon Dioxide 33 mmol/L (22-30); Chloride 96 mmol/L (98-107); Estimated Creatinine Clearance 82 ml/min; Glucose 106 mg/dl (70-99); Potassium 3.9 mmol/L (3.5-5.1); Sodium 134 mmol/L (135-145); eGFR > 60.00
[2024-11-16 06:34] LABS: Hematocrit 41.2 % (39.0-52.0); Hemoglobin 12.8 g/dL (13.0-18.0); Mean Corp Hgb Conc. 31.1 g/dL (33.0-37.0); Mean Corpuscular Hgb 28.8 pg (27.0-31.0); Mean Corpuscular Volume 92.8 fL (80.0-94.0); Mean Platelet Volume 9.3 fL (7.4-10.4); Platelet Count 243 10^3/uL (130-400); Red Blood Cell Count 4.44 10^6/uL (4.70-6.10); Red Cell Dist. Width 13.7 % (11.5-14.5); White Blood Cell Count 58.9 10^3/uL (4.8-10.8)
[2024-11-16 07:04] LABS: % Basophils 0.1 % (0-2); % Eosinophils 0.3 % (0-6); % Immature Granulocytes 0.2 % (0-0.5); % Lymphocytes 91.1 % (20.5-51.1); % Monocytes 0.7 % (1.7-9.3); % Neutrophils 7.6 % (42.2-75.2); Absolute Eosinophils 0.2 10^3/uL (0-0.7); Absolute Immature Granulocytes 0.1 10^3/uL (0-0.05); Absolute Lymphocytes 53.6 10^3/uL (1.2-3.4); Absolute Monocytes 0.4 10^3/uL (0.1-0.6); Absolute Neutrophils 4.6 10^3/uL (1.4-6.5); Nucleated Red Blood Cells % 0 % (-)
[2024-11-16 07:24] VITALS: BP 139/77
--- NOTE | 2024-11-16 07:33 | W.PN.HOSP.TC ---
Today's Communication/Plan
-
Discharge today
Assessment / Plan
Assessment / Plan
Physical Exam
General: Not in acute distress
HEENT: Normocephalic and Atraumatic
Respiratory: Clear to Auscultation Bilaterally
Cardiac: Regular Rhythm and S1/S2
GI: Soft, Nontender, Nondistended and Normal Bowel Sounds
Musculoskeletal: No Cyanosis and No Edema
Skin: Other (see wound care note)
Neuro: Awake and Alert
Psych: Calm and Intact Judgement/Insight
Assessment/Plan
84-year-old male with past medical history for coronary artery disease status post coronary artery bypass graft, CLL, HTN, HLD, s/p TAVR, BH; who presented with falls and generalized body pain. Patient stated that he first lost balance and fell 3
weeks prior to presentation. Since then he has been having left shoulder pain with increasing swelling.
He fell again several nights prior to presentation, and due to his recliner being faulty. He fell on the carpet and laid there for about 3 hours. He did hit his head at that time and had abrasions to his lower legs.
Patient was evaluated by orthopedics on DOA, who recommended ER visit due to swollen left arm.
# Mechanical fall
Extensive imaging including CT head, CT cervical spine, elbow x-ray, shoulder x-ray, chest x-ray, rib x-ray, left upper extremity ultrasound were all negative for acute finding.
wound care on board for skin abrasion of BL legs
Pt declined SNF, opted for HH
#2 episodes of watery, non-bloody diarrhea on 11/15/24 -- DIARRHEA RESOLVED
-Patient stated to me on 11/16/24 that diarrhea yesterday could have been from something he ate
-C. diff negative
-Follow-up on remaining stool studies outpatient
# History of CLL
Patient follows with [facility]
Follow CBC
# Aortic stenosis status post TAVR
# OA
Continue vitamin D3
# BPH
Urinary incontinence/urgency due to BPH
UA negative
bladder scan
# Hyponatremia likely 2/2 hypovolemia
Gentle IVF 500 cc for now
Monitor lytes
DVT prophylaxis: Lovenox SQ
Code status: DNR per patient
More than 30 minutes spent in discharge including
Final examination of the patient
Summarizing hospital stay
Instructions for continuing care to all relevant caregivers
Preparation of discharge records, prescriptions, and referral forms
Total time spent (in minutes): 39
Anticipated Discharge: Today
Subjective/Interval History
-
Date of Service: November 16, 2024
Patient was seen and examined. He reported only having 2 episodes of diarrhea yesterday, no further episodes since yesterday, and he also stated that he wants to go home today.
Objective Data
-
Labs:
Laboratory Results
11/16/24
05:24
WBC 58.9 H*
Hgb 12.8 L
Hct 41.2
Plt Count 243
Sodium 134 L
Potassium 3.9
Chloride 96 L
Carbon Dioxide 33 H
BUN 19
Creatinine 0.8
Glucose 106 H
Calcium 8.7
Vital Signs:
Vital Signs
Temp Pulse Resp BP Pulse Ox
98.4 F 86 18 140/72 98
11/15/24 23:37 11/15/24 23:37 11/15/24 23:37 11/15/24 23:37 11/15/24 23:48
I&O
11/15/24 11/16/24 11/17/24
06:59 06:59 06:59
Intake Total 480 / 480 1340 / 1340
Output Total 600 / 600 600 / 600
Balance -120 / -120 740 / 740
[2024-11-16] MEDS: MOBIC 15 MG PO (08:45)
[2024-11-16] MEDS: LOW STRENGTH ASPIRIN 81 MG PO (08:45)
[2024-11-16] MEDS: VITAMIN D3 (cholecalciferol) 50 MCG PO (08:45)
[2024-11-16] MEDS: VITAMIN B-12 1000 MCG PO (08:45)
--- NOTE | 2024-11-16 13:12 | CM ---
Met with patient at bedside to discuss discharge plan; patient reported that a neighbor will provide transport home
IMM benefit explained; form signed @ 1310
[facility]
Explained to patient that he needs to schedule PCP visit [facility]; referred to [facility]; office number and address provided
Plan: discharge to home with home health services
--- NOTE | 2024-11-16 14:50 | W.DCSUMMARY ---
Discharge Summary
Discharge Data
Date of Admission: 11/13/24
Date of Discharge: 11/16/24
Total time spent discharging patient (in min): 39
-
Pending Results: Yes
Additional Pending Results:
Microbiology -- stool culture results from hospitalization
Hospital Course
84-year-old male with past medical history of coronary artery disease status post coronary artery bypass graft, CLL, HTN, HLD, s/p TAVR, BH; who presented with falls and generalized body pain. Patient stated that he first lost balance and fell 3
weeks prior to presentation, since then he had been having left shoulder pain with increasing swelling, and then he fell again several nights ago prior to presentation due to his recliner being faulty. He fell on the carpet and laid there for about
3 hours. He did hit his head at that time and had abrasions to his lower legs. Patient was evaluated by orthopedics prior to coming in, who recommended patient come to the emergency room, due to swollen left arm. In the emergency room, patient had
extensive imaging including CT head, CT cervical spine, elbow x-ray, shoulder x-ray, chest x-ray, rib x-ray, left upper extremity ultrasound which were all negative for acute finding (however, please see the full reports from the imaging studies
this hospitalization for all of the details). Wound care team was consulted for patient's abrasions on his legs. Patient had 2 episodes of self--limited diarrhea on 11/15/24. Patient was feeling better the next day without any further episodes of
diarrhea, and he clearly stated that he wanted to go home, not SNF or acute rehab as was recommended to him -- patient understood the reason it was recommended he go to a SNF/acute rehab, and he understood falls risks once he went home. Since
patient was insistent on going home, and did not want to go to acute rehab or SNF, and he had the decision-making capacity to make his own decisions, he was discharged to home with home care.
Discharge Plan
-
Patient Disposition: Home with Home Care
Discharge Diagnosis/Procedures: Mechanical fall at home;
History of CLL- Patient follows with [facility];
Aortic stenosis status post TAVR
Hyponatremia
Two episodes of watery, non-bloody diarrhea on 11/15/24 -- DIARRHEA RESOLVED
Osteoarthritis
Benign Prostatic Hyperplasia
Condition: Fair
Diet: As tolerated
Activity: As tolerated
Driving Restrictions: As prior to admission
Blood Work: CBC, BMP and Magnesium with primary care provider's office within 1 week
Other Services: [facility]
Wound Care: Please follow-up primary care provider's office -- you can follow-up with [facility] -- their office number and address have already been provided to you

Please avoid constipation -- discuss with outpatient primary care provider.

Wound Care Instructions
R great toe ulcer-clean with soap and water or Vashe wound cleanser, apply smear of honey gel, cover with non adhesive dressing (i.e. adaptic and gauze), change daily and prn drainage.
L lateral knee open abrasion, L lateral ankle abrasion-clean with saline, silicone border foam, change every 3 days and as needed for loosened dressing.
Coccyx crease-zinc barrier ointment twice a day.
Make appointment with a food mixer assembler for R great toe ulcer care, toenail care (i.e. Dr. Wenceslao Cerda).
Pressure redistributing chair cushion (i.e. Air chair cushion).
Elevate heels off bed with pillow/s.
Follow up at wound care center if needed, call for an appointment.
Referrals:
[facility] [Provider Group] - in less than 1 week (Needs hospital follow-up and checking of CBC, BMP and Magnesium)
[facility] [Family Provider] - in less than 1 week
Prescriptions:
Continued
aspirin [Children's Aspirin] 81 mg Tablet,Chewable
81 mg PO DAILY Qty: 0 0RF
glucosamine-chondroitin [Osteo Bi-Flex] 250-200 mg Tablet
2 tab PO DAILY
omega 0-ufm-evo-fish oil [Fish Oil] 1,200 (144-216) mg Capsule
1 cap PO DAILY
cyanocobalamin (vitamin B-12) 1,000 mcg Tablet
1,000 mcg PO DAILY
cholecalciferol (vitamin D3) [Vitamin D3] 50 mcg (2,000 unit) Capsule
50 mcg PO DAILY
meloxicam 15 mg Tablet
15 mg PO DAILY
diphenhydramine HCl [Benadryl] 25 mg Capsule
25 mg PO HS
Discharge Orders:
Discharge Patient (As Directed); Ordered 11/16/24
Ordered By: Ankur Franco
Discharge Date and Time
Discharge Date/Time: 11/16/24 16:57
Print Language: SINGAPOREAN
[2024-11-16 15:09] VITALS: BP 127/74
== END 2024-11-16 16:57 | disposition home health service (06) | DRG 556 ==
LOC: 4 WEST ACU 11:17
PROVIDERS: Internal Medicine; Nurse Practitioner; Registered Nurse; ADMITTING PHYSICIAN Internal Medicine; ATTENDING PHYSICIAN Hospitalist; EMERGENCY PHYSICIAN Emergency Medicine
DX: M25.512 Pain in left shoulder (principal); C91.10 Chronic lymphocytic leukemia of B-cell type not having achieved remission; E87.1 Hypo-osmolality and hyponatremia; S80.812A Abrasion, left lower leg, initial encounter; S80.811A Abrasion, right lower leg, initial encounter; Z66 Do not resuscitate; I25.10 Atherosclerotic heart disease of native coronary artery without angina pectoris; E78.5 Hyperlipidemia, unspecified; N40.1 Benign prostatic hyperplasia with lower urinary tract symptoms; I35.0 Nonrheumatic aortic (valve) stenosis; I48.91 Unspecified atrial fibrillation; E86.1 Hypovolemia; N39.498 Other specified urinary incontinence; R39.15 Urgency of urination; I10 Essential (primary) hypertension; R29.6 Repeated falls; R19.7 Diarrhea, unspecified; R07.89 Other chest pain; W01.0XXA Fall on same level from slipping, tripping and stumbling without subsequent striking against object, initial encounter; Z96.642 Presence of left artificial hip joint; Z96.653 Presence of artificial knee joint, bilateral; Z95.2 Presence of prosthetic heart valve; Z95.1 Presence of aortocoronary bypass graft; Z79.82 Long term (current) use of aspirin; Z79.899 Other long term (current) drug therapy; Y92.009 Unspecified place in unspecified non-institutional (private) residence as the place of occurrence of the external cause
CPT/HCPCS: 70450; 71101; 72125; 73030; 73080; 80048; 80053; 81003; 81015; 83735; 85025; 87045; 87046; 87070; 87086; 87324; 87427; 87449; 87798; 93971; 97163; 97167; 97530; 99285

== ENCOUNTER 2024-12-15 12:07 | Inpatient (IN) | payer MEDICARE, SELFPAY ==
[2024-12-14] VITALS (9 sets, daily range): BP systolic 78–148; BP diastolic 56–93; BMI 26.4
--- NOTE | 2024-12-14 08:32 | ED.GENMED ---
History of Present Illness
General
Chief Complaint: Head Injury
Source: patient
Exam Limitations: none
Time Seen by Provider: 12/14/24 08:14
History of Present Illness
History of Present Illness:
84yoM with a history of CLL, psoriatic arthritis, hypertension, aortic stenosis s/p TAVR presenting for evaluation after a fall less than an hour ago. Patient was walking into the hospital to have an outpatient CT scan of his shoulder. He
accidentally tripped on a curb and fell forward striking the left side of his face on the ground. There was no loss of consciousness. Patient was brought to the ED for evaluation. He sustained some abrasions to the left shoulder and left knee as
well. He denies any neck pain, vomiting, dizziness. He does not take any blood thinners.
Past History
Past History
ED Past Medical History: None
ED Past Surgical History: None
Social History
Tobacco: Non-smoker
Alcohol: None
Drug: None
Living: with family
Phy Exam
General Physical Exam
General Presentation: no apparent distress
General Skin: warm and dry
General Habitus: normal
General Mental: alert
ENT Exam
ENT Exam: other (3cm gaping laceration present above the L eyebrow. There is also a skin tear near the L zygomatic process.)
Eye Exam
Eye Exam: PERRL and conjunctiva normal
Cardiovascular Exam
Cardiovascular Exam: regular rate/rhythm
Pulmonary Exam
Pulmonary Exam: lungs clear, no respiratory distress, no rales, no crackles and no rhonchi
Gastrointestinal Exam
Gastrointestinal Exam: non tender, soft and non distended
Neurological Exam
Neurological Exam: alert
Jesica Coma Scale
Eye Opening: Spontaneous
Verbal Response: Oriented
Motor Response: Obeys Commands
GCS Total Score: 15
Musculoskeletal Exam
Musculoskeletal Exam: other (Abrasions noted to L knee and L shoulder)
Skin Exam
Skin Exam: warm/dry
Psychiatric Exam
Psychiatric Exam: normal mood/affect
Course
Orders/Labs/Results
Orders:
Orders
12/14/24 Breakfast
Regular
At Your Request: Limited Participation
12/14/24 08:[address] Cervical Spine W/o Iv Contr Urgent
Comment:
Reason For Exam: head injury
CR Knee - Left 4 Or More View* Urgent
Comment:
Reason For Exam: injury
CR Shoulder, Trauma - Left Urgent
Reason For Exam: injury
12/14/24 08:30
CT Head W/o Iv Contrast Urgent
Comment:
Reason For Exam: head injury
12/14/24 08:32
Tetanus/Diphth/Acelpertussis [Adacel] 0.5 ml IM .ONCE ONE
12/14/24 09:49
CR Ribs-left 3 Vw W/pa Chest Urgent
Comment:
Reason For Exam: fall
12/14/24 11:11
Tetanus/Diphth/Acelpertussis [Adacel] 0.5 ml .ROUTE .STK-MED ONE
12/14/24 11:20
Acetaminophen [Tylenol] 1,000 mg PO NOW STA
12/14/24 13:20
COVID-19 Antigen Urgent
Source: Nasal Swab
Complete Blood Count/With Diff Urgent
Comprehensive Metabolic Panel Urgent
Lactic Acid Urgent
Blood Culture Q30M
DESTINEE Source: Blood/Venous
Specimen Description:
Influenza A+B Rapid Molecular Urgent
DESITNEE Source: Nasal Swab
Specimen Description:
12/14/24 13:30
Lidocaine [Lidocaine 4% Patch] 1 patch TOPICAL DAILY
Apply Lidocaine patch(s) to:: Left Upper Ribs
12/14/24 13:40
Admit/Transfer Patient As Directed
Co-Sign Provider:
Level of Care: Observation services
Assign to:: Medical/Surgical
Physician / Group: Clair
Diagnosis: Rib Fractures, Fever
PRN Pain Medication Management As Directed
May give lesser potent ordered pain med per pt: Yes
preference::
Protocol:: Medication orders for pain may be administered in a
manner that supports deferring to patient preference
when the pt is:
- Requesting an ordered lesser potent pain medication.
Least to most potent pain medications are defined
as: acetaminophen < NSAID < tramadol < opioids
(morphine, oxycodone, hydromorphone).
- Requesting a lesser dose of the same medication IF
ORDERED.
- Requesting a less intrusive route of administration
if both routes are prescribed by the provider (PO <
IV).
12/14/24 13:42
Code Status As Directed
Resuscitation Status: Do not resuscitate
Reached after discussion with pt or family/Healthcare POA: Yes
DNR Bracelet Application ONCE
12/14/24 14:36
Urinalysis Reflex To Culture Urgent
Date Specimen was Collected: 12/14/24
Time Specimen was Collected: 14:29
Blood Culture Q30M
DESTINEE Source: Blood/Venous
Specimen Description:
12/14/24 15:25
Tramadol HCl [Ultram] 25 mg PO Q6HPRN PRN
12/14/24 15:25
Activity As Directed
Activity Level: Out of Bed- Chair
With Assistance
Bladder Scan As Directed
Follow Bladder Retention/Intermittent Cath Algorithm?: Yes
PRN if no void in __ hours: 6
Frequency: Per Retention Algorithm
If Bladder Scan Result >: 400
then:: Straight cath
Straight Cath As Directed
Frequency: Per Retention Algorithm
Additional Instructions: straight cath as needed per acute urinary retention algorithm for 24 hrs
Additional Instructions: for bladder scan greater than 400 mL
Vital Signs As Directed
Frequency: Per unit guidelines
Weight As Directed
Frequency: Daily
Ot Eval And Treat Routine
Pt Eval And Treat Routine
Activity Level: Out of Bed-Early Mobility
With Assistance
DX Deep Vein Thrombosis Video Routine
12/14/24 16:00
Acetaminophen [Tylenol] 1,000 mg PO TID
12/14/24 18:00
Enoxaparin Sodium [Lovenox] 40 mg SC QPM
12/14/24 20:00
Remove Patch [Remove Lidocaine Patch] See Dose Instructions REMOVE DAILY@1999
12/15/24 06:00
Basic Metabolic Panel IN AM
Complete Blood Count/No Diff IN AM
12/15/24 08:00
Aspirin Chewable [Low Strength Aspirin] 81 mg PO DAILY
Abnormal Lab Results
12/14/24
13:20
WBC 49.0 H* 10^3/uL
(4.8-10.8)
RBC 4.42 L 10^6/uL
(4.70-6.10)
Hgb 12.6 L g/dL
(13.0-18.0)
Hct 38.7 L %
(39.0-52.0)
MCHC 32.6 L g/dL
(33.0-37.0)
RDW 15.1 H %
(11.5-14.5)
Abs Immat Gran (auto) 0.2 H 10^3/uL
(0-0.05)
Absolute Neuts (auto) 8.6 H 10^3/uL
(1.4-6.5)
Absolute Lymphs (auto) 40.0 H 10^3/uL
(1.2-3.4)
Neutrophils % 17.7 L %
(42.2-75.2)
Lymphocytes % 81.5 H %
(20.5-51.1)
Monocytes % 0.5 L %
(1.7-9.3)
Sodium 134 L mmol/L
(135-145)
Glucose 120 H mg/dl
(70-99)
Albumin 3.4 L g/dl
(3.5-5.0)
12/14/24 13:20
12/14/24 13:20
Vital Signs
Initial and Last Documented VS:
Initial Vital Signs
Temp Pulse Resp BP Pulse Ox
98.2 F 87 16 148/93 94
12/14/24 07:44 12/14/24 07:44 12/14/24 07:44 12/14/24 07:44 12/14/24 07:44
Last Documented Vital Signs
Temp Pulse Resp BP Pulse Ox
103.1 F H 95 20 108/73 94
12/14/24 13:19 12/14/24 13:19 12/14/24 13:19 12/14/24 13:19 12/14/24 13:19
Procedures
Laceration Closure
Left Eye brow:
Status of Wound: clean
Size of Wound in cm: 3
Description of Wound Edges: ragged
Preparation: cleaned with saline
Anesthesia: 1% Lidocaine with epi
Wound exploration: explored to base- no FB
Type of Closure: single layer closure
Skin Closure Material: 5-0 nylon
Number of sutures: 3
MDM/Problems Addressed
Differential Diagnosis Includes:
84yoM here after a fall. Tripped over a curb while coming to the hospital for an outpatient test. He arrives with a L eyebrow laceration as well as multiple abrasions. He is awake, alert, with a GCS of 15. Differential diagnosis includes but is not
limited to: Laceration, fracture, intracranial hemorrhage
Initial ED plan: Check CT head, CT cervical spine, left shoulder x-rays, and left knee x-rays. Update Tdap and repair eyebrow laceration.
*Critical Care Note
Total Time (30-74mins, 75-104mins- exclusive of procedures): Not Applicable
Update Note
Update Note:
CT cervical spine shows nondisplaced fractures of the left 2nd and 5th ribs. Interestingly, he denies any pleuritic pain and has no reproducible pain on exam. No other injuries noted on imaging. Eyebrow laceration repaired as above. Patient was
initially put up for discharge after he declined PT evaluation. Patient subsequently changed his mind and was ultimately evaluated by physical therapy. He was unable to stand with PT and he currently lives alone. He was admitted for further
management.
ED Attending Note
-
Portions of this chart may have been created with voice recognition software.� Occasional wrong word or��sound alike� substitutions may have occurred due to the inherent limitations of voice recognition software.
Discharge Plan
Departure
Patient Disposition: Admit
Date of Disposition: 12/14/24
Time of Disposition: 12:57
Presentation/result/management discussed w/ accepting MD/DO: Hospitalist
Discharge Problem:
Fall from slip, trip, or stumble, Laceration of left eyebrow, Abrasion of left shoulder, Abrasion of left knee, Head injury, Multiple rib fractures
Interventions
Interventions:
*Risk Screen - Suicide Last Done: 12/14/24 07:44
*General Assessment Last Done: 12/14/24 10:00
*Neglect/Abuse Screening Last Done: 12/14/24 07:44
*ED COVID-19 Vaccine History Last Done: 12/14/24 10:00
*Nursing Disposition Last Done: 12/14/24 15:16
ED- Neurological Assessment Last Done: 12/14/24 10:00
ED-Skin Assessment Last Done: 12/14/24 10:00
Discharge Date and Time
Discharge Date/Time: 12/14/24 15:17
[2024-12-14] MEDS: ADACEL 0.5 ML IM (11:13)
[2024-12-14] MEDS: TYLENOL 1000 MG PO ×2 (11:26→21:16)
--- NOTE | 2024-12-14 12:59 | HPS.HSE ---
Family Physician
-
Family Physician: Tyrell Fernandes
Chief Complaint
-
Fall
History of Present Illness
Patient is an 84 y/o male past medical history of CAD, s/p TAVR, and CLL who presents following a fall. Patient reports he stepped off the curb, lost his balance and fell hitting his head and left side. He was brought to the emergency department
for evaluation where he was found to have left sided rib fractures. He was evaluated by PT in the ED. He was unable to stand and deemed unsafe to return home as he lives alone. While in the ED he was incontinent of urine. Upon cleaning him staff
noted him to feel very warm. They check a rectal temperature which was 103.1F. Patient described urinary urgency which is sometime associated with incontinence. Patient denies cough, shortness of breath. He denies abdominal pain, nausea,
vomiting, or diarrhea.
Medical History
Past Medical History
Past Medical History: Reports Other
Additional Past Medical History:
Severe Aortic Stenosis s/p TAVR
Non-Obstructive Coronary Artery Disease
Wandering Atrial Pacemaker
Hyperlipidemia
CLL
Psoriatic Arthritis
BPH
Past Surgical History: Reports Other
Additional Past Surgical History:
Left Rotator Cuff Repair
Left Hip Replacement
Bilateral Knee Replacement
TAVR
Social History
Tobacco: Non-smoker
Alcohol: None
Living: Alone
Family History
Family History: Not pertinent
Allergies / Home Medications
Allergies reflects when Allergies were last updated in [facility].
Home Medications with original date entered in [facility]
Allergy/Medication List:
Medications on admission are unable to be verified or confirmed at this time.
If medication reconciliation has not been performed, why?: Medication List N/A
Review of Systems
-
A 12 point ROS was completed and negative except as noted: Yes
Constitutional: Reports Fever
Respiratory: Denies Cough or Trouble Breathing
Cardiac: Denies Chest Pain or Palpitations
Abdomen/GI: Denies Abdominal Pain, Nausea, Vomiting or Diarrhea
Physical Exam
Vital Signs
Vital Signs
Temp Pulse Resp BP Pulse Ox
98.2 F 76 20 145/87 96
12/14/24 07:44 12/14/24 12:00 12/14/24 12:00 12/14/24 12:00 12/14/24 12:00
Physical Exam
General: Comfortable and Conversant
HEENT: Anicteric and Moist mucous membranes
Respiratory: Clear and Non Labored Respirations
Cardiac: S1/S2, Regular Rhythm and Murmur
GI: Soft and Non Tender
Rectal: Deferred by Provider
Musculoskeletal: No Clubbing, No Cyanosis and No Edema
Skin: Warm and Dry; No Rash
Neuro: Awake, Alert and Nonfocal/grossly intact
Psych: Calm and Other (Appears slightly confused)
Data Reviewed
-
Lab Data: Labs Reviewed by me
Impression/Plan
-
Nondisplaced Left 2nd and 5th Rib Fractures
-Apply Lidocaine Patch
-Continue Tylenol 1000mg TID
-Consult PT/OT
Fever, unclear etiology, possibly UTI in setting of urgency/incontinence
-Check urinalysis reflex to culture
-Check blood cultures
-Check COVID and Influenza
-CXR negative for pneumonia
Non-Obstructive Coronary Artery Disease
-Continue Aspirin
CLL
-Counts appear stable
Hx Severe Aortic Stenosis s/p TAVR
Hx Wandering Atrial Pacemaker
DVT proph: Lovenox
Code Status: DNR
[2024-12-14 13:35] LABS: Hematocrit 38.7 % (39.0-52.0); Hemoglobin 12.6 g/dL (13.0-18.0); Mean Corp Hgb Conc. 32.6 g/dL (33.0-37.0); Mean Corpuscular Hgb 28.5 pg (27.0-31.0); Mean Corpuscular Volume 87.6 fL (80.0-94.0); Mean Platelet Volume 9.1 fL (7.4-10.4); Platelet Count 159 10^3/uL (130-400); Red Blood Cell Count 4.42 10^6/uL (4.70-6.10); Red Cell Dist. Width 15.1 % (11.5-14.5)
--- NOTE | 2024-12-14 13:42 | W.PN.UPDATE ---
Update Note
Progress Note Update
This is an addendum to the H&P written by Christin Perez on 12/14/2024.� Patient seen and examined independently with PA.
84-year-old male past medical history of TAVR, nonobstructive CAD, CLL, presenting with mechanical fall and injury of the left side of the face, left shoulder and knee.
Chest x-ray and rib x-ray show nondisplaced fractures of the left 2nd and 5th ribs.
Patient was found to have fever of 103 here.� No focal symptoms of infection apart from urinary urgency.
Patient with rib fractures from fall.� Lidocaine patch and Tylenol.
Unclear etiology of fever although UTI may be possible.� Check urinalysis, blood cultures, COVID and influenza.
[2024-12-14 13:44] LABS: ALT (SGPT) 20 U/L (0-50); AST (SGOT) 23 U/L (17-59); Albumin 3.4 g/dl (3.5-5.0); Alkaline Phosphatase 96 U/L (38-126); Blood Urea Nitrogen 16 mg/dl (9-20); Calcium 8.7 mg/dl (8.4-10.2); Carbon Dioxide 26 mmol/L (22-30); Chloride 98 mmol/L (98-107); Glucose 120 mg/dl (70-99); Potassium 4.4 mmol/L (3.5-5.1); Sodium 134 mmol/L (135-145); Total Bilirubin 1.2 mg/dl (0.2-1.3); Total Protein 6.9 g/dl (6.3-8.2); eGFR > 60.00
[2024-12-14 13:45] LABS: Lactic Acid 0.9 mmol/L (0.7-2.0)
[2024-12-14 13:47] LABS: COVID-19 Antigen Negative (Negative)
[2024-12-14 14:09] LABS: % Immature Granulocytes 0.3 % (0-0.5); % Lymphocytes 81.5 % (20.5-51.1); % Monocytes 0.5 % (1.7-9.3); % Neutrophils 17.7 % (42.2-75.2); Absolute Immature Granulocytes 0.2 10^3/uL (0-0.05); Absolute Monocytes 0.3 10^3/uL (0.1-0.6); Absolute Neutrophils 8.6 10^3/uL (1.4-6.5); Nucleated Red Blood Cells % 0 % (-)
[2024-12-14] MEDS: MOTRIN 400 MG PO ×2 (14:36→20:13)
[2024-12-14] MEDS: LIDOCAINE 4% PATCH 1 PATCH TOPICAL (14:40)
[2024-12-14 14:47] LABS: Urine Albumin 2+ (Neg - Trace); Urine Bilirubin Negative (Negative); Urine Character Clear (Clear); Urine Color Yellow; Urine Glucose Negative (Negative); Urine Ketone 2+ (Negative); Urine Leukocyte Negative (Negative); Urine Nitrite Negative (Negative); Urine Occult Blood 4+ (Negative); Urine Specific Gravity 1.015 (<1.030); Urine Urobilinogen Negative (Neg - 1+); Urine pH 6.5 (5.0-9.0)
[2024-12-14 15:05] LABS: Urine Red Blood Cell 40-50 /HPF (0-2); Urine Squamous Cell None seen /LPF (Few); Urine White Cell 0-2 /HPF (0-5)
[2024-12-14] MEDS: LOVENOX 40 MG SC (19:30)
--- NOTE | 2024-12-14 19:55 | PHA.VAN.IN ---
Assessment
- Assessment
Renal Function: Appears similar to baseline
Maximum Temperature: 103.1
Minimum Temperature: 98.1
Concomitant Antimicrobials: piperacillin-tazobactam
- Previous Dosing Experience
Previous Regimen: Vancomycin 1000mg q12h
Date of Regimen: Apr 2024
Provided AUC of: 419
Patient's SCR is: Decreased compared to previous dosing experience (SCr 0.7 vs 0.9)
Patient's weight is: Decreased compared to previous dosing experience (103 kg vs 95 kg)
AUC Dosing Plan
- Dosing Variables
Dosing Weight (kg): 95.7
Dosing CrCl (ml/min): 94
Vd coefficient (L/kg): 0.7
- Empiric Dosing
Initial / Loading Dose: 1500 mg 12/14 pending administration
Maintenance Regimen: 1250 mg q 12h
Estimated AUC (mcg*h/mL): 471
Estimated Peak (mcg*h/mL): 29.7
Estimated Trough (mcg/ml): 12
Estimated Half Life (H): 8.4
- Monitoring
No levels ordered at this time: consider in the next few days
Pharmacokinetics Vancomycin I
- -
Patient Age: 84
Patient Sex: Male
Vancomycin Day #: 1
Indication: Other
Requesting Provider: CHAUNCEY Sterling
Pertinent Antimicrobial Allergies:
no pertinent antimicrobial allergies
Height / Weight:
Height 6 ft 3 in
Actual Weight 95.736 kg
Pertinent Past Medical History: h/o CLL
- Vital Signs / Lab Results
Temp Pulse Resp BP Pulse Ox
102.0 F H 109 17 112/72 95
12/14/24 19:35 12/14/24 19:35 12/14/24 19:35 12/14/24 19:35 12/14/24 19:35
Lab Results - Hematology
12/14/24
13:20
WBC 49.0 H*
Lab Results - Chemistry
12/14/24
13:20
BUN 16
Creatinine 0.7
Albumin 3.4 L
12/14/24
13:20
Lactic Acid 0.9
Lab Results - Urine
12/14/24
14:36
Urine Nitrite (Reflex) Negative
Leukocyte Esterase Rfl Negative
Urine WBC (Reflex) 0-2
Ur Squamous Epith Cells None seen
Microbiology Results
12/14/24 13:20 Influenza Types A & B (JUAN LUIS) - Final
Nasal Swab Negative for Influenza A & B, NAAT
Negative results must be combined with clinical observations
and patient history.
Nucleic Acid Amplification test (NAAT)performed on the
[employer] platform.
[2024-12-14] MEDS: ZOSYN 50 IV (20:14)
[2024-12-14] MEDS: VANCOCIN 530 MG IV (21:14)
--- NOTE | 2024-12-14 23:40 | PTCARENOTE ---
Pt manual BP noted to be 78/56. Pt reports no symptoms of hypotension. New orders placed. Refer to MAR. Plan of care ongoing.
[2024-12-14] MEDS: NSS 500 IV (23:51)
[2024-12-15] VITALS (13 sets, daily range): BP systolic 82–115; BP diastolic 50–67; PULSE 76; O2SAT 97; BMI 26.7
[2024-12-15] MEDS: MOTRIN 400 MG PO (00:19)
[2024-12-15] MEDS: ZOSYN 50 IV ×2 (01:56→09:15)
[2024-12-15] MEDS: NSS 1000 IV (01:56)
--- NOTE | 2024-12-15 04:51 | W.PN.UPDATE ---
Update Note
Progress Note Update
bp low this [place] SBP initially 70s. NSS bolus given then started improving some. Started on maintance fluids x1 bag. Asymptomatic.
[2024-12-15] MEDS: VANCOCIN 275 MG IV (05:24)
[2024-12-15] MEDS: ProAmatine 10 MG PO (05:59)
[2024-12-15 07:16] LABS: Hematocrit 35.5 % (39.0-52.0); Hemoglobin 11.6 g/dL (13.0-18.0); Mean Corp Hgb Conc. 32.7 g/dL (33.0-37.0); Mean Corpuscular Hgb 29.2 pg (27.0-31.0); Mean Corpuscular Volume 89.4 fL (80.0-94.0); Mean Platelet Volume 9.3 fL (7.4-10.4); Platelet Count 141 10^3/uL (130-400); Red Blood Cell Count 3.97 10^6/uL (4.70-6.10); Red Cell Dist. Width 15.4 % (11.5-14.5); White Blood Cell Count 40.2 10^3/uL (4.8-10.8)
--- NOTE | 2024-12-15 07:32 | PTCARENOTE ---
TT Dr Akers, + blood culture in progress, Gram + Cocci in clusters
[2024-12-15 07:43] LABS: Blood Urea Nitrogen 28 mg/dl (9-20); Calcium 8.4 mg/dl (8.4-10.2); Carbon Dioxide 26 mmol/L (22-30); Chloride 99 mmol/L (98-107); Estimated Creatinine Clearance 51 ml/min; Glucose 113 mg/dl (70-99); Potassium 4.7 mmol/L (3.5-5.1); Sodium 134 mmol/L (135-145); eGFR 54.17
--- NOTE | 2024-12-15 07:46 | PHA.VAN.FU ---
Vancomycin Assessment / Plan
- Assessment
Renal Function: SCR Increasing (ROUGHLY DOUBLED)
In the past 24 hrs, patient has been: Febrile (103.1F)
Concomitant Antimicrobials: ZOSYN
- Dosing Plan
Adjust Regimen to: PRN BY LEVEL
- Monitoring Plan
Random Level: 12/16 IN AM
- Follow Up
Pharmacy will continue to follow.
Vancomycin Follow UP
- -
Patient Age: 84
Patient Sex: Male
Vancomycin Day #: 2
Indication: Other
Requesting Provider: CHAUNCEY Sterling
Pertinent Antimicrobial Allergies:
no pertinent antimicrobial allergies
Height / Weight:
Height 6 ft 3 in
Actual Weight 96.978 kg
Pertinent Past Medical History: h/o CLL
- Vital Signs / Lab Results
Temp Pulse Resp BP Pulse Ox
97.4 F 65 17 94/53 95
12/15/24 07:25 12/15/24 07:25 12/15/24 07:25 12/15/24 07:25 12/15/24 07:25
Lab Results - Hematology
12/14/24 12/15/24
13:20 06:44
WBC 49.0 H* 40.2 H*
Lab Results - Chemistry
12/14/24 12/15/24
13:20 06:44
BUN 16 28 H
Creatinine 0.7 1.3
Estimated Creat Clear 51
Albumin 3.4 L
12/14/24
13:20
Lactic Acid 0.9
Lab Results - Urine
12/14/24
14:36
Urine Nitrite (Reflex) Negative
Leukocyte Esterase Rfl Negative
Ur Squamous Epith Cells None seen
Microbiology Results
12/14/24 13:20 Blood Culture - Preliminary
Blood/Venous Positive culture in progress
Gram Stain - Final
12/14/24 14:36 Blood Culture - Preliminary
Blood/Venous Positive culture in progress
Gram Stain - Final
12/14/24 13:20 Influenza Types A & B (JUAN LUIS) - Final
Nasal Swab Negative for Influenza A & B, NAAT
Negative results must be combined with clinical observations
and patient history.
Nucleic Acid Amplification test (NAAT)performed on the
[employer] platform.
[2024-12-15] MEDS: LIDOCAINE 4% PATCH 1 PATCH TOPICAL (09:15)
[2024-12-15] MEDS: TYLENOL 1000 MG PO ×3 (09:16→22:48)
[2024-12-15] MEDS: LOW STRENGTH ASPIRIN 81 MG PO (09:16)
--- NOTE | 2024-12-15 11:49 | W.PN.HOSP.TC ---
Today's Communication/Plan
-
IVF
IV Abx
Echo
ID consulted
Assessment / Plan
Assessment / Plan
Assessment:
Mechanical fall with traumatic nondisplaced Left 2nd and 5th Rib Fractures
- PT/OT
- continue Tylenol TID and lidocaine patch
Febrile illness
Sepsis (leukocytosis, fever, tachycardia) with hypotension
MRSA bacteremia
- continue sepsis protocol IVF
- unclear source of bacteremia - skin exam with some healed abrasions. No obvious wounds/cuts
- continue IV Vancomycin - requires intensive monitoring of levels
- Echo given history of TAVR
CAD
- continue ASA
hx of CLL
- follow counts
Hx of s/p TAVR 2023
Hx Wandering Atrial Pacemaker
DVT ppx: Lovenox
Code: DNR
Anticipated Discharge: > 48 hours
Subjective/Interval History
-
Date of Service: December 15, 2024
no complaints at present
Objective Data
-
Labs:
Laboratory Results
12/15/24
06:44
WBC 40.2 H*
Hgb 11.6 L
Hct 35.5 L
Plt Count 141
Sodium 134 L
Potassium 4.7
Chloride 99
Carbon Dioxide 26
BUN 28 H
Creatinine 1.3
Glucose 113 H
Calcium 8.4
Vital Signs:
Vital Signs
Temp Pulse Resp BP Pulse Ox
98.1 F 72 17 95/57 97
12/15/24 11:19 12/15/24 11:19 12/15/24 11:19 12/15/24 11:19 12/15/24 11:19
I&O
12/14/24 12/15/24 12/16/24
06:59 06:59 06:59
Intake Total 120 / 120
Balance 120 / 120
Physical Exam
-
General: No Apparent Distress
HEENT: Normocephalic and Atraumatic
Respiratory: Negative Wheezes
Cardiac: Regular Rhythm and S1/S2
GI: Soft and Nontender
Genito-urinary: No Costovertebral Tender
Neuro: AO x 3
Hematologic / Lymphatic: No Lymphadenopathy
Psych: Calm
Data Reviewed
-
Total Time Spent with Patient (in minutes): 51
Labs: Labs Reviewed by me
--- NOTE | 2024-12-15 16:31 | CON.ID ---
Consultation
-
Date/Time Consultation Requested: 12/15/2024 12:04
Date/Time Consultation Performed: 12/15/2024 15:53
Requesting Provider: Dr. Akers
Performing Provider: Dr. Moreno
Reason for Consultation: Bacteremia
Chief Complaint / Past History
History of Present Illness
Av Weir is an 84-year-old male being evaluated at the request of Dr. Akers regarding MRSA bacteremia. History is obtained from chart review, along with patient interview.
The patient presented to the emergency room on 12/14 following a fall in the parking lot at [facility]. He reports multiple falls over the past several months, with 1 happening approximately 1 month ago resulting in ongoing left shoulder
discomfort. He had been ordered a CT of the chest, and was on his way to have the scan done when he fell in the parking lot.
Workup in the emergency room revealed a fever, and the patient had blood cultures drawn, which are now positive for MRSA as a (by PCR methodology).
The patient has a significant past medical history of TAVR placed in 2023. He denies any subjective fevers prior to admission. He has admitted to some chest discomfort for the past 3 weeks, which may be related to his fall a month ago.
Past History
Additional Past Medical History:
CLL
Psoriatic arthritis
HTN
Aortic stenosis
Additional Past Surgical History:
TAVR (2023; [facility])
Bilateral knee replacement
Bilateral hip replacement
Allergy History:
formaldehyde [Formaldehyde] Allergy (Verified 12/14/24 07:44)
Rash
latex [Latex] Allergy (Verified 12/14/24 07:44)
Rash
pollen extracts Allergy (Verified 12/14/24 07:44)
congestion
petroleum products Allergy (Uncoded 12/14/24 07:44)
Rash
Medications Reviewed: Yes
Current Antibiotics:
Vancomycin
Social History
Tobacco: Former Smoker
Alcohol: None
Drug: None
Personal: Single
Living: Alone
Employment: Retired
Family History
Family History: Not Pertinent
Review of Systems
Vital Signs
Temp Pulse Resp BP Pulse Ox
98.0 F 69 17 95/59 98
12/15/24 15:31 12/15/24 15:31 12/15/24 15:31 12/15/24 15:31 12/15/24 15:31
Physical Exam
Physical Exam
Constitutional: No Acute Distress, Comfortable, Chronically Ill and Non-toxic
Head: Normocephalic
Eyes: Pupils Equal, Pupils Round and Other (Questionable single left lower conjunctival hemorrhage)
Oral: No Thrush and No Ulcers
Cardiovascular: Regular Rate, S1/S2 and Murmur; Negative S3/S4
Pulmonary: Clear; Negative Wheezes, Rales or Rhonchi
Gastrointestinal: Soft, Non Tender and Non Distended
Genito-Urinary: Negative Weiss
Extremities: Negative Edema, Cyanosis, Erythema, Splinter Hemorrhage, Venous Insufficiency or Janeway Lesions
Skin: Warm and Dry; Negative Rash or Jaundice
Neurological: Awake and Alert
Psychological: Calm
.
Lab / Diagnostic Study Results
12/15/24 06:44
12/15/24 06:44
Abs Immat Gran (auto) 0.2 10^3/uL (0-0.05) H 12/14/24 13:20
Absolute Neuts (auto) 8.6 10^3/uL (1.4-6.5) H 12/14/24 13:20
Absolute Lymphs (auto) 40.0 10^3/uL (1.2-3.4) H 12/14/24 13:20
Absolute Monos (auto) 0.3 10^3/uL (0.1-0.6) 12/14/24 13:20
Absolute Basos (auto) 0.0 10^3/uL (0-0.2) 12/14/24 13:20
Immature Gran % 0.3 % (0-0.5) 12/14/24 13:20
Neutrophils % 17.7 % (42.2-75.2) L 12/14/24 13:20
Lymphocytes % 81.5 % (20.5-51.1) H 12/14/24 13:20
Monocytes % 0.5 % (1.7-9.3) L 12/14/24 13:20
Eosinophils % 0.0 % (0-6) 12/14/24 13:20
Basophils % 0.0 % (0-2) 12/14/24 13:20
Lactic Acid 0.9 mmol/L (0.7-2.0) 12/14/24 13:20
Ur Squamous Epith Cells None seen /LPF (Few) 12/14/24 14:36
Microbiology Results
Micro:
12/14/24 13:20 Blood Culture - Preliminary
Blood/Venous Staph aureus MRSA
Gram Stain - Final
12/14/24 14:36 Urine Culture - Pending
Urine
12/14/24 14:36 Blood Culture - Preliminary
Blood/Venous Positive culture in progress
Gram Stain - Final
12/14/24 21:22 MRSA Screen - Pending
Nose
12/14/24 13:20 Influenza Types A & B (JUAN LUIS) - Final
Nasal Swab Negative for Influenza A & B, NAAT
Negative results must be combined with clinical observations
and patient history.
Nucleic Acid Amplification test (NAAT)performed on the
[employer] platform.
Imaging:
12/14/2024 CXR (ribs): Nondisplaced fractures of the left 2nd and 5th ribs identified on the cervical spine CT from 12/14 I last well seen by radiograph. No other acute rib fractures definitively appreciated by this radiograph. Please see full
dictation for additional detail.
Assessment / Plan
MRSA bacteremia
Fever
Recurrent falls
Aortic stenosis; s/p TAVR (2023; [facility])
CLL
Psoriatic arthritis
HTN
Recommendations:
Given presence of TAVR, concern at this point in time is for prosthetic valve endocarditis.
Continue with vancomycin.
Repeat blood cultures ordered to assess clearance.
Echocardiogram ordered by hospitalist service; await results.
Check ESR and CRP in AM.
Monitor white count and temperature curve.
Further recommendations as additional data is returned.
[2024-12-15] MEDS: LOVENOX 40 MG SC (17:34)
[2024-12-15 22:36] LABS: Urine Sodium 6 mmol/L (30-90)
[2024-12-15 22:38] LABS: Body Fluid for Eosinophils No Eosinophils seen
[2024-12-16 03:00] VITALS: BP 123/72
--- NOTE | 2024-12-16 05:45 | PTCARENOTE ---
Patient urinated, some on the bed some in the urinal. On the bed it looked like there was a smear of blood right where he urinated. On the rim of the urinal, there was a bit of blood. Patient stated he wasn't having any pain when urinating. WARPER CREELER Madyson
[place] notified. Will continue to monitor.
--- NOTE | 2024-12-16 05:51 | W.PN.UPDATE ---
Update Note
Progress Note Update
RN reports blood drops noted on urinal bottle. Urine clear. PT denies pain or dysuria. UA on admit showed +4 blood. Reviewing chart there has been other admits where pt had some hematuria.
[2024-12-16 06:00] VITALS: BMI 26.8
[2024-12-16 07:00] VITALS: BP 124/81
[2024-12-16] MEDS: LIDOCAINE 4% PATCH 1 PATCH TOPICAL (08:15)
[2024-12-16] MEDS: TYLENOL 1000 MG PO ×3 (08:16→22:01)
[2024-12-16] MEDS: LOW STRENGTH ASPIRIN 81 MG PO (08:17)
[2024-12-16 08:25] LABS: Hematocrit 37.5 % (39.0-52.0); Hemoglobin 12.2 g/dL (13.0-18.0); Mean Corp Hgb Conc. 32.5 g/dL (33.0-37.0); Mean Corpuscular Hgb 28.6 pg (27.0-31.0); Mean Platelet Volume 9.6 fL (7.4-10.4); Platelet Count 132 10^3/uL (130-400); Red Blood Cell Count 4.26 10^6/uL (4.70-6.10); Red Cell Dist. Width 15.2 % (11.5-14.5); White Blood Cell Count 36.3 10^3/uL (4.8-10.8)
--- NOTE | 2024-12-16 08:29 | VNURNOTE ---
Chart reviewed. Patient is current with [facility] nursing, PT, OT, [facility]. Will continue to follow hospital course and DC plans.
[2024-12-16 08:46] LABS: Vancomycin Random 8.2 ug/ml
[2024-12-16 08:53] LABS: % Basophils 0.2 % (0-2); % Eosinophils 0.1 % (0-6); % Immature Granulocytes 0.2 % (0-0.5); % Monocytes 0.7 % (1.7-9.3); % Neutrophils 17.8 % (42.2-75.2); Absolute Basophils 0.1 10^3/uL (0-0.2); Absolute Immature Granulocytes 0.1 10^3/uL (0-0.05); Absolute Lymphocytes 29.4 10^3/uL (1.2-3.4); Absolute Monocytes 0.3 10^3/uL (0.1-0.6); Absolute Neutrophils 6.4 10^3/uL (1.4-6.5); Nucleated Red Blood Cells % 0 % (-)
[2024-12-16 09:02] LABS: Blood Urea Nitrogen 29 mg/dl (9-20); Calcium 8.3 mg/dl (8.4-10.2); Carbon Dioxide 27 mmol/L (22-30); Chloride 98 mmol/L (98-107); Estimated Creatinine Clearance 66 ml/min; Glucose 100 mg/dl (70-99); Potassium 3.8 mmol/L (3.5-5.1); Sodium 135 mmol/L (135-145); eGFR > 60.00
--- NOTE | 2024-12-16 09:14 | PHA.VAN.FU ---
Vancomycin Assessment / Plan
- Assessment
Renal Function: SCR Decreasing
WBC's are: Trending Down
In the past 24 hrs, patient has been: Afebrile
- Assessment - Therapeutic Drug Monitoring
Random Level: 8.2- drawn ~26H after previous dose of 1250mg
- Dosing Plan
Dosing by Level: Re-dose today (Vanc 1000mg x2 doses - first now then at 1800)
SCR increased but trending back down
BUN remains increased
Level subtherapeutic
Will keep dose by level for now as renal function not stable but trial BID dosing given subtherapeutic level
- Monitoring Plan
Random Level: 12/17 0600
- Follow Up
Pharmacy will continue to follow.
Vancomycin Follow UP
- -
Patient Age: 84
Patient Sex: Male
Vancomycin Day #: 3
Indication: Other
Requesting Provider: Cheryl Blanton / Dr. Moreno
Pertinent Antimicrobial Allergies:
no pertinent antibiotic allergies
Height / Weight:
Height 6 ft 3 in
Actual Weight 97.211 kg
Pertinent Past Medical History: h/o CLL, TAVR (2023)
- Vital Signs / Lab Results
Temp Pulse Resp BP Pulse Ox
97.1 F 83 16 124/81 97
12/16/24 07:00 12/16/24 07:00 12/16/24 07:00 12/16/24 07:00 12/16/24 07:00
Lab Results - Hematology
12/14/24 12/15/24 12/16/24
13:20 06:44 07:33
WBC 49.0 H* 40.2 H* 36.3 H
Lab Results - Chemistry
12/14/24 12/15/24 12/16/24
13:20 06:44 07:33
BUN 16 28 H 29 H
Creatinine 0.7 1.3 1.0
Estimated Creat Clear 51 66
Albumin 3.4 L
12/14/24
13:20
Lactic Acid 0.9
Microbiology Results
12/14/24 14:36 Blood Culture - Preliminary
Blood/Venous Staph aureus MRSA
Gram Stain - Final
12/14/24 13:20 Blood Culture - Preliminary
Blood/Venous Staph aureus MRSA
Gram Stain - Final
12/14/24 21:22 MRSA Screen - Final
Nose No Methicillin Resistant Staphylococcus aureus isolated.
12/14/24 13:20 Influenza Types A & B (JUAN LUIS) - Final
Nasal Swab Negative for Influenza A & B, NAAT
Negative results must be combined with clinical observations
and patient history.
Nucleic Acid Amplification test (NAAT)performed on the
[employer] platform.
Therapeutic Drug Monitoring
Random Vancomycin 8.2 ug/ml 12/16/24 07:33
[2024-12-16 09:27] LABS: Erythrocyte Sed Rate 41 mm/hour (0-20)
[2024-12-16] MEDS: VANCOCIN 200 IV ×2 (10:24→17:52)
--- NOTE | 2024-12-16 10:40 | W.PN.HOSP.TC ---
Today's Communication/Plan
-
continue Vanco pending repeat cultures, Echo
follow ID recs
Assessment / Plan
Assessment / Plan
Assessment:
Mechanical fall with traumatic nondisplaced Left 2nd and 5th Rib Fractures
- PT/OT
- continue Tylenol TID and lidocaine patch
Febrile illness
Sepsis (leukocytosis, fever, tachycardia) with hypotension
MRSA bacteremia
- completed sepsis protocol IVF
- unclear source of bacteremia - skin exam with some healed abrasions. No obvious wounds/cuts
- continue IV Vancomycin - requires intensive monitoring of levels
- Echo given history of TAVR to evaluate for prosthetic valve endocarditis
- repeat cultures pending
- ESR and CRP elevated
- ID following
CAD
- continue ASA
hx of CLL
- follow counts
Hx of s/p TAVR 2023
Hx Wandering Atrial Pacemaker
Hematuria
- await urine culture
DVT ppx: Lovenox
Code: DNR
Anticipated Discharge: > 48 hours
Subjective/Interval History
-
Date of Service: December 16, 2024
resting comfortably
Objective Data
-
Labs:
Laboratory Results
12/16/24
07:33
WBC 36.3 H
Hgb 12.2 L
Hct 37.5 L
Plt Count 132
Sodium 135
Potassium 3.8
Chloride 98
Carbon Dioxide 27
BUN 29 H
Creatinine 1.0
Glucose 100 H
Calcium 8.3 L
Vital Signs:
Vital Signs
Temp Pulse Resp BP Pulse Ox
97.1 F 83 16 124/81 97
12/16/24 07:00 12/16/24 07:00 12/16/24 07:00 12/16/24 07:00 12/16/24 07:00
I&O
12/15/24 12/16/24 12/17/24
06:59 06:59 06:59
Intake Total 120 / 120 540 / 540
Output Total 400 / 400 200 / 200
Balance 120 / 120 140 / 140 -200 / -200
Physical Exam
-
General: No Apparent Distress
HEENT: Normocephalic and Atraumatic
Respiratory: Negative Wheezes
Cardiac: Regular Rhythm and S1/S2
GI: Soft and Nontender
Musculoskeletal: No Edema
Neuro: AO x 3
Psych: Calm
Data Reviewed
-
Total Time Spent with Patient (in minutes): 51
Labs: Labs Reviewed by me
[2024-12-16 11:00] VITALS: BP 104/68
--- NOTE | 2024-12-16 11:13 | W.PN.ID1 ---
Date of Service
Date of Service: December 16, 2024
Today's Communication
Continue antibiotics. Check MRI. Follow pending blood cultures.
Assessment / Plan
MRSA bacteremia
Fever
Recurrent falls
Aortic stenosis; s/p TAVR (2023; [facility])
Thoracic back discomfort
Elevated ESR and CRP
CLL
Psoriatic arthritis
HTN
Recommendations:
Given presence of TAVR, concern at this point in time is for prosthetic valve endocarditis.
Continue with vancomycin. Follow levels closely to prevent nephrotoxicity.
Repeat blood cultures ordered to assess clearance.
Echocardiogram ordered by hospitalist service; await results.
Check MRI thoracic spine.
Monitor white count and temperature curve.
Further recommendations as additional data is returned.
Chief Complaint
-: Bacteremia
Subjective / Review of Systems
Patient seen and examined. Reports some thoracic area back discomfort which he attributes to prior falls, but has been present for approximately 4 days. Denies low back discomfort.
Review of Systems: No Fever, No Chills and No Chest Pain
Vital Signs / Physical Exam
Vital Signs
Vital Signs
Temp Pulse Resp BP Pulse Ox
97.1 F 83 16 124/81 97
12/16/24 07:00 12/16/24 07:00 12/16/24 07:00 12/16/24 07:00 12/16/24 07:00
Physical Exam
Constitutional: No Acute Distress, Comfortable, Chronically Ill and Non-toxic
Eyes: Sclera Anicteric
Cardiovascular: S1/S2 and Murmur; Negative S3/S4
Pulmonary: Clear; Negative Wheezes or Rales
Gastrointestinal: Soft and Non Tender
Musculoskeletal: Negative Spinal Tenderness
Neurological: Awake and Alert
Psychological: Calm
Objective Data
Lab Data
Lab Results
12/16/24 07:33
04/21/25 07:33
ESR 41 mm/hour (0-20) H 12/16/24 07:33
Estimated Creat Clear 66 ml/min 12/16/24 07:33
Lactic Acid 0.9 mmol/L (0.7-2.0) 12/14/24 13:20
Total Bilirubin 1.2 mg/dl (0.2-1.3) 12/14/24 13:20
AST 23 U/L (17-59) 12/14/24 13:20
ALT 20 U/L (0-50) 12/14/24 13:20
Alkaline Phosphatase 96 U/L (38-126) 12/14/24 13:20
C-Reactive Protein 236.50 mg/L (0.0-10.00) H 12/16/24 07:33
Most recent labs reviewed.
Micro Results:
12/14/24 14:36 Urine Culture - Final
Urine NO GROWTH
12/14/24 14:36 Blood Culture - Preliminary
Blood/Venous Staph aureus MRSA
Gram Stain - Final
12/14/24 13:20 Blood Culture - Preliminary
Blood/Venous Staph aureus MRSA
Gram Stain - Final
12/14/24 21:22 MRSA Screen - Final
Nose No Methicillin Resistant Staphylococcus aureus isolated.
12/15/24 23:11 Blood Culture - Pending
Blood/Venous
12/15/24 22:19 Blood Culture - Pending
Blood/Venous
12/14/24 13:20 Influenza Types A & B (JUAN LUIS) - Final
Nasal Swab Negative for Influenza A & B, NAAT
Negative results must be combined with clinical observations
and patient history.
Nucleic Acid Amplification test (NAAT)performed on the
[employer] platform.
Imaging:
12/14/2024 CXR (ribs): Nondisplaced fractures of the left 2nd and 5th ribs identified on the cervical spine CT from 12/14 I last well seen by radiograph. No other acute rib fractures definitively appreciated by this radiograph. Please see full
dictation for additional detail.
Care Review
Plan reviewed with: Physician (Hospitalist; Radiology)
[2024-12-16 15:00] VITALS: BP 129/80
--- NOTE | 2024-12-16 15:12 | CARDSERVLU ---
Echocardiogram with [facility] completed after protocol screening completed. Allergies verified.
Patent IV site: _L HAND___
IV site flushed with 0.9% NaCl pre and post administration.
Diluted bolus method utilized to enhance visualization of ventricular stringer.
Total volume given: __4__ mL
Patient tolerated all procedures well without complications.
--- NOTE | 2024-12-16 15:33 | CON.CAR ---
Addendum entered and electronically signed by Triston Moreira MD 12/16/24 17:37:
I saw and examined the patient.
The JEWEL BEARING TURNER's note was reviewed and I agree with the note.
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 The remainder of the LAD proper has mild luminal irregularities. The large first
diagonal branch has 60-70% ostial/proximal stenosis), HFrEF (EF 40%, then recovered/normalized, now back to reduced), wandering atrial pacemaker, and hypertension presentted with ?fall, he is now found to have MRSA bacteremia. Echo was done in
evaluation to rule out endocarditis. However, quality was poor, could not get good views of the valves, no malignant regurgitant flow seen. EF dropped from normal to 30 to 35%. He denies any chest pain or shortness of breath. He did suffer some
rib fractures with his fall. He denies any pain. On exam, he appears to be splinting to breathe. However denies dyspnea. He is alert and oriented. Regular rate and rhythm with a normal S1-S2, lungs clear to auscultation extremities are warm
well-perfused. Echo explained above. Telemetry shows sinus rhythm with wandering atrial pacemaker seen. Overall, we have a recurrence of his cardiomyopathy however he does not appear to be in acute heart failure. We will treat try to see if we
could sneak some ARB. Will hold off on beta-mitch given his prolonged [place] interval's and the need to monitor this with possible endocarditis. Eventually can consider SGLT2 inhibitor but will not do so while he is under going treatment for
bacteremia. In regards to his possible endocarditis, he has a typical bug -- MRSA and a bioprosthetic aortic valve, fever. He has Endocarditis--would recommend treating for at least 6 weeks of antibiotics. However, if MRI does not show source,
would recommend RICKI To rule out surgical disease.
Will follow
Original Note:
Consultation
Consultation Request
Date/Time Consultation Requested: 4/1534
Date/Time Consultation Performed: 12/16/241534
Requesting Provider: Dr. Akers
Performing Provider: Rebecca ANN for Dr. Moreira
Reason for Consultation: decreased EF
Medical History
-
Chief Complaint: fall
History of Present Illness:
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 The remainder of the LAD proper has mild luminal irregularities. The large first diagonal
branch has 60-70% ostial/proximal stenosis), HFrEF (EF 40%, then recovered/normalized, now back to reduced), wandering atrial pacemaker, and hypertension who presented mechanical fall- stepped off curb and fell. Denies syncope. He sustained rib
fractures. He was seen to have a temp of 103.1. Blood cultures +MRSA. On ABX, infectious w/u is underway. Echo done and showed EF decreased to 30-35%, and therefore we are consulted. He is in no distress at the time of my assessment. Denies any CP
or SOB.
Past Medical History
Past Medical History: CAD, Cancer, CHF, HTN and Valvular Disease
Social History
Tobacco: Former Smoker
Family History
Family History: Reviewed & Not Pertinent
Allergies / Home Medications
Allergy/AdvReac Type Severity Reaction Status Date / Time
formaldehyde [Formaldehyde] Allergy Rash Verified 12/14/24 07:44
latex [Latex] Allergy Rash Verified 12/14/24 07:44
pollen extracts Allergy congestion Verified 12/14/24 07:44
petroleum products Allergy Rash Uncoded 12/14/24 07:44
�Medication �Instructions �Recorded �Confirmed �Type
aspirin 81 mg chewable tablet 81 mg PO DAILY Blood clot 12/06/23 12/14/24 Rx
(Children's Aspirin) prevention/tx #0 tabs
glucosamine-chondroitin 250 mg-200 2 tab PO DAILY Supplement 12/25/23 12/14/24 History
mg tablet (Osteo Bi-Flex)
omega 5-fzy-wii-fish oil 1,200 mg 1 cap PO DAILY Supplement 12/25/23 12/14/24 History
(144 mg-216 mg) capsule (Fish Oil)
cholecalciferol (vitamin D3) 50 50 mcg PO DAILY Supplement 04/26/24 12/14/24 History
mcg (2,000 unit) capsule (Vitamin
D3)
cyanocobalamin (vitamin B-12) 1,000 mcg PO DAILY Supplement 04/26/24 12/14/24 History
1,000 mcg tablet
diphenhydramine HCl 25 mg capsule 25 mg PO HS Sleep 11/13/24 12/14/24 History
(Benadryl)
meloxicam 15 mg tablet 15 mg PO DAILY Anti-Inflammatory 11/13/24 12/14/24 History
Review of Systems
-
History Source: Patient
All other systems: Negative unless noted
Constitutional: Fever
Musculoskeletal: Other (fall with rib pain)
Physical Exam
Vital Signs
Temp Pulse Resp BP Pulse Ox
97.1 F 60 18 104/68 93
12/16/24 07:00 12/16/24 11:00 12/16/24 11:00 12/16/24 11:00 12/16/24 11:00
Lab Results
12/16/24 07:33
12/16/24 07:33
Physical Exam
General: Well Developed, Well Nourished and No Apparent Distress
HEENT: Normocephalic and Anicteric
Respiratory: Clear and Non Labored Respirations
Cardiac: Regular Rhythm
Musculoskeletal: Edema (trace BLE edema)
Skin: Warm and Dry
Neuro: Awake, Alert and Oriented (self and place)
Psych: Calm
Impression / Plan
-
MRSA bacteremia, sepsis:
-this condition is threat to life
-rib fractures, head contusion/lac (head CT negative)
-on ABX
-plan for MRI thoracic spine today for further evaluation
-ID following
-consider RICKI if needed after results of MRI
Cardiomyopathy (type unknown, but previously non-ischemic):
-EF 30-35%. In Past was 40%, after TAVR was 55-60%
-GDMT when tolerated, but not appropriate now with sepsis
-does not appear volume overloaded to assessment
CAD:
-stable, denies CP
s/p TAVR:
-recent echo as below
1st degree AVB, WAP:
-follow telemetry
-current SR with 1st degree AVB and PAC's- check EKG
-no afib seen (afib documented by nursing due to irregularity)- continue to follow telemetry
Data Reviewed
-
EKG: Tracing Personally Visualized and interpreted (EKG 01/05/24: SR with 1st degree AVB (TREVOR 356 ms)) and Other (updated EKG ordered)
CT Scan: Report Reviewed by me (Head: No acute intracranial abnormality.)
Medical Tests (Nuc Med, Echo etc): Report Reviewed by me (Echo 12/16/24: EF 30-35%. Global hypokinesis. Stage II diastolic dysfunction. Mild mitral regurgitation. Well seated, normally functioning bioprosthetic aortic valve (s/p TAVR #29) with mean
gradient of 16mmHg. Compared to previous echo 02/05/2024, the EF has decreased from 55-60% to 30-35%. )
Labs: Labs Reviewed by me
--- NOTE | 2024-12-16 16:52 | CM ---
Attempted to meet with patient however [employer] was in with him, will f/u again to obtain information for assessment.
[2024-12-16] MEDS: LOVENOX 40 MG SC (17:57)
[2024-12-16 19:45] VITALS: BP 156/113
[2024-12-16] MEDS: DIOVAN 40 MG PO (19:48)
[2024-12-16 23:15] VITALS: BP 112/62
[2024-12-17] VITALS (7 sets, daily range): BP systolic 102–147; BP diastolic 59–77; PULSE 74; O2SAT 95; BMI 26.2
[2024-12-17 07:24] LABS: Vancomycin Random 10.7 ug/ml
[2024-12-17 07:25] LABS: Blood Urea Nitrogen 22 mg/dl (9-20); Calcium 8.3 mg/dl (8.4-10.2); Carbon Dioxide 30 mmol/L (22-30); Chloride 98 mmol/L (98-107); Estimated Creatinine Clearance 73 ml/min; Glucose 106 mg/dl (70-99); Hematocrit 37.1 % (39.0-52.0); Hemoglobin 12.1 g/dL (13.0-18.0); Mean Corp Hgb Conc. 32.6 g/dL (33.0-37.0); Mean Corpuscular Hgb 28.7 pg (27.0-31.0); Mean Corpuscular Volume 87.9 fL (80.0-94.0); Mean Platelet Volume 9.9 fL (7.4-10.4); Platelet Count 126 10^3/uL (130-400); Potassium 3.6 mmol/L (3.5-5.1); Red Blood Cell Count 4.22 10^6/uL (4.70-6.10); Red Cell Dist. Width 15.3 % (11.5-14.5); Sodium 135 mmol/L (135-145); White Blood Cell Count 36.2 10^3/uL (4.8-10.8); eGFR > 60.00
--- NOTE | 2024-12-17 08:03 | W.PN.CD ---
Today's Communication / Plan
-
npo p md for RICKI
ICS
Impression / Plan
-
MRSA endocarditis:
-high risk situation
-MRSA and AVR/fever
-recommend 6 weeks of abx
-will plan for RICKI tomorrow to evaluate prosthetic valve and root.
bacteremia, sepsis:
-this condition is threat to life
-rib fractures, head contusion/lac (head CT negative)
-on ABX
-plan for MRI thoracic spine with compression fx vs osteo T5, no abscess
-ID following
Cardiomyopathy (type unknown, but previously non-ischemic):
-EF 30-35%. In Past was 40%, after TAVR was 55-60%
-GDMT when tolerated, but not appropriate now with sepsis
-does not appear volume overloaded to assessment
-added a bit of ARB, will fuentes out Entresto/SGLT2i
-avoid bb with his very prolonged AVB and endocarditis
CAD:
-stable, denies CP
s/p TAVR:
-recent echo as below
1st degree AVB, WAP:
-follow telemetry
-current SR with 1st degree AVB and PAC's-
-no afib seen (afib documented by nursing due to irregularity)- continue to follow telemetry
Mechanical fall with traumatic nondisplaced Left 2nd and 5th Rib Fractures
-limiting movement
-add ICS
Subjective:
no sob, he has a lot of pain with movement.
Physical Exam
Vital Signs/Labs
Vital Signs
Temp Pulse Resp BP Pulse Ox
97.7 F 88 6 147/77 97
12/17/24 07:48 12/17/24 07:48 12/17/24 07:48 12/17/24 07:48 12/17/24 07:48
12/16/24 12/17/24 12/18/24
06:59 06:59 06:59
Actual Weight 214 lb 5 oz 210 lb
12/17/24 06:30
12/17/24 06:30
Physical Exam
Constitutional: No acute distress
Cardiovascular: Rhythm & rate is regular, Pedal edema is absent, JVD pressure is normal, Systolic murmur absent and Diastolic murmur absent
Respiratory: Respiratory effort normal, Lungs clear to auscul., Wheeze Absent, Crackles Absent and Rhonchi Absent
Neuro/Psych: AO x 3
Data Reviewed
-
Date of Service: December 17, 2024
EKG: Other (tele wap, 1degree av block)
--- NOTE | 2024-12-17 08:08 | PHA.VAN.FU ---
Vancomycin Assessment / Plan
- Assessment
Renal Function: Stable
WBC's are: Stable
In the past 24 hrs, patient has been: Afebrile
- Assessment - Therapeutic Drug Monitoring
Random Level: 10.7 - drawn ~12.5H after 2nd dose of 1g BID
- Dosing Plan
Adjust Regimen to: Vanc 1250mg Q12H - first dose now then 1800
Dosing Comments: will tentatively schedule dosing given improving renal function
- Monitoring Plan
No level(s) ordered at this time: consider levels in next few days
- Follow Up
Pharmacy will continue to follow.
Vancomycin Follow UP
- -
Patient Age: 84
Patient Sex: Male
Vancomycin Day #: 4
Indication: Other
Requesting Provider: Cheryl Blanton / Dr. Moreno
Pertinent Antimicrobial Allergies:
no pertinent antibiotic allergies
Height / Weight:
Height 6 ft 3 in
Actual Weight 95.254 kg
Pertinent Past Medical History: h/o CLL, TAVR (2023)
- Vital Signs / Lab Results
Temp Pulse Resp BP Pulse Ox
97.7 F 88 6 147/77 97
12/17/24 07:48 12/17/24 07:48 12/17/24 07:48 12/17/24 07:48 12/17/24 07:48
Lab Results - Hematology
12/14/24 12/15/24 12/16/24
13:20 06:44 07:33
WBC 49.0 H* 40.2 H* 36.3 H
12/17/24
06:30
WBC 36.2 H
Lab Results - Chemistry
12/14/24 12/15/24 12/16/24
13:20 06:44 07:33
BUN 16 28 H 29 H
Creatinine 0.7 1.3 1.0
Estimated Creat Clear 51 66
Albumin 3.4 L
12/17/24
06:30
BUN 22 H
Creatinine 0.9
Estimated Creat Clear 73
Albumin
12/14/24
13:20
Lactic Acid 0.9
Microbiology Results
12/14/24 13:20 Blood Culture - Preliminary
Blood/Venous Staph aureus MRSA
Gram Stain - Final
12/15/24 23:11 Blood Culture - Preliminary
Blood/Venous Positive culture in progress
Gram Stain - Preliminary
12/15/24 22:19 Blood Culture - Preliminary
Blood/Venous Positive culture in progress
Gram Stain - Preliminary
12/14/24 14:36 Urine Culture - Final
Urine NO GROWTH
12/14/24 14:36 Blood Culture - Preliminary
Blood/Venous Staph aureus MRSA
Gram Stain - Final
12/14/24 21:22 MRSA Screen - Final
Nose No Methicillin Resistant Staphylococcus aureus isolated.
Therapeutic Drug Monitoring
Random Vancomycin 10.7 ug/ml 12/17/24 06:30
[2024-12-17 08:16] LABS: % Basophils 0.3 % (0-2); % Eosinophils 0.2 % (0-6); % Immature Granulocytes 0.2 % (0-0.5); % Monocytes 1.5 % (1.7-9.3); % Neutrophils 17.8 % (42.2-75.2); Absolute Basophils 0.1 10^3/uL (0-0.2); Absolute Eosinophils 0.1 10^3/uL (0-0.7); Absolute Immature Granulocytes 0.1 10^3/uL (0-0.05); Absolute Monocytes 0.6 10^3/uL (0.1-0.6); Absolute Neutrophils 6.4 10^3/uL (1.4-6.5); Nucleated Red Blood Cells % 0 % (-)
[2024-12-17] MEDS: DIOVAN 40 MG PO ×2 (08:22→20:20)
[2024-12-17] MEDS: LIDOCAINE 4% PATCH 1 PATCH TOPICAL (08:22)
[2024-12-17] MEDS: TYLENOL 1000 MG PO ×3 (08:22→21:04)
[2024-12-17] MEDS: LOW STRENGTH ASPIRIN 81 MG PO (08:23)
[2024-12-17] MEDS: VANCOCIN 275 MG IV ×2 (08:47→17:00)
--- NOTE | 2024-12-17 11:07 | PN.CDI ---
CDI
- -
CDI:
Physician Documentation Request
Admit Date: 12/15/24 12:07
Dear Doctor Delphine,
12/15 Hospitalist PN: 'Sepsis (leukocytosis, fever, tachycardia) with hypotension'
Laboratory Tests
12/14/24
13:20
WBC 49.0 H*
12/14/24
13:19 12/14/24
19:35 12/14/24
23:40
Temp 103.1 F H 102.0 F H 101.1 F H
12/14/24
12:00 12/14/24
15:33 12/14/24
19:35
Pulse 96 97 109
Please clarify the following:
Sepsis was present on admission
Sepsis was not present on admission
Unable to determine
Use of terms such as suspected, likely, concern for, or probable (associated with a specific diagnosis that is being evaluated, monitored, or treated as if it exists) are acceptable and can be coded in the inpatient setting, when documented at the
time of discharge.
Thank you,
Rehana Malhotra RN, BSN
CDI Specialist
Available via [employer] text
Please use your independent medical judgment in providing your response.
--- NOTE | 2024-12-17 11:08 | W.PN.HOSP.TC ---
Today's Communication/Plan
-
continue Vancomycin
follow cultures
follow ID recs
follow Cards recs
RICKI tomorrow
Assessment / Plan
Assessment / Plan
Assessment:
Mechanical fall with traumatic nondisplaced Left 2nd and 5th Rib Fractures
- PT/OT
- continue Tylenol TID and lidocaine patch
- incentive spirometry
Sepsis (leukocytosis, fever, tachycardia) with hypotension
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
- completed sepsis protocol IVF
- unclear source of bacteremia - skin exam with some healed abrasions. No obvious wounds/cuts
- MRI: 'moderate compression deformity of the T5 vertebral body with associated small Schmorl's node along the inferior endplate. There is mild STIR hyperintense signal or enhancement within the anterior aspect of the vertebral body which is favored
to represent an acute on chronic compression fracture, less likely discitis osteomyelitis. There is multifocal degenerative changes with resultant multifocal mild spinal canal stenosis. There is multifocal neuroforaminal narrowing most pronounced at
T5-T6 and T6-T7 where it is moderate.'
- continue IV Vancomycin - requires intensive monitoring of levels
- follow cultures
- 2D Echo: no evidence if IE
- RICKI: pending tomorrow
- ID following
Cardiomyopathy (new)
- Echo: Moderately reduced left ventricular systolic function. Left ventricular ejection fraction is 30-35% by Rider's method. Global hypokinesis. Stage II diastolic dysfunction suggestive of abnormal relaxation and increased filling pressures.
Mild mitral regurgitation. Well seated, normally functioning bioprosthetic aortic valve (s/p TAVR #29) with mean gradient of 16mmHg. Compared to previous echo 02/05/2024, the EF has decreased from 55-60% to 30-35%.
- GDMT per Cardiology
Generalized pain including back pain
- MRI as above
- prn pain control
- PT/OT
CAD
- continue ASA
hx of CLL
- follow counts
Hx of s/p TAVR 2023
1st degree AVB
Hx Wandering Atrial Pacemaker
Hematuria
- urine culture negative
DVT ppx: Lovenox
Code: DNR
Anticipated Discharge: > 48 hours
Subjective/Interval History
-
Date of Service: December 17, 2024
pain with movement, including stable back pain
no CP or SOB
no fevers
Objective Data
-
Labs:
Laboratory Results
12/17/24
06:30
WBC 36.2 H
Hgb 12.1 L
Hct 37.1 L
Plt Count 126 L
Sodium 135
Potassium 3.6
Chloride 98
Carbon Dioxide 30
BUN 22 H
Creatinine 0.9
Glucose 106 H
Calcium 8.3 L
Vital Signs:
Vital Signs
Temp Pulse Resp BP Pulse Ox
97.7 F 88 6 147/77 97
12/17/24 07:48 12/17/24 07:48 12/17/24 07:48 12/17/24 07:48 12/17/24 07:48
I&O
12/16/24 12/17/24 12/18/24
06:59 06:59 06:59
Intake Total 540 / 540
Output Total 400 / 400 250 / 250
Balance 140 / 140 -250 / -250
Physical Exam
-
General: No Apparent Distress
HEENT: Normocephalic and Atraumatic
Cardiac: Regular Rhythm and S1/S2
GI: Soft
Genito-urinary: No Costovertebral Tender
Neuro: AO x 3
Hematologic / Lymphatic: No Lymphadenopathy
Psych: Calm
Data Reviewed
-
Total Time Spent with Patient (in minutes): 51
Labs: Labs Reviewed by me
--- NOTE | 2024-12-17 12:03 | CM ---
CM consult received for pricing of Entresto, Farxiga and Jardiance. Over 90 minutes spent obtaining the information from pt's insurance plan ([employer] ). CM advised by [employer] patient advocate that all 3 of these medications have a $47
copay for a 30 day supply.
CM consult completed.
--- NOTE | 2024-12-17 12:10 | CM ---
CM met with Av to complete IA. Av sustained a fall (tripped and fell) when leaving after having a shoulder xray; admitted at that time with nondisplaced fx ribs.
Av lives alone in a one story home with 6 entry steps. He reports being (I) amb and adls, no DME. He prepares his own meals, drives locally and does his own food shopping.
Av had 2 friends who assistance as needed. Current with [facility].
Pt has been evaluated by PT and OT with recommendation for acute rehab transfer. Referral submitted to [facility] @ for consideration.
PCP: Dr. Fernandes
Pharmacy: [facility] [phone]
[2024-12-17] MEDS: LOVENOX 40 MG SC (17:00)
[2024-12-18 03:15] VITALS: BP 129/79
[2024-12-18 05:09] VITALS: BMI 26.6
[2024-12-18] MEDS: VANCOCIN 275 MG IV (05:11)
[2024-12-18 06:51] LABS: Blood Urea Nitrogen 22 mg/dl (9-20); Calcium 8.4 mg/dl (8.4-10.2); Carbon Dioxide 31 mmol/L (22-30); Chloride 99 mmol/L (98-107); Estimated Creatinine Clearance 82 ml/min; Glucose 103 mg/dl (70-99); Potassium 3.6 mmol/L (3.5-5.1); Sodium 137 mmol/L (135-145); eGFR > 60.00
[2024-12-18 06:52] LABS: Hematocrit 38.3 % (39.0-52.0); Hemoglobin 12.3 g/dL (13.0-18.0); Mean Corp Hgb Conc. 32.1 g/dL (33.0-37.0); Mean Corpuscular Hgb 28.4 pg (27.0-31.0); Mean Corpuscular Volume 88.5 fL (80.0-94.0); Mean Platelet Volume 9.9 fL (7.4-10.4); Platelet Count 137 10^3/uL (130-400); Red Blood Cell Count 4.33 10^6/uL (4.70-6.10); Red Cell Dist. Width 15.1 % (11.5-14.5); White Blood Cell Count 38.8 10^3/uL (4.8-10.8)
[2024-12-18 07:25] VITALS: BP 116/74
[2024-12-18 07:42] LABS: % Basophils 0.2 % (0-2); % Eosinophils 0.3 % (0-6); % Immature Granulocytes 0.2 % (0-0.5); % Lymphocytes 83.3 % (20.5-51.1); % Monocytes 1.6 % (1.7-9.3); % Neutrophils 14.4 % (42.2-75.2); Absolute Basophils 0.1 10^3/uL (0-0.2); Absolute Eosinophils 0.1 10^3/uL (0-0.7); Absolute Immature Granulocytes 0.1 10^3/uL (0-0.05); Absolute Lymphocytes 32.3 10^3/uL (1.2-3.4); Absolute Monocytes 0.6 10^3/uL (0.1-0.6); Absolute Neutrophils 5.6 10^3/uL (1.4-6.5); Nucleated Red Blood Cells % 0 % (-)
[2024-12-18] MEDS: LIDOCAINE 4% PATCH TOPICAL (07:43)
[2024-12-18] MEDS: TYLENOL PO (07:43)
[2024-12-18] MEDS: DIOVAN PO ×2 (07:43→21:04)
[2024-12-18] MEDS: LOW STRENGTH ASPIRIN PO (07:43)
--- NOTE | 2024-12-18 08:40 | W.PN.HOSP.TC ---
Today's Communication/Plan
-
continue IV Abx
follow cultures
follow ID/cards recs
Assessment / Plan
Assessment / Plan
Assessment:
Mechanical fall with traumatic nondisplaced Left 2nd and 5th Rib Fractures
- PT/OT - acute rehab. PMR consulted
- continue Tylenol TID and lidocaine patch
- incentive spirometry
Sepsis present on admission (leukocytosis, fever, tachycardia) with hypotension
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
- completed sepsis protocol IVF
- unclear source of bacteremia - skin exam with some healed abrasions. No obvious wounds/cuts
- MRI: 'moderate compression deformity of the T5 vertebral body with associated small Schmorl's node along the inferior endplate. There is mild STIR hyperintense signal or enhancement within the anterior aspect of the vertebral body which is favored
to represent an acute on chronic compression fracture, less likely discitis osteomyelitis. There is multifocal degenerative changes with resultant multifocal mild spinal canal stenosis. There is multifocal neuroforaminal narrowing most pronounced at
T5-T6 and T6-T7 where it is moderate.'
- continue IV Vancomycin - requires intensive monitoring of levels. total 6 weeks planned.
- follow cultures
- 2D Echo: no evidence if IE
- RICKI: no keysha vegetation or root abscess seen
- ID following
Cardiomyopathy (new)
- Echo: Moderately reduced left ventricular systolic function. Left ventricular ejection fraction is 30-35% by Rider's method. Global hypokinesis. Stage II diastolic dysfunction suggestive of abnormal relaxation and increased filling pressures.
Mild mitral regurgitation. Well seated, normally functioning bioprosthetic aortic valve (s/p TAVR #29) with mean gradient of 16mmHg. Compared to previous echo 02/05/2024, the EF has decreased from 55-60% to 30-35%.
- GDMT per Cardiology
Generalized pain including back pain
- MRI as above
- prn pain control
- PT/OT - acute rehab. PMR consulted
CAD
- continue ASA
hx of CLL
- follow counts
Hx of s/p TAVR 2023
1st degree AVB
Hx Wandering Atrial Pacemaker
Hematuria
- urine culture negative
DVT ppx: Lovenox
Code: DNR
Anticipated Discharge: > 48 hours
Subjective/Interval History
-
Date of Service: December 18, 2024
denies any new complaints
s/p RICKI without signs of valve infection/abscess
Objective Data
-
Labs:
Laboratory Results
12/18/24
05:26
WBC 38.8 H
Hgb 12.3 L
Hct 38.3 L
Plt Count 137
Sodium 137
Potassium 3.6
Chloride 99
Carbon Dioxide 31 H
BUN 22 H
Creatinine 0.8
Glucose 103 H
Calcium 8.4
Vital Signs:
Vital Signs
Temp Pulse Resp BP Pulse Ox
97.9 F 83 17 116/74 99
12/18/24 07:25 12/18/24 07:25 12/18/24 07:25 12/18/24 07:25 12/18/24 07:25
I&O
12/17/24 12/18/24 12/19/24
06:59 06:59 06:59
Intake Total 720 / 720
Output Total 250 / 250 350 / 350
Balance -250 / -250 370 / 370
Physical Exam
-
General: No Apparent Distress
HEENT: Normocephalic and Atraumatic
Respiratory: Negative Wheezes
Cardiac: Regular Rhythm and S1/S2
GI: Soft and Nontender
Neuro: AO x 3
Psych: Calm
Data Reviewed
-
Total Time Spent with Patient (in minutes): 41
Labs: Labs Reviewed by me
--- NOTE | 2024-12-18 08:50 | PHA.VAN.FU ---
Vancomycin Assessment / Plan
- Assessment
Renal Function: SCR Decreasing
WBC's are: Trending Up
In the past 24 hrs, patient has been: Afebrile
- Dosing Plan
Continue: Vanc 1250mg Q12H
- Monitoring Plan
Peak Level: 12/18 21:30
Trough Level: 12/19 05:30
Monitoring Comments: levels to be drawn after 4th scheduled dose
- Follow Up
Pharmacy will continue to follow.
Vancomycin Follow UP
- -
Patient Age: 84
Patient Sex: Male
Vancomycin Day #: 5
Indication: Other
Requesting Provider: Cheryl Blanton / Dr. Moreno
Pertinent Antimicrobial Allergies:
no pertinent antibiotic allergies
Height / Weight:
Height 6 ft 3 in
Actual Weight 96.4 kg
Pertinent Past Medical History: h/o CLL, TAVR (2023)
- Vital Signs / Lab Results
Temp Pulse Resp BP Pulse Ox
97.9 F 83 17 116/74 99
12/18/24 07:25 12/18/24 07:25 12/18/24 07:25 12/18/24 07:25 12/18/24 07:25
Lab Results - Hematology
12/16/24 12/17/24 12/18/24
07:33 06:30 05:26
WBC 36.3 H 36.2 H 38.8 H
Lab Results - Chemistry
12/16/24 12/17/24 12/18/24
07:33 06:30 05:26
BUN 29 H 22 H 22 H
Creatinine 1.0 0.9 0.8
Estimated Creat Clear 66 73 82
Microbiology Results
12/15/24 23:11 Blood Culture - Preliminary
Blood/Venous Staph aureus MRSA
Gram Stain - Preliminary
12/15/24 22:19 Blood Culture - Preliminary
Blood/Venous Staph aureus MRSA
Gram Stain - Preliminary
12/14/24 14:36 Blood Culture - Final
Blood/Venous Staph aureus MRSA
Gram Stain - Final
12/14/24 13:20 Blood Culture - Final
Blood/Venous Staph aureus MRSA
Gram Stain - Final
12/14/24 14:36 Urine Culture - Final
Urine NO GROWTH
12/14/24 21:22 MRSA Screen - Final
Nose No Methicillin Resistant Staphylococcus aureus isolated.
Therapeutic Drug Monitoring
Random Vancomycin 10.7 ug/ml 12/17/24 06:30
--- NOTE | 2024-12-18 09:15 | W.PN.CD ---
Today's Communication / Plan
-
contninue current abx
cannot advance GDMT further at this time, monitor with clinical recovery
Impression / Plan
-
MRSA endocarditis:
-high risk situation
-MRSA and AVR/fever
-YURY without keysha vegetation or e/o root abscess
--recommend 6 weeks of able
bacteremia, sepsis:
-this condition is threat to life
-on ABX
-ID following
Cardiomyopathy (type unknown, but previously non-ischemic):
-EF 30-35%. In Past was 40%, after TAVR was 55-60%
-GDMT when tolerated, but not appropriate now with sepsis
-does not appear volume overloaded to assessment
-added a bit of ARB, will fuentes out Entresto/[id number]--xlrel of $47 each, will transition as bp allows, currently unable.
-MRA; bp too soft
-avoid bb with his very prolonged AVB and endocarditis
CAD:
-stable, denies CP
s/p TAVR:
-recent echo as below
1st degree AVB, WAP:
-follow telemetry
-current SR with 1st degree AVB and PAC's-
-no afib seen (afib documented by nursing due to irregularity)- continue to follow telemetry
Mechanical fall with traumatic nondisplaced Left 2nd and 5th Rib Fractures
-limiting movement
-add ICS
Subjective:
no sob, he has a lot of pain with movement in left shoulder and left side of ribs.
.
Physical Exam
Vital Signs/Labs
Vital Signs
Temp Pulse Resp BP Pulse Ox
97.9 F 83 17 116/74 99
12/18/24 07:25 12/18/24 07:25 12/18/24 07:25 12/18/24 07:25 12/18/24 07:25
12/17/24 12/18/24 12/19/24
06:59 06:59 06:59
Actual Weight 210 lb 212 lb 8.41 oz
12/18/24 05:26
12/18/24 05:26
Physical Exam
Constitutional: No acute distress
Cardiovascular: Rhythm & rate is regular, Pedal edema is absent, JVD pressure is normal, Diastolic murmur absent and Systolic murmur present (soft systolic murmur)
Respiratory: Respiratory effort normal, Lungs clear to auscul., Wheeze Absent, Crackles Absent, Rhonchi Absent and Labored respirations
Neuro/Psych: AO x 3
Data Reviewed
-
Date of Service: December 18, 2024
EKG: Other
Echo: Tracing Personally Visualized and interpreted (yury without vegetation or aortic root abscess )
[2024-12-18 11:16] VITALS: BP 131/83
--- NOTE | 2024-12-18 12:09 | PN.CDI ---
CDI
- -
CDI:
Physician Documentation Request
Admit Date: 12/15/24 12:07
Dear Doctor Delphine,
Patient admitted after fall.
Nursing Documentation clinical panel wound care
12/14/24
20:15 12/14/24
20:36 12/16/24
11:06
Appearance- [Present on admission Left Gluteal cleft (vertical)] Alexis wound bed Alexis wound bed Alexis wound bed
Non-pressure related type of wound [Present on admission Left Gluteal cleft (vertical)] Partial
thickness Partial
thickness Partial
thickness
Pressure injury stage [Present on admission Left Gluteal cleft (vertical)] Stage 2 Stage 2 Stage 2
Size in centimeters (length/width/depth) [Present on admission Left Gluteal cleft (vertical)] 3cmx0.5cm
Physician documentation of the type and location of wounds is required for compliant documentation. Based on the above clinical findings and your assessment, please provide the following in your progress note:
1. Location of the ulcer/wound, including laterality.
2. Type (etiology) of ulcer/wound:
- Diabetic ulcer
- Arterial (ischemic) ulcer
- Traumatic wound
- Venous stasis ulcer
- Pressure (decubitus) ulcer
- Non-healing surgical wound
- Other
- Unable to determine
3. For a non-pressure ulcer, please indicate the depth/severity:
- Limited to the breakdown of skin
- With fat layer exposed
- With necrosis of muscle
- With necrosis of bone
- Other
- Unable to determine
4. If a pressure ulcer, please also include the stage* of the ulcer:
- Stage 1 - Skin intact, non-blanchable redness
- Stage 2 - Partial thickness loss of dermis, includes intact or open blister
- Stage 3 - Full thickness tissue not including bone, tendon or muscle
- Stage 4 - Full thickness tissue loss, including exposed bone, tendon or muscle
- Unstageable - Full thickness loss in which the base of the ulcer is covered by slough (yellow, kwan, gibbs, green or brown) and/or eschar (kwan, brown or black) in the wound bed.
- Unable to determine
Use of terms such as suspected, likely, concern for, or probable (associated with a specific diagnosis that is being evaluated, monitored, or treated as if it exists) are acceptable and can be coded in the inpatient setting, when documented at the
time of discharge.
Thank you,
Rehana Malhotra RN, BSN
CDI Specialist
Available via [place] text
Please use your independent medical judgment in providing your response.
*Source: National Pressure Ulcer Advisory Panel (NPUAP)
--- NOTE | 2024-12-18 12:14 | W.PN.ID1 ---
Date of Service
Date of Service: December 18, 2024
Today's Communication
Transition vancomycin to daptomycin.
Assessment / Plan
MRSA bacteremia
Fever
Recurrent falls
Aortic stenosis; s/p TAVR (2023; [facility])
Thoracic back discomfort
Elevated ESR and CRP
CLL
Psoriatic arthritis
HTN
Recommendations:
Given presence of TAVR, concern at this point in time is for prosthetic valve endocarditis, although TTE and RICKI did not reveal a vegetation.
MRI negative for thoracic epidural abscess.
D/C further vancomycin and begin daptomycin 1 gm IV q24h
Serial blood cultures to assess clearance of bacteremia
Monitor white count and temperature curve.
����������������������������������������������������������
Chief Complaint
-: Bacteremia
Subjective / Review of Systems
Review of Systems: No Fever and No Chills
Vital Signs / Physical Exam
Vital Signs
Vital Signs
Temp Pulse Resp BP Pulse Ox
97.7 F 76 20 131/83 96
12/18/24 11:16 12/18/24 11:16 12/18/24 11:16 12/18/24 11:16 12/18/24 11:16
Physical Exam
Constitutional: No Acute Distress, Comfortable, Chronically Ill and Non-toxic
Eyes: No Conjunctival Hemorrhage and Sclera Anicteric
Cardiovascular: S1/S2 and Murmur; Negative S3/S4
Pulmonary: Clear; Negative Wheezes or Rales
Gastrointestinal: Soft and Non Tender
Extremities: Negative Splinter Hemorrhage or Janeway Lesions
Musculoskeletal: Negative Spinal Tenderness
Neurological: Awake and Alert
Psychological: Calm
Objective Data
Lab Data
Lab Results
12/18/24 05:26
12/18/24 05:26
ESR 41 mm/hour (0-20) H 12/16/24 07:33
Estimated Creat Clear 82 ml/min 12/18/24 05:26
Lactic Acid 0.9 mmol/L (0.7-2.0) 12/14/24 13:20
Total Bilirubin 1.2 mg/dl (0.2-1.3) 12/14/24 13:20
AST 23 U/L (17-59) 12/14/24 13:20
ALT 20 U/L (0-50) 12/14/24 13:20
Alkaline Phosphatase 96 U/L (38-126) 12/14/24 13:20
C-Reactive Protein 236.50 mg/L (0.0-10.00) H 12/16/24 07:33
Most recent labs reviewed.
Micro Results:
12/15/24 23:11 Blood Culture - Preliminary
Blood/Venous Staph aureus MRSA
Gram Stain - Preliminary
12/15/24 22:19 Blood Culture - Preliminary
Blood/Venous Staph aureus MRSA
Gram Stain - Preliminary
12/14/24 14:36 Blood Culture - Final
Blood/Venous Staph aureus MRSA
Gram Stain - Final
12/14/24 13:20 Blood Culture - Final
Blood/Venous Staph aureus MRSA
Gram Stain - Final
12/14/24 14:36 Urine Culture - Final
Urine NO GROWTH
12/14/24 21:22 MRSA Screen - Final
Nose No Methicillin Resistant Staphylococcus aureus isolated.
12/14/24 13:20 Influenza Types A & B (JUAN LUIS) - Final
Nasal Swab Negative for Influenza A & B, NAAT
Negative results must be combined with clinical observations
and patient history.
Nucleic Acid Amplification test (NAAT)performed on the
[employer] platform.
Imaging:
12/14/2024 CXR (ribs): Nondisplaced fractures of the left 2nd and 5th ribs identified on the cervical spine CT from 12/14 I last well seen by radiograph. No other acute rib fractures definitively appreciated by this radiograph. Please see full
dictation for additional detail.
Care Review
Plan reviewed with: Other (Clinical Infectious Diseases Pharmacist)
[2024-12-18] MEDS: CUBICIN 20 MG IV (14:30)
[2024-12-18 15:20] VITALS: BP 127/85
[2024-12-18] MEDS: LOVENOX 40 MG SC (17:12)
[2024-12-18] MEDS: TYLENOL 1000 MG PO ×2 (17:12→22:34)
[2024-12-18 19:32] VITALS: BP 115/67
[2024-12-18 23:02] VITALS: BP 107/63
[2024-12-19] VITALS (8 sets, daily range): BP systolic 113–145; BP diastolic 57–89; PULSE 78; O2SAT 100
[2024-12-19 06:34] LABS: Blood Urea Nitrogen 19 mg/dl (9-20); Calcium 8.5 mg/dl (8.4-10.2); Carbon Dioxide 32 mmol/L (22-30); Chloride 100 mmol/L (98-107); Estimated Creatinine Clearance 94 ml/min; Glucose 111 mg/dl (70-99); Potassium 3.6 mmol/L (3.5-5.1); Sodium 138 mmol/L (135-145); eGFR > 60.00
[2024-12-19 06:56] LABS: Hematocrit 39.2 % (39.0-52.0); Hemoglobin 12.8 g/dL (13.0-18.0); Mean Corp Hgb Conc. 32.7 g/dL (33.0-37.0); Mean Corpuscular Hgb 28.6 pg (27.0-31.0); Mean Corpuscular Volume 87.5 fL (80.0-94.0); Mean Platelet Volume 9.5 fL (7.4-10.4); Platelet Count 137 10^3/uL (130-400); Red Blood Cell Count 4.48 10^6/uL (4.70-6.10); Red Cell Dist. Width 15.2 % (11.5-14.5); White Blood Cell Count 40.3 10^3/uL (4.8-10.8)
--- NOTE | 2024-12-19 07:55 | W.PN.HOSP.TC ---
Today's Communication/Plan
-
follow blood cultures until cleared
continu Daptomycin
Assessment / Plan
Assessment / Plan
Assessment:
Mechanical fall with traumatic nondisplaced Left 2nd and 5th Rib Fractures
- PT/OT - acute rehab. PMR consulted
- continue Tylenol TID and lidocaine patch
- incentive spirometry
Sepsis present on admission (leukocytosis, fever, tachycardia) with hypotension
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
- completed sepsis protocol IVF
- unclear source of bacteremia - skin exam with some healed abrasions. No obvious wounds/cuts
- MRI: 'moderate compression deformity of the T5 vertebral body with associated small Schmorl's node along the inferior endplate. There is mild STIR hyperintense signal or enhancement within the anterior aspect of the vertebral body which is favored
to represent an acute on chronic compression fracture, less likely discitis osteomyelitis. There is multifocal degenerative changes with resultant multifocal mild spinal canal stenosis. There is multifocal neuroforaminal narrowing most pronounced at
T5-T6 and T6-T7 where it is moderate.'
- continue IV Daptomycin - requires intensive monitoring of levels. total 6 weeks planned.
- follow blood cultures until negative
- 2D Echo: no evidence if IE
- RICKI: no keysha vegetation or root abscess seen
- ID following
Cardiomyopathy (new)
- Echo: Moderately reduced left ventricular systolic function. Left ventricular ejection fraction is 30-35% by Rider's method. Global hypokinesis. Stage II diastolic dysfunction suggestive of abnormal relaxation and increased filling pressures.
Mild mitral regurgitation. Well seated, normally functioning bioprosthetic aortic valve (s/p TAVR #29) with mean gradient of 16mmHg. Compared to previous echo 02/05/2024, the EF has decreased from 55-60% to 30-35%.
- GDMT per Cardiology
Generalized pain including back pain
- MRI as above
- prn pain control
- PT/OT - acute rehab. PMR consulted
CAD
- continue ASA
hx of CLL
- follow counts
Hx of s/p TAVR 2023
1st degree AVB
Hx Wandering Atrial Pacemaker
Hematuria
- urine culture negative
stage 2 pressure injury (left gluteal cleft) - present on arrival
DVT ppx: Lovenox
Code: DNR
Anticipated Discharge: > 48 hours
Subjective/Interval History
-
Date of Service: December 19, 2024
pain mostly controlled, worse with movement/position changes
Objective Data
-
Labs:
Laboratory Results
12/19/24
05:35
WBC 40.3 H*
Hgb 12.8 L
Hct 39.2
Plt Count 137
Sodium 138
Potassium 3.6
Chloride 100
Carbon Dioxide 32 H
BUN 19
Creatinine 0.7
Glucose 111 H
Calcium 8.5
Vital Signs:
Vital Signs
Temp Pulse Resp BP Pulse Ox
97.8 F 78 18 145/89 93
12/19/24 07:31 12/19/24 07:31 12/19/24 07:31 12/19/24 07:31 12/19/24 07:31
I&O
12/18/24 12/19/24 12/20/24
06:59 06:59 06:59
Intake Total 720 / 720 660 / 660 480 / 480
Output Total 350 / 350 700 / 700 300 / 300
Balance 370 / 370 -40 / -40 180 / 180
Physical Exam
-
General: No Apparent Distress
HEENT: Normocephalic and Atraumatic
Respiratory: Negative Wheezes
Cardiac: Regular Rhythm and S1/S2
GI: Soft
Musculoskeletal: No Edema
Neuro: AO x 3
Psych: Calm
Data Reviewed
-
Total Time Spent with Patient (in minutes): 42
Labs: Labs Reviewed by me
[2024-12-19 08:13] LABS: % Basophils 0.3 % (0-2); % Eosinophils 0.2 % (0-6); % Immature Granulocytes 0.2 % (0-0.5); % Lymphocytes 85.8 % (20.5-51.1); % Monocytes 1.2 % (1.7-9.3); % Neutrophils 12.3 % (42.2-75.2); Absolute Basophils 0.1 10^3/uL (0-0.2); Absolute Eosinophils 0.1 10^3/uL (0-0.7); Absolute Immature Granulocytes 0.1 10^3/uL (0-0.05); Absolute Lymphocytes 34.6 10^3/uL (1.2-3.4); Absolute Monocytes 0.5 10^3/uL (0.1-0.6); Absolute Neutrophils 4.9 10^3/uL (1.4-6.5); Nucleated Red Blood Cells % 0 % (-)
[2024-12-19] MEDS: TYLENOL 1000 MG PO ×3 (08:13→21:14)
[2024-12-19] MEDS: LIDOCAINE 4% PATCH 1 PATCH TOPICAL (08:13)
[2024-12-19] MEDS: DIOVAN 40 MG PO ×2 (08:14→20:09)
[2024-12-19] MEDS: LOW STRENGTH ASPIRIN 81 MG PO (08:14)
--- NOTE | 2024-12-19 08:18 | W.PN.CD ---
Addendum entered and electronically signed by Zhen Stevens MD 12/19/24 08:55:
- Cardiology will remain available on an as-needed basis.
Original Note:
Today's Communication / Plan
-
- RICKI without keysha vegetation or e/o root abscess.
- Antibiotic recommendations as per ID.
- GDMT optimization as outpatient once condition improves/resolves.
Impression / Plan
-
MRSA bacteremia/sepsis::
- high risk situation
- RICKI without keysha vegetation or e/o root abscess.
- Antibiotic recommendations as per ID.
Cardiomyopathy (type unknown, but previously non-ischemic):
-EF 30-35%. In Past was 40%, after TAVR was 55-60%
-GDMT when tolerated, but not appropriate now with sepsis
-does not appear volume overloaded to assessment
-added a bit of ARB, will fuentes out Entresto/RRNV4n--rgbvh of $47 each, will transition as bp allows, currently unable.
-MRA; bp too soft
-avoid bb with his very prolonged AVB and endocarditis
- GDMT optimization as outpatient once condition improves/resolves.
CAD:
-stable, denies CP
- Continue aspirin.
- Try to initiate statin as outpatient once clinical condition improves.
s/p TAVR:
- Stable on TTE/RICKI
1st degree AVB, WAP:
- Stable; no major events on telemetry.
-current SR with 1st degree AVB and PAC's-
-no afib seen (afib documented by nursing due to irregularity)
Mechanical fall with traumatic nondisplaced Left 2nd and 5th Rib Fractures
-limiting movement
-add ICS
Physical Exam
Vital Signs/Labs
Vital Signs
Temp Pulse Resp BP Pulse Ox
97.8 F 78 18 145/89 93
12/19/24 07:31 12/19/24 07:31 12/19/24 07:31 12/19/24 07:31 12/19/24 07:31
12/18/24 12/19/24 12/20/24
06:59 06:59 06:59
Actual Weight 96.4 kg
12/19/24 05:35
12/19/24 05:35
Physical Exam
Constitutional: No acute distress and Comfortable
EENT: Anicteric
Cardiovascular: Rhythm & rate is regular, Pedal edema is absent, Systolic murmur present (/) and S1S2 is normal
Respiratory: Respiratory effort normal and Lungs clear to auscul.
GI: Soft
Neuro/Psych: AO x 3
Other: Skin (warm, dry, intact)
Data Reviewed
-
Date of Service: December 19, 2024
EKG: Tracing Personally Visualized and interpreted (Telemetry: Sinus rhythm)
Labs: Labs Reviewed by me
[2024-12-19] MEDS: CUBICIN 20 MG IV (13:37)
--- NOTE | 2024-12-19 15:56 | W.PN.ID1 ---
Date of Service
Date of Service: December 19, 2024
Today's Communication
Continue daptomycin.
Assessment / Plan
Sustained MRSA bacteremia
Fever
Recurrent falls
Aortic stenosis; Hx TAVR (2023; [facility])
Thoracic back discomfort
Elevated ESR and CRP
CLL
Psoriatic arthritis
HTN
Recommendations:
Given presence of TAVR, concern at this point in time is for prosthetic valve endocarditis, although TTE and RICKI did not reveal a vegetation.
MRI negative for thoracic epidural abscess.
Continue daptomycin 1 gm IV q24h (began 12/18 @ 1430)
Serial blood cultures to assess clearance of bacteremia
Monitor white count and temperature curve.
����������������������������������������������������������
Chief Complaint
-: Bacteremia
Subjective / Review of Systems
Review of Systems: No Fever and No Chills
Vital Signs / Physical Exam
Vital Signs
Vital Signs
Temp Pulse Resp BP Pulse Ox
97.9 F 78 16 145/87 95
12/19/24 15:19 12/19/24 15:19 12/19/24 15:19 12/19/24 15:19 12/19/24 15:19
Physical Exam
Constitutional: No Acute Distress, Comfortable, Chronically Ill and Non-toxic
Eyes: No Conjunctival Hemorrhage and Sclera Anicteric
Cardiovascular: S1/S2 and Murmur; Negative S3/S4
Pulmonary: Clear; Negative Wheezes or Rales
Gastrointestinal: Soft and Non Tender
Extremities: Negative Splinter Hemorrhage or Janeway Lesions
Musculoskeletal: Negative Spinal Tenderness
Neurological: Awake and Alert
Psychological: Calm
Objective Data
Lab Data
Lab Results
12/19/24 05:35
12/19/24 05:35
ESR 41 mm/hour (0-20) H 12/16/24 07:33
Estimated Creat Clear 94 ml/min 12/19/24 05:35
Lactic Acid 0.9 mmol/L (0.7-2.0) 12/14/24 13:20
Total Bilirubin 1.2 mg/dl (0.2-1.3) 12/14/24 13:20
AST 23 U/L (17-59) 12/14/24 13:20
ALT 20 U/L (0-50) 12/14/24 13:20
Alkaline Phosphatase 96 U/L (38-126) 12/14/24 13:20
C-Reactive Protein 236.50 mg/L (0.0-10.00) H 12/16/24 07:33
Most recent labs reviewed.
Micro Results:
12/18/24 14:43 Blood Culture - Preliminary
Blood/Venous Positive culture in progress
Gram Stain - Preliminary
12/18/24 13:15 Blood Culture - Preliminary
Blood/Venous Positive culture in progress
Gram Stain - Preliminary
12/14/24 13:20 Blood Culture - Final
Blood/Venous Staph aureus MRSA
Gram Stain - Final
12/15/24 23:11 Blood Culture - Preliminary
Blood/Venous Staph aureus MRSA
Gram Stain - Preliminary
12/15/24 22:19 Blood Culture - Preliminary
Blood/Venous Staph aureus MRSA
Gram Stain - Preliminary
12/14/24 14:36 Blood Culture - Final
Blood/Venous Staph aureus MRSA
Gram Stain - Final
12/14/24 14:36 Urine Culture - Final
Urine NO GROWTH
12/14/24 21:22 MRSA Screen - Final
Nose No Methicillin Resistant Staphylococcus aureus isolated.
12/14/24 13:20 Influenza Types A & B (JUAN LUIS) - Final
Nasal Swab Negative for Influenza A & B, NAAT
Negative results must be combined with clinical observations
and patient history.
Nucleic Acid Amplification test (NAAT)performed on the
[employer] platform.
Imaging:
12/14/2024 CXR (ribs): Nondisplaced fractures of the left 2nd and 5th ribs identified on the cervical spine CT from 12/14 I last well seen by radiograph. No other acute rib fractures definitively appreciated by this radiograph. Please see full
dictation for additional detail.
--- NOTE | 2024-12-19 16:20 | CON.MD ---
Documented by User: Nicole Hook PA-C 12/19/24 17:19
Consultation - Medical
-
Referring Provider:� Elizabet Aguirre
Chief Complaint:�Debility,
�
History of Present Illness:�patient is an 84-year-old male with PMH of ( CLL, Psoriatic arthritis, hypertension, aortic stenosis s/p TAVR, nonobstructive coronary artery disease, BPH, hyperlipidemia, wandering atrial pacemaker) who presented to the
emergency room on 12/14 following a fall in the parking lot at [facility]. He reports multiple falls over the past several months, with 1 happening approximately 1 month ago resulting in ongoing left shoulder discomfort. He had been ordered
a CT of the chest, and was on his way to have the scan done when he fell in the parking lot. Workup in the emergency room revealed a fever, and the patient had blood cultures drawn, which are now positive for MRSA as (by PCR methodology). Chest
x-ray and rib x-ray showed nondisplaced fractures of the left 2nd and 5th ribs. Shoulder x-ray showed-negative. Left knee x-ray were negative.
per Infectious disease: Given presence of TAVR, concern at this point in time is for prosthetic valve endocarditis, although TTE and RICKI did not reveal a vegetation.
MRI negative for thoracic epidural abscess. Continue daptomycin 1 gm IV q24h (began 12/18 @ 1430) Serial blood cultures to assess clearance of bacteremia
�
Past Medical History:�CLL, Psoriatic arthritis, hypertension, aortic stenosis s/p TAVR, hyperlipidemia, BPH, nonobstructive coronary artery disease
Procedure History:�Bilateral knee replacement, Bilateral hip replacement, TAVR (2023
Family History:�non contributory
�
Social History:�
Functional Level Premorbidly:�Independent with all activities�-current with home PT. Does not own any DME
Functional Level Currently:�Toileting�mod assist, toilet transfer�mod assist, bed mobility�mod assist, ambulated 10 feet x 2 reps with rolling walker gait belt and min assist
�
Tobacco:�Denies�
Alcohol:�Denies�
Drug use:�Denies�
�
Lives with:�Alone
24-hour assistance available:�no
Number of floors:�one story
# steps to enter:�6
# steps to second floor: none
Potential First floor set up:�
Driving:�Yes
Occupation:�Retired
�
�
Allergies:�
Allergy/AdvReac Type Severity Reaction Status Date / Time
formaldehyde [Formaldehyde] Allergy Rash Verified 12/14/24 07:44
latex [Latex] Allergy Rash Verified 12/14/24 07:44
pollen extracts Allergy congestion Verified 12/14/24 07:44
petroleum products Allergy Rash Uncoded 12/14/24 07:44
�
Review of Systems:�
Constitutional: (x) Normal _
Eye: (x) Normal _
Ear/Nose/Throat: (x) Normal _
Respiratory: (x) Normal _
Cardiovascular: (x) abNormal _ concern for prosthetic valve endocarditis
Gastrointestinal: (x) Normal _
Genitourinary: (x) Normal _
Musculoskeletal: (x) abNormal- back pain, psoriatic arthritis, left shoulder pain, knee _
Integumentary: (x) Normal _
Neurologic: (x) abNormal _falls
Psychiatric: (x) Normal _
Endocrine: (x) Normal _
Hematologic/Lymphatic: (x) Normal _
Allergic/Immunologic: (x) Normal _
�
Medications:�
Active Current Visit Medication List
Category Date Time Status
Acetaminophen [Tylenol] Med 12/14/24 22:00 Active
1,000 mg PO TID
Aspirin Chewable [Low Strength Aspirin] Med 12/15/24 08:00 Active
81 mg PO DAILY
DAPTOmycin [Cubicin] 1,000 mg Med 12/18/24 13:00 Active
Syringe [Syringe-Pump] 0 ml
IV Q24H
Enoxaparin Sodium [Lovenox] Med 12/14/24 18:00 Active
40 mg SC QPM
Flush (0.9% Sodium Chloride) [Flush (Nss)] Med 12/14/24 16:00 Active
See Dose Instructions IV PER PROTOCOL
Lidocaine [Lidocaine 4% Patch] Med 12/14/24 13:30 Active
1 patch TOPICAL DAILY
Midodrine [ProAmatine] Med 12/15/24 05:40 Active
5 mg PO Q4HPRN PRN
Remove Patch [Remove Lidocaine Patch] Med 12/14/24 20:00 Active
See Dose Instructions REMOVE DAILY@1999
Tramadol HCl [Ultram] Med 12/14/24 15:25 Active
25 mg PO Q6HPRN PRN
Valsartan [Diovan] Med 12/16/24 20:00 Active
40 mg PO BID
�
Vitals:�
Temp Pulse Resp BP Pulse Ox
97.9 F 78 16 145/87 95
12/19/24 15:19 12/19/24 15:19 12/19/24 15:19 12/19/24 15:19 12/19/24 15:19
Height 6 ft 3 in
Actual Weight 96.4 kg
Body Mass Index (BMI) 26.6
�
Physical Exam:�
General Appearance/Observation: Well-developed, well-nourished individual in no apparent distress.�Resting in bed. Sleepy, tired. Intermittently answers questions
Pain/Comfort Assessment: left shoulder pain when he moves it
Mood/Affect: sleepy,
�
Integumentary/Operative Site:�
�� Pressure Ulcer Evaluation: Not visualized
��
�� Other Type of Wound: Sacrum not visualized - per chart notes- stage 2, scab on left side of forehead, left side of eye, dorsal aspect of hands
��
Eyes: Conjunctiva/Lids: normal���� Pupils: pupils equal round
Ears/Nose/Throat: oral mucosa moist,� throat clear.������������ Lips/Teeth/Gums: dentures
Neck: No muscle spasm or tenderness�
Cardiovascular: Heart: regular, murmur�
Pulses: dorsalis pedis 2+ bilaterally�
Respiratory: Respiratory Effort/Chest Expansion: normal������� Auscultation: Clear to auscultation bilaterally�
Gastrointestinal: abdomen not tender, no distension, normal abdominal bowel sounds
Genitourinary: No Weiss�
Extremities:�Edema: None�Cyanosis: None�Trophic�changes: None
�
Patient sleepy and says feels very tired. Intermittently answers questions then back to sleep.
Neurology Exam:
Orientation: Alert, Oriented to self, and Place. Said 1994�
Memory: unable to assess at this time
Comprehension: Intact
Two step command: Intact
Naming: unable to assess at this time
Cranial Nerves:
�� CNII:�Pupillary light reflex: Intact����Visual Field: NT
�� CN III, IV, : Extraocular muscles: Intact�
�� CN V:�Facial Sensation�at�Forehead: Intact,�Maxilla: Intact,�Mandible: Intact
�� CN VII:�Facial movement: Symmetric
�� CN VIII:�Hearing: Normal
�� CN IX/X:�Speech & swallow: low volume and weak�Position of Uvula: Midline
�� CN XI:�Shoulder shrug: NT
�� CN XII:�Tongue protrusion: NT
Sensory:
�� Light touch: NT
��
�
Musculoskeletal:
Motor: (Manual muscle scale 0-5) Unable to test. Patient sleepy, tired and not participating.
Tone: Normal in all extremities�
Range of Motion: NT
�
Lab Results:
Labs
WBC 40.3 10^3/uL (4.8-10.8) H* 12/19/24 05:35
RBC 4.48 10^6/uL (4.70-6.10) L 12/19/24 05:35
Hgb 12.8 g/dL (13.0-18.0) L 12/19/24 05:35
Hct 39.2 % (39.0-52.0) 12/19/24 05:35
MCV 87.5 fL (80.0-94.0) 12/19/24 05:35
MCH 28.6 pg (27.0-31.0) 12/19/24 05:35
MCHC 32.7 g/dL (33.0-37.0) L 12/19/24 05:35
RDW 15.2 % (11.5-14.5) H 12/19/24 05:35
Plt Count 137 10^3/uL (130-400) 12/19/24 05:35
MPV 9.5 fL (7.4-10.4) 12/19/24 05:35
Abs Immat Gran (auto) 0.1 10^3/uL (0-0.05) H 12/19/24 05:35
Absolute Neuts (auto) 4.9 10^3/uL (1.4-6.5) 12/19/24 05:35
Absolute Lymphs (auto) 34.6 10^3/uL (1.2-3.4) H 12/19/24 05:35
Absolute Monos (auto) 0.5 10^3/uL (0.1-0.6) 12/19/24 05:35
Absolute Eos (auto) 0.1 10^3/uL (0-0.7) 12/19/24 05:35
Absolute Basos (auto) 0.1 10^3/uL (0-0.2) 12/19/24 05:35
Immature Gran % 0.2 % (0-0.5) 12/19/24 05:35
Neutrophils % 12.3 % (42.2-75.2) L 12/19/24 05:35
Lymphocytes % 85.8 % (20.5-51.1) H 12/19/24 05:35
Monocytes % 1.2 % (1.7-9.3) L 12/19/24 05:35
Eosinophils % 0.2 % (0-6) 12/19/24 05:35
Basophils % 0.3 % (0-2) 12/19/24 05:35
Nucleated RBC % 0 % (-) 12/19/24 05:35
ESR 41 mm/hour (0-20) H 12/16/24 07:33
Sodium 138 mmol/L (135-145) 12/19/24 05:35
Potassium 3.6 mmol/L (3.5-5.1) 12/19/24 05:35
Chloride 100 mmol/L (98-107) 12/19/24 05:35
Carbon Dioxide 32 mmol/L (22-30) H 12/19/24 05:35
BUN 19 mg/dl (9-20) 12/19/24 05:35
Creatinine 0.7 mg/dL (0.7-1.3) 12/19/24 05:35
Estimated Creat Clear 94 ml/min 12/19/24 05:35
eGFR > 60.00 12/19/24 05:35
Glucose 111 mg/dl (70-99) H 12/19/24 05:35
Lactic Acid 0.9 mmol/L (0.7-2.0) 12/14/24 13:20
Calcium 8.5 mg/dl (8.4-10.2) 12/19/24 05:35
Total Bilirubin 1.2 mg/dl (0.2-1.3) 12/14/24 13:20
AST 23 U/L (17-59) 12/14/24 13:20
ALT 20 U/L (0-50) 12/14/24 13:20
Alkaline Phosphatase 96 U/L (38-126) 12/14/24 13:20
C-Reactive Protein 236.50 mg/L (0.0-10.00) H 12/16/24 07:33
Total Protein 6.9 g/dl (6.3-8.2) 12/14/24 13:20
Albumin 3.4 g/dl (3.5-5.0) L 12/14/24 13:20
Urine Color Yellow 12/14/24 14:36
Urine Clarity Clear (Clear) 12/14/24 14:36
Urine pH 6.5 (5.0-9.0) 12/14/24 14:36
Ur Specific Phelps 1.015 (<1.030) 12/14/24 14:36
Urine Ketones 2+ (Negative) A 12/14/24 14:36
Ur Occult Blood Reflex 4+ (Negative) A 12/14/24 14:36
Urine Nitrite (Reflex) Negative (Negative) 12/14/24 14:36
Urine Bilirubin Negative (Negative) 12/14/24 14:36
Urine Urobilinogen Negative (Neg - 1+) 12/14/24 14:36
Leukocyte Esterase Rfl Negative (Negative) 12/14/24 14:36
Urine RBC 40-50 /HPF (0-2) A 12/14/24 14:36
Urine WBC (Reflex) 0-2 /HPF (0-5) 12/14/24 14:36
Ur Squamous Epith Cells None seen /LPF (Few) 12/14/24 14:36
Urine Creatinine 53.600 mg/dl 12/15/24 21:57
Urine Sodium 6 mmol/L (30-90) L 12/15/24 21:57
Urine Glucose Negative (Negative) 12/14/24 14:36
Urine Albumin (Reflex) 2+ (Neg - Trace) A 12/14/24 14:36
Fluid Eosinophils No eosinophils seen 12/15/24 21:57
Vancomycin Peak Cancelled 12/18/24 21:30
Random Vancomycin 10.7 ug/ml 12/17/24 06:30
SARS-CoV-2 Antigen Negative (Negative) 12/14/24 13:20
�
Diagnostic Results:�as per HPI�
CR ribs- 12/14/2024
Nondisplaced fractures of the left second and fifth ribs identified on the cervical spine CT from 12/14/2024 are less well seen by radiograph. No other acute rib fracture is definitively appreciated by radiograph.
No pneumothorax.
CT head - 12/14/24
No acute intracranial abnormality.
CR - shoulder - 12/14/24
Glenohumeral and acromioclavicular osteoarthrosis.
CR - left knee:
Left total knee arthroplasty hardware appears intact and well-positioned. No evidence for hardware complication. No acute fracture or dislocation. Small suprapatellar joint fluid. Severe vascular calcifications.
Assessment: 84-year-old male status post mechanical fall with traumatic nondisplaced ribs and MRSA bacteremia endocarditis on IV antibiotics associated with ADL dysfunction and ambulatory disfunction
�
Plan�
�PT/OT to increase independence with ADLs, improve balance, coordination, endurance, strength, mobility, community reintegration, decreased burden of care on others and family education.�
�
MRSA bacteremia/sepsis:suspicion of MRSA endocarditis
- high risk situation
unclear source of bacteremia .
continue IV Daptomycin - requires intensive monitoring of levels. total 6 weeks planned.
follow blood cultures until negative
- RICKI without keysha vegetation or e/o root abscess.
- Antibiotic recommendations as per ID-daptomycin 1000 mg as directed IV every 24.
Follow blood cultures until cleared. + culture in progress as of 12/18. Elevated WBC-40.3
Leukocytosis: 12/19 - 40.3 . follow
Cardiomyopathy- New (type unknown, but previously non-ischemic):cardio recommendations
-EF 30-35%. In Past was 40%, after TAVR was 55-60%
-GDMT when tolerated, but not appropriate now with sepsis
-does not appear volume overloaded to assessment
-added a bit of ARB, will fuentes out Entresto/QYCP1d--lquoh of $47 each, will transition as bp allows, currently unable.
-MRA; bp too soft
-avoid bb with his very prolonged AVB and endocarditis
- GDMT optimization as outpatient once condition improves/resolves.
CAD:
-stable, denies CP
- Continue aspirin.
- Try to initiate statin as outpatient once clinical condition improves- per cardio
s/p TAVR:
- Stable on TTE/RICKI
Mechanical fall with traumatic nondisplaced Left 2nd and 5th Rib Fractures:
limiting movement. Continue Tylenol and lidocaine patch
hx of CLL
- follow counts
HTN: Valsartan 40 mg twice daily, monitor closely�
Orthostasis: check orthostatic vitals. Midodrine 5mg po q 6 hours prn
Psych: Psychology consult.� Monitor mood, adjust medications as needed.�
Skin/stage 2 pressure injury (left gluteal cleft) - present on arrival-per hospitalist note. : monitor for pressure sores/rashes/lesions.�
Pain: acetaminophen as needed.� Lidoderm patch, tramadol 25 mg every 6 as needed
Bowel: recommend Colace and Senna, PRN bisacodyl for bowel regularity.�
Bladder: Time void, PVRs, PRN straight cath.�
GI Prophylaxis: recommend Pantoprazole�
DVT Prophylaxis: Mechanical and Lovenox
Pulmonary: Incentive spirometry�
Safety: Continue to reinforce assistance with all transfers.�
Code Status:� DNR�
Functional and Medical Goals:�Modified Independent with ADL�s, ambulation, transfers�
�
�
Discharge Destination:�Will require 6 weeks of IV antibiotics based on his current diagnosis and status. Would recommend SNF for PT/OT and ongoing medication management.
�
Thank you for allowing me to care for your patient. Please contact me with any questions or concerns.

Documented by User: Amaury Moreno MD 12/20/24 19:42
Consultation - Medical
-
Date of consult: 12/20/2024
referring Provider:� Elizabet Aguirre
Chief Complaint:�Debility
�
History of Present Illness:� 84-year-old male with PMH of ( CLL, Psoriatic arthritis, hypertension, aortic stenosis s/p TAVR, nonobstructive coronary artery disease, BPH, hyperlipidemia, wandering atrial pacemaker) who presented to the emergency
room on 12/14 following a fall in the parking lot at [facility]. He reports multiple falls over the past several months, with 1 happening approximately 1 month ago resulting in ongoing left shoulder discomfort. He had been ordered a CT of
the chest, and was on his way to have the scan done when he fell in the parking lot. Workup in the emergency room revealed a fever, and the patient had blood cultures drawn, which are now positive for MRSA as (by PCR methodology). Chest x-ray and
rib x-ray showed nondisplaced fractures of the left 2nd and 5th ribs. Shoulder x-ray showed-negative. Left knee x-ray were negative.
per Infectious disease: Given presence of TAVR, concern at this point in time is for prosthetic valve endocarditis, although TTE and RICKI did not reveal a vegetation.
MRI negative for thoracic epidural abscess. Continue daptomycin 1 gm IV q24h (began 12/18 @ 1430) Serial blood cultures to assess clearance of bacteremia
�
Past Medical History:�CLL, Psoriatic arthritis, hypertension, aortic stenosis s/p TAVR, hyperlipidemia, BPH, nonobstructive coronary artery disease
Procedure History:�Bilateral knee replacement, Bilateral hip replacement, TAVR (2023
Family History:�non contributory
�
Social History:�
Functional Level Premorbidly:�Independent with all activities�-current with home PT. Does not own any DME
Functional Level Currently:�Toileting�mod assist, toilet transfer�mod assist, bed mobility�mod assist, ambulated 10 feet x 2 reps with rolling walker gait belt and min assist
�
Tobacco:�Denies�
Alcohol:�Denies�
Drug use:�Denies�
�
Lives with:�Alone
24-hour assistance available:�no
Number of floors:�one story
# steps to enter:�6
# steps to second floor: none
Potential First floor set up:�
Driving:�Yes
Occupation:�Retired
�
�
Allergies:�
Allergy/AdvReac Type Severity Reaction Status Date / Time
formaldehyde [Formaldehyde] Allergy Rash Verified 12/14/24 07:44
latex [Latex] Allergy Rash Verified 12/14/24 07:44
pollen extracts Allergy congestion Verified 12/14/24 07:44
petroleum products Allergy Rash Uncoded 12/14/24 07:44
�
Review of Systems:�
Constitutional: (x) abNormal _fatigue
Eye: (x) Normal _
Ear/Nose/Throat: (x) Normal _
Respiratory: (x) Normal _
Cardiovascular: (x) abNormal _ concern for prosthetic valve endocarditis
Gastrointestinal: (x) Normal _
Genitourinary: (x) Normal _
Musculoskeletal: (x) abNormal- back pain, psoriatic arthritis, left shoulder pain, knee _
Integumentary: (x) abNormal _cuts from falls
Neurologic: (x) abNormal _falls
Psychiatric: (x) Normal _
Endocrine: (x) Normal _
Hematologic/Lymphatic: (x) Normal _
Allergic/Immunologic: (x) Normal _
�
Medications:�
Active Current Visit Medication List
Category Date Time Status
Acetaminophen [Tylenol] Med 12/14/24 22:00 Active
1,000 mg PO TID
Aspirin Chewable [Low Strength Aspirin] Med 12/15/24 08:00 Active
81 mg PO DAILY
DAPTOmycin [Cubicin] 1,000 mg Med 12/18/24 13:00 Active
Syringe [Syringe-Pump] 0 ml
IV Q24H
Enoxaparin Sodium [Lovenox] Med 12/14/24 18:00 Active
40 mg SC QPM
Flush (0.9% Sodium Chloride) [Flush (Nss)] Med 12/14/24 16:00 Active
See Dose Instructions IV PER PROTOCOL
Lidocaine [Lidocaine 4% Patch] Med 12/14/24 13:30 Active
1 patch TOPICAL DAILY
Midodrine [ProAmatine] Med 12/15/24 05:40 Active
5 mg PO Q4HPRN PRN
Remove Patch [Remove Lidocaine Patch] Med 12/14/24 20:00 Active
See Dose Instructions REMOVE DAILY@1999
Tramadol HCl [Ultram] Med 12/14/24 15:25 Active
25 mg PO Q6HPRN PRN
Valsartan [Diovan] Med 12/16/24 20:00 Active
40 mg PO BID
�
Vitals:�
Temp Pulse Resp BP Pulse Ox
97.9 F 78 16 145/87 95
12/19/24 15:19 12/19/24 15:19 12/19/24 15:19 12/19/24 15:19 12/19/24 15:19
Height 6 ft 3 in
Actual Weight 96.4 kg
Body Mass Index (BMI) 26.6
�
Physical Exam:�
General Appearance/Observation: Well-developed, well-nourished male in no apparent distress.� Lying in bed in no apparent distress
Pain/Comfort Assessment: left shoulder pain when he moves it
Mood/Affect: Appropriate
�
Integumentary/Operative Site:�Left eye laceration with sutures, multiple areas of scabbing and bruising in arms and legs, has dressing over left patella
�� -Sacrum not visualized - per chart notes- stage 2
��
Eyes: Conjunctiva/Lids: normal���� Pupils: pupils equal round
Ears/Nose/Throat: oral mucosa moist,� throat clear.������������ Lips/Teeth/Gums: dentures
Neck: Mild trapezius spasm left neck to shoulder, mild tenderness
Cardiovascular: Heart: regular, murmur�
Pulses: dorsalis pedis 2+ bilaterally�
Respiratory: Respiratory Effort/Chest Expansion: normal������� Auscultation: Clear to auscultation bilaterally�
Gastrointestinal: abdomen not tender, no distension, normal abdominal bowel sounds
Genitourinary: No Weiss�
Extremities:�Edema: None�Cyanosis: None�Trophic�changes: None
Neurology Exam:
Orientation: Alert, Oriented to self and place but not time. Has difficulty with initial answers but does correct himself appropriately at times. Thought it was 2020, knows Alda is the president. Initially said the [employer] were the
football team in [place] but then corrected to the [employer].
Memory: Impaired
Comprehension: Impaired
Two step command: Intact
Cranial Nerves:
�� CNII:�Pupillary light reflex: Intact����Visual Field: Intact
�� CN III, IV, : Extraocular muscles: Intact�
�� CN V:�Facial Sensation�at�Forehead: Intact,�Maxilla: Intact,�Mandible: Intact
�� CN VII:�Facial movement: Symmetric
�� CN VIII:�Hearing: Normal
�� CN IX/X:�Speech & swallow: low volume and weak�Position of Uvula: Midline
�� CN XI:�Shoulder shrug: Decreased on left secondary to pain
�� CN XII:�Tongue protrusion: Midline
Sensory:
�� Light touch: Intact bilateral upper and lower extremity
�
Musculoskeletal: Motor: (Manual muscle scale 0-5) 5/5 bilateral upper and lower extremities except for 4/5 hip flexion, left upper extremity limited testing secondary to pain in shoulder, left lead technician slightly decreased compared to normal right lead technician..
Tone: Normal in all extremities�
Range of Motion: NT
�
Lab Results:
Labs
WBC 40.3 10^3/uL (4.8-10.8) H* 12/19/24 05:35
RBC 4.48 10^6/uL (4.70-6.10) L 12/19/24 05:35
Hgb 12.8 g/dL (13.0-18.0) L 12/19/24 05:35
Hct 39.2 % (39.0-52.0) 12/19/24 05:35
MCV 87.5 fL (80.0-94.0) 12/19/24 05:35
MCH 28.6 pg (27.0-31.0) 12/19/24 05:35
MCHC 32.7 g/dL (33.0-37.0) L 12/19/24 05:35
RDW 15.2 % (11.5-14.5) H 12/19/24 05:35
Plt Count 137 10^3/uL (130-400) 12/19/24 05:35
MPV 9.5 fL (7.4-10.4) 12/19/24 05:35
Abs Immat Gran (auto) 0.1 10^3/uL (0-0.05) H 12/19/24 05:35
Absolute Neuts (auto) 4.9 10^3/uL (1.4-6.5) 12/19/24 05:35
Absolute Lymphs (auto) 34.6 10^3/uL (1.2-3.4) H 12/19/24 05:35
Absolute Monos (auto) 0.5 10^3/uL (0.1-0.6) 12/19/24 05:35
Absolute Eos (auto) 0.1 10^3/uL (0-0.7) 12/19/24 05:35
Absolute Basos (auto) 0.1 10^3/uL (0-0.2) 12/19/24 05:35
Immature Gran % 0.2 % (0-0.5) 12/19/24 05:35
Neutrophils % 12.3 % (42.2-75.2) L 12/19/24 05:35
Lymphocytes % 85.8 % (20.5-51.1) H 12/19/24 05:35
Monocytes % 1.2 % (1.7-9.3) L 12/19/24 05:35
Eosinophils % 0.2 % (0-6) 12/19/24 05:35
Basophils % 0.3 % (0-2) 12/19/24 05:35
Nucleated RBC % 0 % (-) 12/19/24 05:35
ESR 41 mm/hour (0-20) H 12/16/24 07:33
Sodium 138 mmol/L (135-145) 12/19/24 05:35
Potassium 3.6 mmol/L (3.5-5.1) 12/19/24 05:35
Chloride 100 mmol/L (98-107) 12/19/24 05:35
Carbon Dioxide 32 mmol/L (22-30) H 12/19/24 05:35
BUN 19 mg/dl (9-20) 12/19/24 05:35
Creatinine 0.7 mg/dL (0.7-1.3) 12/19/24 05:35
Estimated Creat Clear 94 ml/min 12/19/24 05:35
eGFR > 60.00 12/19/24 05:35
Glucose 111 mg/dl (70-99) H 12/19/24 05:35
Lactic Acid 0.9 mmol/L (0.7-2.0) 12/14/24 13:20
Calcium 8.5 mg/dl (8.4-10.2) 12/19/24 05:35
Total Bilirubin 1.2 mg/dl (0.2-1.3) 12/14/24 13:20
AST 23 U/L (17-59) 12/14/24 13:20
ALT 20 U/L (0-50) 12/14/24 13:20
Alkaline Phosphatase 96 U/L (38-126) 12/14/24 13:20
C-Reactive Protein 236.50 mg/L (0.0-10.00) H 12/16/24 07:33
Total Protein 6.9 g/dl (6.3-8.2) 12/14/24 13:20
Albumin 3.4 g/dl (3.5-5.0) L 12/14/24 13:20
Urine Color Yellow 12/14/24 14:36
Urine Clarity Clear (Clear) 12/14/24 14:36
Urine pH 6.5 (5.0-9.0) 12/14/24 14:36
Ur Specific Phelps 1.015 (<1.030) 12/14/24 14:36
Urine Ketones 2+ (Negative) A 12/14/24 14:36
Ur Occult Blood Reflex 4+ (Negative) A 12/14/24 14:36
Urine Nitrite (Reflex) Negative (Negative) 12/14/24 14:36
Urine Bilirubin Negative (Negative) 12/14/24 14:36
Urine Urobilinogen Negative (Neg - 1+) 12/14/24 14:36
Leukocyte Esterase Rfl Negative (Negative) 12/14/24 14:36
Urine RBC 40-50 /HPF (0-2) A 12/14/24 14:36
Urine WBC (Reflex) 0-2 /HPF (0-5) 12/14/24 14:36
Ur Squamous Epith Cells None seen /LPF (Few) 12/14/24 14:36
Urine Creatinine 53.600 mg/dl 12/15/24 21:57
Urine Sodium 6 mmol/L (30-90) L 12/15/24 21:57
Urine Glucose Negative (Negative) 12/14/24 14:36
Urine Albumin (Reflex) 2+ (Neg - Trace) A 12/14/24 14:36
Fluid Eosinophils No eosinophils seen 12/15/24 21:57
Vancomycin Peak Cancelled 12/18/24 21:30
Random Vancomycin 10.7 ug/ml 12/17/24 06:30
SARS-CoV-2 Antigen Negative (Negative) 12/14/24 13:20
Laboratory Data
12/20/24 06:04
12/20/24 06:04
Total Bilirubin 1.2 mg/dl (0.2-1.3) 12/14/24 13:20
AST 23 U/L (17-59) 12/14/24 13:20
ALT 20 U/L (0-50) 12/14/24 13:20
Alkaline Phosphatase 96 U/L (38-126) 12/14/24 13:20
Total Protein 6.9 g/dl (6.3-8.2) 12/14/24 13:20
Albumin 3.4 g/dl (3.5-5.0) L 12/14/24 13:20
�
Diagnostic Results:�as per HPI�
CR ribs- 12/14/2024
Nondisplaced fractures of the left second and fifth ribs identified on the cervical spine CT from 12/14/2024 are less well seen by radiograph. No other acute rib fracture is definitively appreciated by radiograph.
No pneumothorax.
CT head - 12/14/24
No acute intracranial abnormality.
CR - shoulder - 12/14/24
Glenohumeral and acromioclavicular osteoarthrosis.
CR - left knee:
Left total knee arthroplasty hardware appears intact and well-positioned. No evidence for hardware complication. No acute fracture or dislocation. Small suprapatellar joint fluid. Severe vascular calcifications.
Assessment:
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
�
Plan�
PT/OT to increase independence with ADLs, improve balance, coordination, endurance, strength, mobility, community reintegration, decreased burden of care on others and family education.�
�
MRSA bacteremia/sepsis:suspicion of MRSA endocarditis
- high risk situation
unclear source of bacteremia .
continue IV Daptomycin - requires intensive monitoring of levels. total 6 weeks planned.
follow blood cultures until negative
- RICKI without keysha vegetation or e/o root abscess.
- Antibiotic recommendations as per ID-daptomycin 1000 mg as directed IV every 24.
Follow blood cultures until cleared. + culture in progress as of 12/18. Elevated WBC-40.3
Cardiomyopathy- New (type unknown, but previously non-ischemic):
cardio recommendations:
-EF 30-35%. In Past was 40%, after TAVR was 55-60%
-GDMT when tolerated, but not appropriate now with sepsis
-does not appear volume overloaded to assessment
-added a bit of ARB, will fuentes out Entresto/[id number]--ylzlg of $47 each, will transition as bp allows, currently unable.
-MRA; bp too soft
-avoid bb with his very prolonged AVB and endocarditis
- GDMT optimization as outpatient once condition improves/resolves.
CAD:
-stable, denies CP
- Continue aspirin.
- Try to initiate statin as outpatient once clinical condition improves- per cardio
s/p TAVR:
- Stable on TTE/RICKI
Mechanical fall with traumatic nondisplaced Left 2nd and 5th Rib Fractures:
-limiting movement. Tylenol and lidocaine patch
hx of CLL
- WBC in 40 range
HTN: Valsartan 40 mg twice daily, monitor closely�
Orthostasis: check orthostatic vitals. Midodrine 5mg po q 6 hours prn
Psych: Psychology consult.� Monitor mood, adjust medications as needed.�
Skin/stage 2 pressure injury (left gluteal cleft) - present on arrival-per hospitalist note. Vitamin C, zinc, multivitamin.� Weight shifts in wheelchair and bed, keep all pressure off of the sacrum.� Roho cushion.� Consider pressure-relief boots.�
Lotrimin to fungal rash over buttocks and inguinal region for any signs of fungal infection.
Pain: acetaminophen as needed.� Lidoderm patch, tramadol 25 mg every 6 as needed
Bowel: recommend Colace and Senna, PRN bisacodyl for bowel regularity.�
Bladder: Time void, PVRs, PRN straight cath.�
DVT Prophylaxis: Mechanical and Lovenox
Pulmonary: Incentive spirometry�
Safety: Continue to reinforce assistance with all transfers.�
Code Status:� DNR�per chart
Functional and Medical Goals:�Modified Independent with ADL�s, ambulation, transfers�
Discharge Destination:�Will require 6 weeks of IV antibiotics based on his current diagnosis and status.
-Recommend SNF for PT/OT and ongoing medication management.
Attending Statement:
I saw and examined the patient today. Reviewed care plan with patient, therapy, nursing, and physician itinerant teacher assistant. I agree with the above subjective and physical exam, and plan as documented by CHAUNCEY Hook with adjustments made as necessary. A
total of 60 minutes were spent with the patient preparing for the evaluation, obtaining history, performing examination and evaluation, counseling, data review, case management, care coordination, order entry technician, and EMR documentation.
�
Thank you for allowing me to care for your patient. Please contact me with any questions or concerns.
[2024-12-19] MEDS: LOVENOX 40 MG SC (17:41)
[2024-12-20 03:45] VITALS: BP 132/79
[2024-12-20 06:00] VITALS: BMI 26.8
[2024-12-20 07:06] LABS: Hematocrit 38.3 % (39.0-52.0); Hemoglobin 12.6 g/dL (13.0-18.0); Mean Corp Hgb Conc. 32.9 g/dL (33.0-37.0); Mean Corpuscular Hgb 28.8 pg (27.0-31.0); Mean Corpuscular Volume 87.4 fL (80.0-94.0); Mean Platelet Volume 9.7 fL (7.4-10.4); Platelet Count 159 10^3/uL (130-400); Red Blood Cell Count 4.38 10^6/uL (4.70-6.10); Red Cell Dist. Width 15.4 % (11.5-14.5); White Blood Cell Count 42.5 10^3/uL (4.8-10.8)
[2024-12-20 07:17] LABS: Blood Urea Nitrogen 15 mg/dl (9-20); Calcium 8.3 mg/dl (8.4-10.2); Carbon Dioxide 32 mmol/L (22-30); Chloride 97 mmol/L (98-107); Estimated Creatinine Clearance 82 ml/min; Glucose 114 mg/dl (70-99); Potassium 3.5 mmol/L (3.5-5.1); Sodium 137 mmol/L (135-145); eGFR > 60.00
[2024-12-20 07:47] VITALS: BP 127/87
[2024-12-20 07:55] LABS: % Basophils 0.1 % (0-2); % Eosinophils 0.1 % (0-6); % Immature Granulocytes 0.4 % (0-0.5); % Monocytes 1.2 % (1.7-9.3); % Neutrophils 13.2 % (42.2-75.2); Absolute Eosinophils 0.1 10^3/uL (0-0.7); Absolute Immature Granulocytes 0.2 10^3/uL (0-0.05); Absolute Lymphocytes 36.1 10^3/uL (1.2-3.4); Absolute Monocytes 0.5 10^3/uL (0.1-0.6); Absolute Neutrophils 5.6 10^3/uL (1.4-6.5); Nucleated Red Blood Cells % 0 % (-)
[2024-12-20] MEDS: TYLENOL 1000 MG PO ×3 (08:33→23:11)
[2024-12-20] MEDS: DIOVAN 40 MG PO ×2 (08:33→20:28)
[2024-12-20] MEDS: LIDOCAINE 4% PATCH 1 PATCH TOPICAL (08:33)
[2024-12-20] MEDS: LOW STRENGTH ASPIRIN 81 MG PO (08:33)
[2024-12-20 12:16] VITALS: BP 125/75
[2024-12-20] MEDS: ULTRAM 25 MG PO ×2 (13:26→20:27)
--- NOTE | 2024-12-20 13:48 | W.PN.ID1 ---
Date of Service
Date of Service: December 20, 2024
Today's Communication
Continue daptomycin.
Assessment / Plan
Sustained MRSA bacteremia
Fever
Recurrent falls
Aortic stenosis; Hx TAVR (2023; [facility])
Thoracic back discomfort
Elevated ESR and CRP
CLL
Psoriatic arthritis
HTN
Recommendations:
Given presence of TAVR, concern at this point in time is for prosthetic valve endocarditis, although TTE and RICKI did not reveal a vegetation.
MRI negative for thoracic epidural abscess.
Continue daptomycin 1 gm IV q24h (began 12/18 @ 1430)
Check MRI of cervical and lumbar regions to assure no epidural abscess.
Continue serial blood cultures to assess clearance of bacteremia
Monitor white count and temperature curve.
����������������������������������������������������������
Chief Complaint
-: Bacteremia
Subjective / Review of Systems
Patient seen and examined. Reports some upper thoracic discomfort when coughing.
Vital Signs / Physical Exam
Vital Signs
Vital Signs
Temp Pulse Resp BP Pulse Ox
97.5 F 81 16 125/75 94
12/20/24 12:16 12/20/24 12:16 12/20/24 12:16 12/20/24 12:16 12/20/24 12:16
Physical Exam
Constitutional: No Acute Distress, Comfortable, Chronically Ill and Non-toxic
Eyes: No Conjunctival Hemorrhage and Sclera Anicteric
Cardiovascular: S1/S2 and Murmur; Negative S3/S4
Pulmonary: Clear; Negative Wheezes or Rales
Gastrointestinal: Soft and Non Tender
Extremities: Negative Splinter Hemorrhage or Janeway Lesions
Musculoskeletal: Negative Spinal Tenderness
Neurological: Awake and Alert
Psychological: Calm
Objective Data
Lab Data
Lab Results
12/20/24 06:04
12/20/24 06:04
ESR 41 mm/hour (0-20) H 12/16/24 07:33
Estimated Creat Clear 82 ml/min 12/20/24 06:04
Lactic Acid 0.9 mmol/L (0.7-2.0) 12/14/24 13:20
Total Bilirubin 1.2 mg/dl (0.2-1.3) 12/14/24 13:20
AST 23 U/L (17-59) 12/14/24 13:20
ALT 20 U/L (0-50) 12/14/24 13:20
Alkaline Phosphatase 96 U/L (38-126) 12/14/24 13:20
C-Reactive Protein 236.50 mg/L (0.0-10.00) H 12/16/24 07:33
Most recent labs reviewed.
Micro Results:
12/20/24 12:19 Blood Culture - Pending
Blood/Venous
12/20/24 12:03 Blood Culture - Pending
Blood/Venous
12/18/24 14:43 Blood Culture - Preliminary
Blood/Venous Staph aureus MRSA
Gram Stain - Preliminary
12/18/24 13:15 Blood Culture - Preliminary
Blood/Venous Staph aureus MRSA
Gram Stain - Preliminary
12/14/24 13:20 Blood Culture - Final
Blood/Venous Staph aureus MRSA
Gram Stain - Final
12/15/24 23:11 Blood Culture - Preliminary
Blood/Venous Staph aureus MRSA
Gram Stain - Preliminary
12/15/24 22:19 Blood Culture - Preliminary
Blood/Venous Staph aureus MRSA
Gram Stain - Preliminary
12/14/24 14:36 Blood Culture - Final
Blood/Venous Staph aureus MRSA
Gram Stain - Final
12/14/24 14:36 Urine Culture - Final
Urine NO GROWTH
12/14/24 21:22 MRSA Screen - Final
Nose No Methicillin Resistant Staphylococcus aureus isolated.
12/14/24 13:20 Influenza Types A & B (JUAN LUIS) - Final
Nasal Swab Negative for Influenza A & B, NAAT
Negative results must be combined with clinical observations
and patient history.
Nucleic Acid Amplification test (NAAT)performed on the
[employer] platform.
Imaging:
12/16/2024 MRI thoracic spine: Moderate loss of height of the T5 vertebral body with associated small Schmorl's node. Mild hyperintense signal within the anterior aspect of the vertebral body favored to represent acute on chronic compression
fracture, and less likely to be discitis or osteomyelitis.
12/14/2024 CXR (ribs): Nondisplaced fractures of the left 2nd and 5th ribs identified on the cervical spine CT from 12/14 I last well seen by radiograph. No other acute rib fractures definitively appreciated by this radiograph. Please see full
dictation for additional detail.
Cardiac Imaging:
12/18/2024 ECHO (RICKI): EF approximately 35%. Well-seated and normally functioning bioprosthetic aortic valve. No evidence of regurgitation. No vegetation noted.
12/16/2024 ECHO (TTE): Moderately reduced LV systolic function with an EF approximately 30%. Global hypokinesis. Mild mitral regurgitation. Well-seated, normally functioning bioprosthetic aortic valve.
--- NOTE | 2024-12-20 14:03 | CM ---
Case discussed with Dr. Akers. [facility] has declined admission.
Pt's infection is not clearing, and now pt has concern for valve endocarditis. May require valve surgery.
CM to continue to follow to coordinate discharge needs as hospitalization progresses.
[2024-12-20] MEDS: CUBICIN 20 MG IV (14:34)
--- NOTE | 2024-12-20 14:47 | W.PN.HOSP.TC ---
Today's Communication/Plan
-
continue IV abx and follow repeat cultures
C and L spine MRIs to evaluate further for source
Assessment / Plan
Assessment / Plan
Assessment:
Mechanical fall with traumatic nondisplaced Left 2nd and 5th Rib Fractures
- PT/OT - acute rehab. PMR consulted and recommended SNF
- continue Tylenol TID and lidocaine patch
- incentive spirometry
Sepsis present on admission (leukocytosis, fever, tachycardia) with hypotension
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
- completed sepsis protocol IVF
- unclear source of bacteremia - skin exam with some healed abrasions. No obvious wounds/cuts
- MRI T spine: 'moderate compression deformity of the T5 vertebral body with associated small Schmorl's node along the inferior endplate. There is mild STIR hyperintense signal or enhancement within the anterior aspect of the vertebral body which is
favored to represent an acute on chronic compression fracture, less likely discitis osteomyelitis. There is multifocal degenerative changes with resultant multifocal mild spinal canal stenosis. There is multifocal neuroforaminal narrowing most
pronounced at T5-T6 and T6-T7 where it is moderate.'
- await MRI L and C spine
- continue IV Daptomycin - requires intensive monitoring of levels. total 6 weeks planned.
- follow blood cultures until negative
- 2D Echo: no evidence if IE
- RICKI: no keysha vegetation or root abscess seen
- ID following
Cardiomyopathy (new)
- Echo: Moderately reduced left ventricular systolic function. Left ventricular ejection fraction is 30-35% by Rider's method. Global hypokinesis. Stage II diastolic dysfunction suggestive of abnormal relaxation and increased filling pressures.
Mild mitral regurgitation. Well seated, normally functioning bioprosthetic aortic valve (s/p TAVR #29) with mean gradient of 16mmHg. Compared to previous echo 02/05/2024, the EF has decreased from 55-60% to 30-35%.
- GDMT per Cardiology
Generalized pain including back pain
- MRI as above
- prn pain control
- PT/OT - acute rehab. PMR consulted and recommended SNF
CAD
- continue ASA
hx of CLL
- follow counts
Hx of s/p TAVR 2023
1st degree AVB
Hx Wandering Atrial Pacemaker
Hematuria
- urine culture negative
stage 2 pressure injury (left gluteal cleft) - present on arrival
DVT ppx: Lovenox
Code: DNR
Anticipated Discharge: > 48 hours
Subjective/Interval History
-
Date of Service: December 20, 2024
denies any complaints
pain improving
Objective Data
-
Labs:
Laboratory Results
12/20/24
06:04
WBC 42.5 H*
Hgb 12.6 L
Hct 38.3 L
Plt Count 159
Sodium 137
Potassium 3.5
Chloride 97 L
Carbon Dioxide 32 H
BUN 15
Creatinine 0.8
Glucose 114 H
Calcium 8.3 L
Vital Signs:
Vital Signs
Temp Pulse Resp BP Pulse Ox
97.5 F 81 16 125/75 94
12/20/24 12:16 12/20/24 12:16 12/20/24 12:16 12/20/24 12:16 12/20/24 12:16
I&O
12/19/24 12/20/24 12/21/24
06:59 06:59 06:59
Intake Total 660 / 660 1320 / 1320
Output Total 700 / 700 1625 / 1625
Balance -40 / -40 -305 / -305
Physical Exam
-
General: No Apparent Distress
HEENT: Normocephalic and Atraumatic
Respiratory: Negative Wheezes
Cardiac: Regular Rhythm and S1/S2
GI: Soft and Nontender
Musculoskeletal: No Edema
Hematologic / Lymphatic: No Lymphadenopathy
Psych: Calm
Data Reviewed
-
Total Time Spent with Patient (in minutes): 42
Labs: Labs Reviewed by me
[2024-12-20 15:34] VITALS: BP 97/63
--- NOTE | 2024-12-20 16:27 | W.PN.CD ---
Addendum entered and electronically signed by Gildardo Correia MD 12/20/24 17:25:
I saw and examined the patient.
The LEAD SALES CONSULTANT's note was reviewed and I agree with the note.
Comment: In regards to his AF, as below, discussed with patient as well as primary team and we are all agreeable that anticoagulation is likely not a good idea given his significant fall history. We will continue aspirin and reconsider oral
anticoagulation if and when falls become much less frequent.
Original Note:
Today's Communication / Plan
-
AFIB (new diagnosis) is rate-controlled and asymptomatic. Currently, risk of OAC greater than benefit in this patient with frequent, significant falls. No change to current management.
Impression / Plan
-
MRSA bacteremia/sepsis::
- RICKI without keysha vegetation or e/o root abscess.
- Antibiotic recommendations as per ID.
Cardiomyopathy (type unknown, but previously non-ischemic):
-EF 30-35%. In Past was 40%, after TAVR was 55-60%
-does not appear volume overloaded to assessment
-added a bit of ARB, will fuentes out Entresto/QUQO7g--bglpa of $47 each, will transition as bp allows, currently unable.
-MRA; bp too soft
-avoid bb with his very prolonged AVB and endocarditis
-GDMT optimization as outpatient once condition improves/resolves.
AFIB:
-new diagnosis, rate-controlled, not symptomatic
-[id number] score is 5 for age, CM, CAD, hx HTN. However, patient has frequent falls with significant injury. At this time, I believe that risk of OAC outweighs benefit, so will not add. This can be reassessed as OP after rehab and recovery, if he
is stronger and without recurrent falls.
CAD:
-stable, denies CP
- Continue aspirin.
- Try to initiate statin as outpatient once clinical condition improves.
s/p TAVR:
- Stable on TTE/RICKI
1st degree AVB, WAP:
- Rhythm as above
Mechanical fall with traumatic nondisplaced Left 2nd and 5th Rib Fractures
-limiting movement
-add ICS
Physical Exam
Vital Signs/Labs
Vital Signs
Temp Pulse Resp BP Pulse Ox
97.9 F 78 16 97/63 98
12/20/24 15:34 12/20/24 15:34 12/20/24 15:34 12/20/24 15:34 12/20/24 15:34
12/19/24 12/20/24 12/21/24
06:59 06:59 06:59
Actual Weight 97.2 kg
12/20/24 06:04
12/20/24 06:04
Physical Exam
Constitutional: No acute distress
EENT: Anicteric
Cardiovascular: Rhythm/rate is irregular
Respiratory: Respiratory effort normal and Lungs clear to auscul.
Neuro/Psych: Alert
Data Reviewed
-
Date of Service: December 20, 2024
EKG: Tracing Personally Visualized and interpreted (AFIB) and Other (AFIB)
Labs: Labs Reviewed by me
--- NOTE | 2024-12-20 16:46 | PTCARENOTE ---
at 1447, while Dr. Akers rounding, informed him that telemetry showing afib vs NSR with 1st degree AV block vs wandering pacer. pt sitting oob in chair, denies complaints. did receive Tramadol for c/o left upper rib pain with some relief (see MAR).
at 1459, Dr. Akers ordered EKG and it showed afib with HR in 80's. Dr. Akers and Dr. Correia made aware at 15:49 and EKG forwarded to their tiger text. no new orders obtained, Dr. Correia to come see patient, will continue to monitor.
[2024-12-20] MEDS: LOVENOX 40 MG SC (17:25)
[2024-12-20 19:35] VITALS: BP 117/69
[2024-12-20 23:40] VITALS: BP 103/60
[2024-12-21] VITALS (7 sets, daily range): BP systolic 94–142; BP diastolic 61–92; BMI 26.0
[2024-12-21 08:08] LABS: % Basophils 0.1 % (0-2); % Eosinophils 0.1 % (0-6); % Immature Granulocytes 0.3 % (0-0.5); % Lymphocytes 85.8 % (20.5-51.1); % Monocytes 1.1 % (1.7-9.3); % Neutrophils 12.6 % (42.2-75.2); Absolute Eosinophils 0.1 10^3/uL (0-0.7); Absolute Immature Granulocytes 0.2 10^3/uL (0-0.05); Absolute Lymphocytes 41.2 10^3/uL (1.2-3.4); Absolute Monocytes 0.5 10^3/uL (0.1-0.6); Hematocrit 38.9 % (39.0-52.0); Hemoglobin 12.6 g/dL (13.0-18.0); Mean Corp Hgb Conc. 32.4 g/dL (33.0-37.0); Mean Corpuscular Volume 86.4 fL (80.0-94.0); Mean Platelet Volume 9.7 fL (7.4-10.4); Nucleated Red Blood Cells % 0 % (-); Platelet Count 195 10^3/uL (130-400); Red Cell Dist. Width 15.3 % (11.5-14.5)
[2024-12-21 08:12] LABS: Blood Urea Nitrogen 19 mg/dl (9-20); Calcium 8.1 mg/dl (8.4-10.2); Carbon Dioxide 31 mmol/L (22-30); Chloride 98 mmol/L (98-107); Estimated Creatinine Clearance 94 ml/min; Glucose 113 mg/dl (70-99); Potassium 3.6 mmol/L (3.5-5.1); Sodium 136 mmol/L (135-145); eGFR > 60.00
[2024-12-21] MEDS: TYLENOL 1000 MG PO ×3 (09:06→21:03)
[2024-12-21] MEDS: LIDOCAINE 4% PATCH 1 PATCH TOPICAL (09:06)
[2024-12-21] MEDS: DIOVAN 40 MG PO ×2 (09:07→20:55)
[2024-12-21] MEDS: LOW STRENGTH ASPIRIN 81 MG PO (09:07)
--- NOTE | 2024-12-21 09:38 | W.PN.HOSP.TC ---
Today's Communication/Plan
-
await clearance of bacteremia
C and L spine MRIs pending
Assessment / Plan
Assessment / Plan
Assessment:
Mechanical fall with traumatic nondisplaced Left 2nd and 5th Rib Fractures
- PT/OT - acute rehab. PMR consulted and recommended SNF
- continue Tylenol TID and lidocaine patch
- incentive spirometry
Sepsis present on admission (leukocytosis, fever, tachycardia) with hypotension
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
- completed sepsis protocol IVF
- unclear source of bacteremia - skin exam with some healed abrasions. No obvious wounds/cuts
- MRI T spine: 'moderate compression deformity of the T5 vertebral body with associated small Schmorl's node along the inferior endplate. There is mild STIR hyperintense signal or enhancement within the anterior aspect of the vertebral body which is
favored to represent an acute on chronic compression fracture, less likely discitis osteomyelitis. There is multifocal degenerative changes with resultant multifocal mild spinal canal stenosis. There is multifocal neuroforaminal narrowing most
pronounced at T5-T6 and T6-T7 where it is moderate.'
- await MRI L and C spine
- continue IV Daptomycin - requires intensive monitoring of levels. total 6 weeks planned.
- follow blood cultures until negative
- 2D Echo: no evidence if IE
- RICKI: no keysha vegetation or root abscess seen
- ID following
Cardiomyopathy (new)
- Echo: Moderately reduced left ventricular systolic function. Left ventricular ejection fraction is 30-35% by Rider's method. Global hypokinesis. Stage II diastolic dysfunction suggestive of abnormal relaxation and increased filling pressures.
Mild mitral regurgitation. Well seated, normally functioning bioprosthetic aortic valve (s/p TAVR #29) with mean gradient of 16mmHg. Compared to previous echo 02/05/2024, the EF has decreased from 55-60% to 30-35%.
- GDMT per Cardiology
Generalized pain including back pain
- MRI as above
- prn pain control
- PT/OT - acute rehab. PMR consulted and recommended SNF
CAD
- continue ASA
hx of CLL
- follow counts
Hx of s/p TAVR 2023
1st degree AVB
Hx Wandering Atrial Pacemaker
Hematuria
- urine culture negative
stage 2 pressure injury (left gluteal cleft) - present on arrival
DVT ppx: Lovenox
Code: DNR
Anticipated Discharge: > 48 hours
Subjective/Interval History
-
Date of Service: December 21, 2024
denies any new complaints at present
Objective Data
-
Labs:
Laboratory Results
12/21/24
06:05
WBC 48.0 H*
Hgb 12.6 L
Hct 38.9 L
Plt Count 195 D
Sodium 136
Potassium 3.6
Chloride 98
Carbon Dioxide 31 H
BUN 19
Creatinine 0.7
Glucose 113 H
Calcium 8.1 L
Vital Signs:
Vital Signs
Temp Pulse Resp BP Pulse Ox
98 F 78 20 142/83 96
12/21/24 07:00 12/21/24 09:07 12/21/24 07:00 12/21/24 09:07 12/21/24 07:00
I&O
12/20/24 12/21/24 12/22/24
06:59 06:59 06:59
Intake Total 1320 / 1320 1100 / 1100
Output Total 1625 / 1625 700 / 700
Balance -305 / -305 400 / 400
Physical Exam
-
General: No Apparent Distress
HEENT: Normocephalic and Atraumatic
Respiratory: Negative Wheezes
Cardiac: Regular Rhythm and S1/S2
GI: Soft and Nontender
Genito-urinary: No Costovertebral Tender
Neuro: AO x 3
Psych: Calm
Data Reviewed
-
Total Time Spent with Patient (in minutes): 42
Labs: Labs Reviewed by me
[2024-12-21] MEDS: CUBICIN 20 MG IV (13:48)
--- NOTE | 2024-12-21 15:13 | W.PN.ID1 ---
Date of Service
Date of Service: December 21, 2024
Today's Communication
Continue Daptomycin.
Assessment / Plan
Sustained MRSA bacteremia
Fever
Recurrent falls
Aortic stenosis; Hx TAVR (2023; [facility])
Thoracic back discomfort
Elevated ESR and CRP
CLL
Psoriatic arthritis
HTN
Recommendations:
Given presence of TAVR, concern at this point in time is for prosthetic valve endocarditis, although TTE and RICKI did not reveal a vegetation.
MRI negative for thoracic epidural abscess.
Continue daptomycin 1 gm IV q24h (began 12/18 @ 1430). Ckeck CK in am.
Check MRI of cervical and lumbar regions to assure no epidural abscess.
Continue serial blood cultures to assess clearance of bacteremia
12/20 blood cx x2 neg to date.
Monitor white count and temperature curve.
����������������������������������������������������������
Chief Complaint
-: Bacteremia
Subjective / Review of Systems
No complaints today.
Vital Signs / Physical Exam
Vital Signs
Vital Signs
Temp Pulse Resp BP Pulse Ox
98.2 F 86 16 136/63 93
12/21/24 11:07 12/21/24 11:07 12/21/24 11:07 12/21/24 11:07 12/21/24 11:07
Physical Exam
Constitutional: No Acute Distress, Comfortable, Chronically Ill and Non-toxic
Eyes: No Conjunctival Hemorrhage and Sclera Anicteric
Cardiovascular: S1/S2 and Murmur; Negative S3/S4
Pulmonary: Clear
Gastrointestinal: Soft and Non Tender
Extremities: Negative Splinter Hemorrhage or Janeway Lesions
Musculoskeletal: Negative Spinal Tenderness
Wound: Other (Left knee abrasions; right amish with sutures)
Neurological: Awake and Alert
Psychological: Calm
Objective Data
Lab Data
Lab Results
12/21/24 06:05
12/21/24 06:05
ESR 41 mm/hour (0-20) H 12/16/24 07:33
Estimated Creat Clear 94 ml/min 12/21/24 06:05
Lactic Acid 0.9 mmol/L (0.7-2.0) 12/14/24 13:20
Total Bilirubin 1.2 mg/dl (0.2-1.3) 12/14/24 13:20
AST 23 U/L (17-59) 12/14/24 13:20
ALT 20 U/L (0-50) 12/14/24 13:20
Alkaline Phosphatase 96 U/L (38-126) 12/14/24 13:20
C-Reactive Protein 236.50 mg/L (0.0-10.00) H 12/16/24 07:33
Most recent labs reviewed.
Micro Results:
12/20/24 12:19 Blood Culture - Preliminary
Blood/Venous No Growth in 24 hours- Final report to follow
12/20/24 12:03 Blood Culture - Preliminary
Blood/Venous No Growth in 24 hours- Final report to follow
12/18/24 14:43 Blood Culture - Preliminary
Blood/Venous Staph aureus MRSA
Gram Stain - Preliminary
12/18/24 13:15 Blood Culture - Preliminary
Blood/Venous Staph aureus MRSA
Gram Stain - Preliminary
12/14/24 13:20 Blood Culture - Final
Blood/Venous Staph aureus MRSA
Gram Stain - Final
12/15/24 23:11 Blood Culture - Preliminary
Blood/Venous Staph aureus MRSA
Gram Stain - Preliminary
12/15/24 22:19 Blood Culture - Preliminary
Blood/Venous Staph aureus MRSA
Gram Stain - Preliminary
12/14/24 14:36 Blood Culture - Final
Blood/Venous Staph aureus MRSA
Gram Stain - Final
12/14/24 14:36 Urine Culture - Final
Urine NO GROWTH
12/14/24 21:22 MRSA Screen - Final
Nose No Methicillin Resistant Staphylococcus aureus isolated.
12/14/24 13:20 Influenza Types A & B (JUAN LUIS) - Final
Nasal Swab Negative for Influenza A & B, NAAT
Negative results must be combined with clinical observations
and patient history.
Nucleic Acid Amplification test (NAAT)performed on the
[employer] platform.
Imaging:
12/16/2024 MRI thoracic spine: Moderate loss of height of the T5 vertebral body with associated small Schmorl's node. Mild hyperintense signal within the anterior aspect of the vertebral body favored to represent acute on chronic compression
fracture, and less likely to be discitis or osteomyelitis.
12/14/2024 CXR (ribs): Nondisplaced fractures of the left 2nd and 5th ribs identified on the cervical spine CT from 12/14 I last well seen by radiograph. No other acute rib fractures definitively appreciated by this radiograph. Please see full
dictation for additional detail.
Cardiac Imaging:
12/18/2024 ECHO (RICKI): EF approximately 35%. Well-seated and normally functioning bioprosthetic aortic valve. No evidence of regurgitation. No vegetation noted.
12/16/2024 ECHO (TTE): Moderately reduced LV systolic function with an EF approximately 30%. Global hypokinesis. Mild mitral regurgitation. Well-seated, normally functioning bioprosthetic aortic valve.
[2024-12-21] MEDS: LOVENOX 40 MG SC (17:00)
[2024-12-22 03:00] VITALS: BP 138/85
[2024-12-22 06:45] LABS: Hemoglobin 13.2 g/dL (13.0-18.0); Mean Corp Hgb Conc. 32.2 g/dL (33.0-37.0); Mean Corpuscular Hgb 27.9 pg (27.0-31.0); Mean Corpuscular Volume 86.7 fL (80.0-94.0); Mean Platelet Volume 9.4 fL (7.4-10.4); Platelet Count 214 10^3/uL (130-400); Red Blood Cell Count 4.73 10^6/uL (4.70-6.10); Red Cell Dist. Width 15.2 % (11.5-14.5)
[2024-12-22 07:00] VITALS: BP 143/85
[2024-12-22 07:12] LABS: Blood Urea Nitrogen 17 mg/dl (9-20); Calcium 8.3 mg/dl (8.4-10.2); Carbon Dioxide 32 mmol/L (22-30); Chloride 96 mmol/L (98-107); Creatine Phosphokinase 20 U/L (55-170); Estimated Creatinine Clearance 82 ml/min; Glucose 108 mg/dl (70-99); Potassium 3.7 mmol/L (3.5-5.1); Sodium 136 mmol/L (135-145); eGFR > 60.00
[2024-12-22 07:32] LABS: % Eosinophils 0.1 % (0-6); % Immature Granulocytes 0.3 % (0-0.5); % Lymphocytes 85.4 % (20.5-51.1); % Neutrophils 13.2 % (42.2-75.2); Absolute Eosinophils 0.1 10^3/uL (0-0.7); Absolute Immature Granulocytes 0.2 10^3/uL (0-0.05); Absolute Lymphocytes 46.3 10^3/uL (1.2-3.4); Absolute Monocytes 0.6 10^3/uL (0.1-0.6); Absolute Neutrophils 7.1 10^3/uL (1.4-6.5); Nucleated Red Blood Cells % 0 % (-); White Blood Cell Count 54.2 10^3/uL (4.8-10.8)
[2024-12-22] MEDS: LIDOCAINE 4% PATCH 1 PATCH TOPICAL (09:11)
[2024-12-22] MEDS: DIOVAN 40 MG PO ×2 (09:12→20:58)
[2024-12-22] MEDS: LOW STRENGTH ASPIRIN 81 MG PO (09:12)
[2024-12-22] MEDS: TYLENOL 1000 MG PO ×3 (09:12→21:03)
[2024-12-22 11:00] VITALS: BP 94/58
--- NOTE | 2024-12-22 11:24 | W.PN.HOSP.TC ---
Today's Communication/Plan
-
C and L spine MRIs pending
continue IV Daptomycin
follow ID recs
Assessment / Plan
Assessment / Plan
Assessment:
Mechanical fall with traumatic nondisplaced Left 2nd and 5th Rib Fractures
- PT/OT - acute rehab. PMR consulted and recommended SNF
- continue Tylenol TID and lidocaine patch
- incentive spirometry
Sepsis present on admission (leukocytosis, fever, tachycardia) with hypotension
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
- completed sepsis protocol IVF
- unclear source of bacteremia - skin exam with some healed abrasions. No obvious wounds/cuts
- MRI T spine: 'moderate compression deformity of the T5 vertebral body with associated small Schmorl's node along the inferior endplate. There is mild STIR hyperintense signal or enhancement within the anterior aspect of the vertebral body which is
favored to represent an acute on chronic compression fracture, less likely discitis osteomyelitis. There is multifocal degenerative changes with resultant multifocal mild spinal canal stenosis. There is multifocal neuroforaminal narrowing most
pronounced at T5-T6 and T6-T7 where it is moderate.'
- await MRI L and C spine
- continue IV Daptomycin - requires intensive monitoring of levels. total 6 weeks planned.
- follow blood cultures until negative
- 2D Echo: no evidence if IE
- RICKI: no keysha vegetation or root abscess seen
- ID following
Cardiomyopathy (new)
- Echo: Moderately reduced left ventricular systolic function. Left ventricular ejection fraction is 30-35% by Rider's method. Global hypokinesis. Stage II diastolic dysfunction suggestive of abnormal relaxation and increased filling pressures.
Mild mitral regurgitation. Well seated, normally functioning bioprosthetic aortic valve (s/p TAVR #29) with mean gradient of 16mmHg. Compared to previous echo 02/05/2024, the EF has decreased from 55-60% to 30-35%.
- GDMT per Cardiology
Generalized pain including back pain
- MRI as above
- prn pain control
- PT/OT - acute rehab. PMR consulted and recommended SNF
CAD
- continue ASA
hx of CLL
- follow counts
Hx of s/p TAVR 2023
1st degree AVB
Hx Wandering Atrial Pacemaker
Hematuria
- urine culture negative
stage 2 pressure injury (left gluteal cleft) - present on arrival
DVT ppx: Lovenox
Code: DNR
Anticipated Discharge: > 48 hours
Subjective/Interval History
-
Date of Service: December 22, 2024
resting comfortably, no complaints
Objective Data
-
Labs:
Laboratory Results
12/22/24
05:16
WBC 54.2 H*
Hgb 13.2
Hct 41.0
Plt Count 214
Sodium 136
Potassium 3.7
Chloride 96 L
Carbon Dioxide 32 H
BUN 17
Creatinine 0.8
Glucose 108 H
Calcium 8.3 L
Vital Signs:
Vital Signs
Temp Pulse Resp BP Pulse Ox
97.8 F 87 16 143/85 96
12/22/24 07:00 12/22/24 09:12 12/22/24 07:00 12/22/24 09:12 12/22/24 07:00
I&O
12/21/24 12/22/24 12/23/24
06:59 06:59 06:59
Intake Total 1100 / 1100 960 / 960
Output Total 700 / 700 450 / 450
Balance 400 / 400 510 / 510
Physical Exam
-
General: No Apparent Distress
HEENT: Normocephalic and Atraumatic
Respiratory: Negative Wheezes
Cardiac: Regular Rhythm
GI: Soft and Nontender
Musculoskeletal: No Edema
Neuro: AO x 3
Psych: Calm
Data Reviewed
-
Total Time Spent with Patient (in minutes): 42
Labs: Labs Reviewed by me
[2024-12-22] MEDS: CUBICIN 20 MG IV (13:19)
[2024-12-22 15:00] VITALS: BP 109/69
--- NOTE | 2024-12-22 15:02 | W.PN.ID1 ---
Date of Service
Date of Service: December 22, 2024
Today's Communication
Continue Daptomycin.
Assessment / Plan
Sustained MRSA bacteremia
Fever
Recurrent falls
Aortic stenosis; Hx TAVR (2023; [facility])
Thoracic back discomfort
Elevated ESR and CRP
CLL
Psoriatic arthritis
HTN
Recommendations:
Given presence of TAVR, concern at this point in time is for prosthetic valve endocarditis, although TTE and RICKI did not reveal a vegetation.
MRI negative for thoracic epidural abscess.
Continue daptomycin 1 gm IV q24h (began 12/18 @ 1430). CK 20.
Awaiting MRI of cervical and lumbar regions to assure no epidural abscess.
Continue serial blood cultures to assess clearance of bacteremia
12/20 blood cx x2 neg to date.
Monitor white count and temperature curve.
����������������������������������������������������������
Chief Complaint
-: Bacteremia
Subjective / Review of Systems
Feels ok today.
Vital Signs / Physical Exam
Vital Signs
Vital Signs
Temp Pulse Resp BP Pulse Ox
97 F 84 16 94/58 96
12/22/24 11:00 12/22/24 11:00 12/22/24 11:00 12/22/24 11:00 12/22/24 12:50
Physical Exam
Constitutional: No Acute Distress, Comfortable, Chronically Ill and Non-toxic
Eyes: No Conjunctival Hemorrhage and Sclera Anicteric
Cardiovascular: S1/S2 and Murmur; Negative S3/S4
Pulmonary: Clear
Gastrointestinal: Soft and Non Tender
Extremities: Negative Splinter Hemorrhage or Janeway Lesions
Musculoskeletal: Negative Spinal Tenderness
Wound: Other (Left knee abrasions; right rastafarian with sutures)
Neurological: Awake and Alert
Psychological: Calm
Objective Data
Lab Data
Lab Results
12/22/24 05:16
12/22/24 05:16
ESR 41 mm/hour (0-20) H 12/16/24 07:33
Estimated Creat Clear 82 ml/min 12/22/24 05:16
Lactic Acid 0.9 mmol/L (0.7-2.0) 12/14/24 13:20
Total Bilirubin 1.2 mg/dl (0.2-1.3) 12/14/24 13:20
AST 23 U/L (17-59) 12/14/24 13:20
ALT 20 U/L (0-50) 12/14/24 13:20
Alkaline Phosphatase 96 U/L (38-126) 12/14/24 13:20
C-Reactive Protein 236.50 mg/L (0.0-10.00) H 12/16/24 07:33
Most recent labs reviewed.
Micro Results:
12/15/24 23:11 Blood Culture - Final
Blood/Venous Staph aureus MRSA
Gram Stain - Final
12/15/24 22:19 Blood Culture - Final
Blood/Venous Staph aureus MRSA
Gram Stain - Final
12/20/24 12:19 Blood Culture - Preliminary
Blood/Venous No Growth in 48 hours- Final report to follow
12/20/24 12:03 Blood Culture - Preliminary
Blood/Venous No Growth in 48 hours- Final report to follow
12/18/24 14:43 Blood Culture - Preliminary
Blood/Venous Staph aureus MRSA
Gram Stain - Preliminary
12/18/24 13:15 Blood Culture - Preliminary
Blood/Venous Staph aureus MRSA
Gram Stain - Preliminary
12/14/24 13:20 Blood Culture - Final
Blood/Venous Staph aureus MRSA
Gram Stain - Final
12/14/24 14:36 Blood Culture - Final
Blood/Venous Staph aureus MRSA
Gram Stain - Final
12/14/24 14:36 Urine Culture - Final
Urine NO GROWTH
12/14/24 21:22 MRSA Screen - Final
Nose No Methicillin Resistant Staphylococcus aureus isolated.
12/14/24 13:20 Influenza Types A & B (JUAN LUIS) - Final
Nasal Swab Negative for Influenza A & B, NAAT
Negative results must be combined with clinical observations
and patient history.
Nucleic Acid Amplification test (NAAT)performed on the
[employer] platform.
Imaging:
12/16/2024 MRI thoracic spine: Moderate loss of height of the T5 vertebral body with associated small Schmorl's node. Mild hyperintense signal within the anterior aspect of the vertebral body favored to represent acute on chronic compression
fracture, and less likely to be discitis or osteomyelitis.
12/14/2024 CXR (ribs): Nondisplaced fractures of the left 2nd and 5th ribs identified on the cervical spine CT from 12/14 I last well seen by radiograph. No other acute rib fractures definitively appreciated by this radiograph. Please see full
dictation for additional detail.
Cardiac Imaging:
12/18/2024 ECHO (RICKI): EF approximately 35%. Well-seated and normally functioning bioprosthetic aortic valve. No evidence of regurgitation. No vegetation noted.
12/16/2024 ECHO (TTE): Moderately reduced LV systolic function with an EF approximately 30%. Global hypokinesis. Mild mitral regurgitation. Well-seated, normally functioning bioprosthetic aortic valve.
[2024-12-22] MEDS: LOVENOX 40 MG SC (17:01)
[2024-12-22 19:00] VITALS: BP 104/71
[2024-12-22 23:00] VITALS: BP 128/80
[2024-12-23 03:00] VITALS: BP 135/81
[2024-12-23 06:00] VITALS: BMI 25.9
[2024-12-23 06:21] LABS: Hematocrit 40.6 % (39.0-52.0); Hemoglobin 13.1 g/dL (13.0-18.0); Mean Corp Hgb Conc. 32.3 g/dL (33.0-37.0); Mean Corpuscular Hgb 28.1 pg (27.0-31.0); Mean Corpuscular Volume 86.9 fL (80.0-94.0); Mean Platelet Volume 10.1 fL (7.4-10.4); Platelet Count 230 10^3/uL (130-400); Red Blood Cell Count 4.67 10^6/uL (4.70-6.10); Red Cell Dist. Width 15.5 % (11.5-14.5); White Blood Cell Count 58.4 10^3/uL (4.8-10.8)
[2024-12-23 06:47] LABS: Blood Urea Nitrogen 15 mg/dl (9-20); Calcium 8.3 mg/dl (8.4-10.2); Carbon Dioxide 31 mmol/L (22-30); Chloride 96 mmol/L (98-107); Estimated Creatinine Clearance 94 ml/min; Glucose 109 mg/dl (70-99); Potassium 3.7 mmol/L (3.5-5.1); Sodium 134 mmol/L (135-145); eGFR > 60.00
[2024-12-23 07:05] VITALS: BP 140/86
[2024-12-23 08:31] LABS: % Basophils 0.1 % (0-2); % Eosinophils 0.1 % (0-6); % Immature Granulocytes 0.4 % (0-0.5); % Lymphocytes 82.7 % (20.5-51.1); % Neutrophils 15.7 % (42.2-75.2); Absolute Basophils 0.1 10^3/uL (0-0.2); Absolute Immature Granulocytes 0.3 10^3/uL (0-0.05); Absolute Lymphocytes 48.3 10^3/uL (1.2-3.4); Absolute Monocytes 0.6 10^3/uL (0.1-0.6); Absolute Neutrophils 9.2 10^3/uL (1.4-6.5); Nucleated Red Blood Cells % 0 % (-)
[2024-12-23] MEDS: LIDOCAINE 4% PATCH 1 PATCH TOPICAL (08:33)
[2024-12-23] MEDS: DIOVAN 40 MG PO ×2 (08:33→21:16)
[2024-12-23] MEDS: TYLENOL 1000 MG PO ×3 (08:33→21:17)
[2024-12-23] MEDS: LOW STRENGTH ASPIRIN 81 MG PO (08:34)
[2024-12-23 12:02] VITALS: BP 99/54
[2024-12-23] MEDS: CUBICIN 20 MG IV (12:36)
--- NOTE | 2024-12-23 14:50 | W.PN.ID1 ---
Date of Service
Date of Service: December 23, 2024
Today's Communication
Continue abx.
Assessment / Plan
Sustained MRSA bacteremia
- blood cultures clear x 72 hours
Fever
Recurrent falls
Aortic stenosis; Hx TAVR (2023; [facility])
Thoracic back discomfort
Elevated ESR and CRP
CLL
Psoriatic arthritis
HTN
Recommendations:
Given presence of TAVR, concern at this point in time is for prosthetic valve endocarditis, although TTE and RICKI did not reveal a vegetation.
MRI negative for epidural abscess.
Continue daptomycin 1 gm IV q24h (began 12/18 @ 1430). CK 20.
Continue serial blood cultures to assess clearance of bacteremia
12/20 blood cx x2 neg to date.
Follow CPK while on daptomycin.
Monitor white count and temperature curve.
����������������������������������������������������������
Chief Complaint
-: Bacteremia
Subjective / Review of Systems
Review of Systems: No Fever and No Chills
Vital Signs / Physical Exam
Vital Signs
Vital Signs
Temp Pulse Resp BP Pulse Ox
98.3 F 81 18 99/54 95
12/23/24 12:02 12/23/24 12:02 12/23/24 12:02 12/23/24 12:02 12/23/24 12:02
Physical Exam
Constitutional: No Acute Distress, Comfortable, Chronically Ill and Non-toxic
Eyes: No Conjunctival Hemorrhage
Cardiovascular: S1/S2 and Murmur; Negative S3/S4
Pulmonary: Clear
Gastrointestinal: Soft, Non Tender and Non Distended
Extremities: Negative Splinter Hemorrhage or Janeway Lesions
Musculoskeletal: Negative Spinal Tenderness
Wound: Other (Left knee abrasions; right pentecostal with sutures)
Neurological: Awake and Alert
Psychological: Calm
Objective Data
Lab Data
Lab Results
12/23/24 05:28
12/23/24 05:28
ESR 41 mm/hour (0-20) H 12/16/24 07:33
Estimated Creat Clear 94 ml/min 12/23/24 05:28
Lactic Acid 0.9 mmol/L (0.7-2.0) 12/14/24 13:20
Total Bilirubin 1.2 mg/dl (0.2-1.3) 12/14/24 13:20
AST 23 U/L (17-59) 12/14/24 13:20
ALT 20 U/L (0-50) 12/14/24 13:20
Alkaline Phosphatase 96 U/L (38-126) 12/14/24 13:20
C-Reactive Protein 236.50 mg/L (0.0-10.00) H 12/16/24 07:33
Most recent labs reviewed.
Micro Results:
12/20/24 12:19 Blood Culture - Preliminary
Blood/Venous No Growth in 72 hours- Final report to follow
12/20/24 12:03 Blood Culture - Preliminary
Blood/Venous No Growth in 72 hours- Final report to follow
12/15/24 23:11 Blood Culture - Final
Blood/Venous Staph aureus MRSA
Gram Stain - Final
12/15/24 22:19 Blood Culture - Final
Blood/Venous Staph aureus MRSA
Gram Stain - Final
12/18/24 14:43 Blood Culture - Preliminary
Blood/Venous Staph aureus MRSA
Gram Stain - Preliminary
12/18/24 13:15 Blood Culture - Preliminary
Blood/Venous Staph aureus MRSA
Gram Stain - Preliminary
12/14/24 13:20 Blood Culture - Final
Blood/Venous Staph aureus MRSA
Gram Stain - Final
12/14/24 14:36 Blood Culture - Final
Blood/Venous Staph aureus MRSA
Gram Stain - Final
12/14/24 14:36 Urine Culture - Final
Urine NO GROWTH
12/14/24 21:22 MRSA Screen - Final
Nose No Methicillin Resistant Staphylococcus aureus isolated.
12/14/24 13:20 Influenza Types A & B (JUAN LUIS) - Final
Nasal Swab Negative for Influenza A & B, NAAT
Negative results must be combined with clinical observations
and patient history.
Nucleic Acid Amplification test (NAAT)performed on the
[employer] platform.
Imaging:
12/23/2024 MRI lumbar spine: Small amount of fluid signal intensity in the L5/S1 intervertebral disc. Moderate to severe enhancing edema in the left psoas muscle.
12/23/2024 MRI cervical spine: Acute bone marrow edema in the left T2 transverse process surrounded by moderate enhancing soft tissue edema. Possibilities include acute traumatic injury or possible acute osteomyelitis.
12/16/2024 MRI thoracic spine: Moderate loss of height of the T5 vertebral body with associated small Schmorl's node. Mild hyperintense signal within the anterior aspect of the vertebral body favored to represent acute on chronic compression
fracture, and less likely to be discitis or osteomyelitis.
12/14/2024 CXR (ribs): Nondisplaced fractures of the left 2nd and 5th ribs identified on the cervical spine CT from 12/14 I last well seen by radiograph. No other acute rib fractures definitively appreciated by this radiograph. Please see full
dictation for additional detail.
Cardiac Imaging:
12/18/2024 ECHO (RICKI): EF approximately 35%. Well-seated and normally functioning bioprosthetic aortic valve. No evidence of regurgitation. No vegetation noted.
12/16/2024 ECHO (TTE): Moderately reduced LV systolic function with an EF approximately 30%. Global hypokinesis. Mild mitral regurgitation. Well-seated, normally functioning bioprosthetic aortic valve.
Care Review
Plan reviewed with: Physician (Hospitalist)
--- NOTE | 2024-12-23 15:03 | W.PN.HOSP.TC ---
Today's Communication/Plan
-
Continue with daptomycin
Follow repeat culture
Ortho evaluation
CBC and temperature curve
Assessment / Plan
Assessment / Plan
#MSSA bacteremia
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
# S/P TAVR
#MRI with enhancement of left psoas muscle (traumatic tear > Myositis)
-High suspicion for MRSA endocarditis with persistent bacteremia in context of prosthetic valve
-MRI of T-spine without signs of osteodiscitis; MRI C and L-spine with enhancement of left psoas
-TTE and RICKI both without obvious vegetations noted on cardiac valves including prosthetic valve
-Currently on daptomycin 1 g every 24 hours; blood cultures from 12/20 remain negative at 72 hours
-Suspect that enhancement of the left psoas is more related to recent trauma ; CK was 20
-Has CLL with accompanying immunosuppression that is likely contributing to infection
Plan
-Continue daptomycin 1 g every 24 hours
-Follow repeat blood cultures for final result
-Trend temperature curve
-May ultimately require valve replacement versus extended antibiotic course
#Cardiomyopathy
-Unclear etiology; previously had workup for ischemia that was unremarkable
-Will echocardiogram here with dilated LV, ejection fraction near 30%
-No signs of clinically decompensated heart failure; remains euvolemic and on RA
-Has been started on ARB for GDMT; planning to avoid beta-mitch due to WAP history and AVB
-Continue to monitor I's/O's and weights, respiratory status on room air
-May need repeat echocardiogram with consideration for ICD as OP
#New onset atrial fibrillation
#H/O Wandering atrial pacemaker
#H/O first-degree AVB
-Nonvalvular; [id number] score 6; has history of frequent falls with significant bleeding
-Not currently on any rate/rhythm control nor anticoagulants
-Heart rate currently WNL
-Continue on telemetry
#Nondisplaced left 2nd and 5th rib fractures
-Continue with as needed analgesics and IS
#Nonobstructive CAD
#Dyslipidemia
-Home regimen includes aspirin for primary prevention
-Not currently on beta-mitch, statin
#Chronic lymphocytic leukemia
-Not currently on any chemotherapeutic or immune modulating regimen
-Likely stage 0, likely in the wait and watch stage
-Does have associated immunosuppression
#Psoriatic arthritis
-Not currently on any DMARD therapy, on meloxicam as needed
#BPH
-Home regimen does not include tamsulosin nor alpha-1 reductase inhibitor
-No signs of bladder outlet obstruction
#DJD/DDD
-MRI C, T, L-spine with multiple degenerative findings including canal stenosis, foraminal narrowing
-Patient also complaining of left shoulder stiffness, recently also had trauma with x-ray
-Recent left shoulder x-ray showed glenohumeral and AC osteoarthritis
-Will consult orthopedics, likely will need OP follow-up
Diet: Regular
DVT prophylaxis: SQ Lovenox
CODE STATUS: DNR
Disposition: SNF when medically stable
Anticipated Discharge: > 48 hours
Subjective/Interval History
-
Date of Service: December 23, 2024
Seen and examined at the bedside. No acute events reported overnight. AFVSS as of this morning
Blood cultures remain with no growth at 72 hours. CBC generally stable for underlying CLL
States he has issue with mobility to his left shoulder. States he is tired today denies any other new complaints
Objective Data
-
Labs:
Laboratory Results
12/23/24
05:28
WBC 58.4 H*
Hgb 13.1
Hct 40.6
Plt Count 230
Sodium 134 L
Potassium 3.7
Chloride 96 L
Carbon Dioxide 31 H
BUN 15
Creatinine 0.7
Glucose 109 H
Calcium 8.3 L
Vital Signs:
Vital Signs
Temp Pulse Resp BP Pulse Ox
98.3 F 81 18 99/54 95
12/23/24 12:02 12/23/24 12:02 12/23/24 12:02 12/23/24 12:02 12/23/24 12:02
I&O
12/22/24 12/23/24 12/24/24
06:59 06:59 06:59
Intake Total 960 / 960 960 / 960 480 / 480
Output Total 450 / 450 600 / 600 1125 / 1125
Balance 510 / 510 360 / 360 -645 / -645
Review of Systems
-
History Source: Patient
All other systems: Reviewed and negative
Physical Exam
-
General: Well Developed, Well Nourished, No Apparent Distress and Comfortable
HEENT: Normocephalic, Atraumatic, Moist Mucous Membranes and Anicteric
Respiratory: Clear to Auscultation and Non Labored Respirations; Negative Accessory Resp Muscle Use
Cardiac: Regular Rhythm, S1/S2 and Murmur; Negative Rub, JVD or Gallop
GI: Soft, Nontender, Nondistended and Normal Bowel Sounds
Musculoskeletal: No Clubbing, No Cyanosis, No Edema and Other (Crepitus to left shoulder, reduced ROM)
Skin: Warm, Dry, Normal Turgor and Other (No Janeway lesion, Osler node, splinter hemorrhage); Negative Rash
Neuro: AO x 3 and Nonfocal/Grossly Intact
Psych: Calm
Data Reviewed
-
Labs: Labs Reviewed by me, Discussed with Physician (ID attending) and Discussed with Patient
[2024-12-23 15:05] VITALS: BP 95/54
[2024-12-23] MEDS: LOVENOX 40 MG SC (17:03)
[2024-12-23 19:30] VITALS: BP 110/57
[2024-12-23 23:32] VITALS: BP 136/63
[2024-12-24] VITALS (34 sets, daily range): BP systolic 77–111; BP diastolic 51–81; BMI 25.8; BMI 26.2
[2024-12-24 06:58] LABS: Blood Urea Nitrogen 26 mg/dl (9-20); Calcium 8.3 mg/dl (8.4-10.2); Carbon Dioxide 31 mmol/L (22-30); Chloride 95 mmol/L (98-107); Estimated Creatinine Clearance 66 ml/min; Glucose 116 mg/dl (70-99); Potassium 3.9 mmol/L (3.5-5.1); Sodium 133 mmol/L (135-145); eGFR > 60.00
[2024-12-24 07:13] LABS: Hematocrit 37.5 % (39.0-52.0); Hemoglobin 12.4 g/dL (13.0-18.0); Mean Corp Hgb Conc. 33.1 g/dL (33.0-37.0); Mean Corpuscular Hgb 28.6 pg (27.0-31.0); Mean Corpuscular Volume 86.4 fL (80.0-94.0); Mean Platelet Volume 9.5 fL (7.4-10.4); Platelet Count 248 10^3/uL (130-400); Red Blood Cell Count 4.34 10^6/uL (4.70-6.10); Red Cell Dist. Width 15.5 % (11.5-14.5); White Blood Cell Count 68.4 10^3/uL (4.8-10.8)
[2024-12-24] MEDS: DIOVAN PO (08:23)
[2024-12-24] MEDS: LIDOCAINE 4% PATCH 1 PATCH TOPICAL (08:23)
[2024-12-24] MEDS: LOW STRENGTH ASPIRIN 81 MG PO (08:24)
[2024-12-24] MEDS: TYLENOL 1000 MG PO (08:24)
[2024-12-24 09:07] LABS: % Basophils 0.1 % (0-2); % Immature Granulocytes 0.6 % (0-0.5); % Lymphocytes 73.3 % (20.5-51.1); % Monocytes 0.9 % (1.7-9.3); % Neutrophils 25.1 % (42.2-75.2); Absolute Basophils 0.1 10^3/uL (0-0.2); Absolute Immature Granulocytes 0.4 10^3/uL (0-0.05); Absolute Lymphocytes 50.2 10^3/uL (1.2-3.4); Absolute Monocytes 0.6 10^3/uL (0.1-0.6); Absolute Neutrophils 17.2 10^3/uL (1.4-6.5); Nucleated Red Blood Cells % 0 % (-)
--- NOTE | 2024-12-24 11:36 | W.PN.HOSP.TC ---
Today's Communication/Plan
-
Continue IV daptomycin
Follow cultures
Telemetry
Stool softener
ID recommendations appreciated
Assessment / Plan
Assessment / Plan
#MSSA bacteremia
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
# S/P TAVR
#MRI with enhancement of left psoas muscle (traumatic tear > Myositis)
-High suspicion for MRSA endocarditis with persistent bacteremia in context of prosthetic valve
-MRI of T-spine without signs of osteodiscitis; MRI C and L-spine with enhancement of left psoas
-TTE and RICKI both without obvious vegetations noted on cardiac valves including prosthetic valve
-Currently on daptomycin 1 g every 24 hours; blood cultures from 12/20 remain negative at 72 hours
-Suspect that enhancement of the left psoas is more related to recent trauma ; CK was 20
-Has CLL with accompanying immunosuppression that is likely contributing to infection
Plan
-Continue daptomycin 1 g every 24 hours
-Follow repeat blood cultures for final result
-Trend temperature curve
-May ultimately require valve replacement versus extended antibiotic course
#Cardiomyopathy
-Unclear etiology; previously had workup for ischemia that was unremarkable
-Transthoracic echocardiogram here with dilated LV, ejection fraction near 30%
-No signs of clinically decompensated heart failure; remains euvolemic and on RA
-Has been started on ARB for GDMT; avoiding beta-mitch due to WAP/AVB
-Continue to monitor I's/O's and weights, respiratory status on room air
-Will need repeat echocardiogram with consideration for ICD as OP
#New onset atrial fibrillation
#H/O Wandering atrial pacemaker
#H/O first-degree AVB
-Nonvalvular; [id number] score 6; has history of frequent falls with significant bleeding
-Not currently on any rate/rhythm control nor anticoagulants
-Heart rate currently WNL
-Continue on telemetry
#Nondisplaced left 2nd and 5th rib fractures
-Continue with as needed analgesics and IS
#Nonobstructive CAD
#Dyslipidemia
-Home regimen includes aspirin for primary prevention
-Not currently on beta-mitch, statin
#Chronic lymphocytic leukemia
-Not currently on any chemotherapeutic or immune modulating regimen
-Likely stage 0, likely in the wait and watch stage
-Does have associated immunosuppression
#Psoriatic arthritis
-Not currently on any DMARD therapy, on meloxicam as needed
#BPH
-Home regimen does not include tamsulosin nor alpha-1 reductase inhibitor
-No signs of bladder outlet obstruction
#DJD/DDD
-MRI C, T, L-spine with multiple degenerative findings including canal stenosis, foraminal narrowing
-Patient also complaining of left shoulder stiffness, recently also had trauma with x-ray
-Recent left shoulder x-ray showed glenohumeral and AC osteoarthritis
-Will consult orthopedics, likely will need OP follow-up
#LUE weakness
-Differentials include frozen shoulder versus rotator cuff tear; low suspicion for CVA
-Musculoskeletal in nature, recently had fall with traumatic injuries
-Currently with almost no strength to his LUE, has ROM passively
-Will consider MRI of the left shoulder here
Diet: Regular
DVT prophylaxis: SQ Lovenox
CODE STATUS: DNR
Disposition: SNF when medically stable
Anticipated Discharge: > 48 hours
Subjective/Interval History
-
Date of Service: December 24, 2024
Seen and examined at the bedside. No acute events reported overnight. AFVSS as of this morning
Labs are fairly stable today. Patient states he feels constipated and request stool softener
Otherwise denies any new complaints as of this morning
Objective Data
-
Labs:
Laboratory Results
12/24/24
05:43
WBC 68.4 H*
Hgb 12.4 L
Hct 37.5 L
Plt Count 248
Sodium 133 L
Potassium 3.9
Chloride 95 L
Carbon Dioxide 31 H
BUN 26 H
Creatinine 1.0
Glucose 116 H
Calcium 8.3 L
Vital Signs:
Vital Signs
Temp Pulse Resp BP Pulse Ox
99.1 F 79 17 91/54 99
12/24/24 11:05 12/24/24 11:05 12/24/24 11:05 12/24/24 11:05 12/24/24 11:05
I&O
12/23/24 12/24/24 12/25/24
06:59 06:59 06:59
Intake Total 960 / 960 2160 / 2160
Output Total 600 / 600 1225 / 1225
Balance 360 / 360 935 / 935
Review of Systems
-
History Source: Patient
All other systems: Reviewed and negative
Physical Exam
-
General: Well Developed, Well Nourished, No Apparent Distress and Comfortable
HEENT: Normocephalic, Atraumatic, Moist Mucous Membranes and Anicteric
Respiratory: Clear to Auscultation and Non Labored Respirations; Negative Accessory Resp Muscle Use
Cardiac: Regular Rhythm, S1/S2 and Murmur; Negative Rub, JVD or Gallop
GI: Soft, Nontender, Nondistended and Normal Bowel Sounds
Musculoskeletal: No Clubbing, No Cyanosis and No Edema
Skin: Warm, Dry and Normal Turgor; Negative Rash
Neuro: AO x 3 and Nonfocal/Grossly Intact; Negative Tremors
Psych: Calm
Data Reviewed
-
Labs: Labs Reviewed by me, Discussed with Physician (ID) and Discussed with Patient
[2024-12-24] MEDS: SENOKOT-S 1 TABLET PO (12:05)
[2024-12-24] MEDS: CUBICIN 20 MG IV (12:06)
--- NOTE | 2024-12-24 14:30 | W.PN.ID1 ---
Date of Service
Date of Service: December 24, 2024
Today's Communication
Continue abx. See below...
Assessment / Plan
Sustained MRSA bacteremia
- blood cultures clear x 72 hours
Fever
Recurrent falls
Aortic stenosis; Hx TAVR (2023; [facility])
Thoracic back discomfort
Elevated ESR and CRP
CLL
Psoriatic arthritis
HTN
Recommendations:
Given presence of TAVR, concern at this point in time is for prosthetic valve endocarditis, although TTE and RICKI did not reveal a vegetation.
MRI spine (C/T/L) negative for epidural abscess.
Continue daptomycin (began 12/18 @ 1430).
Given ongoing bacteremia, add ceftaroline 600 mg IV q 12
Continue serial blood cultures to assess clearance of bacteremia
Follow CPK while on daptomycin.
Monitor white count and temperature curve.
����������������������������������������������������������
Chief Complaint
-: Bacteremia
Subjective / Review of Systems
Review of Systems: No Fever
Vital Signs / Physical Exam
Vital Signs
Vital Signs
Temp Pulse Resp BP Pulse Ox
99.1 F 79 17 91/54 96
12/24/24 11:05 12/24/24 11:05 12/24/24 11:05 12/24/24 11:05 12/24/24 13:34
Physical Exam
Constitutional: Comfortable, Chronically Ill and Non-toxic
Eyes: No Conjunctival Hemorrhage and Sclera Anicteric
Cardiovascular: Regular Rate, S1/S2 and Murmur; Negative S3/S4
Pulmonary: Clear and Non Labored
Gastrointestinal: Soft, Non Tender and Non Distended
Extremities: Negative Splinter Hemorrhage or Janeway Lesions
Musculoskeletal: Negative Spinal Tenderness
Wound: Other (Left knee abrasions; right hinduism with sutures)
Neurological: Awake and Alert
Psychological: Calm
Objective Data
Lab Data
Lab Results
12/24/24 05:43
12/24/24 05:43
ESR 41 mm/hour (0-20) H 12/16/24 07:33
Estimated Creat Clear 66 ml/min 12/24/24 05:43
Lactic Acid 0.9 mmol/L (0.7-2.0) 12/14/24 13:20
Total Bilirubin 1.2 mg/dl (0.2-1.3) 12/14/24 13:20
AST 23 U/L (17-59) 12/14/24 13:20
ALT 20 U/L (0-50) 12/14/24 13:20
Alkaline Phosphatase 96 U/L (38-126) 12/14/24 13:20
C-Reactive Protein 236.50 mg/L (0.0-10.00) H 12/16/24 07:33
Most recent labs reviewed.
Micro Results:
12/23/24 17:56 Blood Culture - Preliminary
Blood/Venous Positive culture in progress
Gram Stain - Preliminary
12/20/24 12:19 Blood Culture - Preliminary
Blood/Venous No Growth in 4 days- Final report to follow
12/20/24 12:03 Blood Culture - Preliminary
Blood/Venous No Growth in 4 days- Final report to follow
12/23/24 17:08 Blood Culture - Preliminary
Blood/Venous Positive culture in progress
Gram Stain - Final
12/15/24 23:11 Blood Culture - Final
Blood/Venous Staph aureus MRSA
Gram Stain - Final
12/15/24 22:19 Blood Culture - Final
Blood/Venous Staph aureus MRSA
Gram Stain - Final
12/18/24 14:43 Blood Culture - Preliminary
Blood/Venous Staph aureus MRSA
Gram Stain - Preliminary
12/18/24 13:15 Blood Culture - Preliminary
Blood/Venous Staph aureus MRSA
Gram Stain - Preliminary
12/14/24 13:20 Blood Culture - Final
Blood/Venous Staph aureus MRSA
Gram Stain - Final
12/14/24 14:36 Blood Culture - Final
Blood/Venous Staph aureus MRSA
Gram Stain - Final
12/14/24 14:36 Urine Culture - Final
Urine NO GROWTH
12/14/24 21:22 MRSA Screen - Final
Nose No Methicillin Resistant Staphylococcus aureus isolated.
12/14/24 13:20 Influenza Types A & B (JUAN LUIS) - Final
Nasal Swab Negative for Influenza A & B, NAAT
Negative results must be combined with clinical observations
and patient history.
Nucleic Acid Amplification test (NAAT)performed on the
[employer] platform.
Imaging:
12/23/2024 MRI lumbar spine: Small amount of fluid signal intensity in the L5/S1 intervertebral disc. Moderate to severe enhancing edema in the left psoas muscle.
12/23/2024 MRI cervical spine: Acute bone marrow edema in the left T2 transverse process surrounded by moderate enhancing soft tissue edema. Possibilities include acute traumatic injury or possible acute osteomyelitis.
12/16/2024 MRI thoracic spine: Moderate loss of height of the T5 vertebral body with associated small Schmorl's node. Mild hyperintense signal within the anterior aspect of the vertebral body favored to represent acute on chronic compression
fracture, and less likely to be discitis or osteomyelitis.
12/14/2024 CXR (ribs): Nondisplaced fractures of the left 2nd and 5th ribs identified on the cervical spine CT from 12/14 I last well seen by radiograph. No other acute rib fractures definitively appreciated by this radiograph. Please see full
dictation for additional detail.
Cardiac Imaging:
12/18/2024 ECHO (RICKI): EF approximately 35%. Well-seated and normally functioning bioprosthetic aortic valve. No evidence of regurgitation. No vegetation noted.
12/16/2024 ECHO (TTE): Moderately reduced LV systolic function with an EF approximately 30%. Global hypokinesis. Mild mitral regurgitation. Well-seated, normally functioning bioprosthetic aortic valve.
Care Review
Plan reviewed with: Other (Clinical ID Pharmicist)
[2024-12-24 15:06] LABS: Glucose - Point of Care 143 mg/dl (70-99)
--- NOTE | 2024-12-24 15:16 | CON.NEURO4 ---
Addendum entered and electronically signed by Conrado Álvarez MD 12/24/24 16:33:
Studies reviewed.
I have personally examined the patient. I reviewed and agree with the POUNDMASTER's Note.
My addenda:
Awake, alert, interactive. No acute distress.
Speech intact.
Follows 2-step requests w/o difficulty. No tremor.
Extra-ocular movements grossly intact.
Facial movements full and symmetric. Hearing intact to normal conversational volume.
Normal UE movements bilaterally.
Neck: full ROM.
Chest: no dyspnea
Heart: no JVD
Ext: (-) Clubbing, (-) Cyanosis, (-) Edema
IMPRESSIONS/RECOMMENDATIONS:
Abrupt onset of change in mental status in a patient with known MRSA bacteremia and new decline in oxygenation as well as acute onset emesis
Most likely etiology still remains toxic metabolic encephalopathy. Differential diagnosis would include septic emboli to the brain based on the patient's reduced mobility of his left lower extremity and left upper extremity comparatively
Patient was not a candidate for tenecteplase due to high risk of that medication producing hemorrhagic changes if the patient does have septic emboli. The patient was not a candidate for intra-arterial thrombectomy due to likely high risk of the
procedure
Check MRI of brain when possible
NIH stroke scales to be performed
Continue aspirin until clarity regarding stroke or absence of same
Provide atorvastatin when able to take by mouth
Goal of normotension at this time
Goal of normoglycemia
Rehabilitation evaluations
Continue aspirin
Will continue to follow patient.
Original Note:
Documented by User: Cheri Feldman NP 12/24/24 16:01
Consultation - Neurology 4
-
CONSULTING PHYSICIAN: Conrado Álvarez MD
REFERRING PHYSICIAN: Hospitalists/Dr. Vogt
DICTATED BY: MARISSA Longo
DATE/TIME OF REQUEST: 12/24/24
DATE/TIME OF CONSULTATION: 12/24/24
Reason for Consultation: Stroke Alert
History of Present Illnes
This is an 84-year-old male who has presented to the hospital on 12/14/24 with report of a fall with left head trauma. Patient has reportedly had multiple falls over the past several months with one resulting in left shoulder pain. CT head was
obtained on initial arrival and was negative for any acute findings. Chest/ribs xray demonstrated left 2nd and 5th rib fractures. Temperature was 103.1. Blood cultures +MRSA. He was reporting back pain which led to MRI imaging of his cervical,
thoracic, and lumbar spine, negative for an infectious source. RICKI failed to demonstrate vegetation, but do to unclear infectious source there is concern for prosthetic valve endocarditis.
Today (12/24/24), he was in his usual state (AAOx2-3, conversant and following commands). Around 1500 he was noted by nursing staff noted him to be minimally responsive, not following commands, nonverbal, and hypoxic in the 80's on room air. A
stroke alert was activated due to change in mental status. CT head was obtained and is negative for any acute findings. Patient began vomiting in CT scan. NIHSS is 11 but is severely limited due to lack of cooperation. He is not a candidate for
TNK/IAT due to unclear diagnosis, multiple metabolic disturbances, and possibility of infectious emboli. He is taking aspirin 81mg daily for cardiac purposes. CT head demonstrates a small chronic pontine lacunar infarct, there was no documentation
of a known old stroke prior to this imaging finding.
Past Medical History: CLL, severe aortic stenosis, CAD, HFrEF, wandering atrial pacemaker, HLD, psoriatic arthritis, BPH
Surgical History: TAVR, b/l knee replacement, left rotator cuff repair, left hip replacement
Family History: Reviewed and noncontributory.
Social History: Denies tobacco, alcohol, and illicit drug use.
Allergies: Latex, formaldehyde, pollen extracts, petroleum products.
Home Medications: See below.
Review of Symptoms:
ROS limited due to minimally conversant.
�Per the HPI.�All systems are reviewed negative except above.
Physical Exam:
The patient is afebrile, abdomen is nondistended, breathing is unlabored on oxygen via nasal cannula, skin is warm and dry, no edema.
NIH Stroke Scale:
I performed the NIH stroke scale on the patient on 12/24/24 at 1530. The patient scored 11 points on the NIH stroke scale assessment, which were assigned as follows: See below.
Neurologic Examination:
The patient is mildly lethargic, opens eyes to voice/spontaneously. Oriented x 3 after repetitive questioning. He is able to follow some commands and answer some questions appropriately. There is no apparent aphasia or dysarthria but verbal
responses are reduced. Speech is hypophonic. On cranial nerve assessment, pupils are 3 mm bilateral, round and reactive to light and accommodation. Visual josé are challenging to assess but appear full. Extraocular movements are intact. There is
no facial asymmetry. Hearing is intact bilaterally to normal conversation volume. MICHAELA tongue/palate. Motor strengths are 5/5 right upper, 3/5 left upper (limited due to pain) and 2/5 bilateral lower extremities on medical research Orient scale.
There is no involuntary movement noted. MICHAELA double simultaneous stimulation. MICHAELA coordination.
Lab Results: See below.
Neuro Imaging:
1. CT Head 12/24/24: No acute intracranial abnormality. ASPECT score: 10. Small chronic lacunar infarct in the lorenzo.
Differentials for the patient's presentation include:
1. Change in mental status likely due to multiple metabolic disturbances in the setting of MRSA sepsis; cannot entirely exclude septic embolic as cause given possible infectious endocarditis.
2. CT head negative for any acute findings. Chronic pontine lacunar infarct on CT head imaging.
Patient has the following risk factors for their symptoms: Sepsis, vomiting, possible endocarditis, old lacunar stroke on CT head imaging
IV Tenecteplase/IAT candidacy: He is not a candidate for TNK/IAT due to unclear diagnosis, multiple metabolic disturbances, and possibility of infectious emboli.
Recommendations:
-Continue aspirin 81mg daily.
-MRI brain noncontrast pending.
-LDL goal <70 given old lacunar infarct. Lipid panel pending. Would initiate atorvastatin 40mg daily.
-Goal normoglycemia, hbA1c is pending.
-Checking blood work for additional metabolic abnormalities, vitamin B12 was previously low.
-NIHSS and neurological checks per unit guidelines.
-Provide patient with a stroke education packet.
-PT/OT/ST evaluations.
-DVT prophylaxis.
-Will follow pending results.
Discussed patient care with: Dr. Álvarez, Dr. Vogt, the patient
Vital Signs and Labs
-
Vital Signs and Labs:
Vital Signs
Temp Pulse Resp BP Pulse Ox
99.1 F 79 17 91/54 96
12/24/24 11:05 12/24/24 11:05 12/24/24 11:05 12/24/24 11:05 12/24/24 13:34
Lab Results
12/24/24 05:43
12/24/24 05:43
Sodium 133 mmol/L (135-145) L 12/24/24 05:43
Potassium 3.9 mmol/L (3.5-5.1) 12/24/24 05:43
BUN 26 mg/dl (9-20) H 12/24/24 05:43
Glucose 116 mg/dl (70-99) H 12/24/24 05:43
Calcium 8.3 mg/dl (8.4-10.2) L 12/24/24 05:43
Medications
-
Active Medications
Generic Name Dose Route Start Last Admin
Trade Name Freq PRN Reason Stop Dose Admin
Acetaminophen 1,000 mg 12/14/24 22:00 12/24/24 08:24
Acetaminophen 500 Mg Tablet PO 01/11/25 21:59 1,000 mg
TID GRACIE Administration
Aspirin 81 mg 12/15/24 08:00 12/24/24 08:24
Aspirin 81 Mg Chewable Tablet PO 01/12/25 07:59 81 mg
DAILY GRACIE Administration
Enoxaparin Sodium 40 mg 12/14/24 18:00 12/23/24 17:03
Enoxaparin Sodium 40 Mg/0.4 Ml Syringe SC 01/11/25 17:59 40 mg
QPM GRACIE Administration
Daptomycin 1,000 mg/ Device 20 mls @ 0 mls/hr 12/18/24 13:00 12/24/24 12:06
IV 02/15/25 13:01 20 mls
Q24H GRACIE Administration
As Directed
Ceftaroline Fosamil 600 mg/ 270 mls @ 135 mls/hr 12/24/24 15:00
Sodium Chloride IV
Q8 GRACIE
Lidocaine 1 patch 12/14/24 13:30 12/24/24 08:23
Lidocaine 4% Topical Patch TOPICAL 01/11/25 13:29 1 patch
DAILY GRACIE Administration
Protocol
Midodrine 5 mg 12/15/24 05:40
Midodrine 5 Mg Tablet PO 01/12/25 05:39
Q4HPRN PRN
sbp<90
Patch Removal 0 patch 12/14/24 20:00 12/23/24 21:15
Remove Lidocaine Patch REMOVE 01/11/25 19:59 1 patch
DAILY@2000 GRACIE Administration
Sodium Chloride 0 flush 12/14/24 16:00
Sodium Chloride 0.9% (Flush) Syringe IV 01/11/25 15:59
PER PROTOCOL GRACIE
Tramadol HCl 25 mg 12/14/24 15:25 12/20/24 20:27
Tramadol Hcl 50 Mg Tablet PO 01/11/25 15:24 25 mg
Q6HPRN PRN Administration
severe pain
Valsartan 40 mg 12/16/24 20:00 12/24/24 08:23
Valsartan 40 Mg Tablet PO 01/13/25 19:59 Not Given
BID GRACIE
Home Medications
�Medication �Instructions �Recorded
aspirin 81 mg chewable tablet 81 mg PO DAILY Blood clot 12/06/23
(Children's Aspirin) prevention/tx #0 tabs
glucosamine-chondroitin 250 mg-200 2 tab PO DAILY Supplement 12/25/23
mg tablet (Osteo Bi-Flex)
omega 3-fwc-ssk-fish oil 1,200 mg 1 cap PO DAILY Supplement 12/25/23
(144 mg-216 mg) capsule (Fish Oil)
cholecalciferol (vitamin D3) 50 50 mcg PO DAILY Supplement 04/26/24
mcg (2,000 unit) capsule (Vitamin
D3)
cyanocobalamin (vitamin B-12) 1,000 mcg PO DAILY Supplement 04/26/24
1,000 mcg tablet
diphenhydramine HCl 25 mg capsule 25 mg PO HS Sleep 11/13/24
(Benadryl)
meloxicam 15 mg tablet 15 mg PO DAILY Anti-Inflammatory 11/13/24
NIH Stroke Score
Subsequent NIH Scale
Date of Subsequent NIH Scale: 12/24/24
Time of Subsequent NIH Scale: 15:30
NIH Stroke Score
Level of Consciousness: 1 - Arousable
LOC Questions: 0-Answers both correctly
LOC Commands: 2-Performs neither correctly
Best Horizontal Gaze: 0-Normal
Visual José: 0=Normal, no visual loss
Facial Palsy: 0=Normal, symmetrical
Motor - Right Arm: 0=No drift 10 seconds
Motor - Left Arm: 2=Partial vs. gravity (limited due to pain)
Motor - Right Le-None vs. gravity
Motor - Left Le-None vs. gravity
Limb Ataxia: 0-Absent
Sensation: 0-Normal
Best Language: 0-No aphasia (minimal conversation)
Dysarthria: 0-Normal
Extinction and Inattention: 0-No abnormality
Total Score:: 11
Modified Lincoln (mRS) Score
Modified Lincoln Scale (mRS): Moderately severe disability. Unable to attend to bodily needs/walk.
Score: 4
Alteplase Contraindication
Inclusion and Exclusion criteria reviewed: Yes

Documented by User: Conrado Álvarez MD 12/24/24 16:15
NIH Stroke Score
NIH Stroke Score
Total Score:: 11
Modified Lincoln (mRS) Score
Score: 4
Past History
Past History
ED Past Medical History: Arrthythmia, CAD, Cancer (CLL), CHF, Hypercholesterolemia and Other (MRSA bacteremia, severe aortic stenosis, psoriatic arthritis, BPH)
ED Past Surgical History: Cardiac (TAVR) and Orthopedic (Bilateral knee replacements, left rotator cuff repair, left hip replacement)
Social History
Tobacco: Non-smoker
Alcohol: None
Drug: None
Living: with family
Family History
Family History: Other (Reviewed and noncontributory)
Medications
-
Medications:
Generic Name Dose Route Start Last Admin
Trade Name Freq PRN Reason Stop Dose Admin
Acetaminophen 1,000 mg 12/14/24 22:00 12/24/24 08:24
Acetaminophen 500 Mg Tablet PO 01/11/25 21:59 1,000 mg
TID GRACIE Administration
Aspirin 81 mg 12/15/24 08:00 12/24/24 08:24
Aspirin 81 Mg Chewable Tablet PO 01/12/25 07:59 81 mg
DAILY GRACIE Administration
Enoxaparin Sodium 40 mg 12/14/24 18:00 12/23/24 17:03
Enoxaparin Sodium 40 Mg/0.4 Ml Syringe SC 01/11/25 17:59 40 mg
QPM GRACIE Administration
Daptomycin 1,000 mg/ Device 20 mls @ 0 mls/hr 12/18/24 13:00 12/24/24 12:06
IV 02/15/25 13:01 20 mls
Q24H GRACIE Administration
As Directed
Ceftaroline Fosamil 600 mg/ 270 mls @ 135 mls/hr 12/24/24 15:00 12/24/24 15:55
Sodium Chloride IV 270 mls
Q8 GRACIE Administration
Lidocaine 1 patch 12/14/24 13:30 12/24/24 08:23
Lidocaine 4% Topical Patch TOPICAL 01/11/25 13:29 1 patch
DAILY GRACIE Administration
Protocol
Midodrine 5 mg 12/15/24 05:40
Midodrine 5 Mg Tablet PO 01/12/25 05:39
Q4HPRN PRN
sbp<90
Patch Removal 0 patch 12/14/24 20:00 12/23/24 21:15
Remove Lidocaine Patch REMOVE 01/11/25 19:59 1 patch
DAILY@2000 GRACIE Administration
Sodium Chloride 0 flush 12/14/24 16:00
Sodium Chloride 0.9% (Flush) Syringe IV 01/11/25 15:59
PER PROTOCOL GRACIE
Tramadol HCl 25 mg 12/14/24 15:25 12/20/24 20:27
Tramadol Hcl 50 Mg Tablet PO 01/11/25 15:24 25 mg
Q6HPRN PRN Administration
severe pain
Valsartan 40 mg 12/16/24 20:00 12/24/24 08:23
Valsartan 40 Mg Tablet PO 01/13/25 19:59 Not Given
BID GRACIE
--- NOTE | 2024-12-24 15:16 | RR ---
A Rapid Response was called on this patient, please see Rapid Response form.
Pt noted to struggle to follow commands around 1450. Previously he was AAOx3, no issues moving or holding conversation. Upon assessment, PERRLA, Unable to smile or raise eye brows. Unable to lift arms and legs by himself. Blood sugar 143, EKG
completed, Vitals WNL except for 83% O2. Nasal cannula applied at 2 L. Rapid response called. Team arriving at bedside to assess. Neurologist present. Pt transported to CAT scan.
--- NOTE | 2024-12-24 15:35 | CM ---
Patient transferred to IMU this afternoon. Still receiving IV abx for MRSA bacteremia, concern for valve endocarditis.
CM to continue to follow.
[2024-12-24] MEDS: TEFLARO 270 MG IV ×2 (15:55→23:43)
--- NOTE | 2024-12-24 15:56 | W.PN.UPDATE ---
Update Note
Progress Note Update
Responded to stroke alert earlier. Late documentation
Traveled with the patient to CAT scan and back to ICU room 3360 with neurology and rapid response team
Patient is a poor historian could not give any history
Patient vomited in CAT scan and also upstairs
He denies any headache
On examination no facial asymmetry noted
Left-sided facial injury with sutures
Does not follow directions properly even though awake very slow to respond eyes open
No visual field cut
Will not raise his arms states he has pain in the left arm
Able to lift up left leg slightly from the bed
Will not move right
CT head no acute changes. Patient does have white matter changes
Plan
Exam is very difficult
No focal signs
It is quite possible that he could have had embolic [id number] MRSA bacteremia
Blood cultures from 12/15/2024 positive more blood cultures ordered for today
Continue daptomycin and Teflaro
Check MRI of the brain
No thrombolytics
Neurochecks
Since patient is vomiting-check x-ray of the abdomen
Keep n.p.o. for now
Speech evaluation PT OT evaluation
D/W RR team and neuro
Transferred to IMU
Called primary and secondary contacts , went to messages
Total Critical Care Time 39 minutes. I was immediately available to the patient and staff. I personally examined, reviewed labs, diagnostic images/reports, interpretations, treatment plans, discussed patient care with other providers , entered
orders as appropriate and documented the medical record.
Left message for primary contact
--- NOTE | 2024-12-24 16:06 | CON.INTV ---
Consultation
Consultation Request
Date/Time Consultation Requested: 12/24/24-4 p.m.
Date/Time Consultation Performed: 12/24/24-4 p.m.
Requesting Provider: Dr. Becerra
Performing Provider: Dr. Aguilar
Reason for Consultation: sepsis/aspiration/critical care management
Medical History
-
Chief Complaint: shortness of breath
History of Present Illness:
84-year-old male with a history of CLL, CAD, cardiomyopathy, psoriatic arthritis, who recently underwent TAVR and was admitted with sepsis, septic emboli who had episode of emesis, aspiration, lethargy and hypoxemia requiring transfer to
ICU-margin clerk consulted for respiratory decompensation/aspiration/critical care management 12/24/24. The patient is quite lethargic but answering some questions appropriately. He does complain of some shortness of breath, chest congestion,
difficulties mobilizing his secretions but offers no complaints of chest pain, abdominal pain. He did not have abdominal distention and had an episode of emesis and probable witnessed aspiration. Nasogastric tube was subsequently placed. He has
mild lower extremity edema and generalized weakness.
Past Medical History
Past Medical History: None ( CAD. Aortic stenosis/TAVR are. CLL. Hyperlipidemia. Psoriatic arthritis. BPH. Left rotator cuff. Left hip replacement. Bilateral knee replacement.)
Social History
Tobacco: Non-smoker
Alcohol: None
Drug: None
Living: Alone
Occupational Exposures: No known asbestos exposure
Environmental Exposures: no known tuberculosis exposure
Family History
Family History: Reviewed & Not Pertinent
Allergies / Home Medications
Allergies
Allergy/AdvReac Type Severity Reaction Status Date / Time
formaldehyde [Formaldehyde] Allergy Rash Verified 12/14/24 07:44
latex [Latex] Allergy Rash Verified 12/14/24 07:44
pollen extracts Allergy congestion Verified 12/14/24 07:44
petroleum products Allergy Rash Uncoded 12/14/24 07:44
Home Medications
�Medication �Instructions �Recorded �Confirmed �Last Taken �Type
aspirin 81 mg chewable tablet 81 mg PO DAILY Blood clot 12/06/23 12/14/24 12/14/24 Rx
(Children's Aspirin) prevention/tx #0 tabs
glucosamine-chondroitin 250 mg-200 2 tab PO DAILY Supplement 12/25/23 12/14/24 12/14/24 History
mg tablet (Osteo Bi-Flex)
omega 3-pqb-ger-fish oil 1,200 mg 1 cap PO DAILY Supplement 12/25/23 12/14/24 12/14/24 History
(144 mg-216 mg) capsule (Fish Oil)
cholecalciferol (vitamin D3) 50 50 mcg PO DAILY Supplement 04/26/24 12/14/24 12/14/24 History
mcg (2,000 unit) capsule (Vitamin
D3)
cyanocobalamin (vitamin B-12) 1,000 mcg PO DAILY Supplement 04/26/24 12/14/24 12/14/24 History
1,000 mcg tablet
diphenhydramine HCl 25 mg capsule 25 mg PO HS Sleep 11/13/24 12/14/24 12/13/24 History
(Benadryl)
meloxicam 15 mg tablet 15 mg PO DAILY Anti-Inflammatory 11/13/24 12/14/24 12/14/24 History
Review of Systems
-
Unable to Obtain full review of systems at this time due to: Other ( per HPI)
Vitals / Labs / Diagnostic Testing
Vital Signs
Temp Pulse Resp BP Pulse Ox
99.0 F 79 17 91/54 96
12/24/24 15:58 12/24/24 11:05 12/24/24 11:05 12/24/24 11:05 12/24/24 13:34
Microbiology
12/23/24 17:56 Blood/Venous Blood Culture - Preliminary
Positive culture in progress
12/23/24 17:56 Blood/Venous Gram Stain - Preliminary
12/20/24 12:19 Blood/Venous Blood Culture - Preliminary
No Growth in 4 days- Final report to follow
12/20/24 12:03 Blood/Venous Blood Culture - Preliminary
No Growth in 4 days- Final report to follow
12/23/24 17:08 Blood/Venous Blood Culture - Preliminary
Positive culture in progress
12/23/24 17:08 Blood/Venous Gram Stain - Final
12/15/24 23:11 Blood/Venous Blood Culture - Final
Staph aureus MRSA
12/15/24 23:11 Blood/Venous Gram Stain - Final
12/15/24 22:19 Blood/Venous Blood Culture - Final
Staph aureus MRSA
12/15/24 22:19 Blood/Venous Gram Stain - Final
Diagnostic Testing:
Physical Exam
-
Exam:
well-nourished and well-developed in no apparent distress
HEENT-atraumatic, normocephalic
Neck-supple, no JVD, no bruit
Heart-regular rate and rhythm-no murmurs, rubs or gallops
chest with diminished breath sounds, rhonchi and rales throughout anteriorly as well as posteriorly and laterally
Abdomen-soft, distended, nontender
Extremities-no cyanosis, clubbing, edema and good peripheral pulses
Integument-intact, no rashes, lesions or ecchymosis
Neurologically lethargic, moving extremities, answering some questions, grossly nonfocal
Assessment
-
84-year-old male with a history of CLL, CAD, cardiomyopathy, psoriatic arthritis, who recently underwent TAVR and was admitted with sepsis, septic emboli who had episode of emesis, aspiration, lethargy and hypoxemia requiring transfer to
ICU-margin clerk consulted for respiratory decompensation/aspiration/critical care management 12/24/24.
Aspiration event/aspiration pneumonia
MRSA bacteremia
Sepsis
Septic emboli
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
Elevated ESR and CRP
Recent fall with left-sided head trauma /
Left 2nd and 5th rib fracture
Lymphocytosis-CLL
Mild oiwesw-xsusohqmxj-cdcpvzqqau 12.4
Mild hyperglycemia
Mild hyponatremia
Conditions present prior to admission:
CAD.
Aortic stenosis/TAVR.
CLL.
Hyperlipidemia.
Psoriatic arthritis.
BPH.
Left rotator cuff. Left hip replacement. Bilateral knee replacement.
Plan
Admit patient to medical intensive care unit for persistent hypotension And hypoxemia with probable aspiration event
Supplement oxygen as needed
High flow oxygen if needed
BiPAP if necessary/noninvasive ventilation if needed
Patient is a DNR-not to be intubated
Aspiration precautions continue with head of bed elevation and nasogastric tube decompression
Nebulizers if needed
Cultures reviewed
Repetitive blood cultures positive for MRSA dating back to 12/14/2024
Antibiotics continue-daptomycin and ceftaroline
Serial blood cultures continue
Infectious disease following-correspondence reviewed
Monitor leukocytosis
Intravenous fluid resuscitation
Monitor lactate
Norepinephrine and pressors if needed
Follow hemoglobin
Transfuse if needed
Monitor blood sugar
Insulin supplementation if needed
DVT prophylaxis- On Lovenox
Early nutrition if possible
Early mobilization/bedside range of motion
Critical care statement: A total of 55 minutes of critical care time was provided for this patient today. This includes management of unstable vital signs, evaluation of the patient at bedside, reviewing the patient's pertinent medical records
including radiographs, microbiology, laboratory evaluations, and discussion with primary team, consultants, pharmacy, nutrition, physical therapy, case management, charge nurse, critical care nursing, and respiratory therapy.
Diagnostic data:
Chest x-ray 01/05/2024-mild increased interstitial markings compatible with interstitial fibrosis stable compared to December 26, 2023
Chest/rib films 12/14/24-nondisplaced fractures of the left 2nd and 5th ribs
CT head 12/24/24-no acute intracranial abnormalities
MRI thoracic spine -moderate compression deformities T5, less likely discitis or osteomyelitis
MRI-cervical spine 12/23/24-acute bone marrow edema left T2 transverse process, more likely traumatic injury and less likely infection, severe discogenic disc disease C4, C5, C6, C7, mild spinal cord compression,
MRI-lumbar spine -mild acute infectious discitis or discogenic degenerative disease L5/S1, central canal stenosis,
Echocardiogram 12/16/24-EF 30-35%, stage II diastolic dysfunction, mild mitral regurgitation
RICKI 12/18/24-EF 30-35%, global hypokinesis, well-seated bioprosthetic aortic valve, no evidence for regurgitation, no obvious endocarditis
Data Reviewed
-
EKG: Report reviewed by me
Radiology: Report reviewed by me
CT Scan: Report reviewed by me
MRI: Report reviewed by me
Medical Tests (Nuc Med, Echo etc): Report reviewed by me
Labs: Labs reviewed by me
Old Records: Reviewed
Critical Care Time (in minutes): 55
[2024-12-24 16:15] LABS: Blood Urea Nitrogen 30 mg/dl (9-20); Calcium 8.6 mg/dl (8.4-10.2); Carbon Dioxide 26 mmol/L (22-30); Chloride 93 mmol/L (98-107); Estimated Creatinine Clearance 66 ml/min; Glucose 115 mg/dl (70-99); Hematocrit 40.8 % (39.0-52.0); Hemoglobin 13.3 g/dL (13.0-18.0); Mean Corp Hgb Conc. 32.6 g/dL (33.0-37.0); Mean Corpuscular Volume 85.9 fL (80.0-94.0); Mean Platelet Volume 9.3 fL (7.4-10.4); Platelet Count 268 10^3/uL (130-400); Potassium 4.7 mmol/L (3.5-5.1); Red Blood Cell Count 4.75 10^6/uL (4.70-6.10); Red Cell Dist. Width 15.7 % (11.5-14.5); Sodium 132 mmol/L (135-145); White Blood Cell Count 79.9 10^3/uL (4.8-10.8); eGFR > 60.00
--- NOTE | 2024-12-24 16:20 | PTCARENOTE ---
this rn and charge rn cardiovascular icu were at rapid response- upon arrival Dr. Álvarez ordered these rns to immediately take pt to ct. Dr. Álvarez and Dr. Vogt at bedside and to ct- pt vomited in ct scan. Dr. Álvarez attempted to perform NIH with rns at bedside-
pt intermittently answers questions with mumbled speech and some confusion, remains drowsy, does not lift arms or legs or move extremities. pt winces to pain. Pt was unable to participate fully. see flowsheet for further details. pt transferred to
icu. second episode of vomiting, afib on monitor, bp wnl. pt placed on 2LNC, right nare ngt inserted per order. xray to confirm place, to low int. suction. Dr. Israel at bedside. pt bladder scanned for 60cc, condom cath placed and intact. oral care
provided, turned and repositioned. pt with forehead abrasion and lac with bruising. all safety precautions in place.
[2024-12-24] MEDS: TYLENOL PO (16:22)
--- NOTE | 2024-12-24 16:43 | PTCARENOTE ---
this rn and charge agricultural education professor were at rapid response- upon arrival Dr. Álvarez ordered these rns to immediately take pt to ct. Dr. Álvarez and Dr. Vogt at bedside and to ct- pt vomited in ct scan. Dr. Álvarez attempted to perform NIH with rns at bedside-
pt intermittently answers questions with garbled speech and some confusion, remains drowsy, does not lift arms or legs or move extremities. pt winces to pain. Pt was unable to participate fully. see flowsheet for further details. pt transferred to
icu. second episode of vomiting, afib on monitor, bp wnl. pt placed on 2LNC, right nare ngt inserted per order. xray to confirm place, to low int. suction. Dr. Israel at bedside. pt bladder scanned for 60cc, condom cath placed and intact. oral care
provided, turned and repositioned. pt with forehead abrasion and lac with bruising. all safety precautions in place.
[2024-12-24] MEDS: LOVENOX 40 MG SC (17:10)
[2024-12-24 17:14] LABS: TSH Reflex To Free T4 0.94 uIU/ml (0.47-4.68)
--- NOTE | 2024-12-24 17:29 | PTCARENOTE ---
pt more alert, answers some orientation questions appropriately, speech more clear. pt still unable to move extremities upon command. ngt remains to low int. suction.
[2024-12-24 17:49] LABS: Folate 4.1 ng/ml (2.76-20); Vitamin B12 960 pg/ml (239-931)
--- NOTE | 2024-12-24 18:00 | PTCARENOTE ---
Dr. Israel aware of pts bp, no new orders at this time.
--- NOTE | 2024-12-24 19:15 | PTCARENOTE ---
NIH completed with pilot rn Margaret- NIH 4, pt much more alert, speech clear, see flowsheet for further details
--- NOTE | 2024-12-24 19:45 | PTCARENOTE ---
Rec'd pt asleep, easily arousable, NIH- 6, speech clear, forgetful, needs reorientation to place, time, RAPP to command, left side weaker than R, AZALIA at 3mm,Afib w/ occas pvc, midodrine 5mg po given for bp, weak distal pulses, + edema, skin
warm/dry, sat 90 on 2 liters, O2 incr to 4 liters, sat 96, lungs coarse, decr in bases, enc to use IS- reaches 750;occas cough, hypo bowel sounds, no bm, abd round, soft, R salem to low inter suction draining brown/ green liquid, irrigated w/ 30
h20,pt inc of francisca urine,# 25 condom cath applied
[2024-12-24] MEDS: ProAmatine 5 MG TUBE ×2 (19:46→23:43)
[2024-12-24 20:03] LABS: ALT (SGPT) 21 U/L (0-50); AST (SGOT) 29 U/L (17-59); Albumin 3.1 g/dl (3.5-5.0); Alkaline Phosphatase 108 U/L (38-126); Magnesium 1.9 mg/dl (1.6-2.3); Phosphorus 3.9 mg/dl (2.5-4.5); Total Bilirubin 1.2 mg/dl (0.2-1.3); Total Protein 6.6 g/dl (6.3-8.2)
[2024-12-24] MEDS: TYLENOL ORAL SOLUTION 1000 MG TUBE (21:31)
--- NOTE | 2024-12-24 21:45 | PTCARENOTE ---
B SHELL Cohn aware of bp, 250ml nss bolus hung followed by nss tye 50ml/hr per order
[2024-12-24] MEDS: NSS 250 IV (21:46)
[2024-12-24] MEDS: NSS 1000 IV (22:31)
--- NOTE | 2024-12-24 23:19 | PTCARENOTE ---
Keiry borden NP aware of bp- to cont to monitor
[2024-12-24] MEDS: LEVOPHED 250 IV (23:30)
--- NOTE | 2024-12-24 23:30 | PTCARENOTE ---
Addendum entered by Margaret Chen RN 12/24/24 23:46:
dodrine 5mg po given for bp
Original Note:
levophed started to keep map > 65 per order
--- NOTE | 2024-12-24 23:33 | W.PN.UPDATE ---
Addendum entered and electronically signed by MARISSA Bucio 12/25/24 00:13:
Delete note wrong patient�
Original Note:
Update Note
Progress Note Update
Procedure Note: Arterial Line�
� Left Wrist Arrow 20 (10/29)�
Diagnosis:��Acute respiratory failure
IV Line Comments: Uneventful Procedure�
Jostin's test completed pre-procedure: Yes�
A-Line Comments: Sterile technique as per standard protocol, Ultrasound guided insertion�
Functioning A-line in situ: Yes�
A-line Insertion Start Time:��2245
A-line in at:��2300
[2024-12-25] VITALS (44 sets, daily range): BP systolic 80–113; BP diastolic 48–97; PULSE 72; O2SAT 94; BMI 26.2
--- NOTE | 2024-12-25 | PTCARENOTE ---
sys reviewed. AM labs sent per B SHELL Cohn, bladder scanned for 64ml, CHG bath done, linens changed
[2024-12-25 00:46] LABS: Hematocrit 35.1 % (39.0-52.0); Hemoglobin 11.6 g/dL (13.0-18.0); Mean Corpuscular Hgb 28.2 pg (27.0-31.0); Mean Corpuscular Volume 85.2 fL (80.0-94.0); Mean Platelet Volume 9.2 fL (7.4-10.4); Platelet Count 219 10^3/uL (130-400); Red Blood Cell Count 4.12 10^6/uL (4.70-6.10); Red Cell Dist. Width 15.8 % (11.5-14.5); White Blood Cell Count 81.2 10^3/uL (4.8-10.8)
[2024-12-25 00:53] LABS: INR 1.21; PT 15.6 Sec (11.4-14.6)
[2024-12-25 00:54] LABS: APTT 35.2 Sec (23.4-35.0)
[2024-12-25 00:58] LABS: Blood Urea Nitrogen 36 mg/dl (9-20); Calcium 8.1 mg/dl (8.4-10.2); Carbon Dioxide 27 mmol/L (22-30); Chloride 96 mmol/L (98-107); Estimated Creatinine Clearance 60 ml/min; Glucose 150 mg/dl (70-99); HDL Cholesterol 25 mg/dl; LDL Cholesterol, Calculated 83 mg/dl; Potassium 4.4 mmol/L (3.5-5.1); Sodium 133 mmol/L (135-145); Total Cholesterol 127 mg/dl (50-199); Triglyceride 96 mg/dl (10-149); Very Low Density Lipoprotein 19 mg/dl (0-30); eGFR > 60.00
--- NOTE | 2024-12-25 01:20 | PTCARENOTE ---
sats dropped to 87%, 50 % Venti mask & 12 liters midflow applied by resp therapist- sat 91, to keep sat >90
--- NOTE | 2024-12-25 02:00 | PTCARENOTE ---
Sats 88%, midflow incr to 15 liters, sats still in high 89's, changed to hi flow 55 liters/ 100% o2, sat 92, B SHELL Cohn aware
--- NOTE | 2024-12-25 03:51 | PTCARENOTE ---
sys reviewed, sats 97% on hi flow, bladder scanned for 202 ml
[2024-12-25 04:13] LABS: % Immature Granulocytes 1.1 % (0-0.5); % Lymphocytes 66.6 % (20.5-51.1); % Monocytes 1.1 % (1.7-9.3); % Neutrophils 31.2 % (42.2-75.2); Absolute Immature Granulocytes 0.9 10^3/uL (0-0.05); Absolute Lymphocytes 54.1 10^3/uL (1.2-3.4); Absolute Monocytes 0.9 10^3/uL (0.1-0.6); Absolute Neutrophils 25.3 10^3/uL (1.4-6.5); Nucleated Red Blood Cells % 0 % (-)
--- NOTE | 2024-12-25 07:19 | W.PN.INTV ---
Today's Communication / Plan
Recommendations
increase supplemental oxygen-high flow
Norepinephrine as needed
Antibiotics
Follow blood cultures
Aspiration precautions
Mobilize secretions
Out of bed if tolerated
Prognosis extremely guarded
Assessment
-
84-year-old male with a history of CLL, CAD, cardiomyopathy, psoriatic arthritis, who recently underwent TAVR and was admitted with sepsis, septic emboli who had episode of emesis, aspiration, lethargy and hypoxemia requiring transfer to
ICU-leaf fat scraper consulted for respiratory decompensation/aspiration/critical care management 12/24/24.
Aspiration event/aspiration pneumonia
MRSA bacteremia
Sepsis
Septic emboli
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
Elevated ESR and CRP
Recent fall with left-sided head trauma /
Left 2nd and 5th rib fracture
Lymphocytosis-CLL
Mild hwlhbv-otzvcehupc-juxihidqtf 12.4
Mild hyperglycemia
Mild hyponatremia
Conditions present prior to admission:
CAD.
Aortic stenosis/TAVR.
CLL.
Hyperlipidemia.
Psoriatic arthritis.
BPH.
Left rotator cuff. Left hip replacement. Bilateral knee replacement.
Plan
Remains critically ill with increased FiO2 requirements and hypotension requiring pressors
High flow oxygen as needed-currently on high flow
BiPAP if necessary/noninvasive ventilation if needed
Patient is a DNR-not to be intubated
Aspiration precautions continue with head of bed elevation and nasogastric tube decompression
Nebulizers if needed
Cultures reviewed
Repetitive blood cultures positive for MRSA dating back to 12/14/2024-positive 12/15/24, 12/18/24, 12/23/24 and12/24/24
Antibiotics continue-daptomycin and ceftaroline
Serial blood cultures continue
Infectious disease following-correspondence reviewed
Monitor leukocytosis
Intravenous fluid resuscitation
Monitor lactate
Norepinephrine and pressors if needed-attempt to wean
Follow hemoglobin
Transfuse if needed
Monitor blood sugar
Insulin supplementation if needed
DVT prophylaxis- On Lovenox
Early nutrition if possible
Early mobilization/bedside range of motion
Critical care statement: A total of 42 minutes of critical care time was provided for this patient today. This includes management of unstable vital signs, evaluation of the patient at bedside, reviewing the patient's pertinent medical records
including radiographs, microbiology, laboratory evaluations, and discussion with primary team, consultants, pharmacy, nutrition, physical therapy, case management, charge nurse, critical care nursing, and respiratory therapy.
Diagnostic data:
Chest x-ray 01/05/2024-mild increased interstitial markings compatible with interstitial fibrosis stable compared to December 26, 2023
Chest/rib films 12/14/24-nondisplaced fractures of the left 2nd and 5th ribs
CT head 12/24/24-no acute intracranial abnormalities
MRI thoracic spine -moderate compression deformities T5, less likely discitis or osteomyelitis
MRI-cervical spine 12/23/24-acute bone marrow edema left T2 transverse process, more likely traumatic injury and less likely infection, severe discogenic disc disease C4, C5, C6, C7, mild spinal cord compression,
MRI-lumbar spine -mild acute infectious discitis or discogenic degenerative disease L5/S1, central canal stenosis,
Echocardiogram 12/16/24-EF 30-35%, stage II diastolic dysfunction, mild mitral regurgitation
RICKI 12/18/24-EF 30-35%, global hypokinesis, well-seated bioprosthetic aortic valve, no evidence for regurgitation, no obvious endocarditis
Subjective Dataa
Subjective Data
Date of Service:
Date of Service: December 25, 2024
Chief Complaint: Sample Box Maker Follow Up, Pulmonary Follow Up and Vent Management Follow Up
Subjective:
increased FiO2 requirements, difficulties mobilizing secretions, alert, states that he feels better, 'can I go home', no chest pain or abdominal pain
Review of Systems
General: Other ( Per HPI)
Objective Data
Data Reviewed
Vital Signs / I&O / Oxygen:
Vital Signs
Temp Pulse Resp BP Pulse Ox
98.1 F 64 13 98/60 97
12/25/24 03:48 12/25/24 06:00 12/25/24 06:00 12/25/24 06:00 12/25/24 05:30
Intake and Output
12/24/24 12/25/24 12/26/24
06:59 06:59 06:59
Intake Total 2160 / 2160 1250.0 / 1250.0
Output Total 1225 / 1225 675 / 675
Balance 935 / 935 575.0 / 575.0
SaO2 97
Nasal Cannula flow liters per 55
minute
Physical Exam
General: Respiratory Distress (n) and Comfortable
HEENT: Normocephalic, Anicteric and Moist Mucous Membranes
Cardiovascular: Regular Rhythm and Murmur
Respiratory: Crackles, Rhonchi ( expiratory), Non-Labored Respirations, Accessory Resp Muscle Use (n) and Stridor (n)
GI: Soft, Distended and NG Tube
Neurology: Awake, Alert, No Motor Deficits and Other ( week)
Skin: Warm, Good Color, Cyanosis (n) and Jaundice (n)
Labs/Micro/Reports
Lab Data
12/25/24 00:21
12/25/24 00:21
Laboratory Results
12/25/24
00:21
PT 15.6 H
INR 1.21
APTT 35.2 H
Microbiology
12/23/24 17:56 Blood/Venous Blood Culture - Preliminary
Positive culture in progress
12/23/24 17:56 Blood/Venous Gram Stain - Preliminary
12/20/24 12:19 Blood/Venous Blood Culture - Preliminary
No Growth in 4 days- Final report to follow
12/20/24 12:03 Blood/Venous Blood Culture - Preliminary
No Growth in 4 days- Final report to follow
12/23/24 17:08 Blood/Venous Blood Culture - Preliminary
Positive culture in progress
12/23/24 17:08 Blood/Venous Gram Stain - Final
12/15/24 23:11 Blood/Venous Blood Culture - Final
Staph aureus MRSA
12/15/24 23:11 Blood/Venous Gram Stain - Final
12/15/24 22:19 Blood/Venous Blood Culture - Final
Staph aureus MRSA
12/15/24 22:19 Blood/Venous Gram Stain - Final
--- NOTE | 2024-12-25 08:10 | PTCARENOTE ---
Assumed care of pt at 0715 following shift report and bedside NIHSS assessment completed w/ outgoing shift RN. Pt alert and oriented to person and place. Unsure of year. Following commands appropriately and most conversation appropriate- ?forgetful
at times. Pt NPO per order w/ Rt NGT noted at 65cm to LIWS w/ brown drainage. Levophed gtt at 2mcg/min to maintain MAP >/=65 and NSS @ 50ml/hr. Pt received on HiFlow 60l/100% w/ POx 92-94% at rest, desats to 88% w/ conversation- recovering w/ rest.
No cough. Pt denies SOB. Physical assessment completed as documented. Call her w/in pt reach and safe environment maintained. Order for MRI noted- confirmed w/ Resp therapy that Hiflow unable to be used during MRI. Dr Aguilar aware.
--- NOTE | 2024-12-25 08:14 | W.PN.NEURO.1 ---
Today's Communication / Plan
-
Check MRI of brain when possible
Continue aspirin until clarity regarding stroke or absence of same
Provide atorvastatin when able to take by mouth
Neuro Assessment/Plan
Assessment
Abrupt onset of change in mental status in a patient with known MRSA bacteremia and new decline in oxygenation as well as acute onset emesis
Most likely etiology still remains toxic metabolic encephalopathy. Differential diagnosis would include septic emboli to the brain based on the patient's reduced mobility of his left lower extremity and left upper extremity comparatively
Plan
Check MRI of brain when possible
Continue aspirin until clarity regarding stroke or absence of same
Provide atorvastatin when able to take by mouth
Goal of normotension at this time
Goal of normoglycemia
Rehabilitation evaluations
Will follow pending results
Subjective/Objective
Subjective Data
Date of Service: December 25, 2024
Objective Data
Vital Signs
Temp Pulse Resp BP Pulse Ox
36.4 C 64 13 98/60 93
12/25/24 07:33 12/25/24 06:00 12/25/24 06:00 12/25/24 06:00 12/25/24 07:43
Lab Results
12/25/24 00:21
12/25/24 00:21
PT 15.6 Sec (11.4-14.6) H 12/25/24 00:21
INR 1.21 12/25/24 00:21
APTT 35.2 Sec (23.4-35.0) H 12/25/24 00:21
Sodium 133 mmol/L (135-145) L 12/25/24 00:21
Potassium 4.4 mmol/L (3.5-5.1) 12/25/24 00:21
BUN 36 mg/dl (9-20) H 12/25/24 00:21
Glucose 150 mg/dl (70-99) H 12/25/24 00:21
Calcium 8.1 mg/dl (8.4-10.2) L 12/25/24 00:21
Phosphorus 3.9 mg/dl (2.5-4.5) 12/24/24 15:15
LDL Cholesterol, Calc 83 mg/dl 12/25/24 00:21
Vitamin B12 960 pg/ml (239-931) H 12/24/24 05:43
Patient Allergies
formaldehyde [Formaldehyde] Allergy (Verified 12/14/24 07:44)
Rash
latex [Latex] Allergy (Verified 12/24/24 19:40)
Rash
pollen extracts Allergy (Verified 12/14/24 07:44)
congestion
Past History
Past History
ED Past Medical History: Arrthythmia, CAD, Cancer (CLL), CHF, Hypercholesterolemia and Other (MRSA bacteremia, severe aortic stenosis, psoriatic arthritis, BPH)
ED Past Surgical History: Cardiac (TAVR) and Orthopedic (Bilateral knee replacements, left rotator cuff repair, left hip replacement)
Social History
Tobacco: Non-smoker
Alcohol: None
Drug: None
Living: with family
Family History
Family History: Other (Reviewed and noncontributory)
Medications
-
Medications:
Generic Name Dose Route Start Last Admin
Trade Name Freq PRN Reason Stop Dose Admin
Acetaminophen 1,000 mg 12/24/24 22:00 12/24/24 21:31
Acetaminophen (Oral Solution) 650 Mg/20.3 Ml Cup TUBE 01/21/25 21:59 1,000 mg
TID GRACIE Administration
Aspirin 81 mg 12/25/24 08:00
Aspirin 81 Mg Chewable Tablet TUBE 01/22/25 07:59
DAILY GRACIE
Enoxaparin Sodium 40 mg 12/14/24 18:00 12/24/24 17:10
Enoxaparin Sodium 40 Mg/0.4 Ml Syringe SC 01/11/25 17:59 40 mg
QPM GRACIE Administration
Daptomycin 1,000 mg/ Device 20 mls @ 0 mls/hr 12/18/24 13:00 12/24/24 12:06
IV 02/15/25 13:01 20 mls
Q24H GRACIE Administration
As Directed
Ceftaroline Fosamil 600 mg/ 270 mls @ 135 mls/hr 12/24/24 15:00 12/24/24 23:43
Sodium Chloride IV 270 mls
Q8 GRACIE Administration
Sodium Chloride 1,000 mls @ 50 mls/hr 12/24/24 22:30 12/24/24 22:31
Nss IV 1,000 mls
.Q20H GRACIE Administration
Norepinephrine Bitartrate 4 mg in 250 mls @ 0 mls/hr 12/24/24 23:30 12/24/24 23:30
Levophed IV 250 mls
PER PROTOCOL GRACIE Administration
Protocol
Per Protocol
Lidocaine 1 patch 12/14/24 13:30 12/24/24 08:23
Lidocaine 4% Topical Patch TOPICAL 01/11/25 13:29 1 patch
DAILY GRACIE Administration
Protocol
Midodrine 5 mg 12/24/24 19:38 12/24/24 23:43
Midodrine 5 Mg Tablet TUBE 01/21/25 19:37 5 mg
Q4HPRN PRN Administration
sbp<90
Patch Removal 0 patch 12/14/24 20:00 12/24/24 19:48
Remove Lidocaine Patch REMOVE 01/11/25 19:59 1 patch
DAILY@2000 GRACIE Administration
Sodium Chloride 0 flush 12/14/24 16:00
Sodium Chloride 0.9% (Flush) Syringe IV 01/11/25 15:59
PER PROTOCOL GRACIE
Tramadol HCl 25 mg 12/24/24 19:39
Tramadol Hcl 50 Mg Tablet TUBE 01/21/25 19:38
Q6HPRN PRN
severe pain
Valsartan 40 mg 12/24/24 20:00 12/24/24 19:47
Valsartan 40 Mg Tablet TUBE 01/21/25 19:59 Not Given
BID GRACIE
[2024-12-25 08:34] LABS: Glycohemoglobin (HgbA1c) 5.7 % (4.0-5.6)
[2024-12-25] MEDS: LOW STRENGTH ASPIRIN 81 MG TUBE (08:49)
[2024-12-25] MEDS: TEFLARO 270 MG IV ×2 (08:49→16:39)
[2024-12-25] MEDS: TYLENOL ORAL SOLUTION 1000 MG TUBE ×2 (08:50→16:40)
[2024-12-25] MEDS: LIDOCAINE 4% PATCH TOPICAL (08:52)
--- NOTE | 2024-12-25 09:25 | W.PN.ID1 ---
Date of Service
Date of Service: December 25, 2024
Today's Communication
Continue antibiotics.
Assessment / Plan
Sustained MRSA bacteremia
Acute respiratory failure; now on high flow O2
Fever
Recurrent falls
Aortic stenosis; Hx TAVR (2023; [facility])
Thoracic back discomfort
Elevated ESR and CRP
CLL
Psoriatic arthritis
HTN
Recommendations:
Given presence of TAVR, concern at this point in time is for prosthetic valve endocarditis, although TTE and RICKI did not reveal a vegetation.
MRI spine (C/T/L) negative for epidural abscess.
Continue daptomycin and ceftaroline 600 mg IV q 12
Continue serial blood cultures to assess clearance of bacteremia
Follow CPK while on daptomycin.
Brain MRI ordered.
Monitor white count and temperature curve.
����������������������������������������������������������
Chief Complaint
-: Bacteremia
Subjective / Review of Systems
Patient seen and examined. Events overnight reviewed. Patient moved to ICU secondary to respiratory failure, now requiring high flow O2. Concern for possible VOICE INTERCEPT TECHNICIAN event, possibly from septic emboli.
Review of Systems: No Fever and No Chills
Vital Signs / Physical Exam
Vital Signs
Vital Signs
Temp Pulse Resp BP Pulse Ox
97.5 F 64 13 98/60 93
12/25/24 07:33 12/25/24 06:00 12/25/24 06:00 12/25/24 06:00 12/25/24 07:43
Physical Exam
Constitutional: No Acute Distress, Comfortable, Chronically Ill and Non-toxic
Head: Other (NG tube in place to suction.)
Eyes: No Conjunctival Hemorrhage and Sclera Anicteric
Cardiovascular: Irregular Rate, S1/S2 and Murmur; Negative S3/S4
Pulmonary: Coarse and Other (High flow O2 in place.); Negative Wheezes
Gastrointestinal: Soft, Non Tender and Non Distended
Extremities: Negative Edema, Cyanosis, Splinter Hemorrhage or [place] Lesions
Neurological: Awake, Alert and Normal Muscle Strength; Negative Meningeal Signs
Psychological: Calm
Objective Data
Lab Data
Lab Results
12/25/24 00:21
12/25/24 00:21
ESR 41 mm/hour (0-20) H 12/16/24 07:33
PT 15.6 Sec (11.4-14.6) H 12/25/24 00:21
INR 1.21 12/25/24 00:21
APTT 35.2 Sec (23.4-35.0) H 12/25/24 00:21
Estimated Creat Clear 60 ml/min 12/25/24 00:21
Lactic Acid 0.9 mmol/L (0.7-2.0) 12/14/24 13:20
Total Bilirubin 1.2 mg/dl (0.2-1.3) 12/24/24 15:15
AST 29 U/L (17-59) 12/24/24 15:15
ALT 21 U/L (0-50) 12/24/24 15:15
Alkaline Phosphatase 108 U/L (38-126) 12/24/24 15:15
C-Reactive Protein 236.50 mg/L (0.0-10.00) H 12/16/24 07:33
Most recent labs reviewed.
Micro Results:
12/23/24 17:08 Blood Culture - Preliminary
Blood/Venous Staphylococcus aureus
Gram Stain - Final
12/18/24 14:43 Blood Culture - Final
Blood/Venous Staph aureus MRSA
Gram Stain - Final
12/18/24 13:15 Blood Culture - Final
Blood/Venous Staph aureus MRSA
Gram Stain - Final
12/24/24 15:58 Blood Culture - Preliminary
Blood/Venous Positive culture in progress
Gram Stain - Final
12/23/24 17:56 Blood Culture - Preliminary
Blood/Venous Positive culture in progress
Gram Stain - Preliminary
12/20/24 12:19 Blood Culture - Preliminary
Blood/Venous No Growth in 4 days- Final report to follow
12/20/24 12:03 Blood Culture - Preliminary
Blood/Venous No Growth in 4 days- Final report to follow
12/15/24 23:11 Blood Culture - Final
Blood/Venous Staph aureus MRSA
Gram Stain - Final
12/15/24 22:19 Blood Culture - Final
Blood/Venous Staph aureus MRSA
Gram Stain - Final
12/14/24 13:20 Blood Culture - Final
Blood/Venous Staph aureus MRSA
Gram Stain - Final
12/14/24 14:36 Blood Culture - Final
Blood/Venous Staph aureus MRSA
Gram Stain - Final
12/14/24 14:36 Urine Culture - Final
Urine NO GROWTH
12/14/24 21:22 MRSA Screen - Final
Nose No Methicillin Resistant Staphylococcus aureus isolated.
12/14/24 13:20 Influenza Types A & B (JUAN LUIS) - Final
Nasal Swab Negative for Influenza A & B, NAAT
Negative results must be combined with clinical observations
and patient history.
Nucleic Acid Amplification test (NAAT)performed on the
[employer] platform.
Imaging:
12/23/2024 MRI lumbar spine: Small amount of fluid signal intensity in the L5/S1 intervertebral disc. Moderate to severe enhancing edema in the left psoas muscle.
12/23/2024 MRI cervical spine: Acute bone marrow edema in the left T2 transverse process surrounded by moderate enhancing soft tissue edema. Possibilities include acute traumatic injury or possible acute osteomyelitis.
12/16/2024 MRI thoracic spine: Moderate loss of height of the T5 vertebral body with associated small Schmorl's node. Mild hyperintense signal within the anterior aspect of the vertebral body favored to represent acute on chronic compression
fracture, and less likely to be discitis or osteomyelitis.
12/14/2024 CXR (ribs): Nondisplaced fractures of the left 2nd and 5th ribs identified on the cervical spine CT from 12/14 I last well seen by radiograph. No other acute rib fractures definitively appreciated by this radiograph. Please see full
dictation for additional detail.
Cardiac Imaging:
12/18/2024 ECHO (RICKI): EF approximately 35%. Well-seated and normally functioning bioprosthetic aortic valve. No evidence of regurgitation. No vegetation noted.
12/16/2024 ECHO (TTE): Moderately reduced LV systolic function with an EF approximately 30%. Global hypokinesis. Mild mitral regurgitation. Well-seated, normally functioning bioprosthetic aortic valve.
--- NOTE | 2024-12-25 09:41 | PTOTSP ---
Speech Therapy Evaluation:
Pt with acute risk factors of dysphagia including c/f embolic stroke. Given known negative impact of large bore NGT on swallowing (laryngeal elevation, airway protection, and pharyngeal clearance), sparing trials of ice chips completed. No overt
s/sx of aspiration, however cannot r/o silent aspiration given pt specific risk factors and limitations at bedside. Pt remains at HIGH risk for aspiration and related pulmonary complications given high O2 requirement (on 60L; 90% HFNC). WBC
significantly increased and CXR with new opacity in RLL (suspect related to vomiting followed by aspiration event).
Recommend:
1. Continue NPO with alternative means of nutrition
2. Medications non-oral
3. Not approrpriate for ARHP at this time given PNA, tenuous respiratory status, high WBC, and risk for decompensation
4. BUSINESS PROCESS COORDINATOR to closely follow to assess candidacy for initiation of ARHP vs diet
--- NOTE | 2024-12-25 10:45 | PTCARENOTE ---
Pt assisted OOB to bedside chair w/ assist of two staff and use of walker. Pt w/ generalized weakness but gait steady once standing. Pt's POx improved to 94% when initially OOB in chair, dropped into upper 80's w/ talking. Pt reports feeling 'a
little' SOB w/ exertion. No distress noted. Pox recovered to 91% w/ rest. Using IS w/encouragement to pull 500ml. Acapella also used by pt. AM Hygiene completed w/ assistance. No additional changes from previous assessment findings. Call arden w/in
pt reach.
--- NOTE | 2024-12-25 10:50 | W.PN.INTV ---
Documented by User: Linda Bentley MD, Resident 12/25/24 11:24
Today's Communication / Plan
Recommendations
Wean off from High-Flow Nasal Cannula
MRI Brain if able to wean off high-flow
Wean off of Levophed
Midodrine q8
Continue Antibiotics
Continue NGT and NPO status (may have to start tube feeding)
Assessment
-
Assessment:
84-year-old male with a past medical history of CLL, CAD, cardiomyopathy, psoriatic arthritis, and recent TAVR was admitted with sepsis. Patient developed possible septic emboli and had an episode of emesis, aspiration, lethargy and hypoxemia
requiring transfer to ICU. Pharmacy Helper services were consulted for respiratory decompensation, hypotension requiring pressors, and critical care management following an aspiration event.
Aspiration event/aspiration pneumonia
MRSA bacteremia
Sepsis
Septic emboli
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
Elevated ESR and CRP
Recent fall with left-sided head trauma /
Left 2nd and 5th rib fracture
Lymphocytosis-CLL
Mild ywdpki-ifvtnmbuay-wfsfpfsczl 12.4
Mild hyperglycemia
Mild hyponatremia
Conditions present prior to admission:
CAD
Aortic stenosis/TAVR
CLL
Hyperlipidemia
Psoriatic arthritis
BPH
Left rotator cuff. Left hip replacement. Bilateral knee replacement.
Plan
#Acute hypoxemic respiratory failure secondary to possible pneumonia versus pulmonary edema
-Patient requiring high flow nasal cannula at 55L starting last night
-Wean from high flow as possible
-Continue aspiration precautions with head of bed elevation and nasogastric tube decompression
-Nebulizers as needed
-Chest X-ray showed moderate opacification in right lower lung field, possibly secondary to aspiration causing pneumonia or pleural fluid
-Continue with current Antibiotic treatment
#MSSA bacteremia
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
-Blood Cultures continue to grow Staph Aureus
-Infectious disease following, input appreciated
-Antibiotics continue-daptomycin and ceftaroline
-Increased WBC count, has underlying CLL history (high percentage of lymphocytes compared to neutrophils)
#Acute mental status changes secondary to possible septic emboli
-Was not very responsive yesterday
-CT head yesterday did not show any acute changes, was determined to not be a good candidate for thrombolytics yesterday
-Was more awake and talkative this morning but still determined to be NPO by speech evaluation today (Continue NGT)
-Continue neurochecks
-MRI Brain today once not requiring high-flow nasal cannula
#Hypotension secondary to sepsis
-continues to require Levophed 2mcg
-Taper down on pressors as possible
-Midodrine now scheduled q8 rather than prn
-Hypertension medications on hold (Valsartan)
#Mild anemia
-Hgb dropped from 13.3 to 11.6
-Continue monitoring and transfuse if Hgb<7 or Plt <10
#New onset A-Fib
-continues to be in A-Fib
-Not on any rate/rhythm control or anticoagulation (due to significant fall history)
-will continue aspirin and as per cardiology think of oral anticoagulation once falls are less frequent
DVT prophylaxis- On Lovenox
Diagnostic data:
Chest x-ray 01/05/2024-mild increased interstitial markings compatible with interstitial fibrosis stable compared to December 26, 2023
Chest/rib films 12/14/24-nondisplaced fractures of the left 2nd and 5th ribs
CT head 12/24/24-no acute intracranial abnormalities
Chest X-ray 12/25/2024- New moderate opacification of the right lower lung field. This may be partially due to an elevated diaphragm. This is concerning for pneumonia, pleural fluid and atelectasis. Cardiomegaly. New.
MRI thoracic spine -moderate compression deformities T5, less likely discitis or osteomyelitis
MRI-cervical spine 12/23/24-acute bone marrow edema left T2 transverse process, more likely traumatic injury and less likely infection, severe discogenic disc disease C4, C5, C6, C7, mild spinal cord compression,
MRI-lumbar spine -mild acute infectious discitis or discogenic degenerative disease L5/S1, central canal stenosis,
Echocardiogram 12/16/24-EF 30-35%, stage II diastolic dysfunction, mild mitral regurgitation
RICKI 12/18/24-EF 30-35%, global hypokinesis, well-seated bioprosthetic aortic valve, no evidence for regurgitation, no obvious endocarditis
Subjective Dataa
Subjective Data
Date of Service:
Date of Service: December 25, 2024
Chief Complaint: Pharmacy Helper Follow Up and Vent Management Follow Up
Subjective:
Patient seen this morning. He did not have any acute complaints when seen but did say he was feeling cold overnight. He continued to be on high-flow oxygen supplementation (55L) which he was put on last night. He did not mention any trouble
breathing or chest pain. Only real complaint was difficulty in movement of left upper extremity, mainly related to shoulder.
Review of Systems
General: Fever (N) and Chills (Feeling cold overnight)
HEENT: Other (None)
Cardiopulmonary: Dyspnea
GI: Other (None)
Neuro: Weakness (Left upper extremity difficulty moving)
Genitourinary: Other (Some mild urinary retention)
Objective Data
Data Reviewed
Vital Signs / I&O / Oxygen:
Vital Signs
Temp Pulse Resp BP Pulse Ox
97.5 F 64 13 98/60 93
12/25/24 07:33 12/25/24 06:00 12/25/24 06:00 12/25/24 06:00 12/25/24 07:43
Intake and Output
12/24/24 12/25/24 12/26/24
06:59 06:59 06:59
Intake Total 2160 / 2160 1250.0 / 1307.5 442.5 / 442.5
Output Total 1225 / 1225 675 / 675
Balance 935 / 935 575.0 / 632.5 442.5 / 442.5
SaO2 93
Nasal Cannula flow liters per 55
minute
Physical Exam
General: Respiratory Distress (n) and Comfortable
HEENT: Normocephalic, Anicteric and Moist Mucous Membranes
Cardiovascular: S1-S2 and Irregular Rhythm (A-Fib)
Respiratory: Crackles, Rhonchi ( expiratory), Non-Labored Respirations, Accessory Resp Muscle Use (n), Stridor (n) and Other (On High-Flow Nasal Cannuli)
GI: Soft, Distended, Non Tender and NG Tube
Neurology: Awake, Alert, Oriented and Other (left upper extremity difficulty in movement )
Skin: Warm, Good Color, Cyanosis (n) and Jaundice (n)
Labs/Micro/Reports
Lab Data
12/25/24 00:21
12/25/24 00:21
Laboratory Results
12/25/24
00:21
PT 15.6 H
INR 1.21
APTT 35.2 H
Microbiology
12/23/24 17:56 Blood/Venous Blood Culture - Preliminary
Staphylococcus aureus
12/23/24 17:56 Blood/Venous Gram Stain - Preliminary
12/23/24 17:08 Blood/Venous Blood Culture - Preliminary
Staphylococcus aureus
12/23/24 17:08 Blood/Venous Gram Stain - Final
12/18/24 14:43 Blood/Venous Blood Culture - Final
Staph aureus MRSA
12/18/24 14:43 Blood/Venous Gram Stain - Final
12/18/24 13:15 Blood/Venous Blood Culture - Final
Staph aureus MRSA
12/18/24 13:15 Blood/Venous Gram Stain - Final
12/24/24 15:58 Blood/Venous Blood Culture - Preliminary
Positive culture in progress
12/24/24 15:58 Blood/Venous Gram Stain - Final
12/20/24 12:19 Blood/Venous Blood Culture - Preliminary
No Growth in 4 days- Final report to follow
12/20/24 12:03 Blood/Venous Blood Culture - Preliminary
No Growth in 4 days- Final report to follow
12/15/24 23:11 Blood/Venous Blood Culture - Final
Staph aureus MRSA
12/15/24 23:11 Blood/Venous Gram Stain - Final
12/15/24 22:19 Blood/Venous Blood Culture - Final
Staph aureus MRSA
12/15/24 22:19 Blood/Venous Gram Stain - Final

Documented by User: Angel Aguilar MD 12/25/24 13:38
Assessment
-
Assessment:
84-year-old male with a past medical history of CLL, CAD, cardiomyopathy, psoriatic arthritis, and recent TAVR was admitted with sepsis. Patient developed possible septic emboli and had an episode of emesis, aspiration, lethargy and hypoxemia
requiring transfer to ICU. Pharmacy Helper services were consulted for respiratory decompensation, hypotension requiring pressors, and critical care management following an aspiration event.
Aspiration event/aspiration pneumonia
MRSA bacteremia
Sepsis
Septic emboli
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
Elevated ESR and CRP
Recent fall with left-sided head trauma /
Left 2nd and 5th rib fracture
Lymphocytosis-CLL
Mild ngamke-jrrlmyzavy-gxudmylsky 12.4
Mild hyperglycemia
Mild hyponatremia
Conditions present prior to admission:
CAD
Aortic stenosis/TAVR
CLL
Hyperlipidemia
Psoriatic arthritis
BPH
Left rotator cuff. Left hip replacement. Bilateral knee replacement.
Plan
#Acute hypoxemic respiratory failure secondary to possible pneumonia versus pulmonary edema
-Patient requiring high flow nasal cannula at 55L starting last night
-Wean from high flow as possible
-Continue aspiration precautions with head of bed elevation and nasogastric tube decompression
-Nebulizers as needed
-Chest X-ray showed moderate opacification in right lower lung field, possibly secondary to aspiration causing pneumonia or pleural fluid
-Continue with current Antibiotic treatment
#MSSA bacteremia
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
-Blood Cultures continue to grow Staph Aureus
-Infectious disease following, input appreciated
-Antibiotics continue-daptomycin and ceftaroline
-Increased WBC count, has underlying CLL history (high percentage of lymphocytes compared to neutrophils)
#Acute mental status changes secondary to possible septic emboli
-Was not very responsive yesterday
-CT head yesterday did not show any acute changes, was determined to not be a good candidate for thrombolytics yesterday
-Was more awake and talkative this morning but still determined to be NPO by speech evaluation today (Continue NGT)
-Continue neurochecks
-MRI Brain today once not requiring high-flow nasal cannula
#Hypotension secondary to sepsis
-continues to require Levophed 2mcg
-Taper down on pressors as possible
-Midodrine now scheduled q8 rather than prn
-Hypertension medications on hold (Valsartan)
#Mild anemia
-Hgb dropped from 13.3 to 11.6
-Continue monitoring and transfuse if Hgb<7 or Plt <10
#New onset A-Fib
-continues to be in A-Fib
-Not on any rate/rhythm control or anticoagulation (due to significant fall history)
-will continue aspirin and as per cardiology think of oral anticoagulation once falls are less frequent
DVT prophylaxis- On Lovenox
I reviewed this patients case independently and in conjunction with the resident. I personally examined the patient. Patient's complex medical history, laboratory evaluations, events over the last 24 hours, radiographs, microbiological data were
all personally reviewed.
Agree with documented assessment and plan
Angel Aguilar MD, [facility], [facility]
Diagnostic data:
Chest x-ray 01/05/2024-mild increased interstitial markings compatible with interstitial fibrosis stable compared to December 26, 2023
Chest/rib films 12/14/24-nondisplaced fractures of the left 2nd and 5th ribs
CT head 12/24/24-no acute intracranial abnormalities
Chest X-ray 12/25/2024- New moderate opacification of the right lower lung field. This may be partially due to an elevated diaphragm. This is concerning for pneumonia, pleural fluid and atelectasis. Cardiomegaly. New.
MRI thoracic spine -moderate compression deformities T5, less likely discitis or osteomyelitis
MRI-cervical spine 12/23/24-acute bone marrow edema left T2 transverse process, more likely traumatic injury and less likely infection, severe discogenic disc disease C4, C5, C6, C7, mild spinal cord compression,
MRI-lumbar spine -mild acute infectious discitis or discogenic degenerative disease L5/S1, central canal stenosis,
Echocardiogram 12/16/24-EF 30-35%, stage II diastolic dysfunction, mild mitral regurgitation
RICKI 12/18/24-EF 30-35%, global hypokinesis, well-seated bioprosthetic aortic valve, no evidence for regurgitation, no obvious endocarditis
--- NOTE | 2024-12-25 10:55 | CM ---
Patient seen at bedside in ICU. Patient now on high flow per nursing and out of bed to chair. Patient currently on IV antibiotics. Patient confirmed that he lives alone and has friends that help. Therapy assessment of needs will be helpful to
determine level of care when patient medically stable for transfer. CM will continue to follow for discharge planning needs.
Plan; SNF vs acute rehab; pending medical treatment needs. Watch for O2 needs and Antibiotic requirements
--- NOTE | 2024-12-25 11:54 | PTCARENOTE ---
Phone call received from pt's friend 'Titi Loera'- at pt's request, pt's friend updated by this RN on pt's present condition and plan of care. Pt continues to sit OOB in chair. No complaints offered. RT tapering down pt's O2
[2024-12-25] MEDS: ProAmatine 5 MG TUBE ×2 (12:22→16:42)
--- NOTE | 2024-12-25 13:49 | W.PN.HOSP.TC ---
Addendum entered and electronically signed by Blake Becerra, 12/25/24 15:42:
CDI: Septic shock
Original Note:
Today's Communication/Plan
-
Wean vasopressors/continue IVF + midodrine
IV daptomycin + ceftaroline/serial cultures until clear
Wean supplemental oxygen
MRI brain when off high flow/aspirin + statin
Assessment / Plan
Assessment / Plan
#Acute hypoxemic respiratory failure
#Acute metabolic encephalopathy
#Aspiration pneumonia/pneumonitis
-Had aspiration event while in CT scanner; went from room air to requiring 55 L O2 via high flow NC
-Initial chest x-ray without findings, x-ray morning 12/25 showed signs of right lower lobe pneumonia
-Currently on IV antibiotics with daptomycin and ceftaroline for MRSA endocarditis
-ICU on board, currently saturating well on high flow cannula, on aspiration precaution
-Of note, daptomycin with poor pulmonary efficacy due to deactivation by surfactant
Plan
-Continue with current antibiotics
-Trend CBC and temperature curve
-Order sputum culture
-Consider pulmonary toileting if congested
-Wean oxygen for SpO2 goal >90%
-Monitor MSE
#Circulatory shock
#Sepsis secondary to aspiration pneumonia
-Had observed aspiration event while in CT scanner on 12/24
-CXR this morning with new RLL infiltrate, quick increase in O2 requirements with hypotension
-As of morning 12/25 requiring Levophed with MAP in the mid 70s at time of my eval
-Optimistically this should quickly improve with resolution of SIRS from aspiration event
-Remains on maintenance IV fluid with minimal oral intake; midodrine started every 8 hours
Plan
-Continue vasopressors and wean for MAP >65
-Continue with midodrine every 8 hours
-Avoid antihypertensive agents for now
-Monitor renal function and UOP
#Strokelike symptoms
-Concern for septic emboli from MRSA endocarditis versus other cardioembolic source from AF (not on AC)
-Developed episode of disorientation and minimal responsiveness on 12/24; CT head unremarkable
-Remains on home baby aspirin; planning for high intensity statin when tolerating oral intake
-Lipid panel with LDL 83, no other significant abnormality
-GCS difficult to calculate, minimally responsive on exam
-MRI ordered but unable to have done until off high flow O2
-Neurology on board, was not candidate for TNK
Plan
-Continue with aspirin, plan statin when tolerating PO
-MRI brain when no longer on high flow O2
-Continue neurochecks and NIHSS
-BP goal normotension
#MRSA bacteremia
#Infectious endocarditis of prosthetic valve
# S/P TAVR
#MRI with enhancement of left psoas muscle (traumatic tear > Myositis)
-High suspicion for MRSA endocarditis with persistent bacteremia in context of prosthetic valve
-TTE and RICKI both without obvious vegetations noted on cardiac valves including prosthetic valve
-Currently on daptomycin 1 g every 24 hours; blood cultures from 12/20 remain negative at 72 hours
-Has CLL with accompanying immunosuppression that is likely contributing to infection
Plan
-Continue daptomycin 1 g IV Q24 and ceftaroline 600 mg IV Q8
-Serial blood cultures until negative
-Trend temperature curve and CBC
-May ultimately require valve replacement versus extended antibiotic course
#Cardiomyopathy
-Unclear etiology; previously had workup for ischemia that was unremarkable
-Transthoracic echocardiogram here with dilated LV, ejection fraction near 30%
-Had been started on ARB for GDMT; avoiding beta-mitch due to WAP/AVB
-Holding ARB as of 12/25 due to circulatory shock as above
-Continue to monitor I's/O's and weights
#New onset atrial fibrillation
#H/O Wandering atrial pacemaker
#H/O first-degree AVB
-Nonvalvular; [id number] score 6; has history of frequent falls with significant bleeding
-Not currently on any rate/rhythm control nor anticoagulants
-Heart rate currently WNL
-Continue on telemetry
#Nondisplaced left 2nd and 5th rib fractures
-Continue with as needed analgesics and IS
#Nonobstructive CAD
#Dyslipidemia
-Home regimen includes aspirin for primary prevention
-Not currently on beta-mitch, statin
#Chronic lymphocytic leukemia
-Not currently on any chemotherapeutic or immune modulating regimen
-Likely stage 0, likely in the wait and watch stage
-Does have associated immunosuppression
#Psoriatic arthritis
-Not currently on any DMARD therapy, on meloxicam as needed
#BPH
-Home regimen does not include tamsulosin nor alpha-1 reductase inhibitor
-No signs of bladder outlet obstruction
#DJD/DDD
-MRI C, T, L-spine with multiple degenerative findings including canal stenosis, foraminal narrowing
-Patient also complaining of left shoulder stiffness, recently also had trauma with x-ray
-Recent left shoulder x-ray showed glenohumeral and AC osteoarthritis
-Will consult orthopedics, likely will need OP follow-up
#LUE weakness
-Differentials include frozen shoulder versus rotator cuff tear; low suspicion for CVA
-Musculoskeletal in nature, recently had fall with traumatic injuries
-Currently with almost no strength to his LUE, has ROM passively
-Will consider MRI of the left shoulder here
Diet: Regular
DVT prophylaxis: SQ Lovenox
CODE STATUS: DNR
Disposition: SNF when medically stable
Prognosis is guarded
Anticipated Discharge: > 48 hours
Subjective/Interval History
-
Date of Service: December 25, 2024
Seen and examined at the bedside in ICU today. Yesterday afternoon had stroke alert called for episode of disorientation. Subsequently had aspiration event while in CT scan.
As of this morning remains hemodynamically stable on Levophed, afebrile, on 55 L of high flow oxygen with SpO2 mid 90s.
White cell count jumped though volatile with CLL. Labs otherwise stable
Patient was lethargic, ROS unable to be obtained
Objective Data
-
Vital Signs:
Vital Signs
Temp Pulse Resp BP Pulse Ox
97.7 F 64 19 88/64 95
12/25/24 11:17 12/25/24 11:30 12/25/24 11:30 12/25/24 12:22 12/25/24 11:34
I&O
12/24/24 12/25/24 12/26/24
06:59 06:59 06:59
Intake Total 2160 / 2160 1250.0 / 1307.5 607.5 / 607.5
Output Total 1225 / 1225 675 / 675
Balance 935 / 935 575.0 / 632.5 607.5 / 607.5
Review of Systems
-
Unable to obtain full review of systems at this time due to: Acuity
Physical Exam
-
General: Well Developed, Well Nourished, No Apparent Distress and Appears Chronically Ill
HEENT: Normocephalic, Atraumatic, Moist Mucous Membranes, Anicteric and Oxygen
Respiratory: Rhonchi and Non Labored Respirations; Negative Accessory Resp Muscle Use
Cardiac: Regular Rhythm and S1/S2; Negative Murmur, Rub or Gallop
GI: Soft, Nontender, Nondistended and Normal Bowel Sounds
Musculoskeletal: No Clubbing, No Cyanosis and No Edema
Skin: Warm and Dry; Negative Rash
Neuro: Other (Limited by lethargy and inability to cooperate with exam)
Psych: Calm
Data Reviewed
-
MRI: Discussed with Physician (Attendance Clerk, neurologist)
Labs: Labs Reviewed by me and Discussed with Patient
[2024-12-25] MEDS: CUBICIN 20 MG IV (14:19)
--- NOTE | 2024-12-25 15:36 | PN.CDI ---
CDI
- -
CDI:
Physician Documentation Request
Admit Date: 12/15/24 12:07
Dear Doctor Hernan,
12/25 Associate Relations Specialist PN: 'Hypotension secondary to sepsis -continues to require Levophed 2mcg -Taper down on pressors as possible -Midodrine now scheduled q8 rather than prn'
12/25 Hospitalist PN: 'Circulatory shock #Sepsis secondary to aspiration pneumonia -Had observed aspiration event while in CT scanner on 12/24'
Please clarify which of the following is the most likely etiology of the above symptoms and treatment rendered:
Septic shock
Cardiogenic shock
Hypovolemic shock - indicate if due to surgery, trauma or other etiology
Hemorrhagic shock - indicate if due to surgery, trauma or other etiology
Shock, unknown type
Other
Use of terms such as suspected, likely, concern for, or probable (associated with a specific diagnosis that is being evaluated, monitored, or treated as if it exists) are acceptable and can be coded in the inpatient setting, when documented at the
time of discharge.
Thank you,
Rehana Malhotra RN, BSN
CDI Specialist
Available via [place] text
Please use your independent medical judgment in providing your response.
--- NOTE | 2024-12-25 16:00 | PTCARENOTE ---
Pt returned to bed after sitting OOB in chair for >4hrs. Pt's friend/neighbor here to visit- updated by Dr Grayson over phone. Pt resting quietly in bed, denies c/o pain or SOB. Hiflow 55L/80% w/ POx 93%. No cough. No dyspnea noted. Repositioned and
comfort care provided q2hr or more frequently.
[2024-12-25] MEDS: LOVENOX 40 MG SC (18:25)
--- NOTE | 2024-12-25 19:30 | PTCARENOTE ---
Resumed care of pt this evening. Received pt on High Flow O2 via nasal cannula, on 50L at 80% oxygen and satting at 94% pulse ox. NIHSS performed at bedside w/ dayshift RN for a score of 0. Pt is A&Ox3, can make needs known, and can move all 4
extremities. Pt is in A-fib on tele monitor, has an irregular/distant apical, and has trace edema of the lower extremities bilaterally. On auscultation pt lungs sound coarse, rhonchorous, and diminished TO. Pt has a right nare Baca sump NGT
connected to low intermittent suctioning and has small amount of brown colored drainage. Pt's abdomen is round w/ hypoactive BS. Pt has a condom cath in place and is voiding francisca colored urine. Pt has a right knee skin foam and sacral skin foam in
place, see wound documentation.
[2024-12-25] MEDS: NSS 1000 IV (21:04)
[2024-12-26] VITALS (24 sets, daily range): BP systolic 95–130; BP diastolic 48–78; PULSE 56–62; O2SAT 95; BMI 26.6
[2024-12-26] MEDS: TYLENOL ORAL SOLUTION 1000 MG TUBE ×4 (00:15→23:45)
[2024-12-26] MEDS: ProAmatine 5 MG TUBE ×4 (00:17→23:46)
[2024-12-26] MEDS: TEFLARO 270 MG IV ×4 (00:18→23:48)
--- NOTE | 2024-12-26 00:30 | PTCARENOTE ---
Upon reassessment pt continues to tolerate High flow O2 therapy and is satting at 93% pulse ox. Neuro assessment is unchanged from previous assessment.
[2024-12-26 04:21] LABS: Hematocrit 35.5 % (39.0-52.0); Hemoglobin 11.4 g/dL (13.0-18.0); Mean Corp Hgb Conc. 32.1 g/dL (33.0-37.0); Mean Corpuscular Hgb 27.7 pg (27.0-31.0); Mean Corpuscular Volume 86.4 fL (80.0-94.0); Mean Platelet Volume 9.9 fL (7.4-10.4); Platelet Count 216 10^3/uL (130-400); Red Blood Cell Count 4.11 10^6/uL (4.70-6.10); Red Cell Dist. Width 15.7 % (11.5-14.5); White Blood Cell Count 66.4 10^3/uL (4.8-10.8)
[2024-12-26 04:43] LABS: ALT (SGPT) 20 U/L (0-50); AST (SGOT) 28 U/L (17-59); Albumin 2.4 g/dl (3.5-5.0); Alkaline Phosphatase 110 U/L (38-126); Blood Urea Nitrogen 31 mg/dl (9-20); Calcium 8.2 mg/dl (8.4-10.2); Carbon Dioxide 29 mmol/L (22-30); Chloride 100 mmol/L (98-107); Direct Bilirubin 0.3 mg/dl (0.0-0.4); Estimated Creatinine Clearance 82 ml/min; Glucose 121 mg/dl (70-99); Magnesium 2.1 mg/dl (1.6-2.3); Phosphorus 2.9 mg/dl (2.5-4.5); Potassium 3.9 mmol/L (3.5-5.1); Sodium 134 mmol/L (135-145); Total Bilirubin 0.6 mg/dl (0.2-1.3); Total Protein 5.4 g/dl (6.3-8.2); eGFR > 60.00
--- NOTE | 2024-12-26 05:00 | PTCARENOTE ---
Neuro assessment unchanged.
[2024-12-26 05:48] LABS: % Immature Granulocytes 0.6 % (0-0.5); % Lymphocytes 76.9 % (20.5-51.1); % Monocytes 0.8 % (1.7-9.3); % Neutrophils 21.7 % (42.2-75.2); Absolute Immature Granulocytes 0.4 10^3/uL (0-0.05); Absolute Lymphocytes 51.1 10^3/uL (1.2-3.4); Absolute Monocytes 0.6 10^3/uL (0.1-0.6); Absolute Neutrophils 14.3 10^3/uL (1.4-6.5); Nucleated Red Blood Cells % 0 % (-)
[2024-12-26] MEDS: LOW STRENGTH ASPIRIN 81 MG TUBE (07:29)
[2024-12-26] MEDS: ULTRAM 25 MG TUBE (07:30)
[2024-12-26] MEDS: LIDOCAINE 4% PATCH 1 PATCH TOPICAL (07:31)
--- NOTE | 2024-12-26 07:49 | W.PN.INTV ---
Today's Communication / Plan
Recommendations
Attempt to wean FiO2
Out of bed and mucus clearing devices
Aspiration precautions
FEES or video swallow
Antibiotics
MRI brain
Wean pressors
Assessment
-
Assessment:
84-year-old male with a history of CLL, CAD, cardiomyopathy, psoriatic arthritis, who recently underwent TAVR and was admitted with sepsis, septic emboli who had episode of emesis, aspiration, lethargy and hypoxemia requiring transfer to
ICU-network/telecom engineer consulted for respiratory decompensation/aspiration/critical care management 12/24/24.
Aspiration event/aspiration pneumonia
MRSA bacteremia
Sepsis
Septic emboli
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
Elevated ESR and CRP
Recent fall with left-sided head trauma /
Left 2nd and 5th rib fracture
Lymphocytosis-CLL
Mild indcno-pwjyhhouck-xcabaxfkpn 12.4
Mild hyperglycemia
Mild hyponatremia
Conditions present prior to admission:
CAD.
Aortic stenosis/TAVR.
CLL.
Hyperlipidemia.
Psoriatic arthritis.
BPH.
Left rotator cuff. Left hip replacement. Bilateral knee replacement.
Plan
Remains critically ill with increased FiO2 requirements
High flow oxygen as needed-currently on high flow-attempt to wean-reviewed with [employer] and critical care nursing
BiPAP if necessary/noninvasive ventilation if needed
Patient is a DNR-not to be intubated
Aspiration precautions continue with head of bed elevation and nasogastric tube decompression
Speech therapy evaluation ongoing
Video swallow or FEES
Nebulizers if needed
Chest x-ray 12/25/24-moderate opacification right lower lung concerning for pneumonia
Follow-up chest x-ray
Cultures reviewed
Repetitive blood cultures positive for MRSA dating back to 12/14/2024-positive 12/15/24, 12/18/24, 12/23/24 and 12/24/24
Antibiotics continue-daptomycin and ceftaroline
Serial blood cultures continue
Infectious disease following-correspondence reviewed
Monitor leukocytosis
MRI brain
Eventual MRI left shoulder
Intravenous fluid resuscitation
Follow lactate
Norepinephrine wean off
Midodrine added and helping
Follow hemoglobin
Transfuse if needed
Monitor blood sugar
Insulin supplementation if needed
DVT prophylaxis- On Lovenox
Early nutrition if possible
Early mobilization/bedside range of motion
Critical care statement: A total of 42 minutes of critical care time was provided for this patient today. This includes management of unstable vital signs, evaluation of the patient at bedside, reviewing the patient's pertinent medical records
including radiographs, microbiology, laboratory evaluations, and discussion with primary team, consultants, pharmacy, nutrition, physical therapy, case management, charge nurse, critical care nursing, and respiratory therapy.
Diagnostic data:
Chest x-ray 01/05/2024-mild increased interstitial markings compatible with interstitial fibrosis stable compared to December 26, 2023
Chest/rib films 12/14/24-nondisplaced fractures of the left 2nd and 5th ribs
CT head 12/24/24-no acute intracranial abnormalities
MRI thoracic spine -moderate compression deformities T5, less likely discitis or osteomyelitis
MRI-cervical spine 12/23/24-acute bone marrow edema left T2 transverse process, more likely traumatic injury and less likely infection, severe discogenic disc disease C4, C5, C6, C7, mild spinal cord compression,
MRI-lumbar spine -mild acute infectious discitis or discogenic degenerative disease L5/S1, central canal stenosis,
Echocardiogram 12/16/24-EF 30-35%, stage II diastolic dysfunction, mild mitral regurgitation
RICKI 12/18/24-EF 30-35%, global hypokinesis, well-seated bioprosthetic aortic valve, no evidence for regurgitation, no obvious endocarditis
Subjective Dataa
Subjective Data
Date of Service:
Date of Service: December 26, 2024
Chief Complaint: Icu Specialist Follow Up, Pulmonary Follow Up and Vent Management Follow Up
Subjective:
denies any worsening shortness of breath, still on high flow oxygen, no chest pain, difficulties mobilizing secretions, poor swallowing, no abdominal pain
Review of Systems
General: Other ( Per HPI)
Objective Data
Data Reviewed
Vital Signs / I&O / Oxygen:
Vital Signs
Temp Pulse Resp BP Pulse Ox
98.5 F 79 23 100/49 93
12/26/24 07:46 12/26/24 07:29 12/26/24 06:00 12/26/24 07:29 12/26/24 05:30
Intake and Output
12/25/24 12/26/24 12/27/24
06:59 06:59 06:59
Intake Total 1250.0 / 1307.5 2167.5 / 2167.5
Output Total 675 / 675 875 / 875
Balance 575.0 / 632.5 1292.5 / 1292.5
SaO2 93
Nasal Cannula flow liters per 50
minute
Physical Exam
General: Respiratory Distress (n) and Comfortable
HEENT: Normocephalic, Anicteric and Moist Mucous Membranes
Cardiovascular: Irregular Rhythm (A-Fib)
Respiratory: Crackles, Rhonchi ( expiratory), Non-Labored Respirations, Accessory Resp Muscle Use (n), Stridor (n) and Other (On High-Flow Nasal Cannuli)
GI: Soft, Distended, Non Tender and NG Tube
Neurology: Awake, Alert and Other (left upper extremity difficulty in movement )
Skin: Warm, Good Color, Cyanosis (n) and Jaundice (n)
Labs/Micro/Reports
Lab Data
12/26/24 03:58
12/26/24 03:58
Microbiology
12/20/24 12:19 Blood/Venous Blood Culture - Final
No Growth - Final Report
12/20/24 12:03 Blood/Venous Blood Culture - Final
No Growth - Final Report
12/23/24 17:56 Blood/Venous Blood Culture - Preliminary
Staphylococcus aureus
12/23/24 17:56 Blood/Venous Gram Stain - Preliminary
12/23/24 17:08 Blood/Venous Blood Culture - Preliminary
Staphylococcus aureus
12/23/24 17:08 Blood/Venous Gram Stain - Final
12/18/24 14:43 Blood/Venous Blood Culture - Final
Staph aureus MRSA
12/18/24 14:43 Blood/Venous Gram Stain - Final
12/18/24 13:15 Blood/Venous Blood Culture - Final
Staph aureus MRSA
12/18/24 13:15 Blood/Venous Gram Stain - Final
12/24/24 15:58 Blood/Venous Blood Culture - Preliminary
Positive culture in progress
12/24/24 15:58 Blood/Venous Gram Stain - Final
--- NOTE | 2024-12-26 08:39 | W.PN.INTV ---
Documented by User: Linda Bentley MD, Resident 12/26/24 10:29
Today's Communication / Plan
Recommendations
Continue to wean off of oxygen
MRI Brain once not requiring high flow
Continue Antibiotics
Continue monitoring BP and Heart Rhythm
Assessment
-
Assessment:
84-year-old male with a past medical history of CLL, CAD, cardiomyopathy, psoriatic arthritis, and recent TAVR was admitted with sepsis. Patient developed possible septic emboli and had an episode of emesis, aspiration, lethargy and hypoxemia
requiring transfer to ICU. Sole Stitcher Hand services were consulted for respiratory decompensation, hypotension requiring pressors, and critical care management following an aspiration event.
Aspiration event/aspiration pneumonia
MRSA bacteremia
Sepsis
Septic emboli
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
Elevated ESR and CRP
Recent fall with left-sided head trauma /
Left 2nd and 5th rib fracture
Lymphocytosis-CLL
Mild zuolji-iqcgxjodis-dfpvihbexo 12.4
Mild hyperglycemia
Mild hyponatremia
Conditions present prior to admission:
CAD
Aortic stenosis/TAVR
CLL
Hyperlipidemia
Psoriatic arthritis
BPH
Left rotator cuff. Left hip replacement. Bilateral knee replacement.
Plan
#Acute hypoxemic respiratory failure secondary to possible pneumonia versus pulmonary edema
-Patient still requiring high flow nasal cannula (50L)
-Wean from high flow as possible
-Continue aspiration precautions with head of bed elevation and nasogastric tube decompression
-Nebulizers as needed
-Chest X-ray showed moderate opacification in right lower lung field, possibly secondary to aspiration causing pneumonia or pleural fluid
-Continue with current Antibiotic treatment- daptomycin and ceftaroline
#MSSA bacteremia
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
-Blood Cultures continue to grow Staph Aureus
-Continue blood cultures until clear
-Infectious disease following, input appreciated
-Antibiotics continue-daptomycin and ceftaroline
-Follow CPK due to daptomycin
-Increased WBC count, has underlying CLL history (high percentage of lymphocytes compared to neutrophils)
#Acute mental status changes secondary to possible septic emboli
-CT head did not show any acute changes, was determined to not be a good candidate for thrombolytics
-Continues to be more awake and talkative
-NPO by speech evaluation yesterday, continue further speech eval (Continue NGT)- may need alternate means of nutrition
-NIH stroke scale 0, can cancel stroke checks
-MRI Brain today once not requiring high-flow nasal cannula
#Hypotension secondary to sepsis
-Off of pressors
-Continue Midodrine q8
-Hypertension medications on hold (Valsartan)
#Mild anemia
-Hgb remaining stable (11.6 -> 11.4 today)
-Continue monitoring and transfuse if Hgb<7 or Plt <10
#New onset A-Fib
-continues to be in A-Fib
-Not on any rate/rhythm control or anticoagulation (due to significant fall history)
-will continue aspirin and as per cardiology think of oral anticoagulation once falls are less frequent
-Will contact Cardiology regarding anti-coagulation recommendations
DVT prophylaxis- On Lovenox
Diagnostic data:
Chest x-ray 01/05/2024-mild increased interstitial markings compatible with interstitial fibrosis stable compared to December 26, 2023
Chest/rib films 12/14/24-nondisplaced fractures of the left 2nd and 5th ribs
CT head 12/24/24-no acute intracranial abnormalities
Chest X-ray 12/25/2024- New moderate opacification of the right lower lung field. This may be partially due to an elevated diaphragm. This is concerning for pneumonia, pleural fluid and atelectasis. Cardiomegaly. New.
MRI thoracic spine -moderate compression deformities T5, less likely discitis or osteomyelitis
MRI-cervical spine 12/23/24-acute bone marrow edema left T2 transverse process, more likely traumatic injury and less likely infection, severe discogenic disc disease C4, C5, C6, C7, mild spinal cord compression,
MRI-lumbar spine -mild acute infectious discitis or discogenic degenerative disease L5/S1, central canal stenosis,
Echocardiogram 12/16/24-EF 30-35%, stage II diastolic dysfunction, mild mitral regurgitation
RICKI 12/18/24-EF 30-35%, global hypokinesis, well-seated bioprosthetic aortic valve, no evidence for regurgitation, no obvious endocarditis
Subjective Dataa
Subjective Data
Date of Service:
Date of Service: December 26, 2024
Chief Complaint: Sole Stitcher Hand Follow Up
Subjective:
Patient reports not much change from yesterday. Not in a good mood today and was not happy when talking about possible alternate routes of nutrition. Breathing has only improved a little bit and continues to not have any fever, chills, or chest
pain. Reports no abdominal pain, nausea, or vomiting. Still reports discomfort in his left shoulder with difficulty lifting left arm.
Review of Systems
General: Fever (N)
HEENT: Other (None)
Cardiopulmonary: Dyspnea
GI: Other (None)
Neuro: Weakness (Left upper extremity difficulty moving)
Genitourinary: Other (Some mild urinary retention)
Objective Data
Data Reviewed
Vital Signs / I&O / Oxygen:
Vital Signs
Temp Pulse Resp BP Pulse Ox
98.5 F 75 24 117/71 91
12/26/24 07:46 12/26/24 08:06 12/26/24 08:06 12/26/24 08:06 12/26/24 08:34
Intake and Output
12/25/24 12/26/24 12/27/24
06:59 06:59 06:59
Intake Total 1250.0 / 1307.5 2167.5 / 2217.5 250 / 250
Output Total 675 / 675 875 / 875
Balance 575.0 / 632.5 1292.5 / 1342.5 250 / 250
SaO2 91
Nasal Cannula flow liters per 15
minute
Physical Exam
General: Respiratory Distress (n) and Comfortable (Out of bed and sitting in chair)
HEENT: Normocephalic, Anicteric and Moist Mucous Membranes
Cardiovascular: S1-S2 and Irregular Rhythm (A-Fib)
Respiratory: Crackles, Rhonchi ( expiratory), Non-Labored Respirations, Accessory Resp Muscle Use (n), Stridor (n) and Other (On High-Flow Nasal Cannuli)
GI: Soft, Distended, Non Tender and NG Tube
Neurology: Awake, Alert, Oriented and Other (left upper extremity difficulty in movement )
Skin: Warm, Good Color, Cyanosis (n) and Jaundice (n)
Labs/Micro/Reports
Lab Data
12/26/24 03:58
12/26/24 03:58
Microbiology
12/20/24 12:19 Blood/Venous Blood Culture - Final
No Growth - Final Report
12/20/24 12:03 Blood/Venous Blood Culture - Final
No Growth - Final Report
12/23/24 17:56 Blood/Venous Blood Culture - Preliminary
Staphylococcus aureus
12/23/24 17:56 Blood/Venous Gram Stain - Preliminary
12/23/24 17:08 Blood/Venous Blood Culture - Preliminary
Staphylococcus aureus
12/23/24 17:08 Blood/Venous Gram Stain - Final
12/18/24 14:43 Blood/Venous Blood Culture - Final
Staph aureus MRSA
12/18/24 14:43 Blood/Venous Gram Stain - Final
12/18/24 13:15 Blood/Venous Blood Culture - Final
Staph aureus MRSA
12/18/24 13:15 Blood/Venous Gram Stain - Final
12/24/24 15:58 Blood/Venous Blood Culture - Preliminary
Positive culture in progress
12/24/24 15:58 Blood/Venous Gram Stain - Final

Documented by User: Angel Aguilar MD 12/26/24 10:54
Assessment
-
Assessment:
84-year-old male with a past medical history of CLL, CAD, cardiomyopathy, psoriatic arthritis, and recent TAVR was admitted with sepsis. Patient developed possible septic emboli and had an episode of emesis, aspiration, lethargy and hypoxemia
requiring transfer to ICU. [employer] Stit[employer] services were consulted for respiratory decompensation, hypotension requiring pressors, and critical care management following an aspiration event.
Aspiration event/aspiration pneumonia
MRSA bacteremia
Sepsis
Septic emboli
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
Elevated ESR and CRP
Recent fall with left-sided head trauma /
Left 2nd and 5th rib fracture
Lymphocytosis-CLL
Mild kmifap-alnbtpifoe-ufgjcltfsn 12.4
Mild hyperglycemia
Mild hyponatremia
Conditions present prior to admission:
CAD
Aortic stenosis/TAVR
CLL
Hyperlipidemia
Psoriatic arthritis
BPH
Left rotator cuff. Left hip replacement. Bilateral knee replacement.
Plan
#Acute hypoxemic respiratory failure secondary to possible pneumonia versus pulmonary edema
-Patient still requiring high flow nasal cannula (50L)
-Wean from high flow as possible
-Continue aspiration precautions with head of bed elevation and nasogastric tube decompression
-Nebulizers as needed
-Chest X-ray showed moderate opacification in right lower lung field, possibly secondary to aspiration causing pneumonia or pleural fluid
-Continue with current Antibiotic treatment- daptomycin and ceftaroline
#MSSA bacteremia
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
-Blood Cultures continue to grow Staph Aureus
-Continue blood cultures until clear
-Infectious disease following, input appreciated
-Antibiotics continue-daptomycin and ceftaroline
-Follow CPK due to daptomycin
-Increased WBC count, has underlying CLL history (high percentage of lymphocytes compared to neutrophils)
#Acute mental status changes secondary to possible septic emboli
-CT head did not show any acute changes, was determined to not be a good candidate for thrombolytics
-Continues to be more awake and talkative
-NPO by speech evaluation yesterday, continue further speech eval (Continue NGT)- may need alternate means of nutrition
-NIH stroke scale 0, can cancel stroke checks
-MRI Brain today once not requiring high-flow nasal cannula
#Hypotension secondary to sepsis
-Off of pressors
-Continue Midodrine q8
-Hypertension medications on hold (Valsartan)
#Mild anemia
-Hgb remaining stable (11.6 -> 11.4 today)
-Continue monitoring and transfuse if Hgb<7 or Plt <10
#New onset A-Fib
-continues to be in A-Fib
-Not on any rate/rhythm control or anticoagulation (due to significant fall history)
-will continue aspirin and as per cardiology think of oral anticoagulation once falls are less frequent
-Will contact Cardiology regarding anti-coagulation recommendations
DVT prophylaxis- On Lovenox
I reviewed this patients case independently and in conjunction with the resident. I personally examined the patient. Patient's complex medical history, laboratory evaluations, events over the last 24 hours, radiographs, microbiological data were
all personally reviewed.
Agree with documented assessment and plan
Angel Aguilar MD, FCCP, [facility]
Diagnostic data:
Chest x-ray 01/05/2024-mild increased interstitial markings compatible with interstitial fibrosis stable compared to December 26, 2023
Chest/rib films 12/14/24-nondisplaced fractures of the left 2nd and 5th ribs
CT head 12/24/24-no acute intracranial abnormalities
Chest X-ray 12/25/2024- New moderate opacification of the right lower lung field. This may be partially due to an elevated diaphragm. This is concerning for pneumonia, pleural fluid and atelectasis. Cardiomegaly. New.
MRI thoracic spine -moderate compression deformities T5, less likely discitis or osteomyelitis
MRI-cervical spine 12/23/24-acute bone marrow edema left T2 transverse process, more likely traumatic injury and less likely infection, severe discogenic disc disease C4, C5, C6, C7, mild spinal cord compression,
MRI-lumbar spine -mild acute infectious discitis or discogenic degenerative disease L5/S1, central canal stenosis,
Echocardiogram 12/16/24-EF 30-35%, stage II diastolic dysfunction, mild mitral regurgitation
RICKI 12/18/24-EF 30-35%, global hypokinesis, well-seated bioprosthetic aortic valve, no evidence for regurgitation, no obvious endocarditis
[2024-12-26 09:05] LABS: Creatine Phosphokinase < 20 U/L (55-170)
--- NOTE | 2024-12-26 12:49 | W.PN.HOSP.TC ---
Today's Communication/Plan
-
Continue daptomycin and ceftaroline
Plan for MRI when off high flow oxygen
Continue aspirin and statin
Neurochecks and NIHSS
Serial blood cultures
Out of bed
Assessment / Plan
Assessment / Plan
#Acute hypoxemic respiratory failure
#Acute metabolic encephalopathy
#Aspiration pneumonia/pneumonitis
-Had aspiration event while in CT scanner; went from room air to requiring 55 L O2 via high flow NC
-Initial chest x-ray without findings, x-ray morning 12/25 showed signs of right lower lobe pneumonia
-Currently on IV antibiotics with daptomycin and ceftaroline for MRSA endocarditis
-ICU on board, currently saturating well on high flow cannula, on aspiration precaution
-Of note, daptomycin with poor pulmonary efficacy due to deactivation by surfactant
Plan
-Continue with current antibiotics and pulmonary toilet
-Follow CBC, temperature curve, sputum culture
-Wean oxygen for SpO2 goal >90%
-NPO, plan for FEES with CHEMICAL ENGINEERING PROFESSOR
-Monitor MSE
#Strokelike symptoms
-Concern for septic emboli from MRSA endocarditis versus other cardioembolic source from AF (not on AC)
-Developed episode of disorientation and minimal responsiveness on 12/24; CT head unremarkable
-Remains on home baby aspirin; planning for high intensity statin when tolerating oral intake
-Lipid panel with LDL 83, no other significant abnormality
-GCS difficult to calculate, minimally responsive on exam
-MRI ordered but unable to have done until off high flow O2
-Neurology on board, was not candidate for TNK
Plan
-Continue with aspirin, plan statin when tolerating PO
-MRI brain when no longer on high flow O2
-Continue neurochecks and NIHSS
-BP goal normotension
#MRSA bacteremia
#Infectious endocarditis of prosthetic valve
# S/P TAVR
#MRI with enhancement of left psoas muscle (traumatic tear > Myositis)
-High suspicion for MRSA endocarditis with persistent bacteremia in context of prosthetic valve
-TTE and RICKI both without obvious vegetations noted on cardiac valves including prosthetic valve
-Currently on daptomycin 1 g every 24 hours; blood cultures from 12/20 remain negative at 72 hours
-Has CLL with accompanying immunosuppression that is likely contributing to infection
Plan
-Continue daptomycin 1 g IV Q24 and ceftaroline 600 mg IV Q8
-Serial blood cultures until negative
-Trend temperature curve and CBC
-May ultimately require valve replacement versus extended antibiotic course
#Circulatory shock
#Sepsis secondary to aspiration pneumonia and MRSA infectious endocarditis
-Had observed aspiration event while in CT scanner on 12/24
-Optimistically this should quickly improve with resolution of SIRS from aspiration event
-Remains on maintenance IV fluid with minimal oral intake; midodrine started every 8 hours
-Has been weaned from vasopressors as of 12/26
#Cardiomyopathy
-Unclear etiology; previously had workup for ischemia that was unremarkable
-Transthoracic echocardiogram here with dilated LV, ejection fraction near 30%
-Had been started on ARB for GDMT; avoiding beta-mitch due to WAP/AVB
-Holding ARB as of 12/25 due to circulatory shock as above
-Continue to monitor I's/O's and weights
#New onset atrial fibrillation
#H/O Wandering atrial pacemaker
#H/O first-degree AVB
-Nonvalvular; [id number] score 6; has history of frequent falls with significant bleeding
-Not currently on any rate/rhythm control nor anticoagulants
-Heart rate currently WNL
-Continue on telemetry
#Nondisplaced left 2nd and 5th rib fractures
-Continue with as needed analgesics and IS
#Nonobstructive CAD
#Dyslipidemia
-Home regimen includes aspirin for primary prevention
-Not currently on beta-mitch, statin
#Chronic lymphocytic leukemia
-Not currently on any chemotherapeutic or immune modulating regimen
-Likely stage 0, likely in the wait and watch stage
-Does have associated immunosuppression
#Psoriatic arthritis
-Not currently on any DMARD therapy, on meloxicam as needed
#BPH
-Home regimen does not include tamsulosin nor alpha-1 reductase inhibitor
-No signs of bladder outlet obstruction
#DJD/DDD
-MRI C, T, L-spine with multiple degenerative findings including canal stenosis, foraminal narrowing
-Patient also complaining of left shoulder stiffness, recently also had trauma with x-ray
-Recent left shoulder x-ray showed glenohumeral and AC osteoarthritis
-Will consult orthopedics, likely will need OP follow-up
#LUE weakness
-Differentials include frozen shoulder versus rotator cuff tear; low suspicion for CVA
-Musculoskeletal in nature, recently had fall with traumatic injuries
-Currently with almost no strength to his LUE, has ROM passively
-Will consider MRI of the left shoulder here
Diet: Jevity 1.5 via NGT, NPO
DVT prophylaxis: SQ Lovenox
CODE STATUS: DNR
Disposition: SNF when medically stable
Anticipated Discharge: > 48 hours
Subjective/Interval History
-
Date of Service: December 26, 2024
Seen and examined while seated in the chair. No acute events overnight. AFVSS on 50 L high flow O2
Patient states he is feeling better than yesterday, denies any shortness of breath.
Denies any new complaints as of this
Objective Data
-
Labs:
Laboratory Results
12/26/24
03:58
WBC 66.4 H*
Hgb 11.4 L
Hct 35.5 L
Plt Count 216
Sodium 134 L
Potassium 3.9
Chloride 100
Carbon Dioxide 29
BUN 31 H
Creatinine 0.8
Glucose 121 H
Calcium 8.2 L
Total Bilirubin 0.6
AST 28
ALT 20
Alkaline Phosphatase 110
Vital Signs:
Vital Signs
Temp Pulse Resp BP Pulse Ox
95.0 F L 73 17 110/73 98
12/26/24 12:00 12/26/24 12:21 12/26/24 12:21 12/26/24 12:21 12/26/24 12:38
I&O
12/25/24 12/26/24 12/27/24
06:59 06:59 06:59
Intake Total 1250.0 / 1307.5 2167.5 / 2217.5 700 / 700
Output Total 675 / 675 875 / 875
Balance 575.0 / 632.5 1292.5 / 1342.5 700 / 700
Review of Systems
-
History Source: Patient
All other systems: Reviewed and negative
Physical Exam
-
General: Well Developed, No Apparent Distress, Appears Chronically Ill and Other (Frail-appearing)
HEENT: Normocephalic, Atraumatic, Moist Mucous Membranes, Anicteric and Oxygen
Respiratory: Rhonchi and Non Labored Respirations; Negative Wheezes, Rales or Accessory Resp Muscle Use
Cardiac: Regular Rhythm and S1/S2; Negative Murmur, Rub or Gallop
GI: Soft, Nontender, Nondistended and Normal Bowel Sounds
Musculoskeletal: No Clubbing, No Cyanosis and No Edema
Skin: Warm, Dry and Normal Turgor; Negative Rash
Neuro: AO x 3, Nonfocal/Grossly Intact and Central Nerve's Intact; Negative Tremors
Psych: Calm
Data Reviewed
-
Labs: Labs Reviewed by me, Discussed with Physician (Financial Assistant) and Discussed with Patient
--- NOTE | 2024-12-26 12:53 | PTCARENOTE ---
Addendum entered by Janeth Griffith RN 12/26/24 13:15:
patient refusing any interventions for low temp.
Original Note:
patient reassessed. ambulated 30 feet in room with PT. oxygen weaned to midflow, tolerating wean. poor inspiratory effort, encouraged to cough and deep breathe. utilizing acapella and IS with encouragement. now expectorating thick yellow sputum.
awaiting MRI. tube feeds initiated
[2024-12-26] MEDS: CUBICIN 20 MG IV (13:33)
--- NOTE | 2024-12-26 14:44 | CM ---
Patient seen at bedside in ICU. Patient indicated that he really wants to go home when medically appropriate, Therapy recommending Acute rehab. CM will continue to follow for discharge planning needs.
Plan; SNF vs Acute Rehab vs patient wish to go home.
--- NOTE | 2024-12-26 14:58 | W.PN.ID1 ---
Date of Service
Date of Service: December 26, 2024
Today's Communication
Continue abx. Repeat blood cultures today. Repeat TTE
Assessment / Plan
Sustained MRSA bacteremia
Acute respiratory failure
Fever
Recurrent falls
Aortic stenosis; Hx TAVR (2023; [facility])
Thoracic back discomfort
Elevated ESR and CRP
CLL
Psoriatic arthritis
HTN
Recommendations:
Given presence of TAVR, concern at this point in time is for prosthetic valve endocarditis, although TTE and RICKI did not reveal a vegetation.
MRI spine (C/T/L) negative for epidural abscess. TTE (12/16/2024) and RICKI (12/18/2024) negative for vegetation
Continue daptomycin (d#9) and ceftaroline (d#3)
Continue serial blood cultures to assess clearance of bacteremia
Follow CPK while on daptomycin.
Brain MRI ordered.
Monitor white count and temperature curve.
����������������������������������������������������������
Chief Complaint
-: Bacteremia
Subjective / Review of Systems
Review of Systems: No Fever
Vital Signs / Physical Exam
Vital Signs
Vital Signs
Temp Pulse Resp BP Pulse Ox
95.0 F L 73 17 110/73 96
12/26/24 12:00 12/26/24 12:21 12/26/24 12:21 12/26/24 12:21 12/26/24 13:00
Physical Exam
Constitutional: No Acute Distress, Comfortable, Chronically Ill and Non-toxic
Head: Other (NG tube in place to suction.)
Eyes: No Conjunctival Hemorrhage and Sclera Anicteric
Cardiovascular: Irregular Rate, S1/S2 and Murmur; Negative S3/S4
Pulmonary: Coarse and Other (High flow O2 in place.); Negative Wheezes
Gastrointestinal: Soft, Non Tender and Non Distended
Extremities: Negative Edema, Cyanosis, Splinter Hemorrhage or Jan[place]ay Lesions
Neurological: Awake, Alert and Normal Muscle Strength; Negative Meningeal Signs
Psychological: Calm
Objective Data
Lab Data
Lab Results
12/26/24 03:58
12/26/24 03:58
ESR 41 mm/hour (0-20) H 12/16/24 07:33
PT 15.6 Sec (11.4-14.6) H 12/25/24 00:21
INR 1.21 12/25/24 00:21
APTT 35.2 Sec (23.4-35.0) H 12/25/24 00:21
Estimated Creat Clear 82 ml/min 12/26/24 03:58
Lactic Acid 0.9 mmol/L (0.7-2.0) 12/14/24 13:20
Total Bilirubin 0.6 mg/dl (0.2-1.3) 12/26/24 03:58
AST 28 U/L (17-59) 12/26/24 03:58
ALT 20 U/L (0-50) 12/26/24 03:58
Alkaline Phosphatase 110 U/L (38-126) 12/26/24 03:58
C-Reactive Protein 236.50 mg/L (0.0-10.00) H 12/16/24 07:33
Most recent labs reviewed.
Micro Results:
12/26/24 12:30 Respiratory Culture - Pending
Sputum Gram Stain - Preliminary
12/23/24 17:08 Blood Culture - Preliminary
Blood/Venous Staph aureus MRSA
Gram Stain - Final
12/23/24 17:56 Blood Culture - Preliminary
Blood/Venous Staph aureus MRSA
Gram Stain - Preliminary
12/24/24 15:58 Blood Culture - Preliminary
Blood/Venous Staph aureus MRSA
Gram Stain - Final
12/20/24 12:19 Blood Culture - Final
Blood/Venous No Growth - Final Report
12/20/24 12:03 Blood Culture - Final
Blood/Venous No Growth - Final Report
12/18/24 14:43 Blood Culture - Final
Blood/Venous Staph aureus MRSA
Gram Stain - Final
12/18/24 13:15 Blood Culture - Final
Blood/Venous Staph aureus MRSA
Gram Stain - Final
12/15/24 23:11 Blood Culture - Final
Blood/Venous Staph aureus MRSA
Gram Stain - Final
12/15/24 22:19 Blood Culture - Final
Blood/Venous Staph aureus MRSA
Gram Stain - Final
12/14/24 13:20 Blood Culture - Final
Blood/Venous Staph aureus MRSA
Gram Stain - Final
12/14/24 14:36 Blood Culture - Final
Blood/Venous Staph aureus MRSA
Gram Stain - Final
12/14/24 14:36 Urine Culture - Final
Urine NO GROWTH
12/14/24 21:22 MRSA Screen - Final
Nose No Methicillin Resistant Staphylococcus aureus isolated.
12/14/24 13:20 Influenza Types A & B (JUAN LUIS) - Final
Nasal Swab Negative for Influenza A & B, NAAT
Negative results must be combined with clinical observations
and patient history.
Nucleic Acid Amplification test (NAAT)performed on the
[employer] platform.
Imaging:
12/23/2024 MRI lumbar spine: Small amount of fluid signal intensity in the L5/S1 intervertebral disc. Moderate to severe enhancing edema in the left psoas muscle.
12/23/2024 MRI cervical spine: Acute bone marrow edema in the left T2 transverse process surrounded by moderate enhancing soft tissue edema. Possibilities include acute traumatic injury or possible acute osteomyelitis.
12/16/2024 MRI thoracic spine: Moderate loss of height of the T5 vertebral body with associated small Schmorl's node. Mild hyperintense signal within the anterior aspect of the vertebral body favored to represent acute on chronic compression
fracture, and less likely to be discitis or osteomyelitis.
12/14/2024 CXR (ribs): Nondisplaced fractures of the left 2nd and 5th ribs identified on the cervical spine CT from 12/14 I last well seen by radiograph. No other acute rib fractures definitively appreciated by this radiograph. Please see full
dictation for additional detail.
Cardiac Imaging:
12/18/2024 ECHO (RICKI): EF approximately 35%. Well-seated and normally functioning bioprosthetic aortic valve. No evidence of regurgitation. No vegetation noted.
12/16/2024 ECHO (TTE): Moderately reduced LV systolic function with an EF approximately 30%. Global hypokinesis. Mild mitral regurgitation. Well-seated, normally functioning bioprosthetic aortic valve.
--- NOTE | 2024-12-26 16:37 | PTCARENOTE ---
Addendum entered by Janeth Griffith RN 12/26/24 16:53:
required oxygen increase in spite of frequent pulmonary toileting. see work list
Original Note:
echo completed, pulse oximeter 80's with head of bed down. after echo completed, assisted out of bed to chair. frequent pulmonary toileting, occasionally able to expectorate, otherwise is swallowing secretions. gurgle voice quality. tube feeds per
orders. call her in reach
[2024-12-26] MEDS: LOVENOX 40 MG SC (18:03)
--- NOTE | 2024-12-26 20:00 | PTCARENOTE ---
NIHSS 0, pt received on 10L of O2 and is tolerating satting at 92%. Pt taken to MRI for imaging w/o issue.
[2024-12-26] MEDS: DESENEX/MITRAZOL/ZEASORB 1 APPLIC TOPICAL (20:44)
[2024-12-26] MEDS: NSS 1000 IV (23:45)
[2024-12-27] VITALS (26 sets, daily range): BP systolic 91–126; BP diastolic 50–97; PULSE 69–73; O2SAT 97; BMI 27.1
[2024-12-27 00:22] LABS: Glucose - Point of Care 136 mg/dl (70-99)
[2024-12-27 04:47] LABS: ALT (SGPT) 39 U/L (0-50); AST (SGOT) 72 U/L (17-59); Albumin 2.4 g/dl (3.5-5.0); Alkaline Phosphatase 130 U/L (38-126); Blood Urea Nitrogen 30 mg/dl (9-20); Calcium 8.3 mg/dl (8.4-10.2); Carbon Dioxide 30 mmol/L (22-30); Chloride 101 mmol/L (98-107); Estimated Creatinine Clearance 94 ml/min; Glucose 144 mg/dl (70-99); Potassium 3.9 mmol/L (3.5-5.1); Sodium 136 mmol/L (135-145); Total Bilirubin 0.5 mg/dl (0.2-1.3); Total Protein 5.6 g/dl (6.3-8.2); eGFR > 60.00
[2024-12-27 04:52] LABS: Hematocrit 35.8 % (39.0-52.0); Hemoglobin 11.2 g/dL (13.0-18.0); Mean Corp Hgb Conc. 31.3 g/dL (33.0-37.0); Mean Corpuscular Hgb 27.4 pg (27.0-31.0); Mean Corpuscular Volume 87.5 fL (80.0-94.0); Mean Platelet Volume 9.7 fL (7.4-10.4); Platelet Count 191 10^3/uL (130-400); Red Blood Cell Count 4.09 10^6/uL (4.70-6.10); Red Cell Dist. Width 15.9 % (11.5-14.5); White Blood Cell Count 62.3 10^3/uL (4.8-10.8)
[2024-12-27 06:43] LABS: Glucose - Point of Care 132 mg/dl (70-99)
[2024-12-27 07:57] LABS: % Eosinophils 0.1 % (0-6); % Immature Granulocytes 0.4 % (0-0.5); % Lymphocytes 79.9 % (20.5-51.1); % Neutrophils 18.6 % (42.2-75.2); Absolute Immature Granulocytes 0.3 10^3/uL (0-0.05); Absolute Lymphocytes 49.8 10^3/uL (1.2-3.4); Absolute Monocytes 0.6 10^3/uL (0.1-0.6); Absolute Neutrophils 11.6 10^3/uL (1.4-6.5); Nucleated Red Blood Cells % 0 % (-)
[2024-12-27] MEDS: TEFLARO 270 MG IV ×2 (08:38→15:48)
[2024-12-27] MEDS: TYLENOL ORAL SOLUTION 1000 MG TUBE ×3 (08:38→21:44)
[2024-12-27] MEDS: LIDOCAINE 4% PATCH 1 PATCH TOPICAL (08:38)
[2024-12-27] MEDS: LOW STRENGTH ASPIRIN 81 MG TUBE (08:38)
[2024-12-27] MEDS: ProAmatine 5 MG TUBE ×2 (08:38→15:49)
[2024-12-27] MEDS: DESENEX/MITRAZOL/ZEASORB 1 APPLIC TOPICAL ×2 (08:39→21:45)
--- NOTE | 2024-12-27 08:54 | W.PN.INTV ---
Today's Communication / Plan
Recommendations
Mucus clearing techniques
Follow chest x-ray
Antibiotics
Comfort a priority
Consider palliative care
Assessment
-
Assessment:
84-year-old male with a history of CLL, CAD, cardiomyopathy, psoriatic arthritis, who recently underwent TAVR and was admitted with sepsis, septic emboli who had episode of emesis, aspiration, lethargy and hypoxemia requiring transfer to
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
Aspiration event/aspiration pneumonia
MRSA bacteremia
Sepsis
Septic emboli
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
Elevated ESR and CRP
Right lung atelectasis from mucous plug
Acute CVA
Recent fall with left-sided head trauma /
Left 2nd and 5th rib fracture
Lymphocytosis-CLL
Mild rvcioq-ltidewkioq-ihrjrxydyg 12.4
Mild hyperglycemia
Mild hyponatremia
DNR
Conditions present prior to admission:
CAD.
Aortic stenosis/TAVR.
CLL.
Hyperlipidemia.
Psoriatic arthritis.
BPH.
Left rotator cuff. Left hip replacement. Bilateral knee replacement.
Plan
Respiratory status remains tenuous with difficulties to mobilize significant secretions
High flow oxygen as needed-currently on high flow-attempt to wean-reviewed with WAREHOUSE SHIPPING CLERK and critical care nursing
BiPAP if necessary/noninvasive ventilation if needed
Patient is a DNR-not to be intubated
Aspiration precautions continue with head of bed elevation and nasogastric tube decompression
Speech therapy evaluation ongoing
FEES -pending
Nebulizers if needed
Chest x-ray 12/25/24-moderate opacification right lower lung concerning for pneumonia
Chest x-ray 12/27/2024-near complete opacification right hemithorax likely lung atelectasis
Too tenuous for bronchoscopy-recommend nasal trumpet, deep suctioning, chest physiotherapy-if patient allows
Follow-up chest x-ray
Cultures reviewed
Repetitive blood cultures positive for MRSA dating back to 12/14/2024-positive 12/15/24, 12/18/24, 12/23/24 and 12/24/24
Blood cultures 12/26/2024-pending
Sputum culture 12/26/2024-usual respiratory qu[place]
Antibiotics continue-daptomycin and ceftaroline
Serial blood cultures continue
Infectious disease following-correspondence reviewed
Monitor leukocytosis
MRI brain 12/26/2024-tiny acute infarct both right and left cerebellar hemispheres and small acute infarct anterior limb left internal capsule
Eventual MRI left shoulder
Decrease IV fluids
Follow lactate
Norepinephrine has been wean off
Midodrine added and helping
Follow hemoglobin
Transfuse if needed
Monitor blood sugar
Insulin supplementation if needed
DVT prophylaxis- On Lovenox
Early nutrition if possible
Early mobilization/bedside range of motion
Overall prognosis unfortunately quite poor, consideration towards palliative care/hospice
Critical care statement: A total of 40 minutes of critical care time was provided for this patient today. This includes management of unstable vital signs, evaluation of the patient at bedside, reviewing the patient's pertinent medical records
including radiographs, pressor management, respiratory failure management,microbiology, laboratory evaluations, and discussion with primary team, consultants, pharmacy, nutrition, physical therapy, case management, charge nurse, critical care
nursing, and respiratory therapy.
Diagnostic data:
Chest x-ray 01/05/2024-mild increased interstitial markings compatible with interstitial fibrosis stable compared to December 26, 2023
Chest/rib films 12/14/24-nondisplaced fractures of the left 2nd and 5th ribs
CT head 12/24/24-no acute intracranial abnormalities
MRI thoracic spine -moderate compression deformities T5, less likely discitis or osteomyelitis
MRI-cervical spine 12/23/24-acute bone marrow edema left T2 transverse process, more likely traumatic injury and less likely infection, severe discogenic disc disease C4, C5, C6, C7, mild spinal cord compression,
MRI-lumbar spine -mild acute infectious discitis or discogenic degenerative disease L5/S1, central canal stenosis,
Echocardiogram 12/16/24-EF 30-35%, stage II diastolic dysfunction, mild mitral regurgitation
RICKI 12/18/24-EF 30-35%, global hypokinesis, well-seated bioprosthetic aortic valve, no evidence for regurgitation, no obvious endocarditis
Subjective Dataa
Subjective Data
Date of Service:
Date of Service: December 27, 2024
Chief Complaint: Homeworker Follow Up, Pulmonary Follow Up and Vent Management Follow Up
Subjective:
difficulties clearing secretions, denies any shortness of breath at rest, no chest pain or abdominal pain
Review of Systems
General: Other ( Per HPI)
Objective Data
Data Reviewed
Vital Signs / I&O / Oxygen:
Vital Signs
Temp Pulse Resp BP Pulse Ox
97.3 F 67 20 125/73 92
12/27/24 07:29 12/27/24 08:38 12/27/24 07:00 12/27/24 08:38 12/27/24 07:00
Intake and Output
12/26/24 12/27/24 12/28/24
06:59 06:59 06:59
Intake Total 2167.5 / 2217.5 3080 / 3080
Output Total 875 / 875 850 / 850
Balance 1292.5 / 1342.5 2230 / 2230
SaO2 92
Nasal Cannula flow liters per 15
minute
Physical Exam
General: Respiratory Distress (n) and Comfortable (Out of bed and sitting in chair)
HEENT: Normocephalic, Anicteric and Moist Mucous Membranes
Cardiovascular: Irregular Rhythm (A-Fib)
Respiratory: Crackles, Rhonchi ( expiratory), Non-Labored Respirations, Accessory Resp Muscle Use (n), Stridor (n) and Other (On High-Flow Nasal Cannuli)
GI: Soft, Distended, Non Tender and NG Tube
Neurology: Awake, Alert and Other (left upper extremity difficulty in movement )
Skin: Warm, Good Color, Cyanosis (n) and Jaundice (n)
Labs/Micro/Reports
Lab Data
12/27/24 04:15
12/27/24 04:15
Microbiology
12/26/24 12:30 Sputum Gram Stain - Preliminary
12/23/24 17:08 Blood/Venous Blood Culture - Preliminary
Staph aureus MRSA
12/23/24 17:08 Blood/Venous Gram Stain - Final
12/23/24 17:56 Blood/Venous Blood Culture - Preliminary
Staph aureus MRSA
12/23/24 17:56 Blood/Venous Gram Stain - Preliminary
12/24/24 15:58 Blood/Venous Blood Culture - Preliminary
Staph aureus MRSA
12/24/24 15:58 Blood/Venous Gram Stain - Final
12/20/24 12:19 Blood/Venous Blood Culture - Final
No Growth - Final Report
12/20/24 12:03 Blood/Venous Blood Culture - Final
No Growth - Final Report
12/18/24 14:43 Blood/Venous Blood Culture - Final
Staph aureus MRSA
12/18/24 14:43 Blood/Venous Gram Stain - Final
12/18/24 13:15 Blood/Venous Blood Culture - Final
Staph aureus MRSA
12/18/24 13:15 Blood/Venous Gram Stain - Final
--- NOTE | 2024-12-27 09:59 | PTCARENOTE ---
report received. patient received in bed, gurgling respirations. unable to clear secretions. pulse oximeter 80's. vigorous pulmonary toilet provided, assisted out to the chair with improvement. moist weak cough, unable to expectorate. attempted
suctioning, patient became agitated and refused. ST updated at bedside. TT to hospitalist to update. [place] sump placement verified. tolerating tube feeds. increased to goal.abdomen soft. condom cath in place
--- NOTE | 2024-12-27 10:41 | W.PN.NEURO.1 ---
Today's Communication / Plan
-
Continue aspirin, lifelong
Provide atorvastatin 40 mg daily when able to take by mouth
Neuro Assessment/Plan
Assessment
Abrupt onset of change in mental status in a patient with known MRSA bacteremia and new decline in oxygenation as well as acute onset emesis
MRI of brain demonstrates likely septic emboli to the brain; right and left cerebellar hemispheres and small acute infarct focus involving the anterior limb of left internal capsule, and tiny focus in the central left jacobo radiata
Plan
Continue aspirin, lifelong
Provide atorvastatin 40 mg daily when able to take by mouth
Goal of normotension at this time
Goal of normoglycemia
Rehabilitation evaluations
Will follow as needed
Subjective/Objective
Subjective Data
Date of Service: December 27, 2024
Objective Data
Vital Signs
Temp Pulse Resp BP Pulse Ox
36.3 C 70 20 93/64 94
12/27/24 07:29 12/27/24 10:00 12/27/24 10:00 12/27/24 10:00 12/27/24 10:00
Lab Results
12/27/24 04:15
12/27/24 04:15
PT 15.6 Sec (11.4-14.6) H 12/25/24 00:21
INR 1.21 12/25/24 00:21
APTT 35.2 Sec (23.4-35.0) H 12/25/24 00:21
Sodium 136 mmol/L (135-145) 12/27/24 04:15
Potassium 3.9 mmol/L (3.5-5.1) 12/27/24 04:15
BUN 30 mg/dl (9-20) H 12/27/24 04:15
Glucose 144 mg/dl (70-99) H 12/27/24 04:15
Calcium 8.3 mg/dl (8.4-10.2) L 12/27/24 04:15
Phosphorus 2.9 mg/dl (2.5-4.5) 12/26/24 03:58
LDL Cholesterol, Calc 83 mg/dl 12/25/24 00:21
Vitamin B12 960 pg/ml (239931) H 12/24/24 05:43
Patient Allergies
formaldehyde [Formaldehyde] Allergy (Verified 12/14/24 07:44)
Rash
latex [Latex] Allergy (Verified 12/24/24 19:40)
Rash
pollen extracts Allergy (Verified 12/14/24 07:44)
congestion
--- NOTE | 2024-12-27 10:56 | W.PN.HOSP.TC ---
Today's Communication/Plan
-
Continue daptomycin and ceftaroline
Serial blood cultures
Continue aspirin
Statin when tolerating PO
Resume ARB when hemodynamics allow
Neurochecks
Assessment / Plan
Assessment / Plan
#Acute hypoxemic respiratory failure
#Acute metabolic encephalopathy
#Aspiration pneumonia/pneumonitis
-Had aspiration event while in CT scanner; went from room air to requiring 55 L O2 via high flow NC
-Initial chest x-ray without findings, x-ray morning 12/25 showed signs of right lower lobe pneumonia
-Currently on IV antibiotics with daptomycin and ceftaroline for MRSA endocarditis
-ICU on board, currently saturating well on high flow cannula, on aspiration precaution
-Of note, daptomycin with poor pulmonary efficacy due to deactivation by surfactant
-As of morning 12/27 remains on 15 L O2, rhonchorous on exam
Plan
-Continue with current antibiotics and pulmonary toilet
-Remains on antibiotics as below for MRSA IE
-Follow CBC, temperature curve, sputum culture
-Wean oxygen for SpO2 goal >90%
-NPO, plan for FEES with LUMP INSPECTOR
-Monitor MSE
#Acute multifocal CVA
-MRI on 12/26 with acute infarct of right and left cerebellar hemisphere, left internal capsule, left jacobo
-Concern for septic emboli from MRSA endocarditis versus other cardioembolic source from AF (not on AC)
-Developed episode of disorientation and minimal responsiveness on 12/24; CT head unremarkable
-Remains on home baby aspirin; planning for high intensity statin when tolerating oral intake
-Lipid panel with LDL 83, no other significant abnormality; repeat TTE on 12/26 without vegetation
-GCS difficult to calculate initially, now very low
-Neurology on board, was not candidate for TNK
Plan
-Continue with aspirin, plan statin when tolerating PO
-Treatment of infectious endocarditis as below
-Continue neurochecks and NIHSS
-BP goal normotension
#MRSA bacteremia
#Infectious endocarditis of prosthetic valve
# S/P TAVR
#MRI with enhancement of left psoas muscle (traumatic tear > Myositis)
-High suspicion for MRSA endocarditis with persistent bacteremia in context of prosthetic valve
-TTE and RICKI both without obvious vegetations noted on cardiac valves including prosthetic valve
-Currently on daptomycin 1 g every 24 hours; blood cultures from 12/20 remain negative at 72 hours
-Has CLL with accompanying immunosuppression that is likely contributing to infection
-Blood cultures as of 12/24 positive, repeat RICKI on 12/26 without vegetation
Plan
-Continue daptomycin 1 g IV Q24 and ceftaroline 600 mg IV Q8
-Serial blood cultures until negative
-Trend temperature curve and CBC
-Likely poor candidate for valve replaced
#Cardiomyopathy
-Unclear etiology; previously had workup for ischemia that was unremarkable
-Transthoracic echocardiogram here with dilated LV, ejection fraction near 30%
-Had been started on ARB for GDMT; avoiding beta-mitch due to WAP/AVB
-Holding ARB as of 12/25 due to circulatory shock as above
-Continue to monitor I's/O's and weights
#New onset atrial fibrillation
#H/O Wandering atrial pacemaker
#H/O first-degree AVB
-Nonvalvular; [id number] score 6; has history of frequent falls with significant bleeding
-Not currently on any rate/rhythm control nor anticoagulants
-Heart rate currently WNL
-Continue on telemetry
#Circulatory shock
#Sepsis secondary to aspiration pneumonia and MRSA infectious endocarditis
-Had observed aspiration event while in CT scanner on 12/24
-Optimistically this should quickly improve with resolution of SIRS from aspiration event
-Remains on maintenance IV fluid with minimal oral intake; midodrine started every 8 hours
-Has been weaned from vasopressors as of 12/26
#Nondisplaced left 2nd and 5th rib fractures
-Continue with as needed analgesics and IS
#Nonobstructive CAD
#Dyslipidemia
-Home regimen includes aspirin for primary prevention
-Not currently on beta-mitch, statin
#Chronic lymphocytic leukemia
-Not currently on any chemotherapeutic or immune modulating regimen
-Likely stage 0, likely in the wait and watch stage
-Does have associated immunosuppression
#Psoriatic arthritis
-Not currently on any DMARD therapy, on meloxicam as needed
#BPH
-Home regimen does not include tamsulosin nor alpha-1 reductase inhibitor
-No signs of bladder outlet obstruction
#DJD/DDD
-MRI C, T, L-spine with multiple degenerative findings including canal stenosis, foraminal narrowing
-Patient also complaining of left shoulder stiffness, recently also had trauma with x-ray
-Recent left shoulder x-ray showed glenohumeral and AC osteoarthritis
-Will consult orthopedics, likely will need OP follow-up
#LUE weakness
-Differentials include frozen shoulder versus rotator cuff tear; low suspicion for CVA
-Musculoskeletal in nature, recently had fall with traumatic injuries
-Currently with almost no strength to his LUE, has ROM passively
Diet: Jevity 1.5 via NGT, NPO
DVT prophylaxis: SQ Lovenox
CODE STATUS: DNR
Disposition: TBD, PT follow-up
Anticipated Discharge: > 48 hours
Subjective/Interval History
-
Date of Service: December 27, 2024
Seen and examined at the bedside. No acute events overnight. AFVSS on 15 L O2 as of this morning
MRI scan yesterday did show multifocal CVA consistent with septic embolic etiology. No significant gross deficits today
He denies any new complaints as of this morning.
Objective Data
-
Labs:
Laboratory Results
12/27/24
04:15
WBC 62.3 H*
Hgb 11.2 L
Hct 35.8 L
Plt Count 191
Sodium 136
Potassium 3.9
Chloride 101
Carbon Dioxide 30
BUN 30 H
Creatinine 0.7
Glucose 144 H
Calcium 8.3 L
Total Bilirubin 0.5
AST 72 H
ALT 39
Alkaline Phosphatase 130 H
Vital Signs:
Vital Signs
Temp Pulse Resp BP Pulse Ox
97.3 F 70 20 93/64 94
12/27/24 07:29 12/27/24 10:00 12/27/24 10:00 12/27/24 10:00 12/27/24 10:00
I&O
12/26/24 12/27/24 12/28/24
06:59 06:59 06:59
Intake Total 2167.5 / 2217.5 3080 / 3195 670 / 670
Output Total 875 / 875 850 / 850
Balance 1292.5 / 1342.5 2230 / 2345 670 / 670
Review of Systems
-
History Source: Patient
All other systems: Reviewed and negative
Physical Exam
-
General: Well Developed, Well Nourished, No Apparent Distress and Comfortable
HEENT: Normocephalic, Atraumatic, Moist Mucous Membranes, Anicteric and Oxygen
Respiratory: Rhonchi and Non Labored Respirations; Negative Wheezes, Rales or Accessory Resp Muscle Use
Cardiac: Regular Rhythm, S1/S2 and Murmur; Negative Rub, JVD or Gallop
GI: Soft, Nontender, Nondistended and Normal Bowel Sounds
Genito-urinary: Clear Urine and Weiss
Musculoskeletal: No Clubbing, No Cyanosis and No Edema
Skin: Warm, Dry and Normal Turgor; Negative Rash
Neuro: AO x 3, Nonfocal/Grossly Intact and Central Nerve's Intact; Negative Tremors
Psych: Calm
Data Reviewed
-
MRI: Report Reviewed by me and Discussed with Physician (Neuro)
Labs: Labs Reviewed by me and Discussed with Patient
--- NOTE | 2024-12-27 11:12 | W.PN.ID1 ---
Date of Service
Date of Service: December 27, 2024
Today's Communication
Continue antibiotics.
Assessment / Plan
Sustained MRSA bacteremia
Acute respiratory failure
Fever
Recurrent falls
Aortic stenosis; Hx TAVR (2023; [facility])
Thoracic back discomfort
Elevated ESR and CRP
CLL
Psoriatic arthritis
HTN
Recommendations:
Given presence of TAVR, concern at this point in time is for prosthetic valve endocarditis, although TTE and RICKI did not reveal a vegetation.
MRI spine (C/T/L) negative for epidural abscess. TTE (12/16/2024) / ( 12/26/24) and RICKI (12/18/2024) negative for vegetation
Continue daptomycin (d#10) and ceftaroline (d#4)
Continue serial blood cultures to assess clearance of bacteremia
Follow CPK while on daptomycin.
Monitor white count and temperature curve.
����������������������������������������������������������
Chief Complaint
-: Bacteremia
Subjective / Review of Systems
Review of Systems: No Fever
Vital Signs / Physical Exam
Vital Signs
Vital Signs
Temp Pulse Resp BP Pulse Ox
97.3 F 70 20 93/64 94
12/27/24 07:29 12/27/24 10:00 12/27/24 10:00 12/27/24 10:00 12/27/24 10:00
Physical Exam
Constitutional: No Acute Distress, Comfortable, Chronically Ill and Non-toxic
Head: Other (NG tube)
Eyes: No Conjunctival Hemorrhage and Sclera Anicteric
Cardiovascular: Irregular Rate, S1/S2 and Murmur; Negative S3/S4
Pulmonary: Coarse; Negative Wheezes
Gastrointestinal: Soft, Non Tender and Non Distended
Extremities: Negative Edema, Cyanosis, Splinter Hemorrhage or Janeway Lesions
Neurological: Awake, Alert and Normal Muscle Strength; Negative Meningeal Signs
Psychological: Calm
Objective Data
Lab Data
Lab Results
12/27/24 04:15
12/27/24 04:15
ESR 41 mm/hour (0-20) H 12/16/24 07:33
PT 15.6 Sec (11.4-14.6) H 12/25/24 00:21
INR 1.21 12/25/24 00:21
APTT 35.2 Sec (23.4-35.0) H 12/25/24 00:21
Estimated Creat Clear 94 ml/min 12/27/24 04:15
Lactic Acid 0.9 mmol/L (0.7-2.0) 12/14/24 13:20
Total Bilirubin 0.5 mg/dl (0.2-1.3) 12/27/24 04:15
AST 72 U/L (17-59) H 12/27/24 04:15
ALT 39 U/L (0-50) 12/27/24 04:15
Alkaline Phosphatase 130 U/L (38-126) H 12/27/24 04:15
C-Reactive Protein 236.50 mg/L (0.0-10.00) H 12/16/24 07:33
Most recent labs reviewed.
Micro Results:
12/26/24 15:33 Blood Culture - Pending
Blood/Venous
12/26/24 14:59 Blood Culture - Pending
Blood/Venous
12/26/24 12:30 Respiratory Culture - Pending
Sputum Gram Stain - Preliminary
12/23/24 17:08 Blood Culture - Preliminary
Blood/Venous Staph aureus MRSA
Gram Stain - Final
12/23/24 17:56 Blood Culture - Preliminary
Blood/Venous Staph aureus MRSA
Gram Stain - Preliminary
12/24/24 15:58 Blood Culture - Preliminary
Blood/Venous Staph aureus MRSA
Gram Stain - Final
12/20/24 12:19 Blood Culture - Final
Blood/Venous No Growth - Final Report
12/20/24 12:03 Blood Culture - Final
Blood/Venous No Growth - Final Report
12/18/24 14:43 Blood Culture - Final
Blood/Venous Staph aureus MRSA
Gram Stain - Final
12/18/24 13:15 Blood Culture - Final
Blood/Venous Staph aureus MRSA
Gram Stain - Final
12/15/24 23:11 Blood Culture - Final
Blood/Venous Staph aureus MRSA
Gram Stain - Final
12/15/24 22:19 Blood Culture - Final
Blood/Venous Staph aureus MRSA
Gram Stain - Final
12/14/24 13:20 Blood Culture - Final
Blood/Venous Staph aureus MRSA
Gram Stain - Final
12/14/24 14:36 Blood Culture - Final
Blood/Venous Staph aureus MRSA
Gram Stain - Final
12/14/24 14:36 Urine Culture - Final
Urine NO GROWTH
12/14/24 21:22 MRSA Screen - Final
Nose No Methicillin Resistant Staphylococcus aureus isolated.
12/14/24 13:20 Influenza Types A & B (JUAN LUIS) - Final
Nasal Swab Negative for Influenza A & B, NAAT
Negative results must be combined with clinical observations
and patient history.
Nucleic Acid Amplification test (NAAT)performed on the
[employer] platform.
Imaging:
12/26/2024 MRI brain: Tiny acute infarct foci in the right and left cerebellar hemispheres and small acute infarct focus involving the anterior limb of left internal capsule, and tiny focus in the central left jacobo radiata. Large volume chronic
microvascular white matter ischemic disease. Small chronic right pontine lacunar infarct. Probable old/chronic hemorrhagic lacunar infarct in the right thalamus.
12/23/2024 MRI lumbar spine: Small amount of fluid signal intensity in the L5/S1 intervertebral disc. Moderate to severe enhancing edema in the left psoas muscle.
12/23/2024 MRI cervical spine: Acute bone marrow edema in the left T2 transverse process surrounded by moderate enhancing soft tissue edema. Possibilities include acute traumatic injury or possible acute osteomyelitis.
12/16/2024 MRI thoracic spine: Moderate loss of height of the T5 vertebral body with associated small Schmorl's node. Mild hyperintense signal within the anterior aspect of the vertebral body favored to represent acute on chronic compression
fracture, and less likely to be discitis or osteomyelitis.
12/14/2024 CXR (ribs): Nondisplaced fractures of the left 2nd and 5th ribs identified on the cervical spine CT from 12/14 I last well seen by radiograph. No other acute rib fractures definitively appreciated by this radiograph. Please see full
dictation for additional detail.
Cardiac Imaging:
12/18/2024 ECHO (RICKI): EF approximately 35%. Well-seated and normally functioning bioprosthetic aortic valve. No evidence of regurgitation. No vegetation noted.
12/16/2024 ECHO (TTE): Moderately reduced LV systolic function with an EF approximately 30%. Global hypokinesis. Mild mitral regurgitation. Well-seated, normally functioning bioprosthetic aortic valve.
[2024-12-27] MEDS: CUBICIN 20 MG IV (12:50)
--- NOTE | 2024-12-27 13:00 | PTCARENOTE ---
Addendum entered by Janeth Griffith RN 12/27/24 13:33:
RT unable to NT suction, but able to oral pharyngeal large amount yellow white sputum. more lethargic. hospitalist and artificial plastic eye maker updated. orders received
Original Note:
patient with increased weakness, required max assist to transfer to bed, requires increase in midflow in spite of vigorous pulmonary toileting. patient c/o being 'tired and slow'. orders noted for nt suctioning. RT updated.
--- NOTE | 2024-12-27 16:20 | CM ---
Chart reviewed patient is currently on 10 liters of oxygen, plan is for possible acute rehab, will follow.
Plan; To follow with progress
--- NOTE | 2024-12-27 17:00 | PTCARENOTE ---
transfer to sport bed,tolerating percussion and vibration. oral pharyngeal suctioning for large amount yellow kwan sputum. positioned with right lung up
[2024-12-27] MEDS: LOVENOX 40 MG SC (17:45)
[2024-12-27] MEDS: ZYVOX 600 MG 300 IV (17:58)
[2024-12-27] MEDS: VANCOCIN 540 MG IV (21:43)
[2024-12-28] VITALS (22 sets, daily range): BP systolic 102–138; BP diastolic 66–85; PULSE 73; O2SAT 94; BMI 26.3
[2024-12-28] MEDS: TEFLARO 270 MG IV ×3 (00:19→17:05)
[2024-12-28] MEDS: ProAmatine 5 MG TUBE ×3 (00:19→17:04)
[2024-12-28 05:20] LABS: ALT (SGPT) 67 U/L (0-50); AST (SGOT) 92 U/L (17-59); Albumin 2.5 g/dl (3.5-5.0); Alkaline Phosphatase 190 U/L (38-126); Blood Urea Nitrogen 28 mg/dl (9-20); Calcium 8.3 mg/dl (8.4-10.2); Carbon Dioxide 30 mmol/L (22-30); Chloride 101 mmol/L (98-107); Estimated Creatinine Clearance 110 ml/min; Glucose 139 mg/dl (70-99); Potassium 4.1 mmol/L (3.5-5.1); Sodium 138 mmol/L (135-145); Total Bilirubin 0.7 mg/dl (0.2-1.3); Total Protein 5.8 g/dl (6.3-8.2); eGFR > 60.00
[2024-12-28] MEDS: ZYVOX 600 MG 300 IV ×2 (05:22→18:23)
[2024-12-28 05:26] LABS: Vancomycin Random 12.3 ug/ml
--- NOTE | 2024-12-28 07:15 | PTCARENOTE ---
report received. aaox3. pt able to answer questions. afib on monitor. 15l midflow. pulse ox >92%. rhonchus waqar. deep suction provided. +2 generlized anasarca. jev 1.5 @ 55cc/hr. pt updated on plan of care. will monitor.
--- NOTE | 2024-12-28 07:40 | W.PN.ID1 ---
Date of Service
Date of Service: December 28, 2024
Today's Communication
Continue antibiotics. Follow repeat blood cultures
Assessment / Plan
Sustained MRSA bacteremia
Acute hypoxemic respiratory failure; on high flow O2
Fever
Pneumonia vs pneumonitis; suspected aspiration-related
CVA
Recurrent falls
Aortic stenosis; Hx TAVR (2023; [facility])
Thoracic back discomfort
Elevated ESR and CRP
CLL
Psoriatic arthritis
HTN
Recommendations:
Given presence of TAVR, concern at this point in time is for prosthetic valve endocarditis, although TTE and RICKI did not reveal a vegetation.
MRI spine (C/T/L) negative for epidural abscess. TTE (12/16/2024) / ( 12/26/24) and RICKI (12/18/2024) negative for vegetation
Called by micro lab yesterday; repeat sensitivities on MRSA isolate from 12/23 revealed emergence of daptomycin resistance.
Case discussed with Clinical Infectious Diseases Pharmacist. Further daptomycin discontinued and patient started on vancomycin and linezolid, in addition to ceftaroline
Continue serial blood cultures to assess clearance of bacteremia.
Currently a high risk situation given persistence of bacteremia and emergence of resistance while on therapy
Patient remains critically ill in intensive care unit on high flow O2
Monitor white count and temperature curve.
����������������������������������������������������������
Chief Complaint
-: Bacteremia (MRSA)
Subjective / Review of Systems
Patient seen and examined. No significant events overnight.
Vital Signs / Physical Exam
Vital Signs
Vital Signs
Temp Pulse Resp BP Pulse Ox
97.1 F 69 20 126/66 94
12/28/24 07:19 12/28/24 04:00 12/28/24 04:00 12/28/24 04:00 12/28/24 04:00
Physical Exam
Constitutional: No Acute Distress, Comfortable, Chronically Ill and Non-toxic
Head: Other (NG tube with tube feeds)
Eyes: No Conjunctival Hemorrhage
Cardiovascular: Irregular Rate, S1/S2 and Murmur; Negative S3/S4
Pulmonary: Rhonchi (Scattered) and Coarse; Negative Wheezes
Gastrointestinal: Soft, Non Tender and Non Distended
Extremities: Negative Edema, Cyanosis, Splinter Hemorrhage or Janeway Lesions
Neurological: Other (Resting comfortably)
Psychological: Calm
Objective Data
Lab Data
Lab Results
12/28/24 04:31
ESR 41 mm/hour (0-20) H 12/16/24 07:33
PT 15.6 Sec (11.4-14.6) H 12/25/24 00:21
INR 1.21 12/25/24 00:21
APTT 35.2 Sec (23.4-35.0) H 12/25/24 00:21
Estimated Creat Clear 110 ml/min 12/28/24 04:31
Lactic Acid 0.9 mmol/L (0.7-2.0) 12/14/24 13:20
Total Bilirubin 0.7 mg/dl (0.2-1.3) 12/28/24 04:31
AST 92 U/L (17-59) H 12/28/24 04:31
ALT 67 U/L (0-50) H 12/28/24 04:31
Alkaline Phosphatase 190 U/L (38-126) H 12/28/24 04:31
C-Reactive Protein 236.50 mg/L (0.0-10.00) H 12/16/24 07:33
Most recent labs reviewed.
Micro Results:
12/23/24 17:08 Blood Culture - Final
Blood/Venous Staph aureus MRSA
Gram Stain - Final
12/26/24 15:33 Blood Culture - Preliminary
Blood/Venous No Growth in 24 hours- Final report to follow
12/26/24 14:59 Blood Culture - Preliminary
Blood/Venous No Growth in 24 hours- Final report to follow
12/23/24 17:56 Blood Culture - Final
Blood/Venous Staph aureus MRSA
Gram Stain - Final
12/24/24 15:58 Blood Culture - Final
Blood/Venous Staph aureus MRSA
Gram Stain - Final
12/26/24 12:30 Respiratory Culture - Preliminary
Sputum Usual Respiratory Ilana
Gram Stain - Preliminary
12/20/24 12:19 Blood Culture - Final
Blood/Venous No Growth - Final Report
12/20/24 12:03 Blood Culture - Final
Blood/Venous No Growth - Final Report
12/18/24 14:43 Blood Culture - Final
Blood/Venous Staph aureus MRSA
Gram Stain - Final
12/18/24 13:15 Blood Culture - Final
Blood/Venous Staph aureus MRSA
Gram Stain - Final
12/15/24 23:11 Blood Culture - Final
Blood/Venous Staph aureus MRSA
Gram Stain - Final
12/15/24 22:19 Blood Culture - Final
Blood/Venous Staph aureus MRSA
Gram Stain - Final
12/14/24 13:20 Blood Culture - Final
Blood/Venous Staph aureus MRSA
Gram Stain - Final
12/14/24 14:36 Blood Culture - Final
Blood/Venous Staph aureus MRSA
Gram Stain - Final
12/14/24 14:36 Urine Culture - Final
Urine NO GROWTH
12/14/24 21:22 MRSA Screen - Final
Nose No Methicillin Resistant Staphylococcus aureus isolated.
12/14/24 13:20 Influenza Types A & B (JUAN LUIS) - Final
Nasal Swab Negative for Influenza A & B, NAAT
Negative results must be combined with clinical observations
and patient history.
Nucleic Acid Amplification test (NAAT)performed on the
[employer] platform.
Imaging:
12/27/2024 CXR (portable): Near complete whiteout of the right hemithorax. Mild rightward deviation of the trachea. Right mainstem bronchus is obscured. Elevation of the right hemidiaphragm noted. Please see full dictation for additional detail.
12/26/2024 MRI brain: Tiny acute infarct foci in the right and left cerebellar hemispheres and small acute infarct focus involving the anterior limb of left internal capsule, and tiny focus in the central left jacobo radiata. Large volume chronic
microvascular white matter ischemic disease. Small chronic right pontine lacunar infarct. Probable old/chronic hemorrhagic lacunar infarct in the right thalamus.
12/23/2024 MRI lumbar spine: Small amount of fluid signal intensity in the L5/S1 intervertebral disc. Moderate to severe enhancing edema in the left psoas muscle.
12/23/2024 MRI cervical spine: Acute bone marrow edema in the left T2 transverse process surrounded by moderate enhancing soft tissue edema. Possibilities include acute traumatic injury or possible acute osteomyelitis.
12/16/2024 MRI thoracic spine: Moderate loss of height of the T5 vertebral body with associated small Schmorl's node. Mild hyperintense signal within the anterior aspect of the vertebral body favored to represent acute on chronic compression
fracture, and less likely to be discitis or osteomyelitis.
12/14/2024 CXR (ribs): Nondisplaced fractures of the left 2nd and 5th ribs identified on the cervical spine CT from 12/14 I last well seen by radiograph. No other acute rib fractures definitively appreciated by this radiograph. Please see full
dictation for additional detail.
Cardiac Imaging:
12/18/2024 ECHO (RICKI): EF approximately 35%. Well-seated and normally functioning bioprosthetic aortic valve. No evidence of regurgitation. No vegetation noted.
12/16/2024 ECHO (TTE): Moderately reduced LV systolic function with an EF approximately 30%. Global hypokinesis. Mild mitral regurgitation. Well-seated, normally functioning bioprosthetic aortic valve.
Chest X-Ray: Image Reviewed and Report Reviewed
MRI: Report Reviewed
[2024-12-28] MEDS: LOW STRENGTH ASPIRIN 81 MG TUBE (08:14)
[2024-12-28] MEDS: TYLENOL ORAL SOLUTION 1000 MG TUBE ×3 (08:14→21:44)
[2024-12-28] MEDS: DESENEX/MITRAZOL/ZEASORB 1 APPLIC TOPICAL ×2 (08:15→20:42)
[2024-12-28] MEDS: LIDOCAINE 4% PATCH 1 PATCH TOPICAL (08:15)
--- NOTE | 2024-12-28 08:24 | W.PN.INTV ---
Addendum entered and electronically signed by Emmanuel Edmond MD 12/28/24 15:36:
Correction to coding: Total time spent today was 77 minutes for this encounter. Time includes reviewing laboratory test/imaging results, reviewing pertinent medical records, obtaining and reviewing medical history, performing an appropriate exam,
ordering medications, tests and procedures. Time also includes documentation of this encounter, coordinating patient care and communicating with other healthcare professionals. Total time does not include separately billed tests performed on this
date of service.
Original Note:
Today's Communication / Plan
Recommendations
Mucus clearing techniques -add vest therapy + DuoNebs + nebulized 3% today; start Mucinex as well
Repeat CXR tomorrow
Antibiotics per ID
Consider palliative care -full medical management for now
Continue ICU level care for this critically ill patient
Assessment
-
Assessment:
84-year-old male with a history of CLL, CAD, cardiomyopathy, psoriatic arthritis, who recently underwent TAVR and was admitted with sepsis, septic emboli who had episode of emesis, aspiration, lethargy and hypoxemia requiring transfer to
ICU-tobacco sampler consulted for respiratory decompensation/aspiration/critical care management 12/24/24.
Aspiration event/aspiration pneumonia
MRSA bacteremia
Sepsis
Septic emboli
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
Elevated ESR and CRP
Right lung atelectasis from mucous plug
Acute CVA
Recent fall with left-sided head trauma 12/14/24
Left 2nd and 5th rib fracture
Lymphocytosis-CLL
Mild dcsmzr-blwnfoents-fmyninzavj 12.4
Mild hyperglycemia
Mild hyponatremia
DNR
Conditions present prior to admission:
CAD.
Aortic stenosis/TAVR.
CLL.
Hyperlipidemia.
Psoriatic arthritis.
BPH.
Left rotator cuff. Left hip replacement. Bilateral knee replacement.
Plan
Respiratory status remains tenuous with difficulties to mobilize significant secretions
High flow oxygen as needed-patient has been on mid flow nasal cannula since morning of 12/26/2024
Continue to wean down supplemental O2 flow rate as tolerated while keeping SpO2 >90-94%
Would try to avoid as BiPAP may increase risk of aspiration
Patient is a DNR-not to be intubated
Aspiration precautions continue with head of bed elevation and nasogastric tube decompression
Speech therapy evaluation ongoing
FEES -pending as he is too unstable respiratory rise
Nebulizers if needed
Chest x-ray 12/25/24-moderate opacification right lower lung concerning for pneumonia
Chest x-ray 12/27/2024-near complete opacification right hemithorax likely lung atelectasis
Too tenuous for bronchoscopy-recommend nasal trumpet, deep suctioning, chest physiotherapy-if patient allows
Start twice daily hypertonic saline with DuoNebs, and vest to help him bring up phlegm
CXR today (12/28/2024) shows much improvement in aeration of right lung compared to 12/27/2024 --> start management per above to help improve pulmonary toilet, and will get repeat CXR again tomorrow
Cultures reviewed
Repetitive blood cultures positive for MRSA dating back to 12/14/2024-positive 12/15/24, 12/18/24, 12/23/24 and 12/24/24
Blood cultures 12/26/2024-NGTD
Sputum culture 12/26/2024-usual respiratory quinton
Antibiotics continue-Zyvox and ceftaroline; defer to ID
Serial blood cultures continue (rechecked again this morning � 12/28)
Infectious disease following-correspondence reviewed
Trend WBC
MRI brain 12/26/2024-tiny acute infarct both right and left cerebellar hemispheres and small acute infarct anterior limb left internal capsule
Eventual MRI left shoulder
Lactate was normal on admission
Norepinephrine has been wean off
Midodrine added and helping
Follow hemoglobin
Transfuse if needed to keep Hb>7g/dL
Monitor blood sugar with goal >100 and <180mg/dL
Insulin supplementation if needed
DVT prophylaxis- On Lovenox
Early nutrition if possible
Early mobilization/bedside range of motion
Overall prognosis unfortunately quite poor, consideration towards palliative care/hospice. Given his significant hypoxia with close monitoring needed with continuous nursing needs, he needs to continue ICU level care.
Critical care statement: A total of 42 minutes of critical care time was provided for this patient today. This includes management of unstable vital signs, evaluation of the patient at bedside, reviewing the patient's pertinent medical records
including radiographs, pressor management, respiratory failure management,microbiology, laboratory evaluations, and discussion with primary team, consultants, pharmacy, nutrition, physical therapy, case management, charge nurse, critical care
nursing, and respiratory therapy.
Diagnostic data:
Chest x-ray 01/05/2024-mild increased interstitial markings compatible with interstitial fibrosis stable compared to December 26, 2023
Chest/rib films 12/14/24-nondisplaced fractures of the left 2nd and 5th ribs
CT head 12/24/24-no acute intracranial abnormalities
MRI thoracic spine -moderate compression deformities T5, less likely discitis or osteomyelitis
MRI-cervical spine 12/23/24-acute bone marrow edema left T2 transverse process, more likely traumatic injury and less likely infection, severe discogenic disc disease C4, C5, C6, C7, mild spinal cord compression,
MRI-lumbar spine -mild acute infectious discitis or discogenic degenerative disease L5/S1, central canal stenosis,
Echocardiogram 12/16/24-EF 30-35%, stage II diastolic dysfunction, mild mitral regurgitation
RICKI 12/18/24-EF 30-35%, global hypokinesis, well-seated bioprosthetic aortic valve, no evidence for regurgitation, no obvious endocarditis
Subjective Dataa
Subjective Data
Date of Service:
Date of Service: December 28, 2024
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
Subjective:
Patient was seen and evaluated today at bedside. Currently on tube feeds at 50 cc an hour. Heart rate 70, BP 117/69 and saturating 94% on 14 L/min. He is awake, following commands, and has audible phlegm in his airway that he is having difficulty
coughing out but he is in no acute distress. He can easily speak once he clears his phlegm. He denies chest pain, FRAIRE, nausea, fevers or chills.
Review of Systems
General: Other (Negative unless mentioned above)
Objective Data
Data Reviewed
Vital Signs / I&O / Oxygen:
Vital Signs
Temp Pulse Resp BP Pulse Ox
97.1 F 69 20 126/66 94
12/28/24 07:19 12/28/24 04:00 12/28/24 04:00 12/28/24 04:00 12/28/24 07:15
Intake and Output
12/27/24 12/28/24 12/29/24
06:59 06:59 06:59
Intake Total 3080 / 3195 4260 / 4260
Output Total 850 / 850 550 / 550
Balance 2230 / 2345 3710 / 3710
SaO2 94
Nasal Cannula flow liters per 10
minute
Physical Exam
General: Respiratory Distress (n) and Comfortable
HEENT: Normocephalic, Anicteric and Moist Mucous Membranes
Cardiovascular: Irregular Rhythm (A-Fib) and Peripheral Edema (negative)
Respiratory: Wheeze (negative), Crackles, Rhonchi (Bilaterally upon expiration), Non-Labored Respirations, Accessory Resp Muscle Use (n) and Stridor (n)
GI: Soft, Distended, Non Tender and NG Tube
Neurology: Awake, Alert and Other (left upper extremity difficulty in movement )
Skin: Warm, Dry, Cyanosis (n) and Jaundice (n)
Labs/Micro/Reports
Lab Data
12/28/24 04:31
12/28/24 04:31
Microbiology
12/23/24 17:08 Blood/Venous Blood Culture - Final
Staph aureus MRSA
12/23/24 17:08 Blood/Venous Gram Stain - Final
12/26/24 15:33 Blood/Venous Blood Culture - Preliminary
No Growth in 24 hours- Final report to follow
12/26/24 14:59 Blood/Venous Blood Culture - Preliminary
No Growth in 24 hours- Final report to follow
12/23/24 17:56 Blood/Venous Blood Culture - Final
Staph aureus MRSA
12/23/24 17:56 Blood/Venous Gram Stain - Final
12/24/24 15:58 Blood/Venous Blood Culture - Final
Staph aureus MRSA
12/24/24 15:58 Blood/Venous Gram Stain - Final
12/26/24 12:30 Sputum Respiratory Culture - Preliminary
Usual Respiratory Quinton
12/26/24 12:30 Sputum Gram Stain - Preliminary
12/20/24 12:19 Blood/Venous Blood Culture - Final
No Growth - Final Report
12/20/24 12:03 Blood/Venous Blood Culture - Final
No Growth - Final Report
12/18/24 14:43 Blood/Venous Blood Culture - Final
Staph aureus MRSA
12/18/24 14:43 Blood/Venous Gram Stain - Final
12/18/24 13:15 Blood/Venous Blood Culture - Final
Staph aureus MRSA
12/18/24 13:15 Blood/Venous Gram Stain - Final
[2024-12-28 09:15] LABS: Hematocrit 34.5 % (39.0-52.0); Hemoglobin 10.8 g/dL (13.0-18.0); Mean Corp Hgb Conc. 31.3 g/dL (33.0-37.0); Mean Corpuscular Hgb 27.6 pg (27.0-31.0); Platelet Count 196 10^3/uL (130-400); Red Blood Cell Count 3.92 10^6/uL (4.70-6.10); White Blood Cell Count 60.8 10^3/uL (4.8-10.8)
[2024-12-28 09:17] LABS: % Immature Granulocytes 0.5 % (0-0.5); % Lymphocytes 80.3 % (20.5-51.1); % Monocytes 0.9 % (1.7-9.3); % Neutrophils 18.3 % (42.2-75.2); Absolute Immature Granulocytes 0.3 10^3/uL (0-0.05); Absolute Lymphocytes 48.8 10^3/uL (1.2-3.4); Absolute Monocytes 0.6 10^3/uL (0.1-0.6); Absolute Neutrophils 11.1 10^3/uL (1.4-6.5); Nucleated Red Blood Cells % 0 % (-)
--- NOTE | 2024-12-28 11:24 | W.PN.HOSP.TC ---
Today's Communication/Plan
-
Continue vancomycin/linezolid/ceftaroline
Continue mucolytics and pulmonary toilet
Aspirin and statin (when cleared for PO)
Palliative care consult
Wean oxygen as able
Assessment / Plan
Assessment / Plan
#Acute hypoxemic respiratory failure
#Acute metabolic encephalopathy
#Aspiration pneumonia/pneumonitis
-Had aspiration event while in CT scanner; went from room air to requiring 55 L O2 via high flow NC
-Initial chest x-ray without findings, x-ray morning 12/25 showed signs of right lower lobe pneumonia
-Currently on IV antibiotics with daptomycin and ceftaroline for MRSA endocarditis
-ICU on board, currently saturating well on high flow cannula, on aspiration precaution
-Of note, daptomycin with poor pulmonary efficacy due to deactivation by surfactant
-As of morning on 10 L O2, x-ray with improving right-sided opacities
Plan
-Continue with current antibiotics and pulmonary toilet/mucolytics
-Remains on antibiotics as below for MRSA IE
-Follow CBC, temperature curve, sputum culture
-Wean oxygen for SpO2 goal >90%
-NPO, plan for FEES with REEL HOOKER
-Monitor MSE
#Acute multifocal CVA
-MRI on 12/26 with acute infarct of right and left cerebellar hemisphere, left internal capsule, left jacobo
-Concern for septic emboli from MRSA endocarditis versus other cardioembolic source from AF (not on AC)
-Developed episode of disorientation and minimal responsiveness on 12/24; CT head unremarkable
-Remains on home baby aspirin; planning for high intensity statin when tolerating oral intake
-Lipid panel with LDL 83, no other significant abnormality; repeat TTE on 12/26 without vegetation
-GCS difficult to calculate initially, now very low
-Neurology on board, was not candidate for TNK
Plan
-Continue with aspirin, plan statin when tolerating PO
-Treatment of infectious endocarditis as below
-Continue neurochecks and NIHSS
-BP goal normotension
#MRSA bacteremia
#Infectious endocarditis of prosthetic valve
# S/P TAVR
-Repeat blood cultures showing MRSA with daptomycin resistance; was transitioned to vancomycin and linezolid
-High suspicion for MRSA endocarditis with persistent bacteremia in context of prosthetic valve
-TTE and RICKI both without obvious vegetations noted on cardiac valves including prosthetic valve
-Currently on daptomycin 1 g every 24 hours; blood cultures from 12/20 remain negative at 72 hours
-Has CLL with accompanying immunosuppression that is likely contributing to infection
-Blood cultures as of 12/24 positive, repeat RICKI on 12/26 without vegetation
Plan
-Continue IV vancomycin, IV linezolid and IV ceftaroline
-Serial blood cultures until negative
-Trend temperature curve and CBC
-Likely poor candidate for valve replacement
#Cardiomyopathy
-Unclear etiology; previously had workup for ischemia that was unremarkable
-Transthoracic echocardiogram here with dilated LV, ejection fraction near 30%
-Had been started on ARB for GDMT; avoiding beta-mitch due to WAP/AVB
-Holding ARB as of 12/25 due to circulatory shock as above
-Continue to monitor I's/O's and weights
#New onset atrial fibrillation
#H/O Wandering atrial pacemaker
#H/O first-degree AVB
-Nonvalvular; [id number] score 6; has history of frequent falls with significant bleeding
-Not currently on any rate/rhythm control nor anticoagulants
-Heart rate currently WNL
-Continue on telemetry
#Circulatory shock
#Sepsis secondary to aspiration pneumonia and MRSA infectious endocarditis
-Had observed aspiration event while in CT scanner on 12/24
-Optimistically this should quickly improve with resolution of SIRS from aspiration event
-Remains on maintenance IV fluid with minimal oral intake; midodrine started every 8 hours
-Has been weaned from vasopressors as of 12/26
#Nondisplaced left 2nd and 5th rib fractures
-Continue with as needed analgesics and IS
#Nonobstructive CAD
#Dyslipidemia
-Home regimen includes aspirin for primary prevention
-Not currently on beta-mitch, statin
#Chronic lymphocytic leukemia
-Not currently on any chemotherapeutic or immune modulating regimen
-Likely stage 0, likely in the wait and watch stage
-Does have associated immunosuppression
#Psoriatic arthritis
-Not currently on any DMARD therapy, on meloxicam as needed
#BPH
-Home regimen does not include tamsulosin nor alpha-1 reductase inhibitor
-No signs of bladder outlet obstruction
#DJD/DDD
-MRI C, T, L-spine with multiple degenerative findings including canal stenosis, foraminal narrowing
-Patient also complaining of left shoulder stiffness, recently also had trauma with x-ray
-Recent left shoulder x-ray showed glenohumeral and AC osteoarthritis
-Will consult orthopedics, likely will need OP follow-up
#LUE weakness
-Differentials include frozen shoulder versus rotator cuff tear; low suspicion for CVA
-Musculoskeletal in nature, recently had fall with traumatic injuries
-Currently with almost no strength to his LUE, has ROM passively
Diet: Jevity 1.5 via NGT, NPO
DVT prophylaxis: SQ Lovenox
CODE STATUS: DNR
Disposition: TBD, PT follow-up
Prognosis: Guarded, will consult palliative care for further goals of care discussion
Anticipated Discharge: > 48 hours
Subjective/Interval History
-
Date of Service: December 28, 2024
Seen and examined at the bedside. No acute events reported overnight. Remains on 10 L supplemental O2, vital stable
Blood cultures returned positive with daptomycin resistant MRSA, who was transition to vancomycin and linezolid. Patient states he feels like breathing is not much improved over the last day. Chest x-ray this morning with persistent right lower
lobe opacity.
Otherwise denies new complaints
Objective Data
-
Labs:
Laboratory Results
12/28/24
04:31
WBC 60.8 H*
Hgb 10.8 L
Hct 34.5 L
Plt Count 196
Sodium 138
Potassium 4.1
Chloride 101
Carbon Dioxide 30
BUN 28 H
Creatinine 0.6 L
Glucose 139 H
Calcium 8.3 L
Total Bilirubin 0.7
AST 92 H
ALT 67 H
Alkaline Phosphatase 190 H
Vital Signs:
Vital Signs
Temp Pulse Resp BP Pulse Ox
97.3 F 64 17 102/69 88
12/28/24 11:14 12/28/24 10:00 12/28/24 10:00 12/28/24 10:00 12/28/24 10:00
I&O
12/27/24 12/28/24 12/29/24
06:59 06:59 06:59
Intake Total 3080 / 3195 4260 / 4260
Output Total 850 / 850 550 / 550
Balance 2230 / 2345 3710 / 3710
Review of Systems
-
History Source: Patient
All other systems: Reviewed and negative
Physical Exam
-
General: Well Developed, No Apparent Distress, Appears Chronically Ill and Other (Appears fatigued and weak)
HEENT: Normocephalic, Atraumatic, Moist Mucous Membranes, Anicteric and Oxygen
Respiratory: Non Labored Respirations and Decreased Breath Sounds; Negative Wheezes, Rales, Rhonchi or Accessory Resp Muscle Use
Cardiac: Regular Rhythm and S1/S2; Negative Murmur, Rub or Gallop
GI: Soft, Nontender, Nondistended and Normal Bowel Sounds
Musculoskeletal: No Clubbing, No Cyanosis and No Edema
Skin: Warm, Dry and Normal Turgor; Negative Rash
Neuro: AO x 3 and Nonfocal/Grossly Intact; Negative Tremors
Psych: Calm
Data Reviewed
-
Labs: Labs Reviewed by me and Discussed with Patient
[2024-12-28] MEDS: ROBITUSSIN 200 MG TUBE ×3 (14:21→21:44)
[2024-12-28] MEDS: LOVENOX 40 MG SC (18:14)
--- NOTE | 2024-12-28 20:30 | PTCARENOTE ---
Patient received lying in bed, awake, alert and oriented to self and event. Forgetful to time and place. NIH 3. Abdomen soft and nontender. NGT via right nare, taped in place with Jevity 1.5 infusing at 55cc/hr with H2O flush at 25cc/hr. Tolerating
well. Patient has excessive oral secretions, oropharyngeal suctioned as needed for small amount of blood tinged kwan secretions S1S2 distant. SR with 1st degree AVB and BBB. Sats 95% on 15L midflow oxygen. BBS with UL coarse, L> R. Bilateral bases
diminished. Right lung diminished compared to the right. Positive pulses x 4 extremities, pedal pulses diminished. Left face abrasion, left knee dressing, left knee abrasion noted. C/o left shoulder pain with repositioning. Repositioned every 2
hours, HOB up 30degrees. Bed rotation in use. Bed in low and locked position, call her within reach.
[2024-12-28] MEDS: DUONEB 3 ML INH (20:38)
[2024-12-28] MEDS: SODIUM CHLORIDE 3% FOR INHALATION 1 VIAL INH (20:38)
[2024-12-29] VITALS (21 sets, daily range): BP systolic 105–141; BP diastolic 69–98; BMI 27.9
[2024-12-29] MEDS: ProAmatine 5 MG TUBE ×3 (00:09→16:17)
[2024-12-29] MEDS: TEFLARO 270 MG IV ×3 (00:09→16:16)
[2024-12-29] MEDS: SODIUM CHLORIDE 3% FOR INHALATION 1 VIAL INH ×3 (03:00→19:43)
[2024-12-29] MEDS: DUONEB 3 ML INH ×3 (03:00→19:43)
[2024-12-29 05:06] LABS: Hematocrit 35.8 % (39.0-52.0); Hemoglobin 11.1 g/dL (13.0-18.0); Mean Corpuscular Hgb 27.8 pg (27.0-31.0); Mean Corpuscular Volume 89.5 fL (80.0-94.0); Mean Platelet Volume 10.9 fL (7.4-10.4); Platelet Count 167 10^3/uL (130-400); White Blood Cell Count 59.6 10^3/uL (4.8-10.8)
[2024-12-29 05:18] LABS: Erythrocyte Sed Rate 35 mm/hour (0-20)
[2024-12-29 05:20] LABS: ALT (SGPT) 93 U/L (0-50); AST (SGOT) 115 U/L (17-59); Albumin 2.6 g/dl (3.5-5.0); Alkaline Phosphatase 246 U/L (38-126); Blood Urea Nitrogen 26 mg/dl (9-20); Calcium 8.2 mg/dl (8.4-10.2); Carbon Dioxide 33 mmol/L (22-30); Chloride 99 mmol/L (98-107); Estimated Creatinine Clearance 94 ml/min; Glucose 142 mg/dl (70-99); Potassium 4.3 mmol/L (3.5-5.1); Sodium 138 mmol/L (135-145); Total Bilirubin 0.7 mg/dl (0.2-1.3); eGFR > 60.00
[2024-12-29] MEDS: ZYVOX 600 MG 300 IV ×2 (05:54→18:07)
--- NOTE | 2024-12-29 07:07 | PTCARENOTE ---
Report given verbally to Nadege hay RN. Questions answered.
[2024-12-29] MEDS: TYLENOL ORAL SOLUTION 1000 MG TUBE ×3 (08:05→21:24)
[2024-12-29] MEDS: LIDOCAINE 4% PATCH 1 PATCH TOPICAL (08:05)
[2024-12-29] MEDS: ROBITUSSIN 200 MG TUBE ×4 (08:05→21:24)
[2024-12-29] MEDS: LOW STRENGTH ASPIRIN 81 MG TUBE (08:06)
[2024-12-29] MEDS: DESENEX/MITRAZOL/ZEASORB 1 APPLIC TOPICAL ×2 (08:06→20:34)
--- NOTE | 2024-12-29 08:31 | W.PN.ID1 ---
Date of Service
Date of Service: December 29, 2024
Today's Communication
Continue antibiotics. Follow blood cultures.
Assessment / Plan
Sustained MRSA bacteremia
- Initial Vanco DESTNIEE=1, progression to DESTINEE=2
- Initial dapto DESTINEE=0.5, progression to DESTINEE=2 (R)
Acute hypoxemic respiratory failure; on high flow O2
Fever
Pneumonia vs pneumonitis
suspected aspiration-related
CVA
Recurrent falls
Aortic stenosis; Hx TAVR (2023; [facility])
Thoracic back discomfort
Elevated ESR and CRP
CLL
Psoriatic arthritis
HTN
Recommendations:
Given presence of TAVR, concern at this point in time is for prosthetic valve endocarditis, although TTE x2 and RICKI did not reveal a vegetation.
MRI spine (C/T/L) negative for epidural abscess. TTE (12/16/2024) / ( 12/26/24) and RICKI (12/18/2024) negative for vegetation
Called by micro lab yesterday; repeat sensitivities on MRSA isolate from 12/23 revealed emergence of daptomycin resistance.
Case discussed with Clinical Infectious Diseases Pharmacist. Further daptomycin discontinued
--> Continue combination therapy with vancomycin, linezolid, ceftaroline
Continue serial blood cultures to assess clearance of bacteremia.
Currently a high risk situation given persistence of bacteremia and emergence of resistance while on therapy
Patient remains critically ill in intensive care unit on mid-flow O2
Monitor white count and temperature curve.
Follow CXR
����������������������������������������������������������
Chief Complaint
-: Pneumonia and Bacteremia (MRSA)
Subjective / Review of Systems
Patient seen and examined.
Review of Systems: No Fever
Vital Signs / Physical Exam
Vital Signs
Vital Signs
Temp Pulse Resp BP Pulse Ox
97.0 F 80 24 132/76 93
12/29/24 07:18 12/29/24 07:24 12/29/24 07:24 12/29/24 07:00 12/29/24 07:24
Physical Exam
Constitutional: Acutely Ill, Chronically Ill and Toxic
Head: Other (NG in place with tube feeds)
Eyes: No Conjunctival Hemorrhage and Sclera Anicteric
Cardiovascular: S1/S2; Negative S3/S4 or Murmur
Pulmonary: Rhonchi, Coarse and Other (Mildly labored.)
Gastrointestinal: Soft and Non Distended
Extremities: Negative Edema, Cyanosis, Splinter Hemorrhage or Janeway Lesions
Neurological: Awake and Alert
Psychological: Calm
Objective Data
Lab Data
Lab Results
12/29/24 04:14
12/29/24 04:14
ESR 35 mm/hour (0-20) H 12/29/24 04:14
PT 15.6 Sec (11.4-14.6) H 12/25/24 00:21
INR 1.21 12/25/24 00:21
APTT 35.2 Sec (23.4-35.0) H 12/25/24 00:21
Estimated Creat Clear 94 ml/min 12/29/24 04:14
Lactic Acid 0.9 mmol/L (0.7-2.0) 12/14/24 13:20
Total Bilirubin 0.7 mg/dl (0.2-1.3) 12/29/24 04:14
AST 115 U/L (17-59) H 12/29/24 04:14
ALT 93 U/L (0-50) H 12/29/24 04:14
Alkaline Phosphatase 246 U/L (38-126) H 12/29/24 04:14
C-Reactive Protein 203.60 mg/L (0.0-10.00) H 12/29/24 04:14
Most recent labs reviewed.
Micro Results:
12/26/24 15:33 Blood Culture - Preliminary
Blood/Venous No Growth in 48 hours- Final report to follow
12/26/24 14:59 Blood Culture - Preliminary
Blood/Venous No Growth in 48 hours- Final report to follow
12/26/24 12:30 Respiratory Culture - Final
Sputum Usual Respiratory Ilana
Gram Stain - Final
12/28/24 08:48 Blood Culture - Pending
Blood/Venous
12/28/24 08:48 Blood Culture - Pending
Blood/Venous
12/23/24 17:08 Blood Culture - Final
Blood/Venous Staph aureus MRSA
Gram Stain - Final
12/23/24 17:56 Blood Culture - Final
Blood/Venous Staph aureus MRSA
Gram Stain - Final
12/24/24 15:58 Blood Culture - Final
Blood/Venous Staph aureus MRSA
Gram Stain - Final
12/20/24 12:19 Blood Culture - Final
Blood/Venous No Growth - Final Report
12/20/24 12:03 Blood Culture - Final
Blood/Venous No Growth - Final Report
12/18/24 14:43 Blood Culture - Final
Blood/Venous Staph aureus MRSA
Gram Stain - Final
12/18/24 13:15 Blood Culture - Final
Blood/Venous Staph aureus MRSA
Gram Stain - Final
12/15/24 23:11 Blood Culture - Final
Blood/Venous Staph aureus MRSA
Gram Stain - Final
12/15/24 22:19 Blood Culture - Final
Blood/Venous Staph aureus MRSA
Gram Stain - Final
12/14/24 13:20 Blood Culture - Final
Blood/Venous Staph aureus MRSA
Gram Stain - Final
12/14/24 14:36 Blood Culture - Final
Blood/Venous Staph aureus MRSA
Gram Stain - Final
12/14/24 14:36 Urine Culture - Final
Urine NO GROWTH
12/14/24 21:22 MRSA Screen - Final
Nose No Methicillin Resistant Staphylococcus aureus isolated.
12/14/24 13:20 Influenza Types A & B (JUAN LUIS) - Final
Nasal Swab Negative for Influenza A & B, NAAT
Negative results must be combined with clinical observations
and patient history.
Nucleic Acid Amplification test (NAAT)performed on the
[employer] platform.
Imaging:
12/27/2024 CXR (portable): Near complete whiteout of the right hemithorax. Mild rightward deviation of the trachea. Right mainstem bronchus is obscured. Elevation of the right hemidiaphragm noted. Please see full dictation for additional detail.
12/26/2024 MRI brain: Tiny acute infarct foci in the right and left cerebellar hemispheres and small acute infarct focus involving the anterior limb of left internal capsule, and tiny focus in the central left jacobo radiata. Large volume chronic
microvascular white matter ischemic disease. Small chronic right pontine lacunar infarct. Probable old/chronic hemorrhagic lacunar infarct in the right thalamus.
12/23/2024 MRI lumbar spine: Small amount of fluid signal intensity in the L5/S1 intervertebral disc. Moderate to severe enhancing edema in the left psoas muscle.
12/23/2024 MRI cervical spine: Acute bone marrow edema in the left T2 transverse process surrounded by moderate enhancing soft tissue edema. Possibilities include acute traumatic injury or possible acute osteomyelitis.
12/16/2024 MRI thoracic spine: Moderate loss of height of the T5 vertebral body with associated small Schmorl's node. Mild hyperintense signal within the anterior aspect of the vertebral body favored to represent acute on chronic compression
fracture, and less likely to be discitis or osteomyelitis.
12/14/2024 CXR (ribs): Nondisplaced fractures of the left 2nd and 5th ribs identified on the cervical spine CT from 12/14 I last well seen by radiograph. No other acute rib fractures definitively appreciated by this radiograph. Please see full
dictation for additional detail.
Cardiac Imaging:
12/18/2024 ECHO (RICKI): EF approximately 35%. Well-seated and normally functioning bioprosthetic aortic valve. No evidence of regurgitation. No vegetation noted.
12/16/2024 ECHO (TTE): Moderately reduced LV systolic function with an EF approximately 30%. Global hypokinesis. Mild mitral regurgitation. Well-seated, normally functioning bioprosthetic aortic valve.
[2024-12-29 09:04] LABS: % Basophils 0.1 % (0-2); % Eosinophils 0.1 % (0-6); % Immature Granulocytes 0.4 % (0-0.5); % Lymphocytes 81.4 % (20.5-51.1); % Monocytes 0.9 % (1.7-9.3); % Neutrophils 17.1 % (42.2-75.2); Absolute Basophils 0.1 10^3/uL (0-0.2); Absolute Immature Granulocytes 0.2 10^3/uL (0-0.05); Absolute Lymphocytes 48.6 10^3/uL (1.2-3.4); Absolute Monocytes 0.6 10^3/uL (0.1-0.6); Absolute Neutrophils 10.2 10^3/uL (1.4-6.5); Nucleated Red Blood Cells % 0 % (-)
--- NOTE | 2024-12-29 11:20 | W.PN.PUL3 ---
Today's Communication / Plan
-
Mucus clearing techniques - vest therapy + DuoNebs + nebulized 3% started 12/28
Continue mucolytics with Mucinex
Antibiotics per ID
Consider palliative care -full medical management for now
Wean down supplemental O2 if possible, keeping goal SpO2 90-94%
Poor prognosis
Pulmonary services will continue to follow along
Assessment
-
Assessment:
84-year-old male with a history of CLL, CAD, cardiomyopathy, psoriatic arthritis, who recently underwent TAVR and was admitted with sepsis, septic emboli who had episode of emesis, aspiration, lethargy and hypoxemia requiring transfer to
ICU-acid wash operator consulted for respiratory decompensation/aspiration/critical care management 12/24/24.
Aspiration event/aspiration pneumonia
MRSA bacteremia
Sepsis
Septic emboli
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
Elevated ESR and CRP
Right lung atelectasis from mucous plug
Acute CVA
Recent fall with left-sided head trauma 12/14/24
Left 2nd and 5th rib fracture
Lymphocytosis-CLL
Mild oythtj-jaemrljoqv-jedyauvcps 12.4
Mild hyperglycemia
Mild hyponatremia
DNR
Conditions present prior to admission:
CAD.
Aortic stenosis/TAVR.
CLL.
Hyperlipidemia.
Psoriatic arthritis.
BPH.
Left rotator cuff. Left hip replacement. Bilateral knee replacement.
Plan
Respiratory status remains tenuous with difficulties to mobilize significant secretions
High flow oxygen as needed-patient has been on midflow nasal cannula since morning of 12/26/2024
Continue to wean down supplemental O2 flow rate as tolerated while keeping SpO2 >90-94%
Would try to avoid as BiPAP as this will increase risk of aspiration
Patient is a DNR-not to be intubated
Aspiration precautions continue with head of bed elevation and nasogastric tube decompression
Speech therapy evaluation ongoing
FEES -pending as he is too unstable respiratory rise
Nebulizers if needed
Chest x-ray 12/25/24-moderate opacification right lower lung concerning for pneumonia
Chest x-ray 12/27/2024-near complete opacification right hemithorax likely lung atelectasis
Too tenuous for bronchoscopy-recommend nasal trumpet, deep suctioning, chest physiotherapy-if patient allows
On 12/28, started 3% hypertonic saline BID with DuoNebs and vest to help him bring up phlegm
CXR on 12/28/2024 shows much improvement in aeration of right lung compared to 12/27/2024 --> pulmonary toilet is dhillon. CXR repeated today (12/29) showing stable examination although still with significant pneumonia seen + atelectasis (R >L)
Cultures reviewed
Repetitive blood cultures positive for MRSA dating back to 12/14/2024-positive 12/15/24, 12/18/24, 12/23/24 and 12/24/24
Blood cultures 12/26/2024-NGTD
Sputum culture 12/26/2024-usual respiratory quinton
Antibiotics continue-Zyvox and ceftaroline; defer to ID
Serial blood cultures continue (rechecked again AM of 12/28 - NGTD)
Infectious disease following-correspondence reviewed
Trend WBC and monitor for fevers
MRI brain 12/26/2024-tiny acute infarct both right and left cerebellar hemispheres and small acute infarct anterior limb left internal capsule
Eventual MRI left shoulder, if pt can safely travel off floor
Lactate was normal on admission
Norepinephrine has been wean off
Midodrine added and helping
Follow hemoglobin
Transfuse if needed to keep Hb>7g/dL
Monitor blood sugar with goal >100 and <180mg/dL
Insulin supplementation if needed
DVT prophylaxis- On Lovenox
Early nutrition if possible
Early mobilization/bedside range of motion
Overall prognosis unfortunately quite poor, consideration towards palliative care/hospice. Pulmonary service will continue to follow along.
Diagnostic data:
Chest x-ray 01/05/2024-mild increased interstitial markings compatible with interstitial fibrosis stable compared to December 26, 2023
Chest/rib films 12/14/24-nondisplaced fractures of the left 2nd and 5th ribs
CT head 12/24/24-no acute intracranial abnormalities
MRI thoracic spine -moderate compression deformities T5, less likely discitis or osteomyelitis
MRI-cervical spine 12/23/24-acute bone marrow edema left T2 transverse process, more likely traumatic injury and less likely infection, severe discogenic disc disease C4, C5, C6, C7, mild spinal cord compression,
MRI-lumbar spine -mild acute infectious discitis or discogenic degenerative disease L5/S1, central canal stenosis,
Echocardiogram 12/16/24-EF 30-35%, stage II diastolic dysfunction, mild mitral regurgitation
RICKI 12/18/24-EF 30-35%, global hypokinesis, well-seated bioprosthetic aortic valve, no evidence for regurgitation, no obvious endocarditis
Total time spent today was 52 minutes for this encounter. Time includes reviewing laboratory test/imaging results, reviewing pertinent medical records, obtaining and reviewing medical history, performing an appropriate exam, ordering medications,
tests and procedures. Time also includes documentation of this encounter, coordinating patient care and communicating with other healthcare professionals. Total time does not include separately billed tests performed on this date of service.
Subjective Data
-
Date of Service:
Date of Service: December 29, 2024
Chief Complaint: Pulmonary Follow Up
Subjective:
Patient was seen this morning. His friend, [place], present at bedside and all questions were answered. Patient is currently on 15 L/min via mid flow nasal cannula, saturating 95%, heart rate 83 and BP 132/77. He is drowsy but still able to
follow commands and does not appear confused.
Review of Systems
General: Other (Negative unless mentioned above)
Objective Data
Data Reviewed
Vital Signs / I&O / Oxygen:
Vital Signs
Temp Pulse Resp BP Pulse Ox
97.0 F 94 25 132/98 88
12/29/24 07:18 12/29/24 08:00 12/29/24 08:00 12/29/24 08:00 12/29/24 08:00
Intake and Output
12/28/24 12/29/24 12/30/24
06:59 06:59 06:59
Intake Total 4260 / 4260 3196 / 3276 605 / 605
Output Total 550 / 550 200 / 200
Balance 3710 / 3710 2996 / 3076 605 / 605
SaO2 88
Nasal Cannula flow liters per 10
minute
Physical Exam
General: Respiratory Distress (negative), Comfortable, Chills (negative) and Sweats (negative)
HEENT: Normocephalic, Anicteric and Moist Mucous Membranes
Cardiovascular: Irregular Rhythm and Peripheral Edema (negative)
Respiratory: Wheeze (negative), Crackles (Bilaterally), Rhonchi (Bilaterally), Non-Labored Respirations and Stridor (negative)
GI: Soft, Non Distended, Non Tender and Normal Bowel Sounds
Neurology: Tremors (negative) and Other (Drowsy but following commands)
Skin: Warm, Dry, Cyanosis (negative), Jaundice (negative) and Other (Dry skin with horizontal laceration which is healing across right great toe along plantar surface)
Labs/Micro/Reports
Lab Data
12/29/24 04:14
12/29/24 04:14
Microbiology
12/28/24 08:48 Blood/Venous Blood Culture - Preliminary
No Growth in 24 hours- Final report to follow
12/28/24 08:48 Blood/Venous Blood Culture - Preliminary
No Growth in 24 hours- Final report to follow
12/26/24 15:33 Blood/Venous Blood Culture - Preliminary
No Growth in 48 hours- Final report to follow
12/26/24 14:59 Blood/Venous Blood Culture - Preliminary
No Growth in 48 hours- Final report to follow
12/26/24 12:30 Sputum Respiratory Culture - Final
Usual Respiratory Quinton
12/26/24 12:30 Sputum Gram Stain - Final
12/23/24 17:08 Blood/Venous Blood Culture - Final
Staph aureus MRSA
12/23/24 17:08 Blood/Venous Gram Stain - Final
12/23/24 17:56 Blood/Venous Blood Culture - Final
Staph aureus MRSA
12/23/24 17:56 Blood/Venous Gram Stain - Final
12/24/24 15:58 Blood/Venous Blood Culture - Final
Staph aureus MRSA
12/24/24 15:58 Blood/Venous Gram Stain - Final
--- NOTE | 2024-12-29 12:14 | W.PN.HOSP.TC ---
Today's Communication/Plan
-
Palliative care consult/goals of care
Continue current management
Consider resuming ARB if hemodynamics tolerate
Trend LFTs/consider RUQ US
Assessment / Plan
Assessment / Plan
#Acute hypoxemic respiratory failure
#Acute metabolic encephalopathy
#Aspiration pneumonia/pneumonitis
-Had aspiration event while in CT scanner; went from room air to requiring 55 L O2 via high flow NC
-Initial chest x-ray without findings, x-ray morning 12/25 showed signs of right lower lobe pneumonia
-Currently on IV antibiotics with daptomycin and ceftaroline for MRSA endocarditis
-ICU on board, currently saturating well on high flow cannula, on aspiration precaution
-As of morning on 15 L O2, x-ray with significant right-sided opacification
Plan
-Continue with current antibiotics and pulmonary toilet/mucolytics
-Remains on antibiotics as below for MRSA IE
-Wean oxygen for SpO2 goal >90%
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
-Monitor MSE
#Acute multifocal CVA
-MRI on 12/26 with acute infarct of right and left cerebellar hemisphere, left internal capsule, left jacobo
-Concern for septic emboli from MRSA endocarditis versus other cardioembolic source from AF (not on AC)
-Remains on home baby aspirin; planning for high intensity statin when tolerating oral intake
-Lipid panel with LDL 83, no other significant abnormality; repeat TTE on 12/26 without vegetation
-GCS difficult to calculate initially, now very low
-Neurology on board, was not candidate for TNK
Plan
-Continue with aspirin, plan statin when tolerating PO
-Treatment of infectious endocarditis as below
-Continue neurochecks and NIHSS
-BP goal normotension
#MRSA bacteremia
#Infectious endocarditis of prosthetic valve
# S/P TAVR
-Repeat blood cultures showing MRSA with daptomycin resistance; was transitioned to vancomycin and linezolid with ceftaroline
-High suspicion for MRSA endocarditis with persistent bacteremia in context of prosthetic valve
-TTE and RICKI both without obvious vegetations noted on cardiac valves including prosthetic valve
-Currently on daptomycin 1 g every 24 hours; blood cultures from 12/20 remain negative at 72 hours
-Has CLL with accompanying immunosuppression that is likely contributing to infection
-Blood cultures as of 12/24 positive, repeat RICKI on 12/26 without vegetation
Plan
-Continue IV vancomycin, IV linezolid and IV ceftaroline
-Serial blood cultures until negative
-Trend temperature curve and CBC
-Likely poor candidate for valve replacement
#Cardiomyopathy
-Unclear etiology; previously had workup for ischemia that was unremarkable
-Transthoracic echocardiogram here with dilated LV, ejection fraction near 30%
-Had been started on ARB for GDMT; avoiding beta-mitch due to WAP/AVB
-Holding ARB as of 12/25, plan to resume when hemodynamics improve
-Continue to monitor I's/O's and weights
#New onset atrial fibrillation
#H/O Wandering atrial pacemaker
#H/O first-degree AVB
-Nonvalvular; [id number] score 6; has history of frequent falls with significant bleeding
-Not currently on any rate/rhythm control nor anticoagulants
-Heart rate currently WNL
-Continue on telemetry
#Transaminitis
-Mild, AST and ALT near 2 times upper normal limit; remainder of LFTs normal
-Possibly related to linezolid and ceftaroline, no other obvious hepatotoxic agents
-Does not have any abdomen pain or other signs of biliary obstruction
-Continue to trend LFTs daily for now
-Consider RUQ ultrasound if significant worsening
#Circulatory shock
#Sepsis secondary to aspiration pneumonia and MRSA infectious endocarditis
-Had observed aspiration event while in CT scanner on 12/24
-Optimistically this should quickly improve with resolution of SIRS from aspiration event
-Remains on maintenance IV fluid with minimal oral intake; midodrine started every 8 hours
-Has been weaned from vasopressors as of 12/26
#Nondisplaced left 2nd and 5th rib fractures
-Continue with as needed analgesics and IS
#Nonobstructive CAD
#Dyslipidemia
-Home regimen includes aspirin for primary prevention
-Not currently on beta-mitch, statin
#Chronic lymphocytic leukemia
-Not currently on any chemotherapeutic or immune modulating regimen
-Likely stage 0, likely in the wait and watch stage
-Does have associated immunosuppression
#Psoriatic arthritis
-Not currently on any DMARD therapy, on meloxicam as needed
#BPH
-Home regimen does not include tamsulosin nor alpha-1 reductase inhibitor
-No signs of bladder outlet obstruction
#DJD/DDD
-MRI C, T, L-spine with multiple degenerative findings including canal stenosis, foraminal narrowing
-Patient also complaining of left shoulder stiffness, recently also had trauma with x-ray
-Recent left shoulder x-ray showed glenohumeral and AC osteoarthritis
-Will consult orthopedics, likely will need OP follow-up
#LUE weakness
-Differentials include frozen shoulder versus rotator cuff tear; low suspicion it is related to CVA
-Musculoskeletal in nature, recently had fall with traumatic injuries
-Currently with almost no strength to his LUE, has ROM passively
Diet: Jevity 1.5 via NGT, NPO
DVT prophylaxis: SQ Lovenox
CODE STATUS: DNR
Prognosis: Guarded, palliative care consulted
Anticipated Discharge: > 48 hours
Subjective/Interval History
-
Date of Service: December 29, 2024
Seen and examined at the bedside. No acute events reported overnight. Remains on 15 L O2 with SpO2 90%, otherwise hemodynamically stable
Labs are generally stable. Does have mild uptrend to transaminases. Chest x-ray with significant opacification of the right hemithorax
Patient states he feels weak, denies current shortness of breath.
Objective Data
-
Labs:
Laboratory Results
12/29/24
04:14
WBC 59.6 H*
Hgb 11.1 L
Hct 35.8 L
Plt Count 167
Sodium 138
Potassium 4.3
Chloride 99
Carbon Dioxide 33 H
BUN 26 H
Creatinine 0.7
Glucose 142 H
Calcium 8.2 L
Total Bilirubin 0.7
AST 115 H
ALT 93 H
Alkaline Phosphatase 246 H
Vital Signs:
Vital Signs
Temp Pulse Resp BP Pulse Ox
96.7 F L 72 27 132/77 90
12/29/24 11:47 12/29/24 11:00 12/29/24 11:00 12/29/24 11:00 12/29/24 11:00
I&O
12/28/24 12/29/24 12/30/24
06:59 06:59 06:59
Intake Total 4260 / 4260 3196 / 3276 765 / 765
Output Total 550 / 550 200 / 200
Balance 3710 / 3710 2996 / 3076 765 / 765
Review of Systems
-
History Source: Patient
All other systems: Reviewed and negative
Physical Exam
-
General: Well Developed, No Apparent Distress, Appears Chronically Ill and Other (Weak and frail)
HEENT: Normocephalic, Atraumatic, Moist Mucous Membranes and Anicteric
Respiratory: Rhonchi and Non Labored Respirations; Negative Wheezes, Rales or Accessory Resp Muscle Use
Cardiac: Regular Rhythm, S1/S2 and Murmur; Negative Rub, JVD or Gallop
GI: Soft, Nontender, Nondistended and Normal Bowel Sounds
Musculoskeletal: No Clubbing, No Cyanosis and No Edema
Skin: Warm and Dry; Negative Rash
Neuro: AO x 3 and Nonfocal/Grossly Intact; Negative Tremors
Psych: Calm
Data Reviewed
-
Labs: Labs Reviewed by me, Discussed with Physician (Cattle Trader) and Discussed with Patient
[2024-12-29] MEDS: VANCOCIN 540 MG IV (13:15)
--- NOTE | 2024-12-29 13:51 | PTCARENOTE ---
Rec'd pt at 0700. Pt alert/awake, restless at times. Follows commands, RAPP-left arm stiff and pt unable to lift up fully from bed r/t rotator cuff. Pt forgetful and has confused conversation at times. Monitor Afib. Lungs coarse, gurgly voice
quality intermittently. Percussion via bed Q4hrs. Pox 90-97% on 15L midflow. NGT with Jevity 1.5 at 55mls/hr. Incont for large loose brown stool, incont of urine. IMU status.
[2024-12-29] MEDS: LOVENOX 40 MG SC (17:37)
[2024-12-29] MEDS: MORPHINE SULFATE 2 MG IV ×2 (17:37→23:13)
--- NOTE | 2024-12-29 17:45 | PTCARENOTE ---
Pt with increased WOB/resp effort. 2mg IV Morphine ordered and given.
--- NOTE | 2024-12-29 19:30 | PTCARENOTE ---
Addendum entered by Shamika Jones RN 12/29/24 22:20:
Of note, Patient was recently medicated with Morphine Sulfate IV 2mg at 1737. This is most likely contributing to patient lethargy.
Original Note:
Patient received lying still in bed with eyes closed and respirations tachypneic and labored. Patient opens eyes briefly to name called. Deep Suctioned oropharyngeally for large amount of thick kwan secretions with mucus plug appearance. When asked
if better patient says yes. Patient is otherwise obtunded and minimally interactive. Unable to accurately perform NIHSS. Sandhya Molina APN notified and orders received from Dr Edmond to discontinue NIH evaluation. Patient is on 15L midflow oxygen
with sats 89-91%. BBS with coarse crackles, rhonchi and expiratory wheezes t/o with right ML an RLL diminished. S1S2 irregular and distant. Afib on CM with occasional PVCs, couplet PVC and Junctional escape beat noted. HR up to 110 BPM. Once
suctioned HR improved to 80-90s. Afebrile. BP stable. Skin is cool and clammy, mottled and diaphoretic. Wounds noted. Due to diaphoresis, complete cares given with CHG cloth bath, complete linen change. Skin care with zinc oxide to perineum, scrotum
and Desenex powder to MASD. Patient turned every 2 hours with bed on rotation mode. Respiratory treatment given, Percussion and vibration via bed, suctioned for large amount of thick kwan secretions. Abdomen soft and nontender. NGT via right nare
taped in place with Jevity 1.5 Tube feeding infusing at 55cc/hr and 25cc/hr H2O flush. Tongue is dry, oral care rendered, mouth moisturizer. Bed in low and locked position, call her within reach.
--- NOTE | 2024-12-29 21:35 | PTCARENOTE ---
Evaluated tube feed residual prior to med administration. 800cc residual in stomach. Sandhya Molina APN notified. Orders received to hold tube feed for 2 hours. Tube feeding off. Residual replaced via NGT.
--- NOTE | 2024-12-29 22:00 | PTCARENOTE ---
Patient oxygen saturation hovering around 86-88% despite suctioning and 15L midflow oxygen. Patient is mouth breathing. Respiratory therapist notified. 100% NRB mask donned. Sats improved to 91-93%.
--- NOTE | 2024-12-29 22:50 | PTCARENOTE ---
Patient looks uncomfortable. He is tugging away with significant respiratory distress, diaphoretic and restless. Sandhya Molina APN contacted for orders. New orders received. #14 FR Weiss catheter inserted via sterile technique for end of life care.
40mg Lasix given IV and 2mg MSO4 given for respiratory distress.
[2024-12-29] MEDS: LASIX 40 MG IV (23:12)
[2024-12-30] VITALS: BP 116/62
[2024-12-30] MEDS: ProAmatine 5 MG TUBE (00:07)
[2024-12-30] MEDS: TEFLARO 270 MG IV (00:07)
[2024-12-30 02:00] VITALS: BP 135/85
--- NOTE | 2024-12-30 03:00 | PTCARENOTE ---
Continues with high residuals, tube feeds off. Sandhya SALAZAR notified. Pt has rattle, order recived for Scopalamine patch, Placed. At approx 0340 patient began agonal breathing. Sats began to slowly drop. AIVR noted on CM briefly. This RN at
bedside, holding patient's hand, providing emotional support.
[2024-12-30] MEDS: TRANSDERM-SCOP 1 PATCH TRANSDERM (03:41)
[2024-12-30 04:00] VITALS: BP 113/61
[2024-12-30] MEDS: MORPHINE SULFATE 2 MG IV (04:00)
--- NOTE | 2024-12-30 04:00 | PTCARENOTE ---
Patient sats in the 70s. Agonal respirations. Morphine 2mg given IV for breathing. At approximately 0403, patient asystole on CM. Apneic. Sandhya Molina APN notified. Pronounced. [facility] life contacted. Patient is released from donation due to age.
Body prepped for the morgue.
[2024-12-30] MEDS: FLUSH (NSS) 1 FLUSH IV (04:01)
--- NOTE | 2024-12-30 04:38 | W.PN.DEATH ---
Pronouncement of
-
Called to see patient to pronounce.
No spontaneous heart tones or respirations noted.
Patient not responsive to verbal stimuli.
Patient is pronounced .
Time of : 04:03
Date of : 12/30/24
Cause of : acute hypoxic resp failure, sepsis, aspiration PNA
Family Notified: Yes (Friend Tyrell Ag made aware via phone message to call us back. )
--- NOTE | 2024-12-30 05:00 | SUR.OPER ---
[place] [facility]. Patient belongings sent including dentures, eyeglasses, tablet with warp dyeing tender and phone with warp dyeing tender.
--- NOTE | 2024-12-30 15:39 | CM ---
CM following re: discharge planning.
Per chart review, pt at 4:38 a.m. today.
'
CM received a phone call from pt's friend Dao [phone] who started he is POA and would like to know the next step. Guidelines provided. Pt's friend Dao stated he is looking for a home to claim the body and in meantime either friend
Tyrell or friend Titi will come to to pickling solution maker pt's belongings.
Pt's friend Dao stated that he is the pt's friend and he feels he is pt's son that so close there were for all life. Emotional support offered and provided.
Phone number for this CM provided to pt's friend to assist with any questions and/or directions.
== END 2024-12-30 04:03 | disposition expired | DRG 314 ==
LOC: ICU 12:07
PROVIDERS: Internal Medicine; Physician Assistant; Physician Assistant Medical; ADMITTING PHYSICIAN Hospitalist; ATTENDING PHYSICIAN Internal Medicine; CONSULT PHYSICIAN Internal Medicine Cardiovascular Disease; CONSULT PHYSICIAN Internal Medicine Critical Care Medicine; CONSULT PHYSICIAN Internal Medicine Infectious Disease; CONSULT PHYSICIAN Physical Medicine & Rehabilitation; CONSULT PHYSICIAN Psychiatry & Neurology Neurology; EMERGENCY PHYSICIAN Emergency Medicine; FAMILY PHYSICIAN Orthopaedic Surgery
PROC: 0HQ1XZZ Repair Face Skin, External Approach (ICD-10-PCS; 2024-12-14)
PROC: 3E0234Z Introduction of Serum, Toxoid and Vaccine into Muscle, Percutaneous Approach (ICD-10-PCS; 2024-12-14)
PROC: B24BZZ4 Ultrasonography of Heart with Aorta, Transesophageal (ICD-10-PCS; 2024-12-18)
DX: T82.6XXA Infection and inflammatory reaction due to cardiac valve prosthesis, initial encounter (principal); A41.02 Sepsis due to Methicillin resistant Staphylococcus aureus; G92.8 Other toxic encephalopathy; J69.0 Pneumonitis due to inhalation of food and vomit; J96.01 Acute respiratory failure with hypoxia; I33.0 Acute and subacute infective endocarditis; I63.49 Cerebral infarction due to embolism of other cerebral artery; R65.21 Severe sepsis with septic shock; S22.42XA Multiple fractures of ribs, left side, initial encounter for closed fracture; C91.10 Chronic lymphocytic leukemia of B-cell type not having achieved remission; I50.20 Unspecified systolic (congestive) heart failure; I76 Septic arterial embolism; E87.1 Hypo-osmolality and hyponatremia; I42.8 Other cardiomyopathies; W10.1XXA Fall (on)(from) sidewalk curb, initial encounter; N40.1 Benign prostatic hyperplasia with lower urinary tract symptoms; R39.15 Urgency of urination; Z66 Do not resuscitate; S40.212A Abrasion of left shoulder, initial encounter; S80.212A Abrasion, left knee, initial encounter; I48.91 Unspecified atrial fibrillation; S01.112A Laceration without foreign body of left eyelid and periocular area, initial encounter; R29.6 Repeated falls; I11.0 Hypertensive heart disease with heart failure; R31.9 Hematuria, unspecified; I44.0 Atrioventricular block, first degree; L89.322 Pressure ulcer of left buttock, stage 2; R29.711 NIHSS score 11; E78.00 Pure hypercholesterolemia, unspecified; D64.9 Anemia, unspecified; I25.10 Atherosclerotic heart disease of native coronary artery without angina pectoris; L40.50 Arthropathic psoriasis, unspecified; R73.9 Hyperglycemia, unspecified; B95.62 Methicillin resistant Staphylococcus aureus infection as the cause of diseases classified elsewhere; Y71.2 Prosthetic and other implants, materials and accessory cardiovascular devices associated with adverse incidents; R74.01 Elevation of levels of liver transaminase levels; M47.812 Spondylosis without myelopathy or radiculopathy, cervical region; M47.816 Spondylosis without myelopathy or radiculopathy, lumbar region; M47.814 Spondylosis without myelopathy or radiculopathy, thoracic region; Y92.481 Parking lot as the place of occurrence of the external cause; Z95.3 Presence of xenogenic heart valve; Z11.52 Encounter for screening for COVID-19; Z91.81 History of falling; Z87.891 Personal history of nicotine dependence; Z79.82 Long term (current) use of aspirin; Z23 Encounter for immunization
CPT/HCPCS: 93308; 12013; 70450; 70551; 71045; 71101; 72125; 72156; 72157; 72158; 73030; 73564; 74018; 80048; 80053; 80061; 80202; 81003; 81015; 81099; 82248; 82550; 82570; 82607; 82728; 82746; 82962; 83036; 83605; 83735; 84100; 84300; 84443; 85025; 85027; 85610; 85652; 85730; 86140; 87040; 87070; 87086; 87147; 87150; 87186; 87205; 87502; 87811; 90471; 90715; 92526; 92610; 93005; 93306; 93312; 93320; 93321; 93325; 94640; 97112; 97116; 97167; 97530; 97535; 99285; A9575; J0712; J0878; J2020; Q9950